=== PATIENT | female | born 1975 | race African-American/Black ===

== ENCOUNTER 2016-11-15 09:42 | Inpatient (IN) | payer MEDICARE, MEDICAID ==
[~2016-11-15] VITALS: Ht 175.3 cm; Wt 124.7 kg
[2016-11-15] MEDS ORDERED: AMOX TR-K CLV1 EAC2 ORAL (10:00)
[2016-11-15] MEDS ORDERED: TORADOL10 MG PO (10:00)
[2016-11-15] MEDS ORDERED: HYDROmorphone 1 MG, DiphenhydrAMINE 25 MG in NS 55 ML IV ONE (10:00)
[2016-11-15] MEDS ORDERED: OXYCODONE-ACET1 EAC3 ORAL (10:00)
[2016-11-15] MEDS ORDERED: HYDROmorphone 1mg/ml Carpuject ONE (10:18)
[2016-11-15] MEDS ORDERED: NS 55 ML IV ONE (10:19)
[2016-11-15] MEDS ORDERED: Tubing IV Secondary IV ONE (10:19)
[2016-11-15] MEDS ORDERED: DiphenhydrAMINE 50mg/ml Inj ONE (10:19)
[2016-11-15] MEDS ORDERED: Tubing IV Cassette IV ONE (10:19)
[2016-11-15 10:30] VITALS: BP 138/69
[2016-11-15 10:43] LABS: MEAN CORPUSCULAR HEMOGLOBIN 26.7 PG (27.0-31.0); MEAN CORPUSCULAR HGB CONC 31.5 G/DL (32.0-36.0); MEAN CORPUSCULAR VOLUME 85 FL (80-99); MEAN PLATELET VOLUME 6.5 FL (6.5-10.1); PLATELET COUNT 271 K/UL (150-450); RED BLOOD COUNT 4.08 M/UL (4.20-5.40); RED CELL DISTRIBUTION WIDTH 13.4 % (11.6-14.8); WHITE BLOOD COUNT 10.5 K/UL (4.8-10.8)
[2016-11-15 10:48] LABS: PROTHROMBIN TIME 10.1 SEC (9.30-11.50)
[2016-11-15 11:28] LABS: BAND NEUTROPHILS % (MANUAL) 0 % (0-8); BASOPHILS % (MANUAL) 0 % (0-2); EOSINOPHILS % (MANUAL) 1 % (0-3); HYPOCHROMASIA 1+; LYMPHOCYTES % (MANUAL) 9 % (20-45); NEUTROPHILS % (MANUAL) 87 % (45-75); PLATELET ESTIMATE ADEQUATE; PLATELET MORPHOLOGY NORMAL; TOTAL CELLS COUNTED 100
[2016-11-15 12:30] VITALS: BP 136/83
[2016-11-15 12:54] LABS: APPEARANCE,URINE CLEAR; KETONES,URINE 4+ (NEGATIVE); LEUKOCYTE ESTERASE ,URINE NEGATIVE (NEGATIVE); NITRITE,URINE NEGATIVE (NEGATIVE); PH,URINE 6.5 (4.5-8.0); PROTEIN,URINE 1+ (NEGATIVE); UROBILINOGEN,URINE NORMAL MG/DL (0.0-1.0)
[2016-11-15] MEDS ORDERED: HYDROmorphone 1mg/ml Carpuject IVP ONE (13:00)
[2016-11-15 13:06] LABS: ALANINE AMINOTRANSFERASE 9 U/L (3-33); ALBUMIN/GLOBULIN RATIO 1.1 (1.0-2.7); ANION GAP 18 (5-15); ASPARTATE AMINO TRANSFERASE 18 U/L (5-40); CARBON DIOXIDE 20 mEQ/L (20-30); CHLORIDE 102 mEQ/L (98-107); CREATININE 0.6 mg/dL (0.5-0.9); GLOMERULAR FILTRATION RATE > 60 mL/min (>60); HEMOLYSIS 1; LIPASE 10 U/L (< 60); POTASSIUM 4.3 mEQ/L (3.4-4.9); SODIUM 140 mEQ/L (135-145); TOTAL PROTEIN 7.2 g/dL (6.6-8.7)
[2016-11-15 13:15] LABS: BACTERIA,URINE OCCASIONAL /HPF; RBC,URINE 0-2 /HPF (0 - 2); SQUAMOUS EPITHELIAL CELL,UR OCCASIONAL /LPF (NONE/OCC); WBC,URINE 0-2 /HPF (0 - 2)
[2016-11-15 14:00] VITALS: BP 110/65
--- NOTE | 2016-11-15 14:00 | Emergency Room Report ---
History of Present Illness General Chief Complaint: Nausea Source: Patient Present Illness HPI Patient's presents emergency department today complaining of acute onset of nausea vomiting and abdominal discomfort. Patient had recent embolectomy of her uterine fibroids. It was performed by Dr. Kraft. Patient states that she has had abdominal pain becoming worse since last night. Denies any fever chest pain shortness of breath. Patient denies any dysuria urinary frequency. This has never happened before. Symptoms noted to be highly severe.No other modifying factors. No other associated signs and symptoms. No other complaints were noted. Allergies: Coded Allergies: TOPIRAMATE (Verified Allergy, Unknown, 11/15/16) Patient History Past Medical History: other - gastritis PSxH Narrative embolization of the uterus fibroids Pertinent Family History: none Social History: Denies: alcohol use, drug use, smoking Last Menstrual Period: 10/18/16 Reviewed Nursing Documentation: PMH: Agreed, PSxH: Agreed Nursing Documentation-PMH Past Medical History: No History, Except For Review of Systems All Other Systems: negative except mentioned in HPI Physical Exam Vital Signs Date Time Temp Pulse Resp B/P Pulse Ox O2 Delivery O2 Flow Rate FiO2 11/15/16 09:52 98.2 60 18 125/84 100 Room Air Sp02 EP Interpretation: reviewed, normal General Appearance: alert, moderate distress Head: atraumatic Eyes: bilateral eye normal inspection ENT: normal ENT inspection, hearing grossly normal, normal voice Neck: normal inspection, full range of motion, supple, no bony tend Respiratory: normal inspection, lungs clear, normal breath sounds, no respiratory distress, no retraction, no wheezing Cardiovascular #1: regular rate, rhythm, no edema Gastrointestinal: tenderness - epigastric and suprapubic Genitourinary: no CVA tenderness Musculoskeletal: normal inspection, back normal, normal range of motion Neurologic: normal inspection, alert, responsive, speech normal Psychiatric: judgement/insight normal, anxious Skin: normal inspection, normal color, no rash Medical Decision Making Diagnostic Impression: Primary Impression: Abdominal pain Qualified Codes: R10.13 - Epigastric pain Additional Impression: Intractable vomiting Qualified Codes: R11.2 - Nausea with vomiting, unspecified ER Course Patient presents to the emergency department today complaining of abdominal pain. Differential considerations include acute pancreatitis, cholecystitis, gastritis, hepatitis, appendicitis just to name a few. Patient's laboratory workup was unimpressive. CT did not show any evidence of bowel perforation. However given severe patient presentation and pain and intractable vomiting patient require admission. Case was discussed with patient's surgeon Dr. Kraft. Patient be admitted to [facility] further treatment Labs Test 11/15/16 10:00 11/15/16 12:00 11/15/16 12:35 White Blood Count 10.5 K/UL (4.8-10.8) Red Blood Count 4.08 M/UL (4.20-5.40) Hemoglobin 10.9 G/DL (12.0-16.0) Hematocrit 34.5 % (37.0-47.0) Mean Corpuscular Volume 85 FL (80-99) Mean Corpuscular Hemoglobin 26.7 PG (27.0-31.0) Mean Corpuscular Hemoglobin Concent 31.5 G/DL (32.0-36.0) Red Cell Distribution Width 13.4 % (11.6-14.8) Platelet Count 271 K/UL (150-450) Mean Platelet Volume 6.5 FL (6.5-10.1) Neutrophils (%) (Auto) % (45.0-75.0) Lymphocytes (%) (Auto) % (20.0-45.0) Monocytes (%) (Auto) % (1.0-10.0) Eosinophils (%) (Auto) % (0.0-3.0) Basophils (%) (Auto) % (0.0-2.0) Differential Total Cells Counted 100 Neutrophils % (Manual) 87 % (45-75) Lymphocytes % (Manual) 9 % (20-45) Monocytes % (Manual) 3 % (1-10) Eosinophils % (Manual) 1 % (0-3) Basophils % (Manual) 0 % (0-2) Band Neutrophils 0 % (0-8) Platelet Estimate Adequate Platelet Morphology Normal Hypochromasia 1+ Prothrombin Time 10.1 SEC (9.30-11.50) Prothromb Time International Ratio 1.0 (0.9-1.1) Activated Partial Thromboplast Time 24 SEC (23-33) Sodium Level 140 mEQ/L (135-145) Potassium Level 4.3 mEQ/L (3.4-4.9) Chloride Level 102 mEQ/L (98-107) Carbon Dioxide Level 20 mEQ/L (20-30) Anion Gap 18 (5-15) Blood Urea Nitrogen 7 mg/dL (7-23) Creatinine 0.6 mg/dL (0.5-0.9) Estimat Glomerular Filtration Rate > 60 mL/min (>60) Glucose Level 120 mg/dL (74-106) Calcium Level 9.0 mg/dL (8.6-10.2) Total Bilirubin 0.3 mg/dL (0.0-1.2) Aspartate Amino Transf (AST/SGOT) 18 U/L (5-40) Alanine Aminotransferase (ALT/SGPT) 9 U/L (3-33) Alkaline Phosphatase 38 U/L (35-104) Total Protein 7.2 g/dL (6.6-8.7) Albumin 3.8 g/dL (3.5-5.2) Globulin 3.4 g/dL Albumin/Globulin Ratio 1.1 (1.0-2.7) Lipase 10 U/L (< 60) Urine Color Pale yellow Urine Appearance Clear Urine pH 6.5 (4.5-8.0) Urine Specific [place] 1.010 (1.005-1.035) Urine Protein 1+ (NEGATIVE) Urine Glucose (UA) Negative (NEGATIVE) Urine Ketones 4+ (NEGATIVE) Urine Occult Blood Negative (NEGATIVE) Urine Nitrite Negative (NEGATIVE) Urine Bilirubin Negative (NEGATIVE) Urine Urobilinogen Normal MG/DL (0.0-1.0) Urine Leukocyte Esterase Negative (NEGATIVE) Urine RBC 0-2 /HPF (0 - 2) Urine WBC 0-2 /HPF (0 - 2) Urine Squamous Epithelial Cells Occasional /LPF Urine Bacteria Occasional /HPF (NONE) Urine HCG, Qualitative Negative Last Vital Signs Date Time Temp Pulse Resp B/P Pulse Ox O2 Delivery O2 Flow Rate FiO2 11/15/16 12:30 54 18 136/83 97 Room Air 11/15/16 10:55 98.3 Status: improved Disposition: ADMITTED INPATIENT Condition: Serious Referrals: Dylan Kraft MD (PCP) JEANNETTE SOLIZ M.D. Nov 15, 2016 14:00
[2016-11-15 16:00] VITALS: BP 106/72
[2016-11-15] MEDS ORDERED: PEPTO-BISMOL262 M1 PO (19:13)
[2016-11-15] MEDS ORDERED: PROMETHAZINE HC25 MG RC (19:48)
[2016-11-15] MEDS: Potassium Chloride 20 MEQ in Dextrose 5%/Lactated Ringer's 1,000 ML IV SCH (19:54)
[2016-11-15 20:00] VITALS: BP 94/62
[2016-11-15] MEDS ORDERED: DiphenhydrAMINE 50mg/ml Inj IVP PRN (23:15)
[2016-11-15] MEDS ORDERED: Zosyn 3.375gm inj ONE (23:47)
[2016-11-16] VITALS (7 sets, daily range): BP systolic 100–127; BP diastolic 59–72
[2016-11-16] MEDS: Piperacillin/Tazobactam 3.375 GM in D5W 110 ML IVPB SCH ×3 (00:26→16:17)
[2016-11-16] MEDS: Potassium Chloride 20 MEQ in Dextrose 5%/Lactated Ringer's 1,000 ML IV SCH ×3 (02:20→18:15)
--- NOTE | 2016-11-16 03:46 | Consultation ---
DATE OF CONSULTATION: 11/15/2016 CONSULTING PHYSICIAN: Isabelle Wolf M.D. CHIEF COMPLAINT: I was asked to see this patient by Dr. Dylan Kraft for evaluation of abdominal pain. HISTORY OF PRESENT ILLNESS: The patient is a 41-year-old woman with fibroid uterus and had uterine artery embolization yesterday. The patient now comes to the emergency room for abdominal pain. The patient states that her pain started last night and it is combined with nausea and vomiting and she was unable to hold any of her pain medications down pain worse. She also . She had a bowel movement later today and she . She had some nausea and vomiting since yesterday. PAST MEDICAL HISTORY: Otherwise negative except for uterine fibroids. MEDICATIONS AT HOME: None. ALLERGIES: Topamax. SOCIAL HISTORY: The patient has a partner. She does not smoke or drink or use any drugs. 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 FAMILY HISTORY: Noncontributory. REVIEW OF SYSTEMS: Otherwise negative. PHYSICAL EXAMINATION: GENERAL: A well-developed and well-nourished woman seen in the emergency room pain. HEENT: Normocephalic and atraumatic. Sclerae anicteric. Oropharynx is clear. NECK: Supple. CHEST: Clear to auscultation. CARDIOVASCULAR: Regular rhythm and rate. ABDOMEN: Soft, but tender to palpation, especially in the lower quadrants. EXTREMITIES: No edema. LABORATORY DATA: Laboratory data were noted. ASSESSMENT AND PLAN: This patient presents with abdominal pain and nausea and vomiting shortly after her uterine artery embolization. It will be reasonable to assume that embolization was somehow caused and subsequent vomiting and pain. The CT scan of the abdomen and pelvis, which was done today, has not had any results with the chart yet. I just asked the nurse to call Radiology to get me the results immediately. In the meantime, the patient should be kept NPO and prophylactic antibiotics can be given until results are available. The patient should be followed very closely by gynecologic surgeon. Recommendations per above discussion and per orders written in the chart. Thank you for asking me to participate in the care of this patient. Isabelle Wolf M.D. DR: Jamal JOB#: [id number] CC:
[2016-11-16 06:52] LABS: BASOPHILS % (AUTO) 0.3 % (0.0-2.0); EOSINOPHILS % (AUTO) 0.6 % (0.0-3.0); LYMPHOCYTES % (AUTO) 12.3 % (20.0-45.0); MEAN CORPUSCULAR HEMOGLOBIN 26.9 PG (27.0-31.0); MEAN CORPUSCULAR HGB CONC 31.9 G/DL (32.0-36.0); MEAN CORPUSCULAR VOLUME 84 FL (80-99); MEAN PLATELET VOLUME 6.9 FL (6.5-10.1); MONOCYTES % (AUTO) 8.3 % (1.0-10.0); NEUTROPHILS % (AUTO) 78.6 % (45.0-75.0); PLATELET COUNT 220 K/UL (150-450); RED BLOOD COUNT 3.61 M/UL (4.20-5.40); RED CELL DISTRIBUTION WIDTH 13.4 % (11.6-14.8)
[2016-11-16 07:08] LABS: ALANINE AMINOTRANSFERASE 9 U/L (3-33); ALBUMIN/GLOBULIN RATIO 1.1 (1.0-2.7); ANION GAP 14 (5-15); ASPARTATE AMINO TRANSFERASE 20 U/L (5-40); CALCIUM 8.7 mg/dL (8.6-10.2); CARBON DIOXIDE 24 mEQ/L (20-30); CHLORIDE 101 mEQ/L (98-107); CREATININE 0.6 mg/dL (0.5-0.9); GLOMERULAR FILTRATION RATE > 60 mL/min (>60); HEMOLYSIS 0; POTASSIUM 3.6 mEQ/L (3.4-4.9); SODIUM 139 mEQ/L (135-145); TOTAL PROTEIN 6.6 g/dL (6.6-8.7)
--- NOTE | 2016-11-16 08:24 | Diagnostic Imaging Report ---
Clinical Indication: Abdominal pain since fibroid embolization yesterday Technique: No oral contrast utilized, per emergency room physician request IV administration nonionic contrast. Venous phase spiral acquisition obtained through the abdomen and pelvis. Multiplanar reconstructions were generated. Total dose length product 1087 mGycm. CTDIvol(s) 19 mGy. Dose reduction achieved using automated exposure control Comparison: None Findings: The uterus is massively enlarged with multiple fibroids. The fibroids are for the most part somewhat dense, presumably reflecting retained contrast from the embolization procedure. Gas is seen within the fibroids, which is not an unexpected finding, presumably related to the necrosis. The myometrium is equivocally slightly low in attenuation. A small amount of free pelvic fluid is present. The distal transverse and descending colon are nondistended. Wall thickening not completely excludable but doubtful. The ascending and proximal transverse colon are normal in caliber with no evidence of wall thickening. The appendix is normal. There is colonic diverticulosis distally. No evidence of diverticulitis. No loculated intraperitoneal fluid collections. Distal esophagus is unremarkable unremarkable. The stomach demonstrates equivocal wall thickening of the gastric antrum, but is most likely artifact of under distention. No small bowel distention. No free intraperitoneal air. Unremarkable duodenum. The liver is unremarkable. The gallbladder is filled with dense material, presumably vicariously excreted contrast from the prior embolization procedure. No biliary ductal dilatation. The pancreas, spleen, adrenals, kidneys are unremarkable. No retroperitoneal or mesenteric mass or adenopathy. The bladder is unremarkable without evidence of wall thickening. There are trace bilateral pleural effusions. The lung bases are clear otherwise. The bones are unremarkable. Impression: Massively enlarged uterus. Dense material, presumably representing retained contrast from the embolization procedure, and gas within the fibroids are not unexpected findings. No definite bowel wall thickening or other findings to suggest nontarget embolization. However, due to lack of distention of the distal colon and lack of enteric contrast, bowel wall thickening cannot be completely ruled out but is doubted Nondistention of the distal stomach call thickening not excludable but doubtful No evidence of small bowel obstruction or other acute abnormality Small amount free pelvic fluid, probably physiologic Dense material within the gallbladder, presumably vicariously excreted contrast from prior embolization procedure The CT scanner at [facility] is accredited by the [employer] and the scans are performed using protocols designed to limit radiation exposure to as low as reasonably achievable to attain images of sufficient resolution adequate for diagnostic evaluation.
[2016-11-16] MEDS ORDERED: Ketorolac 30mg Inj IV ONE ×2 (08:45→14:45)
--- NOTE | 2016-11-16 11:13 | General Surgery Progress Note ---
General Surgery-Progress Note Subjective Day of Surgery: november 14 Reason for Consult uncontrolled nausea post op Procedure Performed uterine artery embolization Symptoms: improved, tolerating diet, passing flatus Objective Last 24 Hour Vital Signs Date Time Temp Pulse Resp B/P Pulse Ox O2 Delivery O2 Flow Rate FiO2 11/16/16 08:26 97.5 63 20 100/59 99 Room Air 11/16/16 04:00 97.9 61 18 101/71 99 Room Air 11/16/16 01:35 98.9 59 18 104/61 98 Room Air 11/16/16 00:00 98.1 61 18 105/69 98 Room Air 11/15/16 20:00 98.3 66 18 94/62 100 Room Air 11/15/16 20:00 98.3 66 18 94/62 100 Room Air 11/15/16 18:34 98.3 57 16 106/72 100 Room Air 11/15/16 16:00 57 16 106/72 100 Room Air 11/15/16 14:00 55 16 110/65 99 Room Air 11/15/16 13:30 98.3 11/15/16 12:30 54 18 136/83 97 Room Air I&O Intake and Output 11/15/16 11/16/16 19:00 07:00 Intake Total 1056.4 ml 1375 ml Balance 1056.4 ml 1375 ml Intake Oral 0 ml IV Total 1056.4 ml 1375 ml # Voids 1 Dressing: dry Wound: clean Drains: none Cardiovascular: RSR Respiratory: clear Abdomen: soft, flat, non-tender, present bowel sounds Extremities: no edema, no tenderness, no cyanosis, pulses Laboratory Tests Test 11/15/16 12:00 11/15/16 12:35 11/16/16 05:15 Sodium Level 140 mEQ/L (135-145) 139 mEQ/L (135-145) Potassium Level 4.3 mEQ/L (3.4-4.9) 3.6 mEQ/L (3.4-4.9) Chloride Level 102 mEQ/L (98-107) 101 mEQ/L (98-107) Carbon Dioxide Level 20 mEQ/L (20-30) 24 mEQ/L (20-30) Anion Gap 18 (5-15) H 14 (5-15) Blood Urea Nitrogen 7 mg/dL (7-23) 5 mg/dL (7-23) L Creatinine 0.6 mg/dL (0.5-0.9) 0.6 mg/dL (0.5-0.9) Estimat Glomerular Filtration Rate > 60 mL/min (>60) > 60 mL/min (>60) Glucose Level 120 mg/dL (74-106) H 101 mg/dL (74-106) Calcium Level 9.0 mg/dL (8.6-10.2) 8.7 mg/dL (8.6-10.2) Total Bilirubin 0.3 mg/dL (0.0-1.2) 0.4 mg/dL (0.0-1.2) Aspartate Amino Transf (AST/SGOT) 18 U/L (5-40) 20 U/L (5-40) Alanine Aminotransferase (ALT/SGPT) 9 U/L (3-33) 9 U/L (3-33) Alkaline Phosphatase 38 U/L (35-104) 49 U/L (35-104) Total Protein 7.2 g/dL (6.6-8.7) 6.6 g/dL (6.6-8.7) Albumin 3.8 g/dL (3.5-5.2) 3.5 g/dL (3.5-5.2) Globulin 3.4 g/dL 3.1 g/dL Albumin/Globulin Ratio 1.1 (1.0-2.7) 1.1 (1.0-2.7) Lipase 10 U/L (< 60) Urine Color Pale yellow Urine Appearance Clear Urine pH 6.5 (4.5-8.0) Urine Specific [place] 1.010 (1.005-1.035) Urine Protein 1+ (NEGATIVE) H Urine Glucose (UA) Negative (NEGATIVE) Urine Ketones 4+ (NEGATIVE) H Urine Occult Blood Negative (NEGATIVE) Urine Nitrite Negative (NEGATIVE) Urine Bilirubin Negative (NEGATIVE) Urine Urobilinogen Normal MG/DL (0.0-1.0) Urine Leukocyte Esterase Negative (NEGATIVE) Urine RBC 0-2 /HPF (0 - 2) Urine WBC 0-2 /HPF (0 - 2) Urine Squamous Epithelial Cells Occasional /LPF Urine Bacteria Occasional /HPF (NONE) Urine HCG, Qualitative Negative White Blood Count 11.0 K/UL (4.8-10.8) H Red Blood Count 3.61 M/UL (4.20-5.40) L Hemoglobin 9.7 G/DL (12.0-16.0) L Hematocrit 30.4 % (37.0-47.0) L Mean Corpuscular Volume 84 FL (80-99) Mean Corpuscular Hemoglobin 26.9 PG (27.0-31.0) L Mean Corpuscular Hemoglobin Concent 31.9 G/DL (32.0-36.0) L Red Cell Distribution Width 13.4 % (11.6-14.8) Platelet Count 220 K/UL (150-450) Mean Platelet Volume 6.9 FL (6.5-10.1) Neutrophils (%) (Auto) 78.6 % (45.0-75.0) H Lymphocytes (%) (Auto) 12.3 % (20.0-45.0) L Monocytes (%) (Auto) 8.3 % (1.0-10.0) Eosinophils (%) (Auto) 0.6 % (0.0-3.0) Basophils (%) (Auto) 0.3 % (0.0-2.0) Additional Comments am labs reviewed, normal, CT abdomen and pelvis performed yesterday, no acute findings Assessment Post-op Diagnosis nausea now controlled, Plan Additional Comments will attempt management with advancing diet, and iv, im toradol. appreciate GI consult. Dylan Kraft MD Nov 16, 2016 11:13
[2016-11-16] MEDS ORDERED: Ketorolac 30mg Inj IM ONE ×2 (11:15→11:45)
[2016-11-16] MEDS: HYDROmorphone 1mg/ml Carpuject IVP PRN (21:00)
--- NOTE | 2016-11-16 22:02 | General Progress Note ---
Assessment/Plan Assessment/Plan Assessment - s/p UAE - resolved abd pain - resolved N/V Recommendations - po as tolerated - OOB - pain control - d/c planning for am Subjective Allergies: Coded Allergies: TOPIRAMATE (Verified Allergy, Unknown, 11/15/16) Subjective Feels better much less pain no vomiting tolerating po Objective Last 24 Hour Vital Signs Date Time Temp Pulse Resp B/P Pulse Ox O2 Delivery O2 Flow Rate FiO2 11/16/16 20:26 97.7 68 19 119/72 100 Room Air 11/16/16 16:48 97.6 11/16/16 15:54 97.6 81 20 127/69 97 Room Air 11/16/16 12:57 97.9 69 20 107/63 97 Room Air 11/16/16 08:26 97.5 63 20 100/59 99 Room Air 11/16/16 04:00 97.9 61 18 101/71 99 Room Air 11/16/16 01:35 98.9 59 18 104/61 98 Room Air 11/16/16 00:00 98.1 61 18 105/69 98 Room Air Intake and Output 11/15/16 11/16/16 19:00 07:00 Intake Total 1056.4 ml 1375 ml Balance 1056.4 ml 1375 ml Intake Oral 0 ml IV Total 1056.4 ml 1375 ml # Voids 1 Laboratory Tests 11/16/16 05:15: White Blood Count 11.0H, Red Blood Count 3.61L, Hemoglobin 9.7L, Hematocrit 30.4L, Mean Corpuscular Volume 84, Mean Corpuscular Hemoglobin 26.9L, Mean Corpuscular Hemoglobin Concent 31.9L, Red Cell Distribution Width 13.4, Platelet Count 220, Mean Platelet Volume 6.9, Neutrophils (%) (Auto) 78.6H, Lymphocytes (%) (Auto) 12.3L, Monocytes (%) (Auto) 8.3, Eosinophils (%) (Auto) 0.6, Basophils (%) (Auto) 0.3, Sodium Level 139, Potassium Level 3.6, Chloride Level 101, Carbon Dioxide Level 24, Anion Gap 14, Blood Urea Nitrogen 5L, Creatinine 0.6, Estimat Glomerular Filtration Rate > 60, Glucose Level 101, Calcium Level 8.7, Total Bilirubin 0.4, Aspartate Amino Transf (AST/SGOT) 20, Alanine Aminotransferase (ALT/SGPT) 9, Alkaline Phosphatase 49, Total Protein 6.6, Albumin 3.5, Globulin 3.1, Albumin/Globulin Ratio 1.1 Height (Feet): 5 Height (Inches): 9.00 Weight (Pounds): 275 Objective WDWN NCAT supple CTA RRR Soft ND NT no edema non focal MARYJO RODRIGUEZ Nov 16, 2016 22:02
[2016-11-17] VITALS: BP 108/68
[2016-11-17] MEDS: Potassium Chloride 20 MEQ in Dextrose 5%/Lactated Ringer's 1,000 ML IV SCH ×2 (02:49→09:11)
[2016-11-17] MEDS: HYDROmorphone 1mg/ml Carpuject IVP PRN ×2 (02:57→09:07)
[2016-11-17 04:00] VITALS: BP 110/70
[2016-11-17] MEDS ORDERED: Ketorolac 60mg Inj IM ONE (06:00)
[2016-11-17] MEDS: Piperacillin/Tazobactam 3.375 GM in D5W 110 ML IVPB SCH ×3 (09:02)
[2016-11-17] MEDS ORDERED: Oxycodone/Acetaminophen 5-325 ORAL PRN (09:30)
[2016-11-17 09:35] VITALS: BP 112/66
[2016-11-17] MEDS ORDERED: Tubing IV Secondary IV ONE (11:39)
[2016-11-17] MEDS ORDERED: NS 550ML IV ONE (11:39)
--- NOTE | 2016-11-17 11:59 | General Surgery Progress Note ---
General Surgery-Progress Note Subjective Procedure Performed uterine artery embolization Symptoms: improved, tolerating diet, voiding well, passing flatus, BM Objective Last 24 Hour Vital Signs Date Time Temp Pulse Resp B/P Pulse Ox O2 Delivery O2 Flow Rate FiO2 11/17/16 09:35 97.5 56 20 112/66 100 Nasal Cannula 11/17/16 04:00 97.9 75 19 110/70 99 Room Air 11/17/16 00:00 98.1 77 18 108/68 100 Room Air 11/16/16 21:30 98.1 11/16/16 20:26 97.7 68 19 119/72 100 Room Air 11/16/16 16:48 97.6 11/16/16 15:54 97.6 81 20 127/69 97 Room Air 11/16/16 12:57 97.9 69 20 107/63 97 Room Air I&O Intake and Output 11/16/16 11/17/16 19:00 07:00 Intake Total 1440 ml 1365 ml Output Total 400 ml Balance 1040 ml 1365 ml Intake Oral 1440 ml 240 ml IV Total 1125 ml Output Urine Total 400 ml # Voids 3 1 Dressing: dry Wound: clean Drains: none Cardiovascular: RSR Respiratory: clear Abdomen: soft, flat, scaphoid, non-tender, present bowel sounds Extremities: no edema, no tenderness, no cyanosis, pulses Assessment Post-op Diagnosis nausea now controlled, Plan Additional Comments pain controlled with oral medication, + BM, ok to discharge. Dylan Kraft MD Nov 17, 2016 11:58
[2016-11-17] MEDS ORDERED: TORADOL60 MG/2 ML IM (12:10)
[2016-11-17] MEDS ORDERED: TORADOL60 MG/2 ML PO (12:13)
[2016-11-17] MEDS ORDERED: TRAMADOL HCL50 MG ORAL (12:14)
--- NOTE | 2016-11-17 20:41 | General Progress Note ---
Assessment/Plan Assessment/Plan Assessment - s/p UAE - resolved abd pain - resolved N/V Recommendations - po as tolerated - OOB - pain control - d/c planning Subjective Allergies: Coded Allergies: TOPIRAMATE (Verified Allergy, Unknown, 11/15/16) Subjective Feels better much less pain no vomiting tolerating po Objective Last 24 Hour Vital Signs Date Time Temp Pulse Resp B/P Pulse Ox O2 Delivery O2 Flow Rate FiO2 11/17/16 09:35 97.5 56 20 112/66 100 Nasal Cannula 11/17/16 04:00 97.9 75 19 110/70 99 Room Air 11/17/16 00:00 98.1 77 18 108/68 100 Room Air 11/16/16 21:30 98.1 Intake and Output 11/16/16 11/17/16 19:00 07:00 Intake Total 1440 ml 1365 ml Output Total 400 ml Balance 1040 ml 1365 ml Intake Oral 1440 ml 240 ml IV Total 1125 ml Output Urine Total 400 ml # Voids 3 1 Height (Feet): 5 Height (Inches): 9.00 Weight (Pounds): 275 Objective WDWN NCAT supple CTA RRR Soft mild TTP - improved no edema non focal MARYJO RODRIGUEZ Nov 17, 2016 20:41
--- NOTE | 2016-11-19 07:53 | Discharge Summary ---
Discharge Summary Hospital Course Date of Admission Nov 15, 2016 at 11:09 Date of Discharge Nov 17, 2016 at 12:37 Admitting Diagnosis ABDOMINAL PAIN Reason for Hospitalization: abdominalpain, intractable nausea and vomiting TERRA Chris is a 41 year old female who was admitted on Nov 15, 2016 at 11:09 for abdominal pain, intractable nausea and vomiting Patient had recent uterine artery embolization done 11/14 after procedure was tolerating diet, passing gas, present bowel sounds, pain controlled and was discharged at that time came to ER c/o abdominal pain, intractable nausea and vomiting admitted for evaluation Consultations dr Wolf - GI specialist Hospital Course s/p recent uterine artery embolization admitted for abdominal pain, intractable n/v GI consult seen and evaluated initially NPO IVF CT abdomen and pelvis done, no acute findings pain management a/emetic prn slowly started on po diet, monitored tolerance and advanced as tolerated pain controlled n/v/ resolved able to tolerate diet GI cleared for discharge FINAL DIAGNOSIS abdominal pain hx of recent uterine artery embolization 11/14 intractable nausea and vomiting Discharge Medications Continued Medications: Ketorolac Tromethamine (Toradol) 60 Mg/2 Ml Vial 10 MG PO TID, #15 VIAL Oxycodone Hcl/Acetaminophen 5-325* (Oxycodone-Acetaminophen 5-325*) 1 Each Tablet 1 TAB ORAL Q4H PRN for For Pain, TAB 0 Refills Promethazine Hcl (Promethazine Hcl) 25 Mg Supp.rect 25 MG RC, #6 Tramadol Hcl* (Ultram*) 50 Mg Tablet 50 MG ORAL EVERY 4 HOURS PRN for For Pain, #20 TAB 0 Refills Discharge Condition Upon Discharge: stable Discharge Disposition Patient was discharged to Home () Discharge Diagnoses: Discharge Instructions Discharge Instructions Special Instructions I have been assigned to complete a D/C Summary on this account. I was not involved in the patient management Monika Sheffield NP ([place]) Nov 19, 2016 07:53
== END 2016-11-17 12:37 | disposition home or self-care (01) | DRG 948 ==
LOC: EDBD 09:42 → EMR 10:08 → CANBEDREQ 10:54 → 3E 11:09 → EDBEDREQ 17:32
DX: G89.18 Other acute postprocedural pain (principal); R11.2 Nausea with vomiting, unspecified; R10.9 Unspecified abdominal pain; Z98.890 Other specified postprocedural states
CPT/HCPCS: 36415; 74177; 80053; 81003; 81025; 83690; 85007; 85025; 85610; 85730; J2405

== ENCOUNTER 2016-11-20 09:47 | Inpatient (IN) | payer MEDICARE, MEDICAID ==
[~2016-11-20] VITALS: Ht 175.3 cm; Wt 107.5 kg
[~2016-11-20 09:47] MED LIST: AMOX TR-K CLV1 EAC2 ORAL; OXYCODONE-ACET1 EAC3 ORAL; PEPTO-BISMOL262 M1 PO; PROMETHAZINE HC25 MG RC; TORADOL10 MG PO; TORADOL60 MG/2 ML IM; TORADOL60 MG/2 ML PO; TRAMADOL HCL50 MG ORAL
[2016-11-20] MEDS ORDERED: Morphine Sulfate 4mg/ml Inj IVP ONE (10:30)
[2016-11-20 10:44] VITALS: BP 118/61
[2016-11-20 10:48] LABS: BASOPHILS % (AUTO) 0.9 % (0.0-2.0); EOSINOPHILS % (AUTO) 2.5 % (0.0-3.0); LYMPHOCYTES % (AUTO) 12.6 % (20.0-45.0); MEAN CORPUSCULAR HEMOGLOBIN 26.7 PG (27.0-31.0); MEAN CORPUSCULAR HGB CONC 32.1 G/DL (32.0-36.0); MEAN CORPUSCULAR VOLUME 83 FL (80-99); MEAN PLATELET VOLUME 6.6 FL (6.5-10.1); MONOCYTES % (AUTO) 6.4 % (1.0-10.0); NEUTROPHILS % (AUTO) 77.7 % (45.0-75.0); PLATELET COUNT 355 K/UL (150-450); RED CELL DISTRIBUTION WIDTH 13.3 % (11.6-14.8); WHITE BLOOD COUNT 10.6 K/UL (4.8-10.8)
[2016-11-20 11:10] LABS: ALANINE AMINOTRANSFERASE 13 U/L (3-33); ALBUMIN/GLOBULIN RATIO 0.8 (1.0-2.7); ANION GAP 16 (5-15); ASPARTATE AMINO TRANSFERASE 16 U/L (5-40); CALCIUM 9.3 mg/dL (8.6-10.2); CARBON DIOXIDE 23 mEQ/L (20-30); CHLORIDE 100 mEQ/L (98-107); CREATININE 0.6 mg/dL (0.5-0.9); GLOMERULAR FILTRATION RATE > 60 mL/min (>60); HEMOLYSIS 5; LIPASE 23 U/L (< 60); POTASSIUM 3.9 mEQ/L (3.4-4.9); SODIUM 139 mEQ/L (135-145); TOTAL PROTEIN 7.7 g/dL (6.6-8.7)
[2016-11-20 11:32] LABS: KETONES,URINE NEGATIVE (NEGATIVE); LEUKOCYTE ESTERASE ,URINE 1+ (NEGATIVE); NITRITE,URINE NEGATIVE (NEGATIVE); PH,URINE 7 (4.5-8.0); PROTEIN,URINE 1+ (NEGATIVE); UROBILINOGEN,URINE NORMAL MG/DL (0.0-1.0)
[2016-11-20 11:45] LABS: APPEARANCE,URINE SLIGHTLY CLOUDY; BACTERIA,URINE FEW /HPF; RBC,URINE 40-60 /HPF (0 - 2); SQUAMOUS EPITHELIAL CELL,UR FEW /LPF (NONE/OCC)
[2016-11-20 11:55] LABS: TROPONIN I < 0.30 ng/mL (<=0.30)
--- NOTE | 2016-11-20 12:22 | Diagnostic Imaging Report ---
Indication: Abdominal distention, left lower quadrant pain Technique: CT the abdomen pelvis performed with intravenous contrast material only from the diaphragms through the symphysis pubis. Axial, coronal, and sagittal images were generated. Dose: Total Dose Length Product - DLP [address] Dose Index - CTDIvol(s) 19.51 mGy. Comparison: 11/15/16 Findings: The liver, gallbladder, spleen, pancreas, adrenal glands, and kidneys are unchanged from the previous exam. Again noted is a massively enlarged uterus with air and areas of retained contrast material consistent with recent uterine fibroid embolization. The contrast is less dense than on the previous exam. A small amount of fluid is again seen in the pelvis. There is also a small amount of fluid lateral to the rectum. This too was seen previously. There is some stranding in the omentum adjacent to the enlarged uterus in the right upper quadrant. In addition, some fluid is noted anterior to the uterus which was not present previously. The bowel is unchanged. The remainder the study is unchanged. Impression: Findings consistent with recent uterine fibroid embolization. The retained contrast within the uterus is less dense on previous study. There is slightly more fluid now present in the pelvis as well as new fluid adjacent to the uterus. In addition, there is stranding in omentum adjacent to the uterus. These likely represent reactive changes to the fibroid embolization. No evidence of free intraperitoneal air or significant bowel wall thickening. No other change. The CT scanner at [facility] is accredited by the [employer] and the scans are performed using protocols designed to limit radiation exposure to as low as reasonably achievable to attain images of sufficient resolution adequate for diagnostic evaluation.
[2016-11-20] MEDS ORDERED: HYDROmorphone 1mg/ml Carpuject IVP ONE (13:00)
[2016-11-20] MEDS ORDERED: HYDROmorphone 1mg/ml Carpuject SUBQ PRN (13:15)
[2016-11-20] MEDS ORDERED: Miralax 17gm pkt ORAL PRN (13:15)
[2016-11-20 13:21] VITALS: BP 12/84
--- NOTE | 2016-11-20 14:05 | Emergency Room Report ---
History of Present Illness General Chief Complaint: Abdominal Pain Source: Medical Record Present Illness HPI 41-year-old female presents ED complaining of abdominal pain. X1 day. Pain is sharp, left-sided, 10 out of 10, nonradiating. Denies nausea or vomiting. Denies chest pain or shortness of breath. Denies fevers or chills. Patient had artery embolization performed here last week. Pain started yesterday and she informed her surgeon Dr. Kraft. No other aggravating or relieving factors. Denies any other associated symptoms Allergies: Coded Allergies: TOPIRAMATE (Verified Allergy, Unknown, 11/15/16) Patient History Past Medical History: none Past Surgical History: other - Urine artery embolization Pertinent Family History: none Social History: Denies: alcohol use, drug use, smoking Last Menstrual Period: 11/19/16 Now: No Immunizations: UTD Reviewed Nursing Documentation: PMH: Agreed, PSxH: Agreed Nursing Documentation-PMH Past Medical History: No History, Except For Hx Cardiac Problems: No Hx Cancer: No Hx Neurological Problems: No Review of Systems All Other Systems: negative except mentioned in HPI Physical Exam Vital Signs Date Time Temp Pulse Resp B/P Pulse Ox O2 Delivery O2 Flow Rate FiO2 11/20/16 09:55 98.2 74 18 150/82 99 Room Air Sp02 EP Interpretation: reviewed, normal General Appearance: alert, GCS 15, non-toxic, mild distress, obese Head: normocephalic, atraumatic Eyes: bilateral eye PERRL, bilateral eye normal inspection ENT: hearing grossly normal, normal pharynx, no angioedema, normal voice Neck: full range of motion, supple/symm/no masses Respiratory: chest non-tender, lungs clear, normal breath sounds, speaking full sentences Cardiovascular #1: regular rate, rhythm, no edema Cardiovascular #2: 2+ carotid (R), 2+ carotid (L), 2+ radial (R), 2+ radial (L) , 2+ dorsalis pedis (R), 2+ dorsalis pedis (L) Gastrointestinal: normal bowel sounds, soft, non-distended, no guarding, no rebound, tenderness Rectal: deferred Genitourinary: normal inspection, no CVA tenderness Musculoskeletal: back normal, gait/station normal, normal range of motion, non- tender Neurologic: alert, oriented x3, responsive, motor strength/tone normal, sensory intact, speech normal Psychiatric: judgement/insight normal, memory normal, mood/affect normal, no suicidal/homicidal ideation Reflexes: 3+ bicep (R), 3+ bicep (L), 3+ tricep (R), 3+ tricep (L), 3+ knee (R) , 3+ knee (L) Skin: normal color, no rash, warm/dry, well hydrated Lymphatic: no adenopathy Medical Decision Making Diagnostic Impression: Primary Impression: Post-op pain Additional Impression: Status post embolization of uterine artery ER Course Hospital Course 41-year-old female presents to ED complaining of left lower abdominal pain. Status post uterine artery embolization. History of diverticulitis Differential diagnoses include: Small bowel obstruction, postoperative abscess, diverticulitis Clinical course Patient placed on stretcher. equipment monitor phototypesetting. After initial history and physical I ordered labs, IV fluids, UA, pain medication and CT scan Labs - no leukocytosis, Hb/Hct stable, electrolytes ok CT abdomen and pelvis - no evidence of diverticulitis. Postoperative changes associated with uterine artery embolization Case discussed with Dr. Kraft and he agreed to accept the patient to his service for further care and support I feel this is a highly complex case requiring extensive working including EKG/ Rhythm strip, Xray/CT/US, Blood/urine lab work, repeat exams while in ED, and administration of strong opiates/narcotics for pain control, admission to hospital or close patient follow up. Diagnosis - postoperative pain, status post uterine artery embolization Patient admitted to floor in serious condition Labs Test 11/20/16 10:13 11/20/16 11:08 White Blood Count 10.6 K/UL (4.8-10.8) Red Blood Count 4.10 M/UL (4.20-5.40) Hemoglobin 11.0 G/DL (12.0-16.0) Hematocrit 34.2 % (37.0-47.0) Mean Corpuscular Volume 83 FL (80-99) Mean Corpuscular Hemoglobin 26.7 PG (27.0-31.0) Mean Corpuscular Hemoglobin Concent 32.1 G/DL (32.0-36.0) Red Cell Distribution Width 13.3 % (11.6-14.8) Platelet Count 355 K/UL (150-450) Mean Platelet Volume 6.6 FL (6.5-10.1) Neutrophils (%) (Auto) 77.7 % (45.0-75.0) Lymphocytes (%) (Auto) 12.6 % (20.0-45.0) Monocytes (%) (Auto) 6.4 % (1.0-10.0) Eosinophils (%) (Auto) 2.5 % (0.0-3.0) Basophils (%) (Auto) 0.9 % (0.0-2.0) Sodium Level 139 mEQ/L (135-145) Potassium Level 3.9 mEQ/L (3.4-4.9) Chloride Level 100 mEQ/L (98-107) Carbon Dioxide Level 23 mEQ/L (20-30) Anion Gap 16 (5-15) Blood Urea Nitrogen 8 mg/dL (7-23) Creatinine 0.6 mg/dL (0.5-0.9) Estimat Glomerular Filtration Rate > 60 mL/min (>60) Glucose Level 95 mg/dL (74-106) Calcium Level 9.3 mg/dL (8.6-10.2) Total Bilirubin 0.2 mg/dL (0.0-1.2) Aspartate Amino Transf (AST/SGOT) 16 U/L (5-40) Alanine Aminotransferase (ALT/SGPT) 13 U/L (3-33) Alkaline Phosphatase 45 U/L (35-104) Troponin I < 0.30 ng/mL (<=0.30) Total Protein 7.7 g/dL (6.6-8.7) Albumin 3.6 g/dL (3.5-5.2) Globulin 4.1 g/dL Albumin/Globulin Ratio 0.8 (1.0-2.7) Lipase 23 U/L (< 60) Urine Color Pale yellow Urine Appearance Slightly cloudy Urine pH 7 (4.5-8.0) Urine Specific [place] 1.010 (1.005-1.035) Urine Protein 1+ (NEGATIVE) Urine Glucose (UA) Negative (NEGATIVE) Urine Ketones Negative (NEGATIVE) Urine Occult Blood 5+ (NEGATIVE) Urine Nitrite Negative (NEGATIVE) Urine Bilirubin Negative (NEGATIVE) Urine Urobilinogen Normal MG/DL (0.0-1.0) Urine Leukocyte Esterase 1+ (NEGATIVE) Urine RBC 40-60 /HPF (0 - 2) Urine WBC 2-4 /HPF (0 - 2) Urine Squamous Epithelial Cells Few /LPF (NONE/OCC) Urine Bacteria Few /HPF (NONE) CT/MRI/US Diagnostic Results CT/MRI/US Diagnostic Results : Imaging Test Ordered: CT abdomen/pelvis Impression Evidence of recent uterine artery embolization. No other acute process Last Vital Signs Date Time Temp Pulse Resp B/P Pulse Ox O2 Delivery O2 Flow Rate FiO2 11/20/16 13:23 98.2 65 14 12/84 100 Room Air Status: improved Disposition: ADMITTED INPATIENT Condition: Serious Referrals: Dylan Kraft MD (PCP) MAIKOL JIANG M.D. Nov 20, 2016 14:05
[2016-11-20 15:27] VITALS: BP 122/70
--- NOTE | 2016-11-20 18:15 | Consultation ---
DATE OF CONSULTATION: 11/20/2016 INTERNAL MEDICINE CONSULTATION REFERRING PHYSICIAN: Dylan Kraft M.D. CHIEF COMPLAINT: Abdominal pain. HISTORY OF PRESENT ILLNESS: The patient is a 41-year-old woman who had uterine artery embolization for large fibroids last week. She was hospitalized for pain, nausea, and vomiting. On 11/15/2016 at this institution, she stayed for about days and was improved, she went home, but the pain recurred and was quite severe, she called Dr. Kraft, who recommended that she be rehospitalized. She came into the emergency room today. Laboratory studies were unremarkable except for some microhematuria. A CT scan showed no significant findings other than the expected changes following the uterine artery procedure. PAST MEDICAL HISTORY: She had diverticulitis several years ago and has a hiatal hernia. She had aseptic meningitis in the past. ALLERGIES: Topamax. MEDICATIONS: She is taking Augmentin, Pepto-Bismol, Toradol, Percocet, tramadol, and promethazine at home. Fresh said about only taking pain medication. SOCIAL HISTORY: She does not drink. She uses medical marijuana. She does not smoke cigarettes or use drugs. REVIEW OF SYSTEMS: Otherwise unremarkable. PHYSICAL EXAMINATION: GENERAL: The patient is alert and responds appropriately. VITAL SIGNS: Vital signs are normal. There is no fever. SKIN: Warm and dry with tattoos noted. HEENT: Head is normocephalic. NECK: No jugular venous distention. No lymphadenopathy. CHEST: Clear. CARDIAC: Rhythm is regular. Abdomen is soft. Large uterine fibroid is palpable, which is quite tender. EXTREMITIES: Have no clubbing, cyanosis, or edema. LABORATORY STUDIES: Showed a white blood count is 10,600 and hemoglobin 11. Platelets are normal. Chemistry is normal. Urinalysis shows 40 to 60 red cells, but very few white cells. IMPRESSION: 1. Abdominal and pelvic pain following uterine artery embolization for fibroid uterus. 2. Microhematuria. PLAN: The patient will be treated with intravenous fluids and pain medication. Antibiotics are not indicated at this time. I will be happy to follow her with you in the hospital. Thank you for asking me to see her in consultation. Yoan Yip M.D. DR: KEIRY JOB#: [id number] CC:
[2016-11-20 20:00] VITALS: BP 114/77
[2016-11-20] MEDS ORDERED: Potassium Chloride 20 MEQ in Dextrose 5%/Lactated Ringer's 1,000 ML IV SCH (21:00)
[2016-11-21] VITALS: BP 132/81
[2016-11-21 04:00] VITALS: BP 126/70
[2016-11-21 07:36] LABS: BASOPHILS % (AUTO) 0.5 % (0.0-2.0); EOSINOPHILS % (AUTO) 2.2 % (0.0-3.0); LYMPHOCYTES % (AUTO) 13.5 % (20.0-45.0); MEAN CORPUSCULAR HEMOGLOBIN 27.4 PG (27.0-31.0); MEAN CORPUSCULAR HGB CONC 32.6 G/DL (32.0-36.0); MEAN CORPUSCULAR VOLUME 84 FL (80-99); MEAN PLATELET VOLUME 6.4 FL (6.5-10.1); NEUTROPHILS % (AUTO) 77.8 % (45.0-75.0); PLATELET COUNT 313 K/UL (150-450); RED BLOOD COUNT 3.58 M/UL (4.20-5.40); RED CELL DISTRIBUTION WIDTH 13.4 % (11.6-14.8); WHITE BLOOD COUNT 9.5 K/UL (4.8-10.8)
[2016-11-21 07:48] LABS: ALANINE AMINOTRANSFERASE 10 U/L (3-33); ALBUMIN/GLOBULIN RATIO 1.1 (1.0-2.7); AMYLASE 31 U/L (10-110); ANION GAP 12 (5-15); ASPARTATE AMINO TRANSFERASE 11 U/L (5-40); CALCIUM 8.7 mg/dL (8.6-10.2); CARBON DIOXIDE 24 mEQ/L (20-30); CHLORIDE 103 mEQ/L (98-107); CREATININE 0.5 mg/dL (0.5-0.9); GLOMERULAR FILTRATION RATE > 60 mL/min (>60); HEMOLYSIS 0; LIPASE 12 U/L (< 60); POTASSIUM 3.5 mEQ/L (3.4-4.9); SODIUM 139 mEQ/L (135-145); TOTAL PROTEIN 6.3 g/dL (6.6-8.7)
[2016-11-21 08:00] VITALS: BP 126/76
--- NOTE | 2016-11-21 08:51 | General Progress Note ---
Assessment/Plan Assessment/Plan 1. Abdominal and pelvic pain following uterine artery embolization for fibroid uterus. 2. Microhematuria. cont clears pain mgmt Subjective Constitutional: Reports: malaise, Denies: fever Gastrointestinal/Abdominal: Reports: abdominal pain Allergies: Coded Allergies: TOPIRAMATE (Verified Allergy, Unknown, 11/15/16) Objective Last 24 Hour Vital Signs Date Time Temp Pulse Resp B/P Pulse Ox O2 Delivery O2 Flow Rate FiO2 11/21/16 04:00 97.9 68 20 126/70 98 Room Air 11/21/16 00:00 97.7 66 18 132/81 99 Room Air 11/20/16 20:00 97.3 65 18 114/77 99 Room Air 11/20/16 15:27 97.7 68 20 122/70 99 Room Air 11/20/16 13:23 98.2 65 14 1284 100 Room Air 11/20/16 13:21 98.2 65 14 84 100 Room Air 11/20/16 13:04 98.2 11/20/16 13:04 98.2 11/20/16 10:44 98.2 69 11 118/61 99 Room Air 11/20/16 09:55 98.2 74 18 150/82 99 Room Air Intake and Output 11/20/16 11/21/16 19:00 07:00 Intake Total 920 ml 120 ml Balance 920 ml 120 ml Intake Oral 520 ml 120 ml IV Total 400 ml # Voids 2 2 Laboratory Tests 11/20/16 10:13: White Blood Count 10.6, Red Blood Count 4.10L, Hemoglobin 11.0L, Hematocrit 34.2L, Mean Corpuscular Volume 83, Mean Corpuscular Hemoglobin 26.7L, Mean Corpuscular Hemoglobin Concent 32.1, Red Cell Distribution Width 13.3, Platelet Count 355, Mean Platelet Volume 6.6, Neutrophils (%) (Auto) 77.7H, Lymphocytes ( %) (Auto) 12.6L, Monocytes (%) (Auto) 6.4, Eosinophils (%) (Auto) 2.5, Basophils (%) (Auto) 0.9, Sodium Level 139, Potassium Level 3.9, Chloride Level 100, Carbon Dioxide Level 23, Anion Gap 16H, Blood Urea Nitrogen 8, Creatinine 0.6, Estimat Glomerular Filtration Rate > 60, Glucose Level 95, Calcium Level 9.3, Total Bilirubin 0.2, Aspartate Amino Transf (AST/SGOT) 16, Alanine Aminotransferase (ALT/SGPT) 13, Alkaline Phosphatase 45, Troponin I < 0.30, Total Protein 7.7, Albumin 3.6, Globulin 4.1, Albumin/Globulin Ratio 0.8L, Lipase 23 11/20/16 11:08: Urine Color Pale yellow, Urine Appearance Slightly cloudy, Urine pH 7, Urine Specific [place] 1.010, Urine Protein 1+H, Urine Glucose (UA) Negative, Urine Ketones Negative, Urine Occult Blood 5+H, Urine Nitrite Negative, Urine Bilirubin Negative, Urine Urobilinogen Normal, Urine Leukocyte Esterase 1+H, Urine RBC 40-60H, Urine WBC 2-4, Urine Squamous Epithelial Cells Few, Urine Bacteria Few 11/21/16 05:15: White Blood Count 9.5, Red Blood Count 3.58L, Hemoglobin 9.8L, Hematocrit 30.2L , Mean Corpuscular Volume 84, Mean Corpuscular Hemoglobin 27.4, Mean Corpuscular Hemoglobin Concent 32.6, Red Cell Distribution Width 13.4, Platelet Count 313, Mean Platelet Volume 6.4L, Neutrophils (%) (Auto) 77.8H, Lymphocytes (%) (Auto) 13.5L, Monocytes (%) (Auto) 6.0, Eosinophils (%) (Auto) 2.2, Basophils (%) (Auto) 0.5, Sodium Level 139, Potassium Level 3.5, Chloride Level 103, Carbon Dioxide Level 24, Anion Gap 12, Blood Urea Nitrogen 4L, Creatinine 0.5, Estimat Glomerular Filtration Rate > 60, Glucose Level 109H, Calcium Level 8.7, Total Bilirubin 0.2, Aspartate Amino Transf (AST/SGOT) 11, Alanine Aminotransferase (ALT/SGPT) 10, Alkaline Phosphatase 56, Total Protein 6.3L, Albumin 3.4L, Globulin 2.9, Albumin/Globulin Ratio 1.1, Lipase 12, Amylase Level 31 Height (Feet): 5 Height (Inches): 9.00 Weight (Pounds): 237 General Appearance: no apparent distress Cardiovascular: normal rate Abdomen: soft, no organomegaly, no mass, tender - L mid abd Extremities: no calf tenderness Edema: no edema noted KARSTEN Gomez Nov 21, 2016 08:51
--- NOTE | 2016-11-21 11:19 | General Surgery Progress Note ---
General Surgery-Progress Note Subjective Day of Surgery: november 14 Reason for Consult recurrent post op pain Symptoms: pain same, tolerating diet, voiding well, passing flatus, BM Objective Last 24 Hour Vital Signs Date Time Temp Pulse Resp B/P Pulse Ox O2 Delivery O2 Flow Rate FiO2 11/21/16 08:00 97.9 68 18 126/76 98 Room Air 11/21/16 04:00 97.9 68 20 126/70 98 Room Air 11/21/16 00:00 97.7 66 18 132/81 99 Room Air 11/20/16 20:00 97.3 65 18 114/77 99 Room Air 11/20/16 15:27 97.7 68 20 122/70 99 Room Air 11/20/16 13:23 98.2 65 14 100 Room Air 11/20/16 13:21 98.2 65 14 100 Room Air 11/20/16 13:04 98.2 11/20/16 13:04 98.2 I&O Intake and Output 11/20/16 11/21/16 19:00 07:00 Intake Total 920 ml 120 ml Balance 920 ml 120 ml Intake Oral 520 ml 120 ml IV Total 400 ml # Voids 2 2 Dressing: dry Wound: clean Drains: none Cardiovascular: RSR Respiratory: clear Abdomen: soft, flat, tenderness, present bowel sounds Laboratory Tests Test 11/21/16 05:15 White Blood Count 9.5 K/UL (4.8-10.8) Red Blood Count 3.58 M/UL (4.20-5.40) L Hemoglobin 9.8 G/DL (12.0-16.0) L Hematocrit 30.2 % (37.0-47.0) L Mean Corpuscular Volume 84 FL (80-99) Mean Corpuscular Hemoglobin 27.4 PG (27.0-31.0) Mean Corpuscular Hemoglobin Concent 32.6 G/DL (32.0-36.0) Red Cell Distribution Width 13.4 % (11.6-14.8) Platelet Count 313 K/UL (150-450) Mean Platelet Volume 6.4 FL (6.5-10.1) L Neutrophils (%) (Auto) 77.8 % (45.0-75.0) H Lymphocytes (%) (Auto) 13.5 % (20.0-45.0) L Monocytes (%) (Auto) 6.0 % (1.0-10.0) Eosinophils (%) (Auto) 2.2 % (0.0-3.0) Basophils (%) (Auto) 0.5 % (0.0-2.0) Sodium Level 139 mEQ/L (135-145) Potassium Level 3.5 mEQ/L (3.4-4.9) Chloride Level 103 mEQ/L (98-107) Carbon Dioxide Level 24 mEQ/L (20-30) Anion Gap 12 (5-15) Blood Urea Nitrogen 4 mg/dL (7-23) L Creatinine 0.5 mg/dL (0.5-0.9) Estimat Glomerular Filtration Rate > 60 mL/min (>60) Glucose Level 109 mg/dL (74-106) H Calcium Level 8.7 mg/dL (8.6-10.2) Total Bilirubin 0.2 mg/dL (0.0-1.2) Aspartate Amino Transf (AST/SGOT) 11 U/L (5-40) Alanine Aminotransferase (ALT/SGPT) 10 U/L (3-33) Alkaline Phosphatase 56 U/L (35-104) Total Protein 6.3 g/dL (6.6-8.7) L Albumin 3.4 g/dL (3.5-5.2) L Globulin 2.9 g/dL Albumin/Globulin Ratio 1.1 (1.0-2.7) Amylase Level 31 U/L (10-110) Lipase 12 U/L (< 60) Imaging CT abdomen, pelvis reviewed w radiologist. no acute changes Additional Comments history of diverticulosis Assessment Post-op Diagnosis pelvic pain, continues, will discuss abdominal myomectomy if no resolution in 48 hours, re admission for this patient Plan Additional Comments GI consult obtained. Dylan Kraft MD Nov 21, 2016 11:19
[2016-11-21 12:00] VITALS: BP 123/80
[2016-11-21 16:00] VITALS: BP 125/85
--- NOTE | 2016-11-21 16:20 | GI Initial Consult Note ---
History of Present Illness General Date patient seen: Nov 21, 2016 Time patient seen: 11:00 Reason for Hospitalization: Abdominal Pain Referring physician: CAMILA LI Reason for Consultation: ABDOMINAL PAIN Present Illness HPI 41-year-old female presents ED complaining of abdominal pain. X1 day. Pain is sharp, left-sided, 10 out of 10, nonradiating. Denies nausea or vomiting. Denies chest pain or shortness of breath. Denies fevers or chills. Patient had artery embolization performed here last week. Pain started yesterday and she informed her surgeon Dr. Li. No other aggravating or relieving factors. Denies any other associated symptoms GI Consult. HPI as noted above. GI consulted for Abdominal pain. Pt seen on floor, awake A&Ox4 NAD c/o of abdominal pain generalized non tender to touch s/ p artery embolization x 1 week. APCT reviewed with unremarkable findings. She presents today with anemia and hypoalbuminemia. Lipase normal. The patient states she has a history of a hiatal hernia and has history of diverticulitis. She had an EGD/colonoscopy in July 2015 last year and cannot recall her findings. No N/V/D noted at this time. Denies any changes in weight. Home Meds Reported Medications Tramadol Hcl* (ULTRAM*) 50 Mg Tablet, 50 MG ORAL EVERY 4 HOURS Y for For Pain, # 20 TAB 0 Refills 11/17/16 Ketorolac Tromethamine (Toradol) 60 Mg/2 Ml Vial, 10 MG PO TID, #15 VIAL 11/17/16 Ketorolac Tromethamine (Toradol) 60 Mg/2 Ml Vial, 10 MG IM, #15 VIAL 11/17/16 Promethazine Hcl (PROMETHAZINE HCL) 25 Mg Supp.rect, 25 MG RC, #6 11/15/16 Bismuth Subsalicylate (PEPTO-BISMOL) 262 Mg Tablet, 262 MG PO, TAB 11/15/16 Oxycodone Hcl/Acetaminophen 5-325* (OXYCODONE-ACETAMINOPHEN 5-325*) 1 Each Tablet, 1 TAB ORAL Q4H Y for For Pain, TAB 0 Refills 11/15/16 Amoxicillin/Potassium Clav 875-125 Mg Tab* (AMOX TR-K CLV 875-125 MG TAB*) 1 Each Tablet, 1 TAB ORAL EVERY 12 HOURS, TAB 11/15/16 Ketorolac Tromethamine (Ketorolac Tromethamine) 10 Mg Tablet, 10 MG PO BID, TAB 11/15/16 Med list reviewed/reconciled: Yes Allergies: Coded Allergies: TOPIRAMATE (Verified Allergy, Unknown, 11/15/16) Patient History History Provided By: Patient, Medical Record PMH Narrative Past Medical History: none Past Surgical History: other - Urine artery embolization Pertinent Family History: none Social History: Denies: alcohol use, drug use, smoking Last Menstrual Period: 11/19/16 Now: No Immunizations: UTD Reviewed Nursing Documentation: PMH: Agreed, PSxH: Agreed Nursing Documentation-PMH Past Medical History: No History, Except For Hx Cardiac Problems: No Hx Cancer: No Hx Neurological Problems: No Review of Systems All Other Systems: negative except mentioned in HPI Physical Exam Vital Signs Date Time Temp Pulse Resp B/P Pulse Ox O2 Delivery O2 Flow Rate FiO2 11/20/16 09:55 98.2 74 18 150/82 99 Room Air Sp02 EP Interpretation: reviewed Labs Laboratory Tests Test 11/21/16 05:15 White Blood Count 9.5 K/UL (4.8-10.8) Red Blood Count 3.58 M/UL (4.20-5.40) L Hemoglobin 9.8 G/DL (12.0-16.0) L Hematocrit 30.2 % (37.0-47.0) L Mean Corpuscular Volume 84 FL (80-99) Mean Corpuscular Hemoglobin 27.4 PG (27.0-31.0) Mean Corpuscular Hemoglobin Concent 32.6 G/DL (32.0-36.0) Red Cell Distribution Width 13.4 % (11.6-14.8) Platelet Count 313 K/UL (150-450) Mean Platelet Volume 6.4 FL (6.5-10.1) L Neutrophils (%) (Auto) 77.8 % (45.0-75.0) H Lymphocytes (%) (Auto) 13.5 % (20.0-45.0) L Monocytes (%) (Auto) 6.0 % (1.0-10.0) Eosinophils (%) (Auto) 2.2 % (0.0-3.0) Basophils (%) (Auto) 0.5 % (0.0-2.0) Sodium Level 139 mEQ/L (135-145) Potassium Level 3.5 mEQ/L (3.4-4.9) Chloride Level 103 mEQ/L (98-107) Carbon Dioxide Level 24 mEQ/L (20-30) Anion Gap 12 (5-15) Blood Urea Nitrogen 4 mg/dL (7-23) L Creatinine 0.5 mg/dL (0.5-0.9) Estimat Glomerular Filtration Rate > 60 mL/min (>60) Glucose Level 109 mg/dL (74-106) H Calcium Level 8.7 mg/dL (8.6-10.2) Total Bilirubin 0.2 mg/dL (0.0-1.2) Aspartate Amino Transf (AST/SGOT) 11 U/L (5-40) Alanine Aminotransferase (ALT/SGPT) 10 U/L (3-33) Alkaline Phosphatase 56 U/L (35-104) Total Protein 6.3 g/dL (6.6-8.7) L Albumin 3.4 g/dL (3.5-5.2) L Globulin 2.9 g/dL Albumin/Globulin Ratio 1.1 (1.0-2.7) Amylase Level 31 U/L (10-110) Lipase 12 U/L (< 60) General Appearance: well appearing, no apparent distress, obese Head: normocephalic EENT: normal ENT inspection Neck: supple Respiratory: normal breath sounds, no respiratory distress Cardiovascular: normal peripheral pulses, normal rate Gastrointestinal: normal inspection, non tender, soft, normal bowel sounds Rectal: deferred Musculoskeletal: normal inspection, back normal, digits/nails normal Neurologic: normal inspection, alert, oriented x3, responsive Psychiatric: normal inspection, judgement/insight normal, memory normal Skin: normal inspection, normal color, no rash, warm/dry, palpation normal Lymphatic: normal inspection, no adenopathy Current Medications Current Medications Medications (Trade) Dose Ordered Sig/Penny Route PRN Reason Start Time Stop Time Status Last Admin Dose Admin Dextrose/ Electrolytes (D5NS W/KCl 20meq 1000ml) 1,000 ml @ 120 mls/hr Q8H20M IV 11/20/16 21:45 12/20/16 21:44 11/21/16 14:56 Diphenhydramine HCl (Benadryl) 50 mg Q3H PRN IVP Itching 11/21/16 06:45 12/21/16 06:44 Hydromorphone HCl (Dilaudid) 1 mg Q3HR PRN SUBQ Mild Pain (Pain Scale 1-3) 11/20/16 13:15 11/27/16 13:14 11/21/16 10:02 Hydromorphone HCl (Dilaudid) 2 mg Q2H PRN IVP Severe Pain (Pain Scale 7-10) 11/20/16 13:15 11/27/16 13:14 11/21/16 13:14 Hydromorphone HCl (Dilaudid) 2 mg Q3H PRN IVP Moderate Pain (Pain Scale 4-6) 11/20/16 13:15 11/27/16 13:14 Hydromorphone HCl 2 mg 2 mg Q3H PRN IM Breakthrough Pain 11/20/16 21:00 11/27/16 20:59 11/21/16 01:01 Ondansetron HCl (Zofran) 4 mg Q6H PRN IVP Nausea & Vomiting 11/20/16 13:15 12/20/16 13:14 Polyethylene Glycol (Miralax) 17 gm TWICE A DAY PRN ORAL Constipation 11/20/16 13:15 12/20/16 13:14 GI: Plan Problems: (1) Anemia (2) Diverticulitis (3) GERD (gastroesophageal reflux disease) (4) Hiatal hernia (5) Hypoalbuminemia (6) Abdominal pain (7) Status post embolization of uterine artery Plan APCT reviewed >> unremarkable anemia work OB stool r/o GI bleed monitor H&H, transfuse prn ppi given hiatal hernia adv to soft diet zofran prn pain mgmt obtain endoscopic records from PCP Discussed with Dr. Magdaleno. Thank you for referring this patient, we will follow. Margaret Iniguez N.P. Nov 21, 2016 16:20
[2016-11-21] MEDS: DiphenhydrAMINE 50mg/ml Inj IVP PRN (20:11)
[2016-11-21 20:39] VITALS: BP 140/75
[2016-11-22 00:28] VITALS: BP 123/79
[2016-11-22 04:31] VITALS: BP 125/80
[2016-11-22 06:56] LABS: BASOPHILS % (AUTO) 0.6 % (0.0-2.0); EOSINOPHILS % (AUTO) 2.8 % (0.0-3.0); LYMPHOCYTES % (AUTO) 16.1 % (20.0-45.0); MEAN CORPUSCULAR HEMOGLOBIN 26.8 PG (27.0-31.0); MEAN CORPUSCULAR VOLUME 84 FL (80-99); MEAN PLATELET VOLUME 6.4 FL (6.5-10.1); MONOCYTES % (AUTO) 8.1 % (1.0-10.0); NEUTROPHILS % (AUTO) 72.4 % (45.0-75.0); PLATELET COUNT 351 K/UL (150-450); RED BLOOD COUNT 3.86 M/UL (4.20-5.40); RED CELL DISTRIBUTION WIDTH 13.4 % (11.6-14.8)
[2016-11-22 07:30] LABS: INR 0.9 (0.9-1.1); PROTHROMBIN TIME 9.8 SEC (9.30-11.50)
[2016-11-22 07:33] LABS: ANION GAP 9 (5-15); CALCIUM 8.9 mg/dL (8.6-10.2); CARBON DIOXIDE 25 mEQ/L (20-30); CHLORIDE 105 mEQ/L (98-107); CREATININE 0.5 mg/dL (0.5-0.9); FERRITIN 38 ng/mL (13-150); GLOMERULAR FILTRATION RATE > 60 mL/min (>60); POTASSIUM 4.2 mEQ/L (3.4-4.9); SODIUM 139 mEQ/L (135-145)
--- NOTE | 2016-11-22 07:46 | General Surgery Progress Note ---
General Surgery-Progress Note Subjective Day of Surgery: november 14 Procedure Performed uterine artery embolization Symptoms: pain same, tolerating diet, voiding well, passing flatus, BM Objective Last 24 Hour Vital Signs Date Time Temp Pulse Resp B/P Pulse Ox O2 Delivery O2 Flow Rate FiO2 11/22/16 04:31 97.9 80 18 125/80 97 Room Air 11/22/16 00:28 97.5 79 19 123/79 98 Room Air 11/21/16 20:39 98.2 77 19 140/75 98 Room Air 11/21/16 16:00 97.7 75 18 125/85 98 Room Air 11/21/16 12:00 97.3 70 17 123/80 99 Room Air 11/21/16 08:00 97.9 68 18 126/76 98 Room Air I&O Intake and Output 11/21/16 11/22/16 19:00 07:00 Intake Total 2040 ml 1680 ml Balance 2040 ml 1680 ml Intake Oral 600 ml 240 ml IV Total 1440 ml 1440 ml # Voids 2 2 Dressing: dry Wound: clean Drains: none Cardiovascular: RSR Respiratory: clear Abdomen: soft, flat, scaphoid, tenderness, present bowel sounds Extremities: no edema, no tenderness, no cyanosis Laboratory Tests Test 11/22/16 05:10 White Blood Count 9.0 K/UL (4.8-10.8) Red Blood Count 3.86 M/UL (4.20-5.40) L Hemoglobin 10.3 G/DL (12.0-16.0) L Hematocrit 32.3 % (37.0-47.0) L Mean Corpuscular Volume 84 FL (80-99) Mean Corpuscular Hemoglobin 26.8 PG (27.0-31.0) L Mean Corpuscular Hemoglobin Concent 32.0 G/DL (32.0-36.0) Red Cell Distribution Width 13.4 % (11.6-14.8) Platelet Count 351 K/UL (150-450) Mean Platelet Volume 6.4 FL (6.5-10.1) L Neutrophils (%) (Auto) 72.4 % (45.0-75.0) Lymphocytes (%) (Auto) 16.1 % (20.0-45.0) L Monocytes (%) (Auto) 8.1 % (1.0-10.0) Eosinophils (%) (Auto) 2.8 % (0.0-3.0) Basophils (%) (Auto) 0.6 % (0.0-2.0) Reticulocyte Count Pending Prothrombin Time 9.8 SEC (9.30-11.50) Prothromb Time International Ratio 0.9 (0.9-1.1) Activated Partial Thromboplast Time 26 SEC (23-33) Sodium Level 139 mEQ/L (135-145) Potassium Level 4.2 mEQ/L (3.4-4.9) Chloride Level 105 mEQ/L (98-107) Carbon Dioxide Level 25 mEQ/L (20-30) Anion Gap 9 (5-15) Blood Urea Nitrogen 3 mg/dL (7-23) L Creatinine 0.5 mg/dL (0.5-0.9) Estimat Glomerular Filtration Rate > 60 mL/min (>60) Glucose Level 92 mg/dL (74-106) Calcium Level 8.9 mg/dL (8.6-10.2) Iron Level Pending Unsaturated Iron Binding Pending Ferritin 38 ng/mL (13-150) Carcinoembryonic Antigen Pending Vitamin B12 Level Pending Thyroid Stimulating Hormone (TSH) 1.500 uIU/mL (0.300-4.500) Free Thyroxine 1.55 ng/dL (0.86-1.85) Assessment Post-op Diagnosis pelvic pain, continues, will discuss abdominal myomectomy if no resolution in 48 hours, re admission for this patient Plan Additional Comments persistent pain, likely candidate for abdominal myomectomy, discussed with patient who concurs. Dylan Kraft MD Nov 22, 2016 07:46
[2016-11-22] MEDS: DiphenhydrAMINE 50mg/ml Inj IVP PRN ×3 (07:51→23:05)
[2016-11-22 07:55] LABS: HEMOLYSIS 6; IRON 17 ug/dL (37-145); TOTAL IRON BINDING CAPACITY 279 ug/dL (250-400)
[2016-11-22 08:13] VITALS: BP 137/87
[2016-11-22 10:23] LABS: RETICULOCYTE COUNT 0.9 % (0.0-2.0)
--- NOTE | 2016-11-22 11:57 | GI Progress Note ---
Assessment/Plan Problems: (1) Abdominal pain ICD Codes: R10.9 - Unspecified abdominal pain SNOMED: 68242076 (2) GERD (gastroesophageal reflux disease) ICD Codes: K21.9 - Gastro-esophageal reflux disease without esophagitis SNOMED: 715288977 (3) Hypoalbuminemia ICD Codes: E88.09 - Other disorders of plasma-protein metabolism, not elsewhere classified SNOMED: 690049148 (4) Diverticulitis ICD Codes: K57.92 - Diverticulitis of intestine, part unspecified, without perforation or abscess without bleeding SNOMED: 737248573 (5) Anemia ICD Codes: D64.9 - Anemia, unspecified SNOMED: 941218050 (6) Hiatal hernia ICD Codes: K44.9 - Diaphragmatic hernia without obstruction or gangrene SNOMED: 31740780 (7) Status post embolization of uterine artery ICD Codes: Z98.890 - Other specified postprocedural states SNOMED: 158882077 Status: unchanged Status Narrative Discussed with Dr. Magdaleno. Assessment/Plan APCT reviewed >> unremarkable iron deficient >> venofer OB stool r/o GI bleed monitor H&H, transfuse prn ppi soft diet, tolerating zofran prn pain mgmt obtain endoscopic records from PCP Subjective Gastrointestinal/Abdominal: Reports: abdominal pain Subjective denies N/V/D Objective Last 24 Hour Vital Signs Date Time Temp Pulse Resp B/P Pulse Ox O2 Delivery O2 Flow Rate FiO2 11/22/16 08:22 97.7 11/22/16 08:13 97.7 74 15 137/87 97 11/22/16 04:31 97.9 80 18 125/80 97 Room Air 11/22/16 00:28 97.5 79 19 123/79 98 Room Air 11/21/16 20:39 98.2 77 19 140/75 98 Room Air 11/21/16 16:00 97.7 75 18 125/85 98 Room Air 11/21/16 12:00 97.3 70 17 123/80 99 Room Air Intake and Output 11/21/16 11/22/16 19:00 07:00 Intake Total 2040 ml 1680 ml Balance 2040 ml 1680 ml Intake Oral 600 ml 240 ml IV Total 1440 ml 1440 ml # Voids 2 2 Laboratory Tests Test 11/22/16 05:10 White Blood Count 9.0 K/UL (4.8-10.8) Red Blood Count 3.86 M/UL (4.20-5.40) L Hemoglobin 10.3 G/DL (12.0-16.0) L Hematocrit 32.3 % (37.0-47.0) L Mean Corpuscular Volume 84 FL (80-99) Mean Corpuscular Hemoglobin 26.8 PG (27.0-31.0) L Mean Corpuscular Hemoglobin Concent 32.0 G/DL (32.0-36.0) Red Cell Distribution Width 13.4 % (11.6-14.8) Platelet Count 351 K/UL (150-450) Mean Platelet Volume 6.4 FL (6.5-10.1) L Neutrophils (%) (Auto) 72.4 % (45.0-75.0) Lymphocytes (%) (Auto) 16.1 % (20.0-45.0) L Monocytes (%) (Auto) 8.1 % (1.0-10.0) Eosinophils (%) (Auto) 2.8 % (0.0-3.0) Basophils (%) (Auto) 0.6 % (0.0-2.0) Reticulocyte Count 0.9 % (0.0-2.0) Prothrombin Time 9.8 SEC (9.30-11.50) Prothromb Time International Ratio 0.9 (0.9-1.1) Activated Partial Thromboplast Time 26 SEC (23-33) Sodium Level 139 mEQ/L (135-145) Potassium Level 4.2 mEQ/L (3.4-4.9) Chloride Level 105 mEQ/L (98-107) Carbon Dioxide Level 25 mEQ/L (20-30) Anion Gap 9 (5-15) Blood Urea Nitrogen 3 mg/dL (7-23) L Creatinine 0.5 mg/dL (0.5-0.9) Estimat Glomerular Filtration Rate > 60 mL/min (>60) Glucose Level 92 mg/dL (74-106) Calcium Level 8.9 mg/dL (8.6-10.2) Iron Level 17 ug/dL (37-145) L Total Iron Binding Capacity 279 ug/dL (250-400) Percent Iron Saturation 6 % (15-50) L Unsaturated Iron Binding 262 ug/dL (112-346) Ferritin 38 ng/mL (13-150) Carcinoembryonic Antigen 0.6 ng/mL Vitamin B12 Level 186 pg/mL (211-946) L Folate Pending Thyroid Stimulating Hormone (TSH) 1.500 uIU/mL (0.300-4.500) Free Thyroxine 1.55 ng/dL (0.86-1.85) Height (Feet): 5 Height (Inches): 9.00 Weight (Pounds): 237 General Appearance: no apparent distress, alert Cardiovascular: normal rate Respiratory/Chest: normal breath sounds, no respiratory distress Abdominal Exam: non tender, soft, no organomegaly Extremities: normal range of motion Margaret Iniguez N.P. Nov 22, 2016 11:57
[2016-11-22 12:00] VITALS: BP 122/84
[2016-11-22 16:13] VITALS: BP 141/84
--- NOTE | 2016-11-22 16:58 | General Progress Note ---
Assessment/Plan Assessment/Plan 1. Abdominal and pelvic pain following uterine artery embolization for fibroid uterus. 2. Microhematuria. NPO for myomectomy tomorrow pain mgmt GI following Subjective Constitutional: Reports: no symptoms Gastrointestinal/Abdominal: Reports: abdominal pain Genitourinary: Reports: pain Allergies: Coded Allergies: TOPIRAMATE (Verified Allergy, Unknown, 11/15/16) Objective Last 24 Hour Vital Signs Date Time Temp Pulse Resp B/P Pulse Ox O2 Delivery O2 Flow Rate FiO2 11/22/16 16:13 98.2 96 20 141/84 99 Room Air 11/22/16 13:55 97.7 11/22/16 12:00 97.0 63 20 122/84 99 Room Air 11/22/16 08:22 97.7 11/22/16 08:13 97.7 74 15 137/87 97 11/22/16 04:31 97.9 80 18 125/80 97 Room Air 11/22/16 00:28 97.5 79 19 123/79 98 Room Air 11/21/16 20:39 98.2 77 19 140/75 98 Room Air Intake and Output 11/21/16 11/22/16 19:00 07:00 Intake Total 2040 ml 1680 ml Balance 2040 ml 1680 ml Intake Oral 600 ml 240 ml IV Total 1440 ml 1440 ml # Voids 2 2 Laboratory Tests 11/22/16 05:10: White Blood Count 9.0, Red Blood Count 3.86L, Hemoglobin 10.3L, Hematocrit 32.3L , Mean Corpuscular Volume 84, Mean Corpuscular Hemoglobin 26.8L, Mean Corpuscular Hemoglobin Concent 32.0, Red Cell Distribution Width 13.4, Platelet Count 351, Mean Platelet Volume 6.4L, Neutrophils (%) (Auto) 72.4, Lymphocytes ( %) (Auto) 16.1L, Monocytes (%) (Auto) 8.1, Eosinophils (%) (Auto) 2.8, Basophils (%) (Auto) 0.6, Reticulocyte Count 0.9, Prothrombin Time 9.8, Prothromb Time International Ratio 0.9, Activated Partial Thromboplast Time 26, Sodium Level 139, Potassium Level 4.2, Chloride Level 105, Carbon Dioxide Level 25, Anion Gap 9, Blood Urea Nitrogen 3L, Creatinine 0.5, Estimat Glomerular Filtration Rate > 60, Glucose Level 92, Calcium Level 8.9, Iron Level 17L, Total Iron Binding Capacity 279, Percent Iron Saturation 6L, Unsaturated Iron Binding 262, Ferritin 38, Carcinoembryonic Antigen 0.6, Vitamin B12 Level 186L, Folate [Pending], Thyroid Stimulating Hormone (TSH) 1.500, Free Thyroxine 1.55 Height (Feet): 5 Height (Inches): 9.00 Weight (Pounds): 237 General Appearance: no apparent distress Neck: supple Cardiovascular: normal rate Respiratory/Chest: lungs clear Abdomen: non tender, soft KARSTEN CLEMENTS Nov 22, 2016 16:58
[2016-11-22 20:00] VITALS: BP 126/98
[2016-11-22] MEDS: Vitamin B-12 100mcg tab ORAL SCH (20:00)
[2016-11-22] MEDS: Iron Sucrose 100 MG in NS 55 ML IVPB SCH (22:59)
[2016-11-23] VITALS (14 sets, daily range): BP systolic 117–146; BP diastolic 71–89
[2016-11-23] MEDS: DiphenhydrAMINE 50mg/ml Inj IVP PRN ×3 (01:58→11:19)
[2016-11-23 06:30] LABS: BASOPHILS % (AUTO) 1.1 % (0.0-2.0); EOSINOPHILS % (AUTO) 2.3 % (0.0-3.0); LYMPHOCYTES % (AUTO) 11.3 % (20.0-45.0); MEAN CORPUSCULAR HEMOGLOBIN 26.9 PG (27.0-31.0); MEAN CORPUSCULAR HGB CONC 32.2 G/DL (32.0-36.0); MEAN CORPUSCULAR VOLUME 83 FL (80-99); MEAN PLATELET VOLUME 6.3 FL (6.5-10.1); MONOCYTES % (AUTO) 10.9 % (1.0-10.0); NEUTROPHILS % (AUTO) 74.5 % (45.0-75.0); PLATELET COUNT 397 K/UL (150-450); RED BLOOD COUNT 3.84 M/UL (4.20-5.40); RED CELL DISTRIBUTION WIDTH 13.2 % (11.6-14.8); WHITE BLOOD COUNT 9.8 K/UL (4.8-10.8)
[2016-11-23 06:58] LABS: ANION GAP 11 (5-15); CALCIUM 9.2 mg/dL (8.6-10.2); CARBON DIOXIDE 24 mEQ/L (20-30); CHLORIDE 101 mEQ/L (98-107); CREATININE 0.6 mg/dL (0.5-0.9); GLOMERULAR FILTRATION RATE > 60 mL/min (>60); HEMOLYSIS 0; SODIUM 136 mEQ/L (135-145)
[2016-11-23] MEDS ORDERED: Midazolam 2mg/2ml Inj ONE (08:00)
[2016-11-23] MEDS ORDERED: Propofol 10mg/ml 20ml IV ONE (08:00)
[2016-11-23] MEDS ORDERED: Dexamethasone 4mg/ml vial ONE (08:00)
[2016-11-23] MEDS ORDERED: Sterile Water Irrig 1000ml IRRIG ONE (08:00)
[2016-11-23] MEDS ORDERED: Metoprolol 5mg/5ml Inj ONE (08:00)
[2016-11-23] MEDS ORDERED: Neostigmine 1mg/ml 10ml Inj ONE (08:00)
[2016-11-23] MEDS ORDERED: LR 1000ml ONE (08:00)
[2016-11-23] MEDS ORDERED: Zemuron 50mg/5ml Inj IV ONE (08:00)
[2016-11-23] MEDS ORDERED: NS Irrig 1000ml ONE (08:00)
[2016-11-23] MEDS ORDERED: fentaNYL 100 mcg/2 mL IV ONE (08:00)
[2016-11-23] MEDS: Vitamin B-12 100mcg tab ORAL SCH (09:00)
--- NOTE | 2016-11-23 11:32 | GI Progress Note ---
Assessment/Plan Problems: (1) Abdominal pain ICD Codes: R10.9 - Unspecified abdominal pain SNOMED: 64498750 (2) GERD (gastroesophageal reflux disease) ICD Codes: K21.9 - Gastro-esophageal reflux disease without esophagitis SNOMED: 316708377 (3) Hypoalbuminemia ICD Codes: E88.09 - Other disorders of plasma-protein metabolism, not elsewhere classified SNOMED: 895811621 (4) Diverticulitis ICD Codes: K57.92 - Diverticulitis of intestine, part unspecified, without perforation or abscess without bleeding SNOMED: 709023373 (5) Anemia ICD Codes: D64.9 - Anemia, unspecified SNOMED: 768770190 (6) Hiatal hernia ICD Codes: K44.9 - Diaphragmatic hernia without obstruction or gangrene SNOMED: 23445226 (7) Status post embolization of uterine artery ICD Codes: Z98.890 - Other specified postprocedural states SNOMED: 819089312 Status: unchanged Status Narrative Discussed with Dr. Magdaleno. Assessment/Plan APCT reviewed >> unremarkable iron deficient >> venofer OB stool r/o GI bleed NPO for abdominal myomectomy today monitor H&H, transfuse prn ppi soft diet, tolerating zofran prn pain mgmt fu labs Subjective Subjective denies N/V/D Objective Last 24 Hour Vital Signs Date Time Temp Pulse Resp B/P Pulse Ox O2 Delivery O2 Flow Rate FiO2 11/23/16 08:00 97.8 75 18 134/79 96 Room Air 11/23/16 04:00 98.1 75 19 128/71 98 Room Air 11/23/16 00:00 98.6 75 20 126/85 95 Room Air 11/22/16 20:00 98.1 84 20 126/98 95 Room Air 11/22/16 16:13 98.2 96 20 141/84 99 Room Air 11/22/16 13:55 97.7 11/22/16 12:00 97.0 63 20 122/84 99 Room Air Intake and Output 11/22/16 11/23/16 19:00 07:00 Intake Total 240 ml 1380 ml Balance 240 ml 1380 ml IV Total 240 ml 1380 ml # Voids 1 2 Laboratory Tests Test 11/23/16 05:30 White Blood Count 9.8 K/UL (4.8-10.8) Red Blood Count 3.84 M/UL (4.20-5.40) L Hemoglobin 10.3 G/DL (12.0-16.0) L Hematocrit 32.0 % (37.0-47.0) L Mean Corpuscular Volume 83 FL (80-99) Mean Corpuscular Hemoglobin 26.9 PG (27.0-31.0) L Mean Corpuscular Hemoglobin Concent 32.2 G/DL (32.0-36.0) Red Cell Distribution Width 13.2 % (11.6-14.8) Platelet Count 397 K/UL (150-450) Mean Platelet Volume 6.3 FL (6.5-10.1) L Neutrophils (%) (Auto) 74.5 % (45.0-75.0) Lymphocytes (%) (Auto) 11.3 % (20.0-45.0) L Monocytes (%) (Auto) 10.9 % (1.0-10.0) H Eosinophils (%) (Auto) 2.3 % (0.0-3.0) Basophils (%) (Auto) 1.1 % (0.0-2.0) Sodium Level 136 mEQ/L (135-145) Potassium Level 4.0 mEQ/L (3.4-4.9) Chloride Level 101 mEQ/L (98-107) Carbon Dioxide Level 24 mEQ/L (20-30) Anion Gap 11 (5-15) Blood Urea Nitrogen 4 mg/dL (7-23) L Creatinine 0.6 mg/dL (0.5-0.9) Estimat Glomerular Filtration Rate > 60 mL/min (>60) Glucose Level 97 mg/dL (74-106) Calcium Level 9.2 mg/dL (8.6-10.2) Human Chorionic Gonadotropin, Qual Negative Height (Feet): 5 Height (Inches): 9.00 Weight (Pounds): 237 General Appearance: no apparent distress, alert Cardiovascular: normal rate Respiratory/Chest: normal breath sounds, no respiratory distress Abdominal Exam: normal bowel sounds, non tender, soft Extremities: normal range of motion Margaret Iniguez N.P. Nov 23, 2016 11:32
[2016-11-23] MEDS ORDERED: LR 1000ml 1,000 ML IVLG SCH (12:39)
--- NOTE | 2016-11-23 12:39 | Anethesia Preoperative Eval ---
Anesthesia Pre-op PMH/ROS General Date of Evaluation: Nov 23, 2016 Time of Evaluation: 13:09 Anesthesiologist: Latha ASA Score: ASA 3 Mallampati Score Class I : Soft palate, uvula, fauces, pillars visible Class II: Soft palate, uvula, fauces visible Class III: Soft palate, base of uvula visible Class IV: Only hard plate visible Mallampati Classification: Class II Surgeon: Swapnil Diagnosis: Abd Pain Surgical Procedure: Abdominal Myomectomy Anesthesia History: none Social History: current smoker Family History: no anesthesia problems Allergies: Coded Allergies: TOPIRAMATE (Verified Allergy, Unknown, 11/15/16) Medications: see eMAR Past Medical History Pulmonary: Reports: other - Smoker Gastrointestinal/Genitourinary: Reports: other - Diverticulitis, Hiatal Hernia Hematology/Immune: Reports: anemia Other: obesity - BMI 35 Anesthesia Pre-op Phys. Exam Physician Exam Last Vital Signs Date Time Temp Pulse Resp B/P Pulse Ox O2 Delivery O2 Flow Rate FiO2 11/23/16 11:49 97.8 11/23/16 08:00 75 18 134/79 96 Room Air Constitutional: NAD Neurologic: CN 2-12 intact Cardiovascular: RRR Respiratory: CTA Gastrointestinal: S/NT/ND Airway Exam Mallampati Score: Class II MO: full ROM: full Anesthesia Pre-op A/P Labs Hematology Test 11/23/16 05:30 White Blood Count 9.8 K/UL (4.8-10.8) Red Blood Count 3.84 M/UL (4.20-5.40) L Hemoglobin 10.3 G/DL (12.0-16.0) L Hematocrit 32.0 % (37.0-47.0) L Mean Corpuscular Volume 83 FL (80-99) Mean Corpuscular Hemoglobin 26.9 PG (27.0-31.0) L Mean Corpuscular Hemoglobin Concent 32.2 G/DL (32.0-36.0) Red Cell Distribution Width 13.2 % (11.6-14.8) Platelet Count 397 K/UL (150-450) Mean Platelet Volume 6.3 FL (6.5-10.1) L Neutrophils (%) (Auto) 74.5 % (45.0-75.0) Lymphocytes (%) (Auto) 11.3 % (20.0-45.0) L Monocytes (%) (Auto) 10.9 % (1.0-10.0) H Eosinophils (%) (Auto) 2.3 % (0.0-3.0) Basophils (%) (Auto) 1.1 % (0.0-2.0) Chemistry Test 11/23/16 05:30 Sodium Level 136 mEQ/L (135-145) Potassium Level 4.0 mEQ/L (3.4-4.9) Chloride Level 101 mEQ/L (98-107) Carbon Dioxide Level 24 mEQ/L (20-30) Anion Gap 11 (5-15) Blood Urea Nitrogen 4 mg/dL (7-23) L Creatinine 0.6 mg/dL (0.5-0.9) Estimat Glomerular Filtration Rate > 60 mL/min (>60) Glucose Level 97 mg/dL (74-106) Calcium Level 9.2 mg/dL (8.6-10.2) Human Chorionic Gonadotropin, Qual Negative Serum Test Test 11/23/16 05:30 Human Chorionic Gonadotropin, Qual Negative Risk Assessment & Plan Assessment: ASA 3 Plan: GA, BIS, Glidescope Status Change Before Surgery: No Pre-Antibiotics Dru Gram Ancef IV Given Within 1 Hr of Incision: Yes Time Given: 13:26 Clifford Azul MD Nov 23, 2016 12:39
[2016-11-23] MEDS ORDERED: Bupivacaine 0.5% Inj 30 ml vial INJ ONE (12:43)
[2016-11-23] MEDS ORDERED: Ropivacaine 5mg/ml Vial 20ml INJ ONE (12:43)
[2016-11-23] MEDS ORDERED: Ketorolac 30mg Inj IV PRN (12:45)
[2016-11-23] MEDS ORDERED: Midazolam 2mg/2ml Inj IVP PRN (12:45)
[2016-11-23] MEDS ORDERED: Norco 5mg/325mg tab ORAL PRN (12:45)
[2016-11-23] MEDS ORDERED: Ketorolac 60mg Inj IV PRN (12:45)
[2016-11-23] MEDS ORDERED: Oxycodone/Acetaminophen 5-325 ORAL PRN (12:45)
[2016-11-23] MEDS ORDERED: Norco 7.5mg/325mg tab ORAL PRN (12:45)
[2016-11-23] MEDS ORDERED: LORazepam Inj 2mg/ml 1ml IV PRN (12:45)
[2016-11-23] MEDS ORDERED: Atropine Inj 1mg/10ml Syr IV PRN (12:45)
[2016-11-23] MEDS ORDERED: fentaNYL 100 mcg/2 mL IV PRN (12:45)
[2016-11-23] MEDS ORDERED: Metoclopramide 10mg/2ml Inj IVP PRN (12:45)
[2016-11-23] MEDS ORDERED: DiphenhydrAMINE 50mg/ml Inj IVP PRN (12:45)
[2016-11-23] MEDS ORDERED: Meperidine 25mg/0.5ml Inj IV PRN (12:45)
[2016-11-23] MEDS ORDERED: Acetaminophen (Non formulary) 100 ML IV ONE (13:00)
--- NOTE | 2016-11-23 13:18 | Pre-Procedure Note/Attestation ---
Pre-Procedure Note/Attestation Complete Prior to Procedure Planned Procedure: not applicable Procedure Narrative: abdominal myomectomy, possible ovarian cystectomy Indications for Procedure Pre-Operative Diagnosis: symptomatic myomata Attestation I attest that I discussed the nature of the procedure; its benefits; risks and complications; and alternatives (and the risks and benefits of such alternatives ), prior to the procedure, with the patient (or the patient's legal entry level marketing representative). I attest that, if there was a reasonable possibility of needing a blood transfusion, the patient (or the patient's legal entry level marketing representative) was given the [facility] standardized written summary, pursuant to the Dinesh Volin Blood Safety Act ([place] Health and Safety Code # 1645, as amended). I attest that I re-evaluated the patient just prior to the surgery and that there has been no change in the patient's H&P, except as documented below:none Dylan Kraft MD Nov 23, 2016 13:18
--- NOTE | 2016-11-23 13:51 | 48 Hour Post Anesthesia Eval ---
Post Anesthesia Evaluation Procedure: Abdominal Myomectomy Date of Evaluation: Nov 23, 2016 Time of Evaluation: 17:31 Blood Pressure Systolic: 134 0: 81 Pulse Rate: 59 Respiratory Rate: 18 Temperature (Fahrenheit): 98.6 O2 Sat by Pulse Oximetry: 100 Airway: patent Nausea: No Vomiting: No Pain Intensity: 3 Hydration Status: adequate Cardiopulmonary Status: Stable Mental Status/LOC: patient returned to baseline Follow-up Care/Observations: 0 Post-Anesthesia Complications: 0 Follow-up care needed: N/A Clifford Azul MD Nov 23, 2016 13:51
--- NOTE | 2016-11-23 13:51 | Immediate Post-Op Evaluation ---
Immediate Post-Op Evalulation Immediate Post-Op Evalulation Procedure: Abdominal Myomectomy Date of Evaluation: Nov 23, 2016 Time of Evaluation: 15:17 IV Fluids: 1000 LR Blood Products: 0 Estimated Blood Loss: 200 Urinary Output: 100 Blood Pressure Systolic: 143 Blood Pressure Diastolic: 86 Pulse Rate: 59 Respiratory Rate: 16 O2 Sat by Pulse Oximetry: 100 Temperature (Fahrenheit): 98.6 Pain Score (1-10): 3 Nausea: No Vomiting: No Complications 0 Patient Status: awake, reacts, patent, extubated, none Hydration Status: adequate Dru Gram Ancef IV Given Within 1 Hr of Incision: Yes Time Given: 13:26 Clifford Azul MD Nov 23, 2016 13:51
[2016-11-23] MEDS ORDERED: NS Irrig 1000ml IRRIG ONE (13:55)
[2016-11-23] MEDS ORDERED: Surgicel 4in x 8in TOPIC ONE (14:05)
[2016-11-23] MEDS ORDERED: Interceed TOPIC ONE (14:32)
--- NOTE | 2016-11-23 15:11 | Brief Operative Note ---
Immediate Post Operative Note Operative Note Pre-op Diagnosis: symptomatic myomata Procedure: abdominal myomectomy Post-op Diagnosis: same, improved Post-op Diagnosis: same as pre-op Findings: consistent w/pre-op dx studies Surgeon: lo Trains Dispatcher Supervisor: matt Anesthesiologist: evon Anesthesia: general Specimen: yes Complications: none Condition: stable Estimated Blood Loss: volume - 200 cc Drains: none Implant(s) used?: No Dylan Kraft MD Nov 23, 2016 15:11
[2016-11-23] MEDS: Hydromorphone 0.5mg/0.5ml inj IVP PRN ×2 (15:19→15:37)
[2016-11-23] MEDS: D5 1/2NS w/KCl 20mEq 1,000 ML IV SCH (17:51)
[2016-11-23] MEDS ORDERED: HYDROmorphone 1mg/ml Carpuject IVP PRN (18:00)
[2016-11-23] MEDS ORDERED: Hydromorphone 0.5mg/0.5ml inj IVP PRN (18:00)
[2016-11-23] MEDS: ceFAZolin sod 2 GM in D5W 110 ML IV SCH (21:39)
[2016-11-23] MEDS: Iron Sucrose 100 MG in NS 55 ML IVPB SCH (22:39)
[2016-11-24] VITALS: BP 123/69
[2016-11-24 04:00] VITALS: BP 124/78
[2016-11-24] MEDS: D5 1/2NS w/KCl 20mEq 1,000 ML IV SCH ×3 (04:02→15:33)
[2016-11-24] MEDS: ceFAZolin sod 2 GM in D5W 110 ML IV SCH (04:40)
--- NOTE | 2016-11-24 06:15 | Operative Note - Dictated ---
SURGEON: Dylan Ross M.D. TERMINAL MAKE UP OPERATOR: Sam Singer M.D. ANESTHESIA: General endotracheal. ANESTHESIOLOGIST: Clifford Azul M.D. PREOPERATIVE DIAGNOSIS: Symptomatic leiomyomata. POSTOPERATIVE DIAGNOSIS: Symptomatic leiomyomata, improved PROCEDURE: Abdominal myomectomy (difficult). INDICATIONS AND FINDINGS: A 41-year-old female with symptomatic leiomyomatous uterus, had undergone an uneventful uterine artery embolization, but still complained of pain. Extensive preoperative counseling of the risks and benefits of myomectomy versus hysterectomy including blood loss were obtained with the patient, who has a strong desire to retain her uterus. At the time of the laparotomy, the patient's uterus extended well above the umbilicus. A pedunculated 10 to 12 cm subserous myoma was appreciated. Multiple myomata within the intramural area were also appreciated and excised. The patient complained of ovarian cysts. Cysts were found to be benign and ovary was not removed. DESCRIPTION OF PROCEDURE: Under general endotracheal anesthesia, the patient was prepped and draped and placed in the dorsal position. The abdomen was entered through a vertical incision. Clay catheter in situ. The patient's peritoneal fluid was cultured. The pedunculated myoma was delivered without difficulty. It was removed. The serosa of the uterus was then injected with dilute Pitressin 20 units and 50 mL of saline. The patient's serosa was excised and five large leiomyomata were removed over a period of 60 minutes. Bleeding points were fulgurated. The abdomen was then closed in four layers, the first being interrupted [id number] sutures of #0 chromic as well as the second. Third layer was a serosa closure with interrupted [id number] sutures incorporating the dense space. There was no bleeding at the end of the procedure. Interceed was placed over the serosal incision. The patient's incision was then closed. The fascial layers were closed with interrupted sutures of #0 Vicryl. Subcutaneous tissue closed with interrupted 3-0 plain. The skin was closed with skin clips. Urine was clear at the end of the case. The patient left the operating room in a stable condition. 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 Dylan Ross M.D. DR: KATHIE JOB#: [id number] CC: BETTY
[2016-11-24 07:46] LABS: BASOPHILS % (AUTO) 0.3 % (0.0-2.0); EOSINOPHILS % (AUTO) 0.1 % (0.0-3.0); LYMPHOCYTES % (AUTO) 8.6 % (20.0-45.0); MEAN CORPUSCULAR HEMOGLOBIN 26.7 PG (27.0-31.0); MEAN CORPUSCULAR VOLUME 84 FL (80-99); MONOCYTES % (AUTO) 7.9 % (1.0-10.0); NEUTROPHILS % (AUTO) 83.1 % (45.0-75.0); PLATELET COUNT 401 K/UL (150-450); RED BLOOD COUNT 3.59 M/UL (4.20-5.40); RED CELL DISTRIBUTION WIDTH 13.1 % (11.6-14.8); WHITE BLOOD COUNT 12.1 K/UL (4.8-10.8)
[2016-11-24 07:51] LABS: ALANINE AMINOTRANSFERASE 7 U/L (3-33); ANION GAP 13 (5-15); ASPARTATE AMINO TRANSFERASE 12 U/L (5-40); CARBON DIOXIDE 25 mEQ/L (20-30); CHLORIDE 101 mEQ/L (98-107); CREATININE 0.7 mg/dL (0.5-0.9); GLOMERULAR FILTRATION RATE > 60 mL/min (>60); HEMOLYSIS 0; POTASSIUM 3.9 mEQ/L (3.4-4.9); SODIUM 139 mEQ/L (135-145); TOTAL PROTEIN 6.6 g/dL (6.6-8.7)
[2016-11-24 08:00] VITALS: BP 115/73
[2016-11-24] MEDS: Vitamin B-12 100mcg tab ORAL SCH (08:17)
--- NOTE | 2016-11-24 11:56 | General Surgery Progress Note ---
General Surgery-Progress Note Subjective Day of Surgery: november 23 Procedure Performed abdominal myomectomy Chief Complaint: post op pain Symptoms: pain same, tolerating diet, passing flatus, BM Objective Last 24 Hour Vital Signs Date Time Temp Pulse Resp B/P Pulse Ox O2 Delivery O2 Flow Rate FiO2 11/24/16 08:00 98.1 90 20 115/73 100 Nasal Cannula 3.0 11/24/16 05:04 98.2 11/24/16 04:00 98.2 82 20 124/78 11/24/16 00:00 98.2 71 18 123/69 99 Nasal Cannula 3.0 11/23/16 20:00 97.9 78 20 117/77 99 Nasal Cannula 2.0 11/23/16 16:15 98.4 68 20 126/85 100 Nasal Cannula 3.0 11/23/16 16:10 98.2 11/23/16 16:09 98.2 11/23/16 16:07 65 20 127/74 100 Nasal Cannula 3.0 11/23/16 15:56 81 20 131/88 100 Nasal Cannula 3.0 11/23/16 15:46 71 20 135/85 100 Nasal Cannula 3.0 11/23/16 15:45 98.2 11/23/16 15:40 75 20 135/88 100 Nasal Cannula 3.0 11/23/16 15:37 82 20 135/89 100 Nasal Cannula 3.0 11/23/16 15:19 72 20 143/81 100 Nasal Cannula 3.0 11/23/16 15:11 70 20 146/79 100 Nasal Cannula 3.0 11/23/16 15:09 59 18 100 11/23/16 15:06 98.2 62 20 143/86 100 Simple Mask 8.0 11/23/16 13:00 98.2 11/23/16 12:00 98.2 74 20 120/85 98 Room Air I&O Intake and Output 11/23/16 11/24/16 19:00 07:00 Intake Total 1125 ml 1920 ml Output Total 400 ml 1800 ml Balance 725 ml 120 ml Intake Oral 390 ml IV Total 1125 ml 1530 ml Output Urine Total 200 ml 1800 ml Estimated Blood Loss 200 ml Dressing: dry Wound: clean Drains: none Cardiovascular: RSR Respiratory: clear Abdomen: soft, flat, tenderness, present bowel sounds Laboratory Tests Test 11/24/16 03:49 11/24/16 05:00 White Blood Count 12.1 K/UL (4.8-10.8) H Red Blood Count 3.59 M/UL (4.20-5.40) L Hemoglobin 9.6 G/DL (12.0-16.0) L Hematocrit 30.0 % (37.0-47.0) L Mean Corpuscular Volume 84 FL (80-99) Mean Corpuscular Hemoglobin 26.7 PG (27.0-31.0) L Mean Corpuscular Hemoglobin Concent 32.0 G/DL (32.0-36.0) Red Cell Distribution Width 13.1 % (11.6-14.8) Platelet Count 401 K/UL (150-450) Mean Platelet Volume 6.0 FL (6.5-10.1) L Neutrophils (%) (Auto) 83.1 % (45.0-75.0) H Lymphocytes (%) (Auto) 8.6 % (20.0-45.0) L Monocytes (%) (Auto) 7.9 % (1.0-10.0) Eosinophils (%) (Auto) 0.1 % (0.0-3.0) Basophils (%) (Auto) 0.3 % (0.0-2.0) Sodium Level 139 mEQ/L (135-145) Potassium Level 3.9 mEQ/L (3.4-4.9) Chloride Level 101 mEQ/L (98-107) Carbon Dioxide Level 25 mEQ/L (20-30) Anion Gap 13 (5-15) Blood Urea Nitrogen 4 mg/dL (7-23) L Creatinine 0.7 mg/dL (0.5-0.9) Estimat Glomerular Filtration Rate > 60 mL/min (>60) Glucose Level 100 mg/dL (74-106) Calcium Level 9.0 mg/dL (8.6-10.2) Total Bilirubin 0.2 mg/dL (0.0-1.2) Aspartate Amino Transf (AST/SGOT) 12 U/L (5-40) Alanine Aminotransferase (ALT/SGPT) 7 U/L (3-33) Alkaline Phosphatase 44 U/L (35-104) Total Protein 6.6 g/dL (6.6-8.7) Albumin 3.4 g/dL (3.5-5.2) L Globulin 3.2 g/dL Albumin/Globulin Ratio 1.0 (1.0-2.7) Additional Comments leukocytosis normal after embolization Assessment Post-op Diagnosis same, improved Plan Additional Comments ambulate, bladder scan if unable to void by 1400 today. Dylan Kraft MD Nov 24, 2016 11:56
--- NOTE | 2016-11-24 12:19 | General Progress Note ---
Assessment/Plan Problem List: (1) Post-op pain ICD Codes: G89.18 - Other acute postprocedural pain SNOMED: 028223547 (2) Hiatal hernia ICD Codes: K44.9 - Diaphragmatic hernia without obstruction or gangrene SNOMED: 80102395 (3) Anemia ICD Codes: D64.9 - Anemia, unspecified SNOMED: 352519701 (4) GERD (gastroesophageal reflux disease) ICD Codes: K21.9 - Gastro-esophageal reflux disease without esophagitis SNOMED: 317478699 (5) Uterine myoma ICD Codes: D25.9 - Leiomyoma of uterus, unspecified SNOMED: 14139248 (6) Status post embolization of uterine artery ICD Codes: Z98.890 - Other specified postprocedural states SNOMED: 259775793 Assessment/Plan post op care bowel regimen fu labs pain control Subjective ROS Limited/Unobtainable: Yes Allergies: Coded Allergies: TOPIRAMATE (Verified Allergy, Unknown, 11/15/16) Subjective had one BM c/o diffuse abd pain Objective Last 24 Hour Vital Signs Date Time Temp Pulse Resp B/P Pulse Ox O2 Delivery O2 Flow Rate FiO2 11/24/16 08:00 98.1 90 20 115/73 100 Nasal Cannula 3.0 11/24/16 05:04 98.2 11/24/16 04:00 98.2 82 20 124/78 11/24/16 00:00 98.2 71 18 123/69 99 Nasal Cannula 3.0 11/23/16 20:00 97.9 78 20 117/77 99 Nasal Cannula 2.0 11/23/16 16:15 98.4 68 20 126/85 100 Nasal Cannula 3.0 11/23/16 16:10 98.2 11/23/16 16:09 98.2 11/23/16 16:07 65 20 127/74 100 Nasal Cannula 3.0 11/23/16 15:56 81 20 131/88 100 Nasal Cannula 3.0 11/23/16 15:46 71 20 135/85 100 Nasal Cannula 3.0 11/23/16 15:45 98.2 11/23/16 15:40 75 20 135/88 100 Nasal Cannula 3.0 11/23/16 15:37 82 20 135/89 100 Nasal Cannula 3.0 11/23/16 15:19 72 20 143/81 100 Nasal Cannula 3.0 11/23/16 15:11 70 20 146/79 100 Nasal Cannula 3.0 11/23/16 15:09 59 18 100 11/23/16 15:06 98.2 62 20 143/86 100 Simple Mask 8.0 11/23/16 13:00 98.2 Intake and Output 11/23/16 11/24/16 19:00 07:00 Intake Total 1125 ml 1920 ml Output Total 400 ml 1800 ml Balance 725 ml 120 ml Intake Oral 390 ml IV Total 1125 ml 1530 ml Output Urine Total 200 ml 1800 ml Estimated Blood Loss 200 ml Laboratory Tests 11/24/16 03:49: White Blood Count 12.1H, Red Blood Count 3.59L, Hemoglobin 9.6L, Hematocrit 30.0L, Mean Corpuscular Volume 84, Mean Corpuscular Hemoglobin 26.7L, Mean Corpuscular Hemoglobin Concent 32.0, Red Cell Distribution Width 13.1, Platelet Count 401, Mean Platelet Volume 6.0L, Neutrophils (%) (Auto) 83.1H, Lymphocytes (%) (Auto) 8.6L, Monocytes (%) (Auto) 7.9, Eosinophils (%) (Auto) 0.1, Basophils (%) (Auto) 0.3 11/24/16 05:00: Sodium Level 139, Potassium Level 3.9, Chloride Level 101, Carbon Dioxide Level 25, Anion Gap 13, Blood Urea Nitrogen 4L, Creatinine 0.7, Estimat Glomerular Filtration Rate > 60, Glucose Level 100, Calcium Level 9.0, Total Bilirubin 0.2 , Aspartate Amino Transf (AST/SGOT) 12, Alanine Aminotransferase (ALT/SGPT) 7, Alkaline Phosphatase 44, Total Protein 6.6, Albumin 3.4L, Globulin 3.2, Albumin/ Globulin Ratio 1.0 Height (Feet): 5 Height (Inches): 9.00 Weight (Pounds): 237 General Appearance: alert EENT: normal ENT inspection Neck: supple Cardiovascular: normal rate Respiratory/Chest: decreased breath sounds Abdomen: soft, hypoactive bowel sounds, tender Extremities: non-tender YAO GENAO Nov 24, 2016 12:19
[2016-11-24 12:23] VITALS: BP 119/77
[2016-11-24] MEDS: ceFAZolin sod 2 GM in D5W 110 ML IVPB SCH ×2 (15:34→22:10)
[2016-11-24 16:00] VITALS: BP 118/73
[2016-11-24] MEDS: Ketorolac 30mg Inj IM PRN (17:15)
[2016-11-24 20:00] VITALS: BP 121/83
[2016-11-24] MEDS: Iron Sucrose 100 MG in NS 55 ML IVPB SCH (20:48)
--- NOTE | 2016-11-24 22:00 | Pulmonology Progress Note ---
Assessment/Plan Assessment/Plan 1. Abdominal and pelvic pain following uterine artery embolization for fibroid uterus. sp myomectomy 2. Microhematuria. 3. pain pain mgmt wound care FU labs IS DVT prophylxis oob GI following Subjective Constitutional: Reports: no symptoms HEENT: Repors: no symptoms Respiratory: Reports: no symptoms Cardiovascular: Reports: no symptoms Gastrointestinal/Abdominal: Reports: other - pain Genitourinary: Reports: no symptoms Allergies: Coded Allergies: TOPIRAMATE (Verified Allergy, Unknown, 11/15/16) Subjective doing well tolerating clears drainage fom incision on ra oob to comode no cp nv or fever Objective Last 24 Hour Vital Signs Date Time Temp Pulse Resp B/P Pulse Ox O2 Delivery O2 Flow Rate FiO2 11/24/16 20:00 98.2 82 20 121/83 100 Nasal Cannula 2.0 11/24/16 18:30 98.1 11/24/16 16:00 99.0 94 19 118/73 Nasal Cannula 11/24/16 12:23 97.9 86 18 119/77 100 Nasal Cannula 11/24/16 08:00 98.1 90 20 115/73 100 Nasal Cannula 3.0 11/24/16 05:04 98.2 11/24/16 04:00 98.2 82 20 124/78 11/24/16 00:00 98.2 71 18 123/69 99 Nasal Cannula 3.0 Intake and Output 11/23/16 11/24/16 19:00 07:00 Intake Total 1125 ml 1920 ml Output Total 400 ml 1800 ml Balance 725 ml 120 ml Intake Oral 390 ml IV Total 1125 ml 1530 ml Output Urine Total 200 ml 1800 ml Estimated Blood Loss 200 ml General Appearance: WD/WN Respiratory/Chest: lungs clear, normal breath sounds Cardiovascular: normal rate, regular rhythm Abdomen: normal bowel sounds, tender Skin: no lesions, other - wound .cdi now Neurologic/Psychiatric: no motor/sensory deficits, alert, oriented x 3 Lymphatic: no neck adenopathy Musculoskeletal: no effusion Microbiology Date/Time Source Procedure Growth Status 11/23/16 13:55 Peritoneal Fluid Gram Stain - Final Resulted 11/23/16 13:55 Peritoneal Fluid Aerobic Culture - Preliminary NO GROWTH Resulted Laboratory Tests 11/24/16 03:49: White Blood Count 12.1H, Red Blood Count 3.59L, Hemoglobin 9.6L, Hematocrit 30.0L, Mean Corpuscular Volume 84, Mean Corpuscular Hemoglobin 26.7L, Mean Corpuscular Hemoglobin Concent 32.0, Red Cell Distribution Width 13.1, Platelet Count 401, Mean Platelet Volume 6.0L, Neutrophils (%) (Auto) 83.1H, Lymphocytes (%) (Auto) 8.6L, Monocytes (%) (Auto) 7.9, Eosinophils (%) (Auto) 0.1, Basophils (%) (Auto) 0.3 11/24/16 05:00: Sodium Level 139, Potassium Level 3.9, Chloride Level 101, Carbon Dioxide Level 25, Anion Gap 13, Blood Urea Nitrogen 4L, Creatinine 0.7, Estimat Glomerular Filtration Rate > 60, Glucose Level 100, Calcium Level 9.0, Total Bilirubin 0.2 , Aspartate Amino Transf (AST/SGOT) 12, Alanine Aminotransferase (ALT/SGPT) 7, Alkaline Phosphatase 44, Total Protein 6.6, Albumin 3.4L, Globulin 3.2, Albumin/ Globulin Ratio 1.0 Current Medications Medications (Trade) Dose Ordered Sig/Penny Route PRN Reason Start Time Stop Time Status Last Admin Dose Admin Al Hydroxide/Mg Hydroxide (Mylanta) 15 ml Q6H PRN ORAL DYSPEPSIA 11/23/16 18:00 12/23/16 17:59 Cefazolin Sodium/ Dextrose (Ancef/D5W) 110 ml @ 220 mls/hr Q8HR IVPB 11/24/16 14:00 12/01/16 13:59 11/24/16 15:34 Cyanocobalamin 100 mcg 100 mcg DAILY ORAL 11/22/16 20:00 12/22/16 19:59 11/24/16 08:17 Dextrose/ Electrolytes (D5 0.45%NS W/ KCl 20mEq) 1,000 ml @ 125 mls/hr Q8H IV 11/23/16 18:30 12/23/16 18:29 11/24/16 15:33 Diphenhydramine HCl 25 mg 25 mg Q8H PRN ORAL Itching/Pruritis 11/23/16 18:00 12/23/16 17:59 11/24/16 05:22 Hydromorphone HCl (Dilaudid) 0.5 mg Q3H PRN IVP Mild Pain (Pain Scale 1-3) 11/23/16 18:00 11/30/16 17:59 Hydromorphone HCl (Dilaudid) 1 mg Q3H PRN IVP Moderate Pain (Pain Scale 4-6) 11/23/16 18:00 11/30/16 17:59 Hydromorphone HCl (Dilaudid) 2 mg Q3H PRN IVP Severe Pain (Pain Scale 7-10) 11/23/16 18:00 11/30/16 17:59 11/24/16 18:37 Ketorolac Tromethamine (Toradol 30mg) 30 mg Q6H PRN IM Breakthrough pain 11/23/16 15:15 11/28/16 15:14 11/24/16 17:15 Ondansetron HCl (Zofran) 4 mg Q6H PRN IVP Nausea & Vomiting 11/23/16 18:00 12/23/16 17:59 Pantoprazole (Protonix) 40 mg ACBREAKFAST ORAL 11/23/16 06:30 12/22/16 08:59 11/24/16 06:47 Polyethylene Glycol (Miralax) 17 gm TWICE A DAY PRN ORAL Constipation 11/20/16 13:15 12/20/16 13:14 Temazepam (Restoril) 7.5 mg HSPRN PRN ORAL Insomnia 11/23/16 21:00 11/30/16 20:59 LAURA HOLM DO Nov 24, 2016 22:00
[2016-11-25] VITALS: BP 120/73
[2016-11-25] MEDS: D5 1/2NS w/KCl 20mEq 1,000 ML IV SCH ×2 (01:54→10:30)
[2016-11-25 04:00] VITALS: BP 127/82
[2016-11-25] MEDS: ceFAZolin sod 2 GM in D5W 110 ML IVPB SCH ×3 (05:44→21:54)
[2016-11-25 07:22] LABS: BASOPHILS % (AUTO) 0.9 % (0.0-2.0); EOSINOPHILS % (AUTO) 0.8 % (0.0-3.0); LYMPHOCYTES % (AUTO) 9.5 % (20.0-45.0); MEAN CORPUSCULAR HEMOGLOBIN 26.4 PG (27.0-31.0); MEAN CORPUSCULAR HGB CONC 31.7 G/DL (32.0-36.0); MEAN CORPUSCULAR VOLUME 84 FL (80-99); MEAN PLATELET VOLUME 5.8 FL (6.5-10.1); NEUTROPHILS % (AUTO) 81.8 % (45.0-75.0); PLATELET COUNT 407 K/UL (150-450); RED CELL DISTRIBUTION WIDTH 13.5 % (11.6-14.8); WHITE BLOOD COUNT 13.5 K/UL (4.8-10.8)
[2016-11-25] MEDS: Vitamin B-12 100mcg tab ORAL SCH (07:34)
[2016-11-25 07:51] LABS: ALANINE AMINOTRANSFERASE 6 U/L (3-33); ANION GAP 11 (5-15); ASPARTATE AMINO TRANSFERASE 12 U/L (5-40); CALCIUM 8.9 mg/dL (8.6-10.2); CARBON DIOXIDE 26 mEQ/L (20-30); CHLORIDE 99 mEQ/L (98-107); CREATININE 0.7 mg/dL (0.5-0.9); GLOMERULAR FILTRATION RATE > 60 mL/min (>60); HEMOLYSIS 2; POTASSIUM 3.7 mEQ/L (3.4-4.9); SODIUM 136 mEQ/L (135-145); TOTAL PROTEIN 6.6 g/dL (6.6-8.7)
[2016-11-25 08:28] VITALS: BP 125/86
[2016-11-25] MEDS ORDERED: Norco 10mg/325mg tab ORAL PRN (08:30)
--- NOTE | 2016-11-25 08:46 | General Progress Note ---
Assessment/Plan Problem List: (1) Post-op pain ICD Codes: G89.18 - Other acute postprocedural pain SNOMED: 853394407 (2) Hiatal hernia ICD Codes: K44.9 - Diaphragmatic hernia without obstruction or gangrene SNOMED: 71115103 (3) Anemia ICD Codes: D64.9 - Anemia, unspecified SNOMED: 847975676 (4) GERD (gastroesophageal reflux disease) ICD Codes: K21.9 - Gastro-esophageal reflux disease without esophagitis SNOMED: 967924817 (5) Uterine myoma ICD Codes: D25.9 - Leiomyoma of uterus, unspecified SNOMED: 95076636 (6) Status post embolization of uterine artery ICD Codes: Z98.890 - Other specified postprocedural states SNOMED: 283902813 Assessment/Plan post op care bowel regimen, added colace and lactulose fu labs pain control Subjective ROS Limited/Unobtainable: Yes Allergies: Coded Allergies: TOPIRAMATE (Verified Allergy, Unknown, 11/15/16) Subjective no BM today c/o diffuse abd pain Objective Last 24 Hour Vital Signs Date Time Temp Pulse Resp B/P Pulse Ox O2 Delivery O2 Flow Rate FiO2 11/25/16 08:28 98.2 89 20 125/86 95 Room Air 11/25/16 08:06 98.2 11/25/16 04:00 98.2 91 20 127/82 99 Nasal Cannula 2.0 11/25/16 00:00 98.1 85 18 120/73 100 Nasal Cannula 2.0 11/24/16 20:00 98.2 82 20 121/83 100 Nasal Cannula 2.0 11/24/16 18:30 98.1 11/24/16 16:00 99.0 94 19 118/73 Nasal Cannula 11/24/16 12:23 97.9 86 18 119/77 100 Nasal Cannula Intake and Output 11/24/16 11/25/16 19:00 07:00 Intake Total 1545 ml 1030 ml Output Total 700 ml Balance 845 ml 1030 ml Intake Oral 360 ml IV Total 1185 ml 1030 ml Output Urine Total 700 ml # Voids 2 Laboratory Tests 11/25/16 05:50: White Blood Count 13.5H, Red Blood Count 3.40L, Hemoglobin 9.0L, Hematocrit 28.4L, Mean Corpuscular Volume 84, Mean Corpuscular Hemoglobin 26.4L, Mean Corpuscular Hemoglobin Concent 31.7L, Red Cell Distribution Width 13.5, Platelet Count 407, Mean Platelet Volume 5.8L, Neutrophils (%) (Auto) 81.8H, Lymphocytes (%) (Auto) 9.5L, Monocytes (%) (Auto) 7.0, Eosinophils (%) (Auto) 0.8, Basophils (%) (Auto) 0.9, Sodium Level 136, Potassium Level 3.7, Chloride Level 99, Carbon Dioxide Level 26, Anion Gap 11, Blood Urea Nitrogen 3L, Creatinine 0.7, Estimat Glomerular Filtration Rate > 60, Glucose Level 97, Calcium Level 8.9, Total Bilirubin < 0.2, Aspartate Amino Transf (AST/SGOT) 12, Alanine Aminotransferase (ALT/SGPT) 6, Alkaline Phosphatase 48, Total Protein 6.6, Albumin 3.3L, Globulin 3.3, Albumin/Globulin Ratio 1.0 Height (Feet): 5 Height (Inches): 9.00 Weight (Pounds): 237 General Appearance: alert EENT: normal ENT inspection Neck: supple Cardiovascular: normal rate Respiratory/Chest: lungs clear Abdomen: soft, hypoactive bowel sounds, tender Extremities: non-tender YAO GENAO Nov 25, 2016 08:46
[2016-11-25] MEDS: Docusate 100mg cap ORAL SCH ×2 (09:11→17:01)
[2016-11-25] MEDS ORDERED: Tubing IV Secondary IV ONE (10:03)
[2016-11-25 11:26] VITALS: BP 123/83
[2016-11-25] MEDS: Ketorolac 30mg Inj IM PRN (12:11)
--- NOTE | 2016-11-25 12:26 | Infectious Diseases Prog Note ---
Assessment/Plan Problems: (1) Colonization with VRE (vancomycin-resistant enterococcus) Assessment & Plan: will place patient on contact isolation for now (2) Leukocytosis Assessment & Plan: suspect surgical related, already on cefazoline, await culture results (3) Uterine myoma Assessment & Plan: S/P surgical resection, [employer]ERK is following Subjective Allergies: Coded Allergies: TOPIRAMATE (Verified Allergy, Unknown, 11/15/16) Objective Vital Signs Last 24 Hour Vital Signs Date Time Temp Pulse Resp B/P Pulse Ox O2 Delivery O2 Flow Rate FiO2 11/25/16 11:26 98.4 83 20 123/83 97 Room Air 11/25/16 08:28 98.2 89 20 125/86 95 Room Air 11/25/16 08:06 98.2 11/25/16 04:00 98.2 91 20 127/82 99 Nasal Cannula 2.0 11/25/16 00:00 98.1 85 18 120/73 100 Nasal Cannula 2.0 11/24/16 20:00 98.2 82 20 121/83 100 Nasal Cannula 2.0 11/24/16 18:30 98.1 11/24/16 16:00 99.0 94 19 118/73 Nasal Cannula Height (Feet): 5 Height (Inches): 9.00 Weight (Pounds): 237 Microbiology Date/Time Source Procedure Growth Status 11/23/16 13:55 Peritoneal Fluid Gram Stain - Final Resulted 11/23/16 13:55 Peritoneal Fluid Aerobic Culture - Preliminary NO GROWTH AFTER 48 HOURS Resulted 11/23/16 13:55 Sputum Expectorated Anaerobic Culture - Preliminary NO GROWTH Resulted Laboratory Tests Test 11/25/16 05:50 White Blood Count 13.5 K/UL (4.8-10.8) H Red Blood Count 3.40 M/UL (4.20-5.40) L Hemoglobin 9.0 G/DL (12.0-16.0) L Hematocrit 28.4 % (37.0-47.0) L Mean Corpuscular Volume 84 FL (80-99) Mean Corpuscular Hemoglobin 26.4 PG (27.0-31.0) L Mean Corpuscular Hemoglobin Concent 31.7 G/DL (32.0-36.0) L Red Cell Distribution Width 13.5 % (11.6-14.8) Platelet Count 407 K/UL (150-450) Mean Platelet Volume 5.8 FL (6.5-10.1) L Neutrophils (%) (Auto) 81.8 % (45.0-75.0) H Lymphocytes (%) (Auto) 9.5 % (20.0-45.0) L Monocytes (%) (Auto) 7.0 % (1.0-10.0) Eosinophils (%) (Auto) 0.8 % (0.0-3.0) Basophils (%) (Auto) 0.9 % (0.0-2.0) Sodium Level 136 mEQ/L (135-145) Potassium Level 3.7 mEQ/L (3.4-4.9) Chloride Level 99 mEQ/L (98-107) Carbon Dioxide Level 26 mEQ/L (20-30) Anion Gap 11 (5-15) Blood Urea Nitrogen 3 mg/dL (7-23) L Creatinine 0.7 mg/dL (0.5-0.9) Estimat Glomerular Filtration Rate > 60 mL/min (>60) Glucose Level 97 mg/dL (74-106) Calcium Level 8.9 mg/dL (8.6-10.2) Total Bilirubin < 0.2 mg/dL (0.0-1.2) Aspartate Amino Transf (AST/SGOT) 12 U/L (5-40) Alanine Aminotransferase (ALT/SGPT) 6 U/L (3-33) Alkaline Phosphatase 48 U/L (35-104) Total Protein 6.6 g/dL (6.6-8.7) Albumin 3.3 g/dL (3.5-5.2) L Globulin 3.3 g/dL Albumin/Globulin Ratio 1.0 (1.0-2.7) Current Medications Medications (Trade) Dose Ordered Sig/Penny Route PRN Reason Start Time Stop Time Status Last Admin Dose Admin Acetaminophen/ Hydrocodone Bitart ([place] 10/325) 1 ea Q4H PRN ORAL Pain 1 through 10 11/25/16 08:30 12/02/16 08:29 11/25/16 11:05 Al Hydroxide/Mg Hydroxide (Mylanta) 15 ml Q6H PRN ORAL DYSPEPSIA 11/23/16 18:00 12/23/16 17:59 Cefazolin Sodium/ Dextrose (Ancef/D5W) 110 ml @ 220 mls/hr Q8HR IVPB 11/24/16 14:00 12/01/16 13:59 11/25/16 05:44 Cyanocobalamin 100 mcg 100 mcg DAILY ORAL 11/22/16 20:00 12/22/16 19:59 11/25/16 07:34 Dextrose/ Electrolytes (D5 0.45%NS W/ KCl 20mEq) 1,000 ml @ 125 mls/hr Q8H IV 11/23/16 18:30 12/23/16 18:29 11/25/16 01:54 Diphenhydramine HCl 25 mg 25 mg Q8H PRN ORAL Itching/Pruritis 11/23/16 18:00 12/23/16 17:59 11/24/16 05:22 Docusate Sodium (Colace) 100 mg TWICE A DAY ORAL 11/25/16 09:00 12/25/16 08:59 11/25/16 09:11 Hydromorphone HCl (Dilaudid) 0.5 mg Q3H PRN IVP Mild Pain (Pain Scale 1-3) 11/23/16 18:00 11/30/16 17:59 Hydromorphone HCl (Dilaudid) 1 mg Q3H PRN IVP Moderate Pain (Pain Scale 4-6) 11/23/16 18:00 11/30/16 17:59 Hydromorphone HCl (Dilaudid) 2 mg Q3H PRN IVP Severe Pain (Pain Scale 7-10) 11/23/16 18:00 11/30/16 17:59 11/25/16 07:36 Ketorolac Tromethamine (Toradol 30mg) 30 mg Q6H PRN IM Breakthrough pain 11/23/16 15:15 11/28/16 15:14 11/25/16 12:11 Lactulose (Cephulac) 10 gm THREE TIMES A DAY ORAL 11/27/16 12:00 12/27/16 11:59 Ondansetron HCl (Zofran) 4 mg Q6H PRN IVP Nausea & Vomiting 11/23/16 18:00 12/23/16 17:59 Pantoprazole (Protonix) 40 mg ACBREAKFAST ORAL 11/23/16 06:30 12/22/16 08:59 11/25/16 05:43 Polyethylene Glycol (Miralax) 17 gm TWICE A DAY PRN ORAL Constipation 11/20/16 13:15 12/20/16 13:14 Temazepam (Restoril) 7.5 mg HSPRN PRN ORAL Insomnia 11/23/16 21:00 11/30/16 20:59 11/25/16 02:46 Melissa Holley M.D. Nov 25, 2016 12:26
--- NOTE | 2016-11-25 15:31 | General Surgery Progress Note ---
General Surgery-Progress Note Subjective Day of Surgery: november 23 Procedure Performed abdominal myomectomy Chief Complaint: symptomatic myomata Symptoms: improved, tolerating diet, voiding well, BM Objective Last 24 Hour Vital Signs Date Time Temp Pulse Resp B/P Pulse Ox O2 Delivery O2 Flow Rate FiO2 11/25/16 12:41 98.4 11/25/16 12:04 98.4 11/25/16 11:26 98.4 83 20 123/83 97 Room Air 11/25/16 08:28 98.2 89 20 125/86 95 Room Air 11/25/16 08:06 98.2 11/25/16 04:00 98.2 91 20 127/82 99 Nasal Cannula 2.0 11/25/16 00:00 98.1 85 18 120/73 100 Nasal Cannula 2.0 11/24/16 20:00 98.2 82 20 121/83 100 Nasal Cannula 2.0 11/24/16 18:30 98.1 11/24/16 16:00 99.0 94 19 118/73 Nasal Cannula I&O Intake and Output 11/24/16 11/25/16 19:00 07:00 Intake Total 1545 ml 1030 ml Output Total 700 ml Balance 845 ml 1030 ml Intake Oral 360 ml IV Total 1185 ml 1030 ml Output Urine Total 700 ml # Voids 2 Dressing: dry Wound: clean Drains: none Cardiovascular: RSR Respiratory: clear Abdomen: soft, flat, scaphoid, tenderness, present bowel sounds Laboratory Tests Test 11/25/16 05:50 White Blood Count 13.5 K/UL (4.8-10.8) H Red Blood Count 3.40 M/UL (4.20-5.40) L Hemoglobin 9.0 G/DL (12.0-16.0) L Hematocrit 28.4 % (37.0-47.0) L Mean Corpuscular Volume 84 FL (80-99) Mean Corpuscular Hemoglobin 26.4 PG (27.0-31.0) L Mean Corpuscular Hemoglobin Concent 31.7 G/DL (32.0-36.0) L Red Cell Distribution Width 13.5 % (11.6-14.8) Platelet Count 407 K/UL (150-450) Mean Platelet Volume 5.8 FL (6.5-10.1) L Neutrophils (%) (Auto) 81.8 % (45.0-75.0) H Lymphocytes (%) (Auto) 9.5 % (20.0-45.0) L Monocytes (%) (Auto) 7.0 % (1.0-10.0) Eosinophils (%) (Auto) 0.8 % (0.0-3.0) Basophils (%) (Auto) 0.9 % (0.0-2.0) Sodium Level 136 mEQ/L (135-145) Potassium Level 3.7 mEQ/L (3.4-4.9) Chloride Level 99 mEQ/L (98-107) Carbon Dioxide Level 26 mEQ/L (20-30) Anion Gap 11 (5-15) Blood Urea Nitrogen 3 mg/dL (7-23) L Creatinine 0.7 mg/dL (0.5-0.9) Estimat Glomerular Filtration Rate > 60 mL/min (>60) Glucose Level 97 mg/dL (74-106) Calcium Level 8.9 mg/dL (8.6-10.2) Total Bilirubin < 0.2 mg/dL (0.0-1.2) Aspartate Amino Transf (AST/SGOT) 12 U/L (5-40) Alanine Aminotransferase (ALT/SGPT) 6 U/L (3-33) Alkaline Phosphatase 48 U/L (35-104) Total Protein 6.6 g/dL (6.6-8.7) Albumin 3.3 g/dL (3.5-5.2) L Globulin 3.3 g/dL Albumin/Globulin Ratio 1.0 (1.0-2.7) Assessment Post-op Diagnosis same, improved Plan Additional Comments cleared by dr laureen LANGE for contact isolation, move to 3E Dylan Kraft MD Nov 25, 2016 15:31
[2016-11-25 16:20] VITALS: BP 134/88
[2016-11-25 20:00] VITALS: BP 130/82
[2016-11-25] MEDS: Iron Sucrose 100 MG in NS 55 ML IVPB SCH (20:30)
--- NOTE | 2016-11-25 22:00 | Pulmonology Progress Note ---
Assessment/Plan Assessment/Plan 1. Abdominal and pelvic pain following uterine artery embolization for fibroid uterus. sp myomectomy 2. Microhematuria. 3. pain 4. leukocytosis pain mgmt, transition to oral meds wound care FU labs check UA IS DVT prophylxis oob GI following Subjective Constitutional: Reports: no symptoms HEENT: Repors: no symptoms Respiratory: Reports: no symptoms Cardiovascular: Reports: no symptoms Gastrointestinal/Abdominal: Reports: no symptoms, other - p0ain Neurologic: Reports: no symptoms Psychiatric: Reports: no symptoms Allergies: Coded Allergies: TOPIRAMATE (Verified Allergy, Unknown, 11/15/16) Subjective doing well pain not well controlled tolerating clears drainage fom incision on ra oob to comode no cp nv or fever Objective Last 24 Hour Vital Signs Date Time Temp Pulse Resp B/P Pulse Ox O2 Delivery O2 Flow Rate FiO2 11/25/16 20:00 98.2 82 18 130/82 100 Room Air 11/25/16 18:53 98.0 11/25/16 16:20 98.0 91 20 134/88 97 Room Air 11/25/16 12:41 98.4 11/25/16 12:04 98.4 11/25/16 11:26 98.4 83 20 123/83 97 Room Air 11/25/16 08:28 98.2 89 20 125/86 95 Room Air 11/25/16 04:00 98.2 91 20 127/82 99 Nasal Cannula 2.0 11/25/16 00:00 98.1 85 18 120/73 100 Nasal Cannula 2.0 Intake and Output 11/24/16 11/25/16 19:00 07:00 Intake Total 1545 ml 1155 ml Output Total 700 ml Balance 845 ml 1155 ml Intake Oral 360 ml IV Total 1185 ml 1155 ml Output Urine Total 700 ml # Voids 2 General Appearance: WD/WN Respiratory/Chest: lungs clear, normal breath sounds Cardiovascular: normal rate, regular rhythm Abdomen: guarding, tender Skin: no rash Neurologic/Psychiatric: no motor/sensory deficits, alert Lymphatic: no neck adenopathy, no groin adenopathy Microbiology Date/Time Source Procedure Growth Status 11/23/16 13:55 Peritoneal Fluid Gram Stain - Final Resulted 11/23/16 13:55 Peritoneal Fluid Aerobic Culture - Preliminary NO GROWTH AFTER 48 HOURS Resulted 11/23/16 13:55 Sputum Expectorated Anaerobic Culture - Preliminary NO GROWTH Resulted Laboratory Tests 11/25/16 05:50: White Blood Count 13.5H, Red Blood Count 3.40L, Hemoglobin 9.0L, Hematocrit 28.4L, Mean Corpuscular Volume 84, Mean Corpuscular Hemoglobin 26.4L, Mean Corpuscular Hemoglobin Concent 31.7L, Red Cell Distribution Width 13.5, Platelet Count 407, Mean Platelet Volume 5.8L, Neutrophils (%) (Auto) 81.8H, Lymphocytes (%) (Auto) 9.5L, Monocytes (%) (Auto) 7.0, Eosinophils (%) (Auto) 0.8, Basophils (%) (Auto) 0.9, Sodium Level 136, Potassium Level 3.7, Chloride Level 99, Carbon Dioxide Level 26, Anion Gap 11, Blood Urea Nitrogen 3L, Creatinine 0.7, Estimat Glomerular Filtration Rate > 60, Glucose Level 97, Calcium Level 8.9, Total Bilirubin < 0.2, Aspartate Amino Transf (AST/SGOT) 12, Alanine Aminotransferase (ALT/SGPT) 6, Alkaline Phosphatase 48, Total Protein 6.6, Albumin 3.3L, Globulin 3.3, Albumin/Globulin Ratio 1.0 Current Medications Medications (Trade) Dose Ordered Sig/Penny Route PRN Reason Start Time Stop Time Status Last Admin Dose Admin Acetaminophen/ Hydrocodone Bitart ([place] 10/325) 1 ea Q4H PRN ORAL Pain 1 through 10 11/25/16 08:30 12/02/16 08:29 11/25/16 11:05 Al Hydroxide/Mg Hydroxide (Mylanta) 15 ml Q6H PRN ORAL DYSPEPSIA 11/23/16 18:00 12/23/16 17:59 Cefazolin Sodium/ Dextrose (Ancef/D5W) 110 ml @ 220 mls/hr Q8HR IVPB 11/24/16 14:00 12/01/16 13:59 11/25/16 21:54 Cyanocobalamin (Vitamin B-12 Tab) 100 mcg DAILY ORAL 11/22/16 20:00 12/22/16 19:59 11/25/16 07:34 Diphenhydramine HCl 25 mg 25 mg Q8H PRN ORAL Itching/Pruritis 11/23/16 18:00 12/23/16 17:59 11/24/16 05:22 Docusate Sodium (Colace) 100 mg TWICE A DAY ORAL 11/25/16 09:00 12/25/16 08:59 11/25/16 17:01 Hydromorphone HCl (Dilaudid) 0.5 mg Q3H PRN IVP Mild Pain (Pain Scale 1-3) 11/23/16 18:00 11/30/16 17:59 Hydromorphone HCl (Dilaudid) 1 mg Q3H PRN IVP Moderate Pain (Pain Scale 4-6) 11/23/16 18:00 11/30/16 17:59 Hydromorphone HCl (Dilaudid) 2 mg Q3H PRN IVP Severe Pain (Pain Scale 7-10) 11/23/16 18:00 11/30/16 17:59 11/25/16 18:23 Iron Sucrose/ Sodium Chloride (Venofer/Sodium Chloride) 60 ml @ 240 mls/hr BEDTIME IVPB 11/25/16 21:00 11/29/16 21:14 11/25/16 20:30 Ketorolac Tromethamine (Toradol 30mg) 30 mg Q6H PRN IM Breakthrough pain 11/23/16 15:15 11/28/16 15:14 11/25/16 12:11 Lactulose 10 gm 10 gm THREE TIMES A DAY ORAL 11/27/16 12:00 12/27/16 11:59 Ondansetron HCl (Zofran) 4 mg Q6H PRN IVP Nausea & Vomiting 11/23/16 18:00 12/23/16 17:59 Pantoprazole (Protonix) 40 mg ACBREAKFAST ORAL 11/23/16 06:30 12/22/16 08:59 11/25/16 05:43 Polyethylene Glycol (Miralax) 17 gm TWICE A DAY PRN ORAL Constipation 11/20/16 13:15 12/20/16 13:14 Temazepam (Restoril) 7.5 mg HSPRN PRN ORAL Insomnia 11/23/16 21:00 11/30/16 20:59 11/25/16 02:46 LAURA HOLM DO Nov 25, 2016 22:00
[2016-11-26] VITALS: BP 129/81
[2016-11-26 02:29] LABS: APPEARANCE,URINE CLOUDY; KETONES,URINE NEGATIVE (NEGATIVE); LEUKOCYTE ESTERASE ,URINE 2+ (NEGATIVE); NITRITE,URINE NEGATIVE (NEGATIVE); PH,URINE 8 (4.5-8.0); PROTEIN,URINE 2+ (NEGATIVE); UROBILINOGEN,URINE NORMAL MG/DL (0.0-1.0)
[2016-11-26 02:36] LABS: BACTERIA,URINE FEW /HPF; RBC,URINE TNTC /HPF (0 - 2); SQUAMOUS EPITHELIAL CELL,UR FEW /LPF (NONE/OCC)
[2016-11-26 04:00] VITALS: BP 121/79
[2016-11-26] MEDS: ceFAZolin sod 2 GM in D5W 110 ML IVPB SCH ×3 (05:40→20:57)
[2016-11-26 07:13] LABS: BASOPHILS % (AUTO) 0.8 % (0.0-2.0); LYMPHOCYTES % (AUTO) 12.4 % (20.0-45.0); MEAN CORPUSCULAR HEMOGLOBIN 26.9 PG (27.0-31.0); MEAN CORPUSCULAR HGB CONC 32.1 G/DL (32.0-36.0); MEAN CORPUSCULAR VOLUME 84 FL (80-99); NEUTROPHILS % (AUTO) 78.9 % (45.0-75.0); PLATELET COUNT 501 K/UL (150-450); RED BLOOD COUNT 3.65 M/UL (4.20-5.40); RED CELL DISTRIBUTION WIDTH 13.5 % (11.6-14.8); WHITE BLOOD COUNT 15.4 K/UL (4.8-10.8)
[2016-11-26 08:00] VITALS: BP 150/96
[2016-11-26] MEDS ORDERED: HYDROmorphone 4mg tab ORAL PRN (08:45)
[2016-11-26] MEDS ORDERED: Milk of Magnesia 30ml Ud ORAL PRN (08:45)
[2016-11-26] MEDS: Docusate 100mg cap ORAL SCH ×2 (09:28→17:09)
[2016-11-26] MEDS: Vitamin B-12 100mcg tab ORAL SCH (09:28)
[2016-11-26 12:00] VITALS: BP 113/80
[2016-11-26 12:21] LABS: ALANINE AMINOTRANSFERASE 7 U/L (3-33); ALBUMIN/GLOBULIN RATIO 0.9 (1.0-2.7); ANION GAP 12 (5-15); ASPARTATE AMINO TRANSFERASE 12 U/L (5-40); CALCIUM 9.3 mg/dL (8.6-10.2); CARBON DIOXIDE 25 mEQ/L (20-30); CHLORIDE 99 mEQ/L (98-107); CREATININE 0.5 mg/dL (0.5-0.9); GLOMERULAR FILTRATION RATE > 60 mL/min (>60); HEMOLYSIS 0; POTASSIUM 3.9 mEQ/L (3.4-4.9); SODIUM 136 mEQ/L (135-145); TOTAL PROTEIN 7.2 g/dL (6.6-8.7)
--- NOTE | 2016-11-26 13:47 | GI Progress Note ---
Assessment/Plan Problems: (1) Abdominal pain ICD Codes: R10.9 - Unspecified abdominal pain SNOMED: 55080398 (2) GERD (gastroesophageal reflux disease) ICD Codes: K21.9 - Gastro-esophageal reflux disease without esophagitis SNOMED: 409082403 (3) Hypoalbuminemia ICD Codes: E88.09 - Other disorders of plasma-protein metabolism, not elsewhere classified SNOMED: 103475606 (4) Diverticulitis ICD Codes: K57.92 - Diverticulitis of intestine, part unspecified, without perforation or abscess without bleeding SNOMED: 056073020 (5) Anemia ICD Codes: D64.9 - Anemia, unspecified SNOMED: 917012382 (6) Hiatal hernia ICD Codes: K44.9 - Diaphragmatic hernia without obstruction or gangrene SNOMED: 61723336 (7) Status post embolization of uterine artery ICD Codes: Z98.890 - Other specified postprocedural states SNOMED: 369011512 Status: progressing, unchanged Status Narrative Discussed with Dr. Magdaleno. Assessment/Plan APCT reviewed >> unremarkable iron deficient >> venofer OB stool r/o GI bleed s/p abdominal myomectomy post op care pain mgmt bowel regimen, added colace and lactulose monitor H&H, transfuse prn ppi fu labs Subjective Subjective surgical pain Objective Last 24 Hour Vital Signs Date Time Temp Pulse Resp B/P Pulse Ox O2 Delivery O2 Flow Rate FiO2 11/26/16 12:00 97.1 85 19 113/80 Room Air 11/26/16 10:55 97.3 11/26/16 08:00 97.3 95 18 150/96 99 Room Air 11/26/16 04:00 98.3 80 20 121/79 99 Room Air 11/26/16 00:00 98.1 88 18 129/81 99 Room Air 11/25/16 20:00 98.2 82 18 130/82 100 Room Air 11/25/16 18:53 98.0 11/25/16 16:20 98.0 91 20 134/88 97 Room Air Intake and Output 11/25/16 11/26/16 19:00 07:00 Intake Total 1440 ml 480 ml Balance 1440 ml 480 ml Intake Oral 720 ml 200 ml IV Total 720 ml 280 ml # Voids 5 4 Laboratory Tests Test 11/26/16 01:30 11/26/16 04:30 11/26/16 11:30 Urine Color Red Urine Appearance Cloudy Urine pH 8 (4.5-8.0) Urine Specific [place] 1.010 (1.005-1.035) Urine Protein 2+ (NEGATIVE) H Urine Glucose (UA) Negative (NEGATIVE) Urine Ketones Negative (NEGATIVE) Urine Occult Blood 5+ (NEGATIVE) H Urine Nitrite Negative (NEGATIVE) Urine Bilirubin Negative (NEGATIVE) Urine Urobilinogen Normal MG/DL (0.0-1.0) Urine Leukocyte Esterase 2+ (NEGATIVE) H Urine RBC Tntc /HPF (0 - 2) H Urine WBC 5-10 /HPF (0 - 2) H Urine Squamous Epithelial Cells Few /LPF (NONE/OCC) Urine Bacteria Few /HPF (NONE) White Blood Count 15.4 K/UL (4.8-10.8) H Red Blood Count 3.65 M/UL (4.20-5.40) L Hemoglobin 9.8 G/DL (12.0-16.0) L Hematocrit 30.6 % (37.0-47.0) L Mean Corpuscular Volume 84 FL (80-99) Mean Corpuscular Hemoglobin 26.9 PG (27.0-31.0) L Mean Corpuscular Hemoglobin Concent 32.1 G/DL (32.0-36.0) Red Cell Distribution Width 13.5 % (11.6-14.8) Platelet Count 501 K/UL (150-450) H Mean Platelet Volume 6.0 FL (6.5-10.1) L Neutrophils (%) (Auto) 78.9 % (45.0-75.0) H Lymphocytes (%) (Auto) 12.4 % (20.0-45.0) L Monocytes (%) (Auto) 6.0 % (1.0-10.0) Eosinophils (%) (Auto) 2.0 % (0.0-3.0) Basophils (%) (Auto) 0.8 % (0.0-2.0) Sodium Level 136 mEQ/L (135-145) Potassium Level 3.9 mEQ/L (3.4-4.9) Chloride Level 99 mEQ/L (98-107) Carbon Dioxide Level 25 mEQ/L (20-30) Anion Gap 12 (5-15) Blood Urea Nitrogen 4 mg/dL (7-23) L Creatinine 0.5 mg/dL (0.5-0.9) Estimat Glomerular Filtration Rate > 60 mL/min (>60) Glucose Level 95 mg/dL (74-106) Calcium Level 9.3 mg/dL (8.6-10.2) Total Bilirubin 0.3 mg/dL (0.0-1.2) Aspartate Amino Transf (AST/SGOT) 12 U/L (5-40) Alanine Aminotransferase (ALT/SGPT) 7 U/L (3-33) Alkaline Phosphatase 51 U/L (35-104) Total Protein 7.2 g/dL (6.6-8.7) Albumin 3.5 g/dL (3.5-5.2) Globulin 3.7 g/dL Albumin/Globulin Ratio 0.9 (1.0-2.7) L Height (Feet): 5 Height (Inches): 9.00 Weight (Pounds): 237 General Appearance: no apparent distress, alert Cardiovascular: normal rate Respiratory/Chest: normal breath sounds, no respiratory distress Abdominal Exam: incision site Margaret Iniguez N.P. Nov 26, 2016 13:47
--- NOTE | 2016-11-26 13:56 | General Progress Note ---
Assessment/Plan Assessment/Plan 1. Abdominal and pelvic pain following uterine artery embolization for fibroid uterus. 2. Microhematuria. 3. S/p myomectomy tolerated surgery well pain mgmt called GI following disc w Dr Kraft Subjective Constitutional: Denies: fever Genitourinary: Reports: discharge - bleeding, pain Allergies: Coded Allergies: TOPIRAMATE (Verified Allergy, Unknown, 11/15/16) Objective Last 24 Hour Vital Signs Date Time Temp Pulse Resp B/P Pulse Ox O2 Delivery O2 Flow Rate FiO2 11/26/16 12:00 97.1 85 19 113/80 Room Air 11/26/16 10:55 97.3 11/26/16 08:00 97.3 95 18 150/96 99 Room Air 11/26/16 04:00 98.3 80 20 121/79 99 Room Air 11/26/16 00:00 98.1 88 18 129/81 99 Room Air 11/25/16 20:00 98.2 82 18 130/82 100 Room Air 11/25/16 18:53 98.0 11/25/16 16:20 98.0 91 20 134/88 97 Room Air Intake and Output 11/25/16 11/26/16 19:00 07:00 Intake Total 1440 ml 480 ml Balance 1440 ml 480 ml Intake Oral 720 ml 200 ml IV Total 720 ml 280 ml # Voids 5 4 Laboratory Tests 11/26/16 01:30: Urine Color Red, Urine Appearance Cloudy, Urine pH 8, Urine Specific [place] 1.010, Urine Protein 2+H, Urine Glucose (UA) Negative, Urine Ketones Negative, Urine Occult Blood 5+H, Urine Nitrite Negative, Urine Bilirubin Negative, Urine Urobilinogen Normal, Urine Leukocyte Esterase 2+H, Urine RBC TntcH, Urine WBC 5- 10H, Urine Squamous Epithelial Cells Few, Urine Bacteria Few 11/26/16 04:30: White Blood Count 15.4H, Red Blood Count 3.65L, Hemoglobin 9.8L, Hematocrit 30.6L, Mean Corpuscular Volume 84, Mean Corpuscular Hemoglobin 26.9L, Mean Corpuscular Hemoglobin Concent 32.1, Red Cell Distribution Width 13.5, Platelet Count 501H, Mean Platelet Volume 6.0L, Neutrophils (%) (Auto) 78.9H, Lymphocytes (%) (Auto) 12.4L, Monocytes (%) (Auto) 6.0, Eosinophils (%) (Auto) 2.0, Basophils (%) (Auto) 0.8 11/26/16 11:30: Sodium Level 136, Potassium Level 3.9, Chloride Level 99, Carbon Dioxide Level 25, Anion Gap 12, Blood Urea Nitrogen 4L, Creatinine 0.5, Estimat Glomerular Filtration Rate > 60, Glucose Level 95, Calcium Level 9.3, Total Bilirubin 0.3, Aspartate Amino Transf (AST/SGOT) 12, Alanine Aminotransferase (ALT/SGPT) 7, Alkaline Phosphatase 51, Total Protein 7.2, Albumin 3.5, Globulin 3.7, Albumin/ Globulin Ratio 0.9L Height (Feet): 5 Height (Inches): 9.00 Weight (Pounds): 237 General Appearance: no apparent distress Neck: supple Cardiovascular: regular rhythm Respiratory/Chest: lungs clear Abdomen: tender KARSTEN CLEMENTS Nov 26, 2016 13:56
--- NOTE | 2016-11-26 14:26 | General Surgery Progress Note ---
General Surgery-Progress Note Subjective Day of Surgery: november 23 Procedure Performed abdominal myomectomy Symptoms: improved, tolerating diet, voiding well, passing flatus, BM Objective Last 24 Hour Vital Signs Date Time Temp Pulse Resp B/P Pulse Ox O2 Delivery O2 Flow Rate FiO2 11/26/16 12:00 97.1 85 19 113/80 Room Air 11/26/16 10:55 97.3 11/26/16 08:00 97.3 95 18 150/96 99 Room Air 11/26/16 04:00 98.3 80 20 121/79 99 Room Air 11/26/16 00:00 98.1 88 18 129/81 99 Room Air 11/25/16 20:00 98.2 82 18 130/82 100 Room Air 11/25/16 18:53 98.0 11/25/16 16:20 98.0 91 20 134/88 97 Room Air I&O Intake and Output 11/25/16 11/26/16 19:00 07:00 Intake Total 1440 ml 480 ml Balance 1440 ml 480 ml Intake Oral 720 ml 200 ml IV Total 720 ml 280 ml # Voids 5 4 Dressing: dry Wound: clean Drains: none Cardiovascular: RSR Respiratory: clear Abdomen: soft, flat, scaphoid, tenderness, present bowel sounds Laboratory Tests Test 11/26/16 01:30 11/26/16 04:30 11/26/16 11:30 Urine Color Red Urine Appearance Cloudy Urine pH 8 (4.5-8.0) Urine Specific [place] 1.010 (1.005-1.035) Urine Protein 2+ (NEGATIVE) H Urine Glucose (UA) Negative (NEGATIVE) Urine Ketones Negative (NEGATIVE) Urine Occult Blood 5+ (NEGATIVE) H Urine Nitrite Negative (NEGATIVE) Urine Bilirubin Negative (NEGATIVE) Urine Urobilinogen Normal MG/DL (0.0-1.0) Urine Leukocyte Esterase 2+ (NEGATIVE) H Urine RBC Tntc /HPF (0 - 2) H Urine WBC 5-10 /HPF (0 - 2) H Urine Squamous Epithelial Cells Few /LPF (NONE/OCC) Urine Bacteria Few /HPF (NONE) White Blood Count 15.4 K/UL (4.8-10.8) H Red Blood Count 3.65 M/UL (4.20-5.40) L Hemoglobin 9.8 G/DL (12.0-16.0) L Hematocrit 30.6 % (37.0-47.0) L Mean Corpuscular Volume 84 FL (80-99) Mean Corpuscular Hemoglobin 26.9 PG (27.0-31.0) L Mean Corpuscular Hemoglobin Concent 32.1 G/DL (32.0-36.0) Red Cell Distribution Width 13.5 % (11.6-14.8) Platelet Count 501 K/UL (150-450) H Mean Platelet Volume 6.0 FL (6.5-10.1) L Neutrophils (%) (Auto) 78.9 % (45.0-75.0) H Lymphocytes (%) (Auto) 12.4 % (20.0-45.0) L Monocytes (%) (Auto) 6.0 % (1.0-10.0) Eosinophils (%) (Auto) 2.0 % (0.0-3.0) Basophils (%) (Auto) 0.8 % (0.0-2.0) Sodium Level 136 mEQ/L (135-145) Potassium Level 3.9 mEQ/L (3.4-4.9) Chloride Level 99 mEQ/L (98-107) Carbon Dioxide Level 25 mEQ/L (20-30) Anion Gap 12 (5-15) Blood Urea Nitrogen 4 mg/dL (7-23) L Creatinine 0.5 mg/dL (0.5-0.9) Estimat Glomerular Filtration Rate > 60 mL/min (>60) Glucose Level 95 mg/dL (74-106) Calcium Level 9.3 mg/dL (8.6-10.2) Total Bilirubin 0.3 mg/dL (0.0-1.2) Aspartate Amino Transf (AST/SGOT) 12 U/L (5-40) Alanine Aminotransferase (ALT/SGPT) 7 U/L (3-33) Alkaline Phosphatase 51 U/L (35-104) Total Protein 7.2 g/dL (6.6-8.7) Albumin 3.5 g/dL (3.5-5.2) Globulin 3.7 g/dL Albumin/Globulin Ratio 0.9 (1.0-2.7) L Additional Comments cultures negative, no localizing symptoms Assessment Post-op Diagnosis same, improved Plan Additional Comments pain management consult with dr huerta, oral medication needed prior to discharge Dylan Kraft MD Nov 26, 2016 14:26
--- NOTE | 2016-11-26 14:41 | Infectious Diseases Prog Note ---
Assessment/Plan Problems: (1) Colonization with VRE (vancomycin-resistant enterococcus) Assessment & Plan: will place patient on contact isolation for now (2) Leukocytosis Assessment & Plan: with productive cough, will order CXR to rule out pneumonia , she is already on cefazoline, await surgical culture results (3) Uterine myoma Assessment & Plan: S/P surgical resection, KEY ACCOUNT REPRESENTATIVE is following Subjective Constitutional: Reports: no symptoms HEENT: Reports: no symptoms Respiratory: Reports: productive cough Breasts: Reports: no symptoms Cardiovascular: Reports: no symptoms Gastrointestinal/Abdominal: Reports: other - right flank pain Genitourinary: Reports: frequency, vaginal bleed/discharge Neurologic: Reports: no symptoms Psychiatric: Reports: no symptoms Skin: Reports: no symptoms, other - surgical wound with clips Endocrine: Reports: no symptoms Hematologic: Reports: no symptoms Musculoskeletal: Reports: no symptoms Allergies: Coded Allergies: TOPIRAMATE (Verified Allergy, Unknown, 11/15/16) Objective Vital Signs Last 24 Hour Vital Signs Date Time Temp Pulse Resp B/P Pulse Ox O2 Delivery O2 Flow Rate FiO2 11/26/16 12:00 97.1 85 19 113/80 Room Air 11/26/16 10:55 97.3 11/26/16 08:00 97.3 95 18 150/96 99 Room Air 11/26/16 04:00 98.3 80 20 121/79 99 Room Air 11/26/16 00:00 98.1 88 18 129/81 99 Room Air 11/25/16 20:00 98.2 82 18 130/82 100 Room Air 11/25/16 18:53 98.0 11/25/16 16:20 98.0 91 20 134/88 97 Room Air Height (Feet): 5 Height (Inches): 9.00 Weight (Pounds): 237 General Appearance: WD/WN, no acute distress HEENT: normocephalic, atraumatic, anicteric, mucous membranes moist Respiratory/Chest: chest wall non-tender, normal breath sounds, no respiratory distress, no accessory muscle use, decreased breath sounds, crackles/rales Cardiovascular: normal peripheral pulses, normal rate, regular rhythm, no gallop/murmur, no JVD Abdomen: normal bowel sounds, soft, non tender, no organomegaly, non distended , no mass Extremities: no cyanosis, no clubbing Skin: no rash, no lesions, no ulcers, other - suprapupic surgical wound with clips in place, with scant drainage Neurologic/Psychiatric: alert, oriented x 3 Lymphatic: no neck adenopathy, no groin adenopathy Laboratory Tests Test 11/26/16 01:30 11/26/16 04:30 11/26/16 11:30 Urine Color Red Urine Appearance Cloudy Urine pH 8 (4.5-8.0) Urine Specific [place] 1.010 (1.005-1.035) Urine Protein 2+ (NEGATIVE) H Urine Glucose (UA) Negative (NEGATIVE) Urine Ketones Negative (NEGATIVE) Urine Occult Blood 5+ (NEGATIVE) H Urine Nitrite Negative (NEGATIVE) Urine Bilirubin Negative (NEGATIVE) Urine Urobilinogen Normal MG/DL (0.0-1.0) Urine Leukocyte Esterase 2+ (NEGATIVE) H Urine RBC Tntc /HPF (0 - 2) H Urine WBC 5-10 /HPF (0 - 2) H Urine Squamous Epithelial Cells Few /LPF (NONE/OCC) Urine Bacteria Few /HPF (NONE) White Blood Count 15.4 K/UL (4.8-10.8) H Red Blood Count 3.65 M/UL (4.20-5.40) L Hemoglobin 9.8 G/DL (12.0-16.0) L Hematocrit 30.6 % (37.0-47.0) L Mean Corpuscular Volume 84 FL (80-99) Mean Corpuscular Hemoglobin 26.9 PG (27.0-31.0) L Mean Corpuscular Hemoglobin Concent 32.1 G/DL (32.0-36.0) Red Cell Distribution Width 13.5 % (11.6-14.8) Platelet Count 501 K/UL (150-450) H Mean Platelet Volume 6.0 FL (6.5-10.1) L Neutrophils (%) (Auto) 78.9 % (45.0-75.0) H Lymphocytes (%) (Auto) 12.4 % (20.0-45.0) L Monocytes (%) (Auto) 6.0 % (1.0-10.0) Eosinophils (%) (Auto) 2.0 % (0.0-3.0) Basophils (%) (Auto) 0.8 % (0.0-2.0) Sodium Level 136 mEQ/L (135-145) Potassium Level 3.9 mEQ/L (3.4-4.9) Chloride Level 99 mEQ/L (98-107) Carbon Dioxide Level 25 mEQ/L (20-30) Anion Gap 12 (5-15) Blood Urea Nitrogen 4 mg/dL (7-23) L Creatinine 0.5 mg/dL (0.5-0.9) Estimat Glomerular Filtration Rate > 60 mL/min (>60) Glucose Level 95 mg/dL (74-106) Calcium Level 9.3 mg/dL (8.6-10.2) Total Bilirubin 0.3 mg/dL (0.0-1.2) Aspartate Amino Transf (AST/SGOT) 12 U/L (5-40) Alanine Aminotransferase (ALT/SGPT) 7 U/L (3-33) Alkaline Phosphatase 51 U/L (35-104) Total Protein 7.2 g/dL (6.6-8.7) Albumin 3.5 g/dL (3.5-5.2) Globulin 3.7 g/dL Albumin/Globulin Ratio 0.9 (1.0-2.7) L Current Medications Medications (Trade) Dose Ordered Sig/Penny Route PRN Reason Start Time Stop Time Status Last Admin Dose Admin Al Hydroxide/Mg Hydroxide (Mylanta) 15 ml Q6H PRN ORAL DYSPEPSIA 11/23/16 18:00 12/23/16 17:59 Cefazolin Sodium/ Dextrose (Ancef/D5W) 110 ml @ 220 mls/hr Q8HR IVPB 11/24/16 14:00 12/01/16 13:59 11/26/16 14:24 Cyanocobalamin (Vitamin B-12 Tab) 100 mcg DAILY ORAL 11/22/16 20:00 12/22/16 19:59 11/26/16 09:28 Diphenhydramine HCl 25 mg 25 mg Q8H PRN ORAL Itching/Pruritis 11/23/16 18:00 12/23/16 17:59 11/26/16 09:57 Docusate Sodium (Colace) 100 mg TWICE A DAY ORAL 11/25/16 09:00 12/25/16 08:59 11/26/16 09:28 Gabapentin (Neurontin) 300 mg THREE TIMES A DAY ORAL 11/26/16 13:15 12/26/16 13:14 11/26/16 13:15 Hydromorphone HCl (Dilaudid) 4 mg Q4H PRN ORAL Severe Pain (Pain Scale 7-10) 11/26/16 12:45 12/03/16 12:44 Iron Sucrose/ Sodium Chloride (Venofer/Sodium Chloride) 60 ml @ 240 mls/hr BEDTIME IVPB 11/25/16 21:00 11/29/16 21:14 11/25/16 20:30 Ketorolac Tromethamine (Toradol 30mg) 30 mg Q6H PRN IM Breakthrough pain 11/23/16 15:15 11/28/16 15:14 11/25/16 12:11 Lactulose 10 gm 10 gm THREE TIMES A DAY ORAL 11/27/16 12:00 12/27/16 11:59 Magnesium Hydroxide (Mom) 30 ml BIDPRN PRN ORAL Constipation 11/26/16 08:45 12/26/16 08:44 Ondansetron HCl (Zofran) 4 mg Q6H PRN IVP Nausea & Vomiting 11/23/16 18:00 12/23/16 17:59 Oxycodone/ Acetaminophen (Percocet 10/325) 1 tab Q6H PRN ORAL Moderate Pain (Pain Scale 4-6) 11/26/16 12:15 12/03/16 12:14 Pantoprazole (Protonix) 40 mg ACBREAKFAST ORAL 11/23/16 06:30 12/22/16 08:59 11/26/16 05:40 Polyethylene Glycol (Miralax) 17 gm TWICE A DAY PRN ORAL Constipation 11/20/16 13:15 12/20/16 13:14 Temazepam (Restoril) 7.5 mg HSPRN PRN ORAL Insomnia 11/23/16 21:00 11/30/16 20:59 11/25/16 02:46 Melissa Holley M.D. Nov 26, 2016 14:41
[2016-11-26] MEDS: HYDROmorphone 4mg tab ORAL PRN ×2 (15:38→22:15)
[2016-11-26 16:00] VITALS: BP 118/79
[2016-11-26] MEDS: Ketorolac 30mg Inj IM PRN (17:31)
[2016-11-26 19:59] VITALS: BP 115/90
[2016-11-26] MEDS: Iron Sucrose 100 MG in NS 55 ML IVPB SCH (20:19)
--- NOTE | 2016-11-26 22:01 | Consultation ---
DATE OF CONSULTATION: INFECTIOUS DISEASE CONSULTATION REQUESTING PHYSICIAN: Dylan Kraft M.D. REASON FOR CONSULTATION: Leukocytosis with vancomycin resistant enterococcus colonization. Recommendation for antibiotics treatment. HISTORY OF PRESENT ILLNESS: The patient is a 41-year-old, female with history of fibroids who had uterus arterial embolization in 11/15/2016, was admitted to the hospital for nausea, vomiting and worsening abdominal pain. The patient had a CT scan, which showed changes related to uterine artery embolization with no new findings. The patient underwent myomectomy by Dr. Kraft on 11/23/2016. She tolerated the procedure well. Right after her surgery, her white count starts throwing up today up to 15,000. She had rectal swab which came positive for VRE so I was consulted by her surgeon for antibiotics treatment and further management. The patient was doing well today. She denied any fever or chills but she has been coughing yellowish phlegm since her surgery. No nausea or vomiting. No bowel movement yet and she had a clean surgical wound with scant drainage and no bleeding, no redness or erythema around the surgical wound. Denied any urinary symptoms. REVIEW OF SYSTEMS: A 14-point systems reviewed were all negative apart from the one I mentioned above in my History and Physical. PAST MEDICAL HISTORY: Significant for uterine fibroids, diverticulitis, hiatal hernia, and aseptic meningitis. PAST SURGICAL HISTORY: Negative. ALLERGIES: She is allergic to Topamax unclear what kind of allergy. SOCIAL HISTORY: The patient lives at home with her mother. 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 Denied using any tobacco or drugs, but she smoked marijuana sometimes. Denied any alcohol. FAMILY HISTORY: Negative for recurrent infection or immunocompromised condition. MEDICATIONS: She has been on cefazolin 2 g IV every 8 hours since her surgical procedure on 11/23/2016. LABORATORY DATA: Today showed white count of 15.4, hemoglobin of 9.8, and platelet count of 501,000. BUN of 4, creatinine of 0.5. Urinalysis today showed +2 leukocyte esterase, too numerous to count red blood cells, and 5 to 10 WBC and few bacteria. MICROBIOLOGY: MRSA nare cultures negative. VRE culture positive in the rectum. Uterus fluid culture showed no growth after 72 hours. Aerobic and anaerobic culture medium. IMAGING: CT scan abdomen and pelvis on 11/20/2016 showed findings consistent with recent uterine fibroid embolization with stranding in the omentum adjacent to the uterus. These likely represent reactive changes to the fibroid embolization. PHYSICAL EXAMINATION: VITAL SIGNS: Temperature 97.1, pulse 85, respirations 19, blood pressure 115/80, and saturation 99% on room air. GENERAL: A middle-aged female, up in bed, awake, alert, and oriented x3, not in distress. HEENT: Normocephalic and atraumatic. Pupils reactive to lights and moist oral mucosa. No exudate. NECK: Supple. No lymphadenopathy. CARDIOVASCULAR: Regular rate and rhythm. No murmur or gallop. LUNGS: She had diminished breathing sound on the right side with crackles at the bases. No wheezing or rhonchi. ABDOMEN: Soft, obese, tender around the umbilical area. Surgical wound in the suprapubic area looks clean with surgical clips in place. No significant drainage or bleeding. No skin redness or erythema. No fluctuation around the surgical wound. EXTREMITIES: No edema or cyanosis. No clubbing. SKIN: No rash or hives. ASSESSMENT AND PLAN: 1. Leukocytosis with productive cough. We will order chest x-ray to rule out pneumonia. The patient already on cefazolin. We will await surgical culture result and start antibiotics if x-ray showed evidence of new infiltration. Continue to monitor WBC. Surgical wound looks clean at this point with no significant drainage. 2. Colonization with vancomycin resistant enterococcus, recommend contact isolation during the hospitalization. 3. Uterine myoma complicated with bleeding and pain status post surgical resection. This surgical team is following. Further management as per the recommendation. Thank you for letting us to participate in the care of this patient. Please feel free to call with any question. ID will continue to follow. Melissa Holley M.D. DR: BILL JOB#: [id number] CC:
[2016-11-27] VITALS: BP 139/98
[2016-11-27] MEDS: Ketorolac 30mg Inj IM PRN (02:50)
[2016-11-27 04:00] VITALS: BP 126/80
[2016-11-27] MEDS: ceFAZolin sod 2 GM in D5W 110 ML IVPB SCH ×2 (06:39→14:38)
[2016-11-27 06:43] LABS: BASOPHILS % (AUTO) 0.5 % (0.0-2.0); LYMPHOCYTES % (AUTO) 12.9 % (20.0-45.0); MEAN CORPUSCULAR HEMOGLOBIN 26.9 PG (27.0-31.0); MEAN CORPUSCULAR VOLUME 84 FL (80-99); MEAN PLATELET VOLUME 5.9 FL (6.5-10.1); MONOCYTES % (AUTO) 5.7 % (1.0-10.0); NEUTROPHILS % (AUTO) 77.9 % (45.0-75.0); PLATELET COUNT 513 K/UL (150-450); RED BLOOD COUNT 3.66 M/UL (4.20-5.40); RED CELL DISTRIBUTION WIDTH 13.3 % (11.6-14.8); WHITE BLOOD COUNT 11.9 K/UL (4.8-10.8)
[2016-11-27 07:24] LABS: ANION GAP 14 (5-15); CALCIUM 9.6 mg/dL (8.6-10.2); CARBON DIOXIDE 27 mEQ/L (20-30); CHLORIDE 99 mEQ/L (98-107); CREATININE 0.5 mg/dL (0.5-0.9); GLOMERULAR FILTRATION RATE > 60 mL/min (>60); HEMOLYSIS 0; POTASSIUM 3.8 mEQ/L (3.4-4.9); SODIUM 140 mEQ/L (135-145)
[2016-11-27 07:50] VITALS: BP 120/87
[2016-11-27] MEDS: Vitamin B-12 100mcg tab ORAL SCH (08:35)
[2016-11-27] MEDS: Docusate 100mg cap ORAL SCH (08:35)
--- NOTE | 2016-11-27 08:47 | Consultation ---
History of Present Illness General Date patient seen: Nov 27, 2016 Present Illness Allergies: Coded Allergies: TOPIRAMATE (Verified Allergy, Unknown, 11/15/16) Medication History Scheduled Amoxicillin/Potassium Clav 875-125 Mg Tab* (Amox Tr-K Clv 875-125 Mg Tab*), 1 TAB ORAL EVERY 12 HOURS, (Reported) Ketorolac Tromethamine (Ketorolac Tromethamine), 10 MG PO BID, (Reported) Ketorolac Tromethamine (Toradol), 10 MG PO TID, (Reported) Scheduled PRN Hydromorphone HCl (Dilaudid), 4 MG ORAL Q4H PRN for Pain Scale (6-10), (Reported ) Oxycodone Hcl/Acetaminophen 5-325* (Oxycodone-Acetaminophen 5-325*), 1 TAB ORAL Q4H PRN for For Pain, (Reported) Tramadol Hcl* (Ultram*), 50 MG ORAL EVERY 4 HOURS PRN for For Pain, (Reported) Miscellaneous Medications Bismuth Subsalicylate (Pepto-Bismol), 262 MG PO, (Reported) Ketorolac Tromethamine (Toradol), 10 MG IM, (Reported) Promethazine Hcl (Promethazine Hcl), 25 MG RC, (Reported) Patient History Healthcare decision maker Resuscitation status Full Code Advanced Directive on File Physical Exam Last 24 Hour Vital Signs Date Time Temp Pulse Resp B/P Pulse Ox O2 Delivery O2 Flow Rate FiO2 11/27/16 07:50 98.1 84 18 120/87 99 Room Air 11/27/16 04:00 97.7 81 18 126/80 100 Room Air 11/27/16 03:26 97.7 11/27/16 00:00 97.7 82 18 139/98 100 Room Air 11/26/16 23:19 97.7 11/26/16 19:59 97.7 63 18 115/90 100 Room Air 11/26/16 16:00 97.0 92 19 118/79 99 Room Air 11/26/16 12:00 97.1 85 19 113/80 Room Air 11/26/16 10:55 97.3 Intake and Output 11/26/16 11/27/16 19:00 07:00 Intake Total 240 ml 920 ml Balance 240 ml 920 ml Intake Oral 240 ml 460 ml IV Total 460 ml Laboratory Tests Test 11/26/16 11:30 11/27/16 05:40 Sodium Level 136 mEQ/L (135-145) 140 mEQ/L (135-145) Potassium Level 3.9 mEQ/L (3.4-4.9) 3.8 mEQ/L (3.4-4.9) Chloride Level 99 mEQ/L (98-107) 99 mEQ/L (98-107) Carbon Dioxide Level 25 mEQ/L (20-30) 27 mEQ/L (20-30) Anion Gap 12 (5-15) 14 (5-15) Blood Urea Nitrogen 4 mg/dL (7-23) L 5 mg/dL (7-23) L Creatinine 0.5 mg/dL (0.5-0.9) 0.5 mg/dL (0.5-0.9) Estimat Glomerular Filtration Rate > 60 mL/min (>60) > 60 mL/min (>60) Glucose Level 95 mg/dL (74-106) 91 mg/dL (74-106) Calcium Level 9.3 mg/dL (8.6-10.2) 9.6 mg/dL (8.6-10.2) Total Bilirubin 0.3 mg/dL (0.0-1.2) Aspartate Amino Transf (AST/SGOT) 12 U/L (5-40) Alanine Aminotransferase (ALT/SGPT) 7 U/L (3-33) Alkaline Phosphatase 51 U/L (35-104) Total Protein 7.2 g/dL (6.6-8.7) Albumin 3.5 g/dL (3.5-5.2) Globulin 3.7 g/dL Albumin/Globulin Ratio 0.9 (1.0-2.7) L White Blood Count 11.9 K/UL (4.8-10.8) H Red Blood Count 3.66 M/UL (4.20-5.40) L Hemoglobin 9.8 G/DL (12.0-16.0) L Hematocrit 30.8 % (37.0-47.0) L Mean Corpuscular Volume 84 FL (80-99) Mean Corpuscular Hemoglobin 26.9 PG (27.0-31.0) L Mean Corpuscular Hemoglobin Concent 32.0 G/DL (32.0-36.0) Red Cell Distribution Width 13.3 % (11.6-14.8) Platelet Count 513 K/UL (150-450) H Mean Platelet Volume 5.9 FL (6.5-10.1) L Neutrophils (%) (Auto) 77.9 % (45.0-75.0) H Lymphocytes (%) (Auto) 12.9 % (20.0-45.0) L Monocytes (%) (Auto) 5.7 % (1.0-10.0) Eosinophils (%) (Auto) 3.0 % (0.0-3.0) Basophils (%) (Auto) 0.5 % (0.0-2.0) Height (Feet): 5 Height (Inches): 9.00 Weight (Pounds): 237 Medications Current Medications Medications (Trade) Dose Ordered Sig/Penny Route PRN Reason Start Time Stop Time Status Last Admin Dose Admin Al Hydroxide/Mg Hydroxide (Mylanta) 15 ml Q6H PRN ORAL DYSPEPSIA 11/23/16 18:00 12/23/16 17:59 Cefazolin Sodium/ Dextrose (Ancef/D5W) 110 ml @ 220 mls/hr Q8HR IVPB 11/24/16 14:00 12/01/16 13:59 11/27/16 06:39 Cyanocobalamin (Vitamin B-12 Tab) 100 mcg DAILY ORAL 11/22/16 20:00 12/22/16 19:59 11/27/16 08:35 Diphenhydramine HCl 25 mg 25 mg Q8H PRN ORAL Itching/Pruritis 11/23/16 18:00 12/23/16 17:59 11/26/16 09:57 Docusate Sodium (Colace) 100 mg TWICE A DAY ORAL 11/25/16 09:00 12/25/16 08:59 11/27/16 08:35 Gabapentin (Neurontin) 300 mg THREE TIMES A DAY ORAL 11/26/16 13:15 12/26/16 13:14 11/27/16 08:36 Hydromorphone HCl (Dilaudid) 4 mg Q4H PRN ORAL Severe Pain (Pain Scale 7-10) 11/26/16 12:45 12/03/16 12:44 11/26/16 22:15 Iron Sucrose/ Sodium Chloride (Venofer/Sodium Chloride) 60 ml @ 240 mls/hr BEDTIME IVPB 11/25/16 21:00 11/29/16 21:14 11/26/16 20:19 Ketorolac Tromethamine (Toradol 30mg) 30 mg Q6H PRN IM Breakthrough pain 11/23/16 15:15 11/28/16 15:14 11/27/16 02:50 Lactulose 10 gm 10 gm THREE TIMES A DAY ORAL 11/27/16 12:00 12/27/16 11:59 Magnesium Hydroxide (Mom) 30 ml BIDPRN PRN ORAL Constipation 11/26/16 08:45 12/26/16 08:44 11/26/16 17:18 Ondansetron HCl (Zofran) 4 mg Q6H PRN IVP Nausea & Vomiting 11/23/16 18:00 12/23/16 17:59 Oxycodone/ Acetaminophen (Percocet 10/325) 1 tab Q6H PRN ORAL Moderate Pain (Pain Scale 4-6) 11/26/16 12:15 12/03/16 12:14 Pantoprazole (Protonix) 40 mg ACBREAKFAST ORAL 11/23/16 06:30 12/22/16 08:59 11/27/16 06:39 Polyethylene Glycol (Miralax) 17 gm TWICE A DAY PRN ORAL Constipation 11/20/16 13:15 12/20/16 13:14 Temazepam (Restoril) 7.5 mg HSPRN PRN ORAL Insomnia 11/23/16 21:00 11/30/16 20:59 11/25/16 02:46 Assessment/Plan Assessment/Plan (1) Pelvic pain (2) Fibroid Uterus (3) S/p Uterine artery embolization (4) Abdominal pain (5) Symptomatic leiomymata (6) S/p Abdominal Myomectomy seen dictated JOSÉ LANGSTON Nov 27, 2016 08:47
--- NOTE | 2016-11-27 09:33 | Diagnostic Imaging Report ---
Indication: Dyspnea Comparison: None A single view chest radiograph was obtained. Findings: Cardiomediastinal appearance is within normal limits for age. Pulmonary vascularity is appropriate. The diaphragmatic contour is smooth and costophrenic angles are sharp. No pleural effusions are identified. The bones are unremarkable. Impression: No acute findings
[2016-11-27] MEDS ORDERED: NS 275ml ONE (09:35)
[2016-11-27] MEDS ORDERED: Tubing IV Secondary IV ONE (09:35)
--- NOTE | 2016-11-27 09:52 | GI Progress Note ---
Assessment/Plan Problems: (1) Abdominal pain ICD Codes: R10.9 - Unspecified abdominal pain SNOMED: 02284662 (2) GERD (gastroesophageal reflux disease) ICD Codes: K21.9 - Gastro-esophageal reflux disease without esophagitis SNOMED: 358733137 (3) Hypoalbuminemia ICD Codes: E88.09 - Other disorders of plasma-protein metabolism, not elsewhere classified SNOMED: 585215341 (4) Diverticulitis ICD Codes: K57.92 - Diverticulitis of intestine, part unspecified, without perforation or abscess without bleeding SNOMED: 658631800 (5) Anemia ICD Codes: D64.9 - Anemia, unspecified SNOMED: 891627850 (6) Hiatal hernia ICD Codes: K44.9 - Diaphragmatic hernia without obstruction or gangrene SNOMED: 48663218 (7) Status post embolization of uterine artery ICD Codes: Z98.890 - Other specified postprocedural states SNOMED: 918161855 Status: progressing Status Narrative Discussed with Dr. Magdaleno. Assessment/Plan APCT reviewed >> unremarkable iron deficient >> venofer OB stool r/o GI bleed s/p abdominal myomectomy post op care soft diet, tolerating pain mgmt bowel regimen, colace and lactulose monitor H&H, transfuse prn ppi fu labs Subjective Subjective surgical pain improving Objective Last 24 Hour Vital Signs Date Time Temp Pulse Resp B/P Pulse Ox O2 Delivery O2 Flow Rate FiO2 11/27/16 07:50 98.1 84 18 120/87 99 Room Air 11/27/16 04:00 97.7 81 18 126/80 100 Room Air 11/27/16 03:26 97.7 11/27/16 00:00 97.7 82 18 139/98 100 Room Air 11/26/16 23:19 97.7 11/26/16 19:59 97.7 63 18 115/90 100 Room Air 11/26/16 16:00 97.0 92 19 118/79 99 Room Air 11/26/16 12:00 97.1 85 19 113/80 Room Air 11/26/16 10:55 97.3 Intake and Output 11/26/16 11/27/16 19:00 07:00 Intake Total 240 ml 920 ml Balance 240 ml 920 ml Intake Oral 240 ml 460 ml IV Total 460 ml Laboratory Tests Test 11/26/16 11:30 11/27/16 05:40 Sodium Level 136 mEQ/L (135-145) 140 mEQ/L (135-145) Potassium Level 3.9 mEQ/L (3.4-4.9) 3.8 mEQ/L (3.4-4.9) Chloride Level 99 mEQ/L (98-107) 99 mEQ/L (98-107) Carbon Dioxide Level 25 mEQ/L (20-30) 27 mEQ/L (20-30) Anion Gap 12 (5-15) 14 (5-15) Blood Urea Nitrogen 4 mg/dL (7-23) L 5 mg/dL (7-23) L Creatinine 0.5 mg/dL (0.5-0.9) 0.5 mg/dL (0.5-0.9) Estimat Glomerular Filtration Rate > 60 mL/min (>60) > 60 mL/min (>60) Glucose Level 95 mg/dL (74-106) 91 mg/dL (74-106) Calcium Level 9.3 mg/dL (8.6-10.2) 9.6 mg/dL (8.6-10.2) Total Bilirubin 0.3 mg/dL (0.0-1.2) Aspartate Amino Transf (AST/SGOT) 12 U/L (5-40) Alanine Aminotransferase (ALT/SGPT) 7 U/L (3-33) Alkaline Phosphatase 51 U/L (35-104) Total Protein 7.2 g/dL (6.6-8.7) Albumin 3.5 g/dL (3.5-5.2) Globulin 3.7 g/dL Albumin/Globulin Ratio 0.9 (1.0-2.7) L White Blood Count 11.9 K/UL (4.8-10.8) H Red Blood Count 3.66 M/UL (4.20-5.40) L Hemoglobin 9.8 G/DL (12.0-16.0) L Hematocrit 30.8 % (37.0-47.0) L Mean Corpuscular Volume 84 FL (80-99) Mean Corpuscular Hemoglobin 26.9 PG (27.0-31.0) L Mean Corpuscular Hemoglobin Concent 32.0 G/DL (32.0-36.0) Red Cell Distribution Width 13.3 % (11.6-14.8) Platelet Count 513 K/UL (150-450) H Mean Platelet Volume 5.9 FL (6.5-10.1) L Neutrophils (%) (Auto) 77.9 % (45.0-75.0) H Lymphocytes (%) (Auto) 12.9 % (20.0-45.0) L Monocytes (%) (Auto) 5.7 % (1.0-10.0) Eosinophils (%) (Auto) 3.0 % (0.0-3.0) Basophils (%) (Auto) 0.5 % (0.0-2.0) Height (Feet): 5 Height (Inches): 9.00 Weight (Pounds): 237 General Appearance: no apparent distress, alert, obese Cardiovascular: normal rate Respiratory/Chest: normal breath sounds, no respiratory distress Abdominal Exam: normal bowel sounds, non tender, soft, incision site Margaret Iniguez N.P. Nov 27, 2016 09:52
--- NOTE | 2016-11-27 11:37 | General Progress Note ---
Assessment/Plan Assessment/Plan 1. Abdominal and pelvic pain following uterine artery embolization for fibroid uterus. 2. Microhematuria. 3. S/p myomectomy CXR neg wants to go home pain controlled GI will order laxative disc w Dr Kraft home soon Subjective Gastrointestinal/Abdominal: Reports: constipated Genitourinary: Reports: pain - much better Allergies: Coded Allergies: TOPIRAMATE (Verified Allergy, Unknown, 11/15/16) Objective Last 24 Hour Vital Signs Date Time Temp Pulse Resp B/P Pulse Ox O2 Delivery O2 Flow Rate FiO2 11/27/16 07:50 98.1 84 18 120/87 99 Room Air 11/27/16 04:00 97.7 81 18 126/80 100 Room Air 11/27/16 03:26 97.7 11/27/16 00:00 97.7 82 18 139/98 100 Room Air 11/26/16 23:19 97.7 11/26/16 19:59 97.7 63 18 115/90 100 Room Air 11/26/16 16:00 97.0 92 19 118/79 99 Room Air 11/26/16 12:00 97.1 85 19 113/80 Room Air Intake and Output 11/26/16 11/27/16 19:00 07:00 Intake Total 240 ml 920 ml Balance 240 ml 920 ml Intake Oral 240 ml 460 ml IV Total 460 ml Laboratory Tests 11/27/16 05:40: White Blood Count 11.9H, Red Blood Count 3.66L, Hemoglobin 9.8L, Hematocrit 30.8L, Mean Corpuscular Volume 84, Mean Corpuscular Hemoglobin 26.9L, Mean Corpuscular Hemoglobin Concent 32.0, Red Cell Distribution Width 13.3, Platelet Count 513H, Mean Platelet Volume 5.9L, Neutrophils (%) (Auto) 77.9H, Lymphocytes (%) (Auto) 12.9L, Monocytes (%) (Auto) 5.7, Eosinophils (%) (Auto) 3.0, Basophils (%) (Auto) 0.5, Sodium Level 140, Potassium Level 3.8, Chloride Level 99, Carbon Dioxide Level 27, Anion Gap 14, Blood Urea Nitrogen 5L, Creatinine 0.5, Estimat Glomerular Filtration Rate > 60, Glucose Level 91, Calcium Level 9.6 Height (Feet): 5 Height (Inches): 9.00 Weight (Pounds): 237 General Appearance: alert Neck: supple Cardiovascular: normal rate Respiratory/Chest: lungs clear Abdomen: non tender, soft KARSTEN CLEMENTS Nov 27, 2016 11:37
[2016-11-27 12:00] VITALS: BP 124/85
[2016-11-27] MEDS ORDERED: Lactulose 10gm/15ml UDC ORAL SCH ×2 (12:00→13:00)
--- NOTE | 2016-11-27 12:18 | General Surgery Progress Note ---
General Surgery-Progress Note Subjective Day of Surgery: november 23 Procedure Performed abdominal myomectomy Symptoms: improved, pain absent, tolerating diet, voiding well, passing flatus Objective Last 24 Hour Vital Signs Date Time Temp Pulse Resp B/P Pulse Ox O2 Delivery O2 Flow Rate FiO2 11/27/16 07:50 98.1 84 18 120/87 99 Room Air 11/27/16 04:00 97.7 81 18 126/80 100 Room Air 11/27/16 03:26 97.7 11/27/16 00:00 97.7 82 18 139/98 100 Room Air 11/26/16 23:19 97.7 11/26/16 19:59 97.7 63 18 115/90 100 Room Air 11/26/16 16:00 97.0 92 19 118/79 99 Room Air I&O Intake and Output 11/26/16 11/27/16 19:00 07:00 Intake Total 240 ml 920 ml Balance 240 ml 920 ml Intake Oral 240 ml 460 ml IV Total 460 ml Dressing: dry Wound: clean Drains: none Cardiovascular: RSR Respiratory: clear Abdomen: soft, flat, scaphoid, non-tender, present bowel sounds Extremities: no edema, no tenderness, no cyanosis Laboratory Tests Test 11/27/16 05:40 White Blood Count 11.9 K/UL (4.8-10.8) H Red Blood Count 3.66 M/UL (4.20-5.40) L Hemoglobin 9.8 G/DL (12.0-16.0) L Hematocrit 30.8 % (37.0-47.0) L Mean Corpuscular Volume 84 FL (80-99) Mean Corpuscular Hemoglobin 26.9 PG (27.0-31.0) L Mean Corpuscular Hemoglobin Concent 32.0 G/DL (32.0-36.0) Red Cell Distribution Width 13.3 % (11.6-14.8) Platelet Count 513 K/UL (150-450) H Mean Platelet Volume 5.9 FL (6.5-10.1) L Neutrophils (%) (Auto) 77.9 % (45.0-75.0) H Lymphocytes (%) (Auto) 12.9 % (20.0-45.0) L Monocytes (%) (Auto) 5.7 % (1.0-10.0) Eosinophils (%) (Auto) 3.0 % (0.0-3.0) Basophils (%) (Auto) 0.5 % (0.0-2.0) Sodium Level 140 mEQ/L (135-145) Potassium Level 3.8 mEQ/L (3.4-4.9) Chloride Level 99 mEQ/L (98-107) Carbon Dioxide Level 27 mEQ/L (20-30) Anion Gap 14 (5-15) Blood Urea Nitrogen 5 mg/dL (7-23) L Creatinine 0.5 mg/dL (0.5-0.9) Estimat Glomerular Filtration Rate > 60 mL/min (>60) Glucose Level 91 mg/dL (74-106) Calcium Level 9.6 mg/dL (8.6-10.2) Additional Comments wbc dropping as expected. pathology pending Assessment Post-op Diagnosis same, improved Plan Additional Comments likely discharge today, GI to aid patient to have BM prior. office visit, with clip removal saturday. meds, dilaudid 4mg, tramadol 50mg Dylan Kraft MD Nov 27, 2016 12:17
[2016-11-27] MEDS ORDERED: Fleet's Mineral Oil Enema RECTAL ONE (12:30)
[2016-11-27] MEDS ORDERED: DILAUDID4 MG ORAL (14:02)
--- NOTE | 2016-11-27 14:52 | Infectious Diseases Prog Note ---
Assessment/Plan Problems: (1) Colonization with VRE (vancomycin-resistant enterococcus) Assessment & Plan: keep patient on contact isolation while in hospital (2) Leukocytosis Assessment & Plan: suspect due to surgical procedure , improved, with no evidence of pneumonia , with negative surgical culture results (3) Uterine myoma Assessment & Plan: S/P surgical resection, [employer] is following Subjective Constitutional: Reports: no symptoms HEENT: Reports: no symptoms Respiratory: Reports: no symptoms Breasts: Reports: no symptoms Cardiovascular: Reports: no symptoms Gastrointestinal/Abdominal: Reports: no symptoms Genitourinary: Reports: no symptoms Neurologic: Reports: no symptoms Psychiatric: Reports: no symptoms Skin: Reports: no symptoms Endocrine: Reports: no symptoms Hematologic: Reports: no symptoms Musculoskeletal: Reports: no symptoms Allergies: Coded Allergies: TOPIRAMATE (Verified Allergy, Unknown, 11/15/16) Objective Vital Signs Last 24 Hour Vital Signs Date Time Temp Pulse Resp B/P Pulse Ox O2 Delivery O2 Flow Rate FiO2 11/27/16 12:00 98.1 63 18 124/85 99 Room Air 11/27/16 07:50 98.1 84 18 120/87 99 Room Air 11/27/16 04:00 97.7 81 18 126/80 100 Room Air 11/27/16 03:26 97.7 11/27/16 00:00 97.7 82 18 139/98 100 Room Air 11/26/16 23:19 97.7 11/26/16 19:59 97.7 63 18 115/90 100 Room Air 11/26/16 16:00 97.0 92 19 118/79 99 Room Air Height (Feet): 5 Height (Inches): 9.00 Weight (Pounds): 237 General Appearance: WD/WN, no acute distress HEENT: normocephalic, atraumatic, anicteric, mucous membranes moist, supple, no JVD Respiratory/Chest: chest wall non-tender, lungs clear, normal breath sounds, no respiratory distress, no accessory muscle use Cardiovascular: normal peripheral pulses, normal rate, regular rhythm, no gallop/murmur, no JVD Abdomen: normal bowel sounds, soft, non tender, no organomegaly, non distended , no mass, no scars Extremities: no cyanosis, no clubbing Skin: no rash, no lesions, no ulcers Neurologic/Psychiatric: alert, oriented x 3, responsive Musculoskeletal: normal muscle bulk, no effusion Laboratory Tests Test 11/27/16 05:40 White Blood Count 11.9 K/UL (4.8-10.8) H Red Blood Count 3.66 M/UL (4.20-5.40) L Hemoglobin 9.8 G/DL (12.0-16.0) L Hematocrit 30.8 % (37.0-47.0) L Mean Corpuscular Volume 84 FL (80-99) Mean Corpuscular Hemoglobin 26.9 PG (27.0-31.0) L Mean Corpuscular Hemoglobin Concent 32.0 G/DL (32.0-36.0) Red Cell Distribution Width 13.3 % (11.6-14.8) Platelet Count 513 K/UL (150-450) H Mean Platelet Volume 5.9 FL (6.5-10.1) L Neutrophils (%) (Auto) 77.9 % (45.0-75.0) H Lymphocytes (%) (Auto) 12.9 % (20.0-45.0) L Monocytes (%) (Auto) 5.7 % (1.0-10.0) Eosinophils (%) (Auto) 3.0 % (0.0-3.0) Basophils (%) (Auto) 0.5 % (0.0-2.0) Sodium Level 140 mEQ/L (135-145) Potassium Level 3.8 mEQ/L (3.4-4.9) Chloride Level 99 mEQ/L (98-107) Carbon Dioxide Level 27 mEQ/L (20-30) Anion Gap 14 (5-15) Blood Urea Nitrogen 5 mg/dL (7-23) L Creatinine 0.5 mg/dL (0.5-0.9) Estimat Glomerular Filtration Rate > 60 mL/min (>60) Glucose Level 91 mg/dL (74-106) Calcium Level 9.6 mg/dL (8.6-10.2) Current Medications Medications (Trade) Dose Ordered Sig/Penny Route PRN Reason Start Time Stop Time Status Last Admin Dose Admin Al Hydroxide/Mg Hydroxide (Mylanta) 15 ml Q6H PRN ORAL DYSPEPSIA 11/23/16 18:00 12/23/16 17:59 Cefazolin Sodium/ Dextrose (Ancef/D5W) 110 ml @ 220 mls/hr Q8HR IVPB 11/24/16 14:00 12/01/16 13:59 11/27/16 14:38 Cyanocobalamin (Vitamin B-12 Tab) 100 mcg DAILY ORAL 11/22/16 20:00 12/22/16 19:59 11/27/16 08:35 Diphenhydramine HCl 25 mg 25 mg Q8H PRN ORAL Itching/Pruritis 11/23/16 18:00 12/23/16 17:59 11/26/16 09:57 Docusate Sodium 100 mg 100 mg TWICE A DAY ORAL 11/25/16 09:00 12/25/16 08:59 11/27/16 08:35 Gabapentin (Neurontin) 300 mg THREE TIMES A DAY ORAL 11/26/16 13:15 12/26/16 13:14 11/27/16 12:17 Hydromorphone HCl (Dilaudid) 4 mg Q4H PRN ORAL Severe Pain (Pain Scale 7-10) 11/26/16 12:45 12/03/16 12:44 11/26/16 22:15 Iron Sucrose/ Sodium Chloride (Venofer/Sodium Chloride) 60 ml @ 240 mls/hr BEDTIME IVPB 11/25/16 21:00 11/29/16 21:14 11/26/16 20:19 Ketorolac Tromethamine (Toradol 30mg) 30 mg Q6H PRN IM Breakthrough pain 11/23/16 15:15 11/28/16 15:14 11/27/16 02:50 Lactulose (Cephulac) 30 gm THREE TIMES A DAY ORAL 11/27/16 13:00 12/27/16 12:59 11/27/16 12:17 Magnesium Hydroxide (Mom) 30 ml BIDPRN PRN ORAL Constipation 11/26/16 08:45 12/26/16 08:44 11/26/16 17:18 Ondansetron HCl (Zofran) 4 mg Q6H PRN IVP Nausea & Vomiting 11/23/16 18:00 12/23/16 17:59 Oxycodone/ Acetaminophen (Percocet 10/325) 1 tab Q6H PRN ORAL Moderate Pain (Pain Scale 4-6) 11/26/16 12:15 12/03/16 12:14 Pantoprazole (Protonix) 40 mg ACBREAKFAST ORAL 11/23/16 06:30 12/22/16 08:59 11/27/16 06:39 Polyethylene Glycol (Miralax) 17 gm TWICE A DAY PRN ORAL Constipation 11/20/16 13:15 12/20/16 13:14 Temazepam (Restoril) 7.5 mg HSPRN PRN ORAL Insomnia 11/23/16 21:00 11/30/16 20:59 11/25/16 02:46 Melissa Holley M.D. Nov 27, 2016 14:52
--- NOTE | 2016-11-27 14:55 | GI Progress Note ---
Assessment/Plan Problems: (1) Abdominal pain ICD Codes: R10.9 - Unspecified abdominal pain SNOMED: 44737464 (2) GERD (gastroesophageal reflux disease) ICD Codes: K21.9 - Gastro-esophageal reflux disease without esophagitis SNOMED: 141157057 (3) Hypoalbuminemia ICD Codes: E88.09 - Other disorders of plasma-protein metabolism, not elsewhere classified SNOMED: 497206142 (4) Diverticulitis ICD Codes: K57.92 - Diverticulitis of intestine, part unspecified, without perforation or abscess without bleeding SNOMED: 936468898 (5) Anemia ICD Codes: D64.9 - Anemia, unspecified SNOMED: 671174119 (6) Hiatal hernia ICD Codes: K44.9 - Diaphragmatic hernia without obstruction or gangrene SNOMED: 86738509 (7) Status post embolization of uterine artery ICD Codes: Z98.890 - Other specified postprocedural states SNOMED: 402181189 Status: stable Status Narrative Discussed with Dr. Magdaleno. Assessment/Plan APCT reviewed >> unremarkable iron deficient >> venofer OB stool r/o GI bleed s/p abdominal myomectomy post op care soft diet, tolerating pain mgmt bowel regimen, colace and lactulose >> fleets x 1, pt had BM x 3. monitor H&H, transfuse prn ppi fu labs Subjective Subjective surgical pain improving constipated Objective Last 24 Hour Vital Signs Date Time Temp Pulse Resp B/P Pulse Ox O2 Delivery O2 Flow Rate FiO2 11/27/16 12:00 98.1 63 18 124/85 99 Room Air 11/27/16 07:50 98.1 84 18 120/87 99 Room Air 11/27/16 04:00 97.7 81 18 126/80 100 Room Air 11/27/16 03:26 97.7 11/27/16 00:00 97.7 82 18 139/98 100 Room Air 11/26/16 23:19 97.7 11/26/16 19:59 97.7 63 18 115/90 100 Room Air 11/26/16 16:00 97.0 92 19 118/79 99 Room Air Intake and Output 11/26/16 11/27/16 19:00 07:00 Intake Total 240 ml 920 ml Balance 240 ml 920 ml Intake Oral 240 ml 460 ml IV Total 460 ml Laboratory Tests Test 11/27/16 05:40 White Blood Count 11.9 K/UL (4.8-10.8) H Red Blood Count 3.66 M/UL (4.20-5.40) L Hemoglobin 9.8 G/DL (12.0-16.0) L Hematocrit 30.8 % (37.0-47.0) L Mean Corpuscular Volume 84 FL (80-99) Mean Corpuscular Hemoglobin 26.9 PG (27.0-31.0) L Mean Corpuscular Hemoglobin Concent 32.0 G/DL (32.0-36.0) Red Cell Distribution Width 13.3 % (11.6-14.8) Platelet Count 513 K/UL (150-450) H Mean Platelet Volume 5.9 FL (6.5-10.1) L Neutrophils (%) (Auto) 77.9 % (45.0-75.0) H Lymphocytes (%) (Auto) 12.9 % (20.0-45.0) L Monocytes (%) (Auto) 5.7 % (1.0-10.0) Eosinophils (%) (Auto) 3.0 % (0.0-3.0) Basophils (%) (Auto) 0.5 % (0.0-2.0) Sodium Level 140 mEQ/L (135-145) Potassium Level 3.8 mEQ/L (3.4-4.9) Chloride Level 99 mEQ/L (98-107) Carbon Dioxide Level 27 mEQ/L (20-30) Anion Gap 14 (5-15) Blood Urea Nitrogen 5 mg/dL (7-23) L Creatinine 0.5 mg/dL (0.5-0.9) Estimat Glomerular Filtration Rate > 60 mL/min (>60) Glucose Level 91 mg/dL (74-106) Calcium Level 9.6 mg/dL (8.6-10.2) Height (Feet): 5 Height (Inches): 9.00 Weight (Pounds): 237 General Appearance: no apparent distress, alert, obese Cardiovascular: normal rate Respiratory/Chest: normal breath sounds, no respiratory distress Abdominal Exam: normal bowel sounds, non tender, soft Extremities: normal range of motion Margaret Iniguez N.POrlando Nov 27, 2016 14:55
--- NOTE | 2016-11-27 18:31 | Consultation ---
DATE OF CONSULTATION: 11/27/2016 CONSULTING PHYSICIAN: Shayan Hoover M.D. REFERRING PHYSICIAN: 1. Dylan Kraft M.D. 2. Yoan Yip M.D. PHYSICIAN PIN DRAFTER: Jeanine Montenegro CHIEF COMPLAINT: Pelvic pain and abdominal pain HISTORY OF PRESENT ILLNESS: This is a 41-year-old female, who is being seen on the Med/Surg floor of [facility] for initial comprehensive pain management consultation. The patient reports that she has been having pelvic and abdominal pain, status post abdominal myomectomy and uterine artery embolization, was on high doses of Dilaudid IV and then was switched to Dilaudid by mouth 4 mg every 4 hours with minimal pain relief. Due to this, we were consulted, so that the patient would have adequate pain control while here in the hospital. We started the patient on Neurontin 100 mg tablet 3 times a day, Percocet 10 mg tablets every six hours as needed for moderate. The patient's pain is 6/10 at this time. Prior to the change, the patient reported that she has sharp, stabbing pain, increases with touch and urination and now is reporting that pain has been tolerable with medication regimen and is mild to moderate pain at this time. PAST MEDICAL HISTORY: Diverticulitis, aseptic meningitis, and hiatal hernia. PAST SURGICAL HISTORY: Right knee arthroscopy. SOCIAL HISTORY: Denies smoking, tobacco, drinking alcohol, or drug abuse. ALLERGIES: Topamax. MEDICATIONS: Amoxicillin, ketorolac, Dilaudid, oxycodone, and tramadol. REVIEW OF SYSTEMS: Denies rash, fever, chills, sweating, dizziness, drowsiness, blurred vision, sore throat, change in weight. No shortness of breath or chest pain. No nausea, vomiting, diarrhea, or blood in the stool or urine. No bowel or bladder incontinence. No dysuria. She is complaining of abdominal and pelvic pain. PHYSICAL EXAMINATION: GENERAL: Alert, awake, and oriented x3. VITAL SIGNS: Blood pressure 120/87, heart rate is 84, oxygen saturation is 99%, respiratory rate is 18, and temperature is 98.1 degrees Fahrenheit. Height is 5 feet 9 inches. Weight is 237 pounds. HEENT: PERRLA. NECK: Range of motion is full in all directions. No tenderness to paracervical muscles. No adenopathy. LUNGS: Lungs are clear. HEART: Regular. ABDOMEN: Tenderness to palpation with bandages noted. BACK: Range of motion is decreased in flexion and extension. No tenderness to trapezius or rhomboid muscles. EXTREMITIES: Upper extremity motion is full all directions motor is intact. No cyanosis. No clubbing. No edema. Sensory is intact. Reflexes are not obtainable. No adenopathy. Lower extremity motion is full in all directions. Motor is intact. No cyanosis. No clubbing. No edema. Sensory is intact. Reflexes are unobtainable. No adenopathy. ASSESSMENT AND PLAN: This is a 41-year-old female with 1. Pelvic pain. 2. Fibroid uterus, status post uterine artery embolization. 3. Abdominal pain, symptomatic leiomyomata, status post abdominal myomectomy. PLAN: The patient will be continued on Dilaudid, Percocet, and Neurontin. The patient was discussed with Dr. Hoover and Dr. Hoover concurred. We will follow up with the patient. Thank you very much for the courtesy of this consultation. Shayan Hoover M.D. [facility] [place] DR: DEANA JOB#: [id number] CC:
--- NOTE | 2016-11-29 11:12 | Discharge Summary ---
Discharge Summary Hospital Course Date of Admission Nov 20, 2016 at 10:15 Date of Discharge Nov 27, 2016 at 16:00 Admitting Diagnosis postop pain HPI Etienne Chris is a 41 year old female who was admitted on Nov 20, 2016 at 10:15 for Postop Pain Hospital Course [id number] Discharge Discharge Disposition Patient was discharged to Home (01) Discharge Diagnoses: Pinky Montejo NP Nov 29, 2016 11:12
--- NOTE | 2016-11-29 16:46 | Discharge Summary 2 SIG ---
DATE OF ADMISSION: 11/20/2016 DATE OF DISCHARGE: 11/27/2016 CONSULTANTS: 1. Alvarado Magdaleno M.D. 2. Shayan Hoover M.D. 3. Melissa Holley M.D. 4. Yoan Yip M.D. BRIEF HOSPITAL COURSE: The patient is a 41-year-old female, who is status post artery embolization on 11/14/2016 presented to ED complaining of abdominal pain. The pain was described to be sharp, left-sided, 10/10 and nonradiating. On evaluation at ED, laboratories showed leukocytosis. CT of the abdomen and pelvis showed no evidence of diverticulitis with postoperative changes associated with uterine artery embolization. Due to persistence of pain, the patient was admitted to the medical floor and was started on IV hydration and pain medications. She was seen by GI. Lipase was normal. Abdominal and pelvic CT was unremarkable. Diet was advanced as tolerated. She was given proton pump inhibitors and was given IV Venofer, as the laboratories showed iron deficiency anemia. She continued to have pain and on 11/23/2016 underwent abdominal myomectomy. At the time of the laparotomy, the patient's uterus extended well above the umbilicus, a pedunculated 10 x 12 centimeter subserosal myoma was seen and there was multiple myomata within the intramural area, which were excised. She had ovarian cysts, which were found to be benign. Ovary was not removed. Postoperatively, there was episode of leukocytosis and VRE culture was positive. Dr. Holley was consulted. Ancef was continued. She complained of cough. Chest x-ray showed no acute findings and surgical cultures did not isolate any growth. She was continued on pain management and was given bowel regimen consisting of Colace, lactulose and Fleet's enema. The patient had a successful bowel movements and was eventually discharged home with pain medications. The patient to follow up with Gynecology as outpatient. FINAL DIAGNOSES: 1. Postoperative abdominal pain status post recent uterine artery embolization. 2. Status post abdominal myomectomy. 3. Vancomycin-resistant enterococci colonization. 4. Hiatal hernia. 5. Hypoalbuminemia. 6. Iron deficiency anemia. 7. Gastroesophageal reflux disease. 8. Micro hematuria. Dylan Ross M.D. I have been assigned to dictate discharge summary on this account and I was not involved in the patient's management. Pinky Montejo N.P. DR: CARLOS A JOB#: [id number] CC:
== END 2016-11-27 16:00 | disposition home or self-care (01) | DRG 743 ==
LOC: EMR 10:10 → 3E 10:15 → EDBEDREQ 12:31 → 3E 13:24 → 4W 11-22 11:30
PROC: 0UB90ZZ Excision of Uterus, Open Approach (ICD-10-PCS; principal; 2016-11-22)
DX: D25.1 Intramural leiomyoma of uterus (principal); E88.09 Other disorders of plasma-protein metabolism, not elsewhere classified; N83.209 Unspecified ovarian cyst, unspecified side; D50.9 Iron deficiency anemia, unspecified; R31.29 Other microscopic hematuria; K21.9 Gastro-esophageal reflux disease without esophagitis; K44.9 Diaphragmatic hernia without obstruction or gangrene; E66.9 Obesity, unspecified; Z68.35 Body mass index [BMI] 35.0-35.9, adult; Z16.21 Resistance to vancomycin
CPT/HCPCS: 36415; 71010; 74177; 80048; 80053; 81003; 82150; 82378; 82607; 82728; 82746; 83540; 83550; 83690; 84439; 84443; 84484; 84703; 85025; 85044; 85610; 85730; 87070; 87075; 87081; 87205; 94003; 94150; J2180; J2250; J2405; J2710

== ENCOUNTER 2016-12-04 11:27 | Inpatient (IN) | payer MEDICARE, MEDICAID ==
[~2016-12-04] VITALS: Ht 165.1 cm; Wt 108.0 kg
[~2016-12-04 11:27] MED LIST changes: +DILAUDID4 MG ORAL
[2016-12-04] MEDS ORDERED: HYDROmorphone 1mg/ml Carpuject IVP PRN (16:00)
--- NOTE | 2016-12-04 17:00 | Infectious Diseases Prog Note ---
Assessment/Plan Problems: (1) Leukocytosis Assessment & Plan: rule out sepsis , will order blood culture x2, and start vancomycin with zosyn empirically pending MRI of the abdomen and pelvis to rule out endometritis or abscess (2) Nausea & vomiting Assessment & Plan: continue supportive care , management as per primary (3) Colonization with VRE (vancomycin-resistant enterococcus) Assessment & Plan: will keep in contact isolation for now pending her rectal swab culture (4) Uterine myoma Assessment & Plan: S/P surgical resection, Dr Chan is following . Subjective Allergies: Coded Allergies: TOPIRAMATE (Verified Allergy, Unknown, 11/15/16) Objective Current Medications Medications (Trade) Dose Ordered Sig/Penny Route PRN Reason Start Time Stop Time Status Last Admin Dose Admin Dextrose STAT PRN IV Hypoglycemia 12/04/16 16:00 01/03/17 15:59 Hydromorphone HCl (Dilaudid) 1 mg Q3HR PRN IVP Mild Pain (Pain Scale 1-3) 12/04/16 16:00 12/11/16 15:59 Hydromorphone HCl (Dilaudid) 2 mg Q3H PRN IVP Moderate Pain (Pain Scale 4-6) 12/04/16 16:00 12/11/16 15:59 Hydromorphone HCl (Dilaudid) 3 mg Q2HR PRN IVP Severe Pain (Pain Scale 7-10) 12/04/16 16:00 12/11/16 15:59 Ondansetron HCl (Zofran) 4 mg Q6H PRN IVP Nausea & Vomiting 12/04/16 16:00 01/03/17 15:59 Potassium Chloride/Dextrose/ Lactated Ringer's (KCl/D5lr) 1,010 ml @ 125 mls/hr Q8H5M IV 12/04/16 18:00 01/03/17 17:59 Melissa Holley M.D. Dec 04, 2016 17:00
[2016-12-04 17:28] VITALS: BP 129/75
--- NOTE | 2016-12-04 18:17 | General Surgery Progress Note ---
General Surgery-Progress Note Subjective Day of Surgery: november 23 Procedure Performed myomectomy Chief Complaint: nausea, vomiting Symptoms: improved, voiding well, passing flatus, BM Objective Last 24 Hour Vital Signs Date Time Temp Pulse Resp B/P Pulse Ox O2 Delivery O2 Flow Rate FiO2 12/04/16 17:28 97.3 79 20 129/75 100 Room Air Dressing: dry Wound: clean Drains: none Cardiovascular: RSR Respiratory: clear Abdomen: soft, flat, tenderness, present bowel sounds Extremities: no edema, no tenderness, no cyanosis cbc, cmp pending Imaging mri pelvis and abdomen scheduled for am Plan Additional Comments ID consult appreciated, doubt infection, IM, GI and pain control consults pending. Dylan Kraft MD Dec 04, 2016 18:17
--- NOTE | 2016-12-04 19:23 | General Progress Note ---
Assessment/Plan Assessment/Plan (1) Pelvic pain (2) Fibroid Uterus (3) S/p Uterine artery embolization (4) Abdominal pain (5) Symptomatic leiomymata (6) S/p Abdominal Myomectomy Pt will be continued on Dilaudid 1-2mg IV Q3H PRN mild to moderate pain and Discontinue Dilaudid 3mg IV Q2H PRN and start Neurontin 300mg TID. Pt was d/w Dr. Hoover and he concurred. Thank you for the courtesy of this consultation. Subjective Date patient seen: Dec 04, 2016 Time patient seen: 06:15 - pm Allergies: Coded Allergies: TOPIRAMATE (Verified Allergy, Unknown, 11/15/16) Subjective REVIEW OF SYSTEMS: Denies rash, fever, chills, sweating, dizziness, drowsiness, blurred vision, sore throat, change in weight. No shortness of breath or chest pain. No nausea, vomiting, diarrhea, or blood in the stool or urine. No bowel or bladder incontinence. No dysuria. She is complaining of abdominal and pelvic pain. SUBJECTIVE: Patient is a known patient from prior admission returned due to increased severe pain and was started on Dilaudid 1-2mg IV Q4H PRN Mild to Moderate pain and Dilaudid 3mg IV Q2H PRN severe pain. She has been c/o n/v and will be sent for MRI of Abdomen and pelvis. Objective Last 24 Hour Vital Signs Date Time Temp Pulse Resp B/P Pulse Ox O2 Delivery O2 Flow Rate FiO2 12/04/16 17:28 97.3 79 20 129/75 100 Room Air Height (Feet): 5 Height (Inches): 7.00 Weight (Pounds): 238 Objective GENERAL: Alert, awake, and oriented x3. HEENT: PERRLA. NECK: Range of motion is full in all directions. No tenderness to paracervical muscles. No adenopathy. LUNGS: Lungs are clear. HEART: Regular. ABDOMEN: Tenderness to palpation with bandages noted. BACK: Range of motion is decreased in flexion and extension. No tenderness to trapezius or rhomboid muscles. EXTREMITIES: No cyanosis. No clubbing. No edema. NEURO: No Focal deficit JOSÉ LANGSTON Dec 04, 2016 19:23
[2016-12-04 20:00] VITALS: BP 110/75
[2016-12-04] MEDS ORDERED: Vancomycin 1750mg/D5W 300ml IVPB ONE ×2 (20:00)
[2016-12-04] MEDS: Potassium Chloride 20 MEQ in Dextrose 5%/Lactated Ringer's 1,000 ML IV SCH (21:08)
[2016-12-04] MEDS: Piperacillin/Tazobactam 3.375 GM in D5W 110 ML IVPB SCH (23:10)
[2016-12-04 23:40] VITALS: BP 117/77
--- NOTE | 2016-12-05 | Consultation ---
DATE OF CONSULTATION: INFECTIOUS DISEASE CONSULTATION CONSULTING PHYSICIAN: Melissa Holley M.D. REQUESTING PHYSICIAN: Dylan Kraft M.D. REASON FOR CONSULTATION: Leukocytosis, possible sepsis, possible uterine infection, post surgical resection of fibroids, recommendation for antibiotics therapy. HISTORY OF PRESENT ILLNESS: The patient is a 41-year-old female with history of fibroid who had uterus arterial embolization on 11/15/2016 and later was followed by myomectomy on 11/23/[address] Kraft due to persistent pain and bleeding from her fibroids. The patient was found to have mild leukocytosis after his surgical procedure, which was due to her surgery and she had no evidence of infection after her surgical procedure. 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 The patient was discharged home in stable condition after her white count came down almost to normal. Yesterday, she developed sudden onset of nausea and vomiting, which was not well controlled with rectal suppository, so she was taken to [facility] for evaluation. She was found to have mild leukocytosis. She had a CT scan of the abdomen and pelvis with contrast showed air bubble and fluid around the uterus suspicious for infection, so she was started on vancomycin and Zosyn and was transferred to [facility] to be evaluated by her OB surgeon, Dr. Kraft and I was consulted by him for antibiotics treatment and further management especially regarding her vancomycin-resistant Enterococcus colonization. The patient denied any fever or chills. Denied any cough or phlegm. Denied any vaginal discharge or bleeding at this point. No nausea or vomiting today, was able to tolerate her food well. REVIEW OF SYSTEMS: A 14-point of system reviewed were all negative apart from the one I mentioned above in my History and Physical. PAST MEDICAL HISTORY: Significant for uterine fibroids, diverticulitis, hiatal hernia, and aseptic meningitis. PAST SURGICAL HISTORY: Significant for myomectomy on 11/23/2016 and uterus arterial embolization. ALLERGIES: She is allergic to Topamax. MEDICATIONS: The patient was on vancomycin and Zosyn at [facility]. 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 Denied using any drugs, tobacco, or alcohol. FAMILY HISTORY: Negative for recurrent infection or immunocompromised condition. PHYSICAL EXAMINATION: VITAL SIGNS: Not documented yet. GENERAL: A middle-aged female, obese, up in bed, awake, alert, and oriented x3, not in distress. HEENT: Normocephalic and atraumatic. Pupils reactive to light. Moist oral mucosa. No exudate. NECK: Supple. No lymphadenopathy. CARDIOVASCULAR: Regular rate and rhythm. No murmur. LUNGS: Clear bilaterally. No wheezing or rhonchi. ABDOMEN: Soft and obese. Tender around the surgical site with clean surgical wound, has clips. No redness or erythema. No dehiscence in the surgical wound. No drainage or bleeding. EXTREMITIES: No edema or cyanosis. LABORATORY AND DIAGNOSTIC DATA: Labs not available currently. The patient is direct admit. Imaging: Reviewing CT scan, abdomen and pelvis with contrast from [facility] showed air bubble with fluid in the pelvic area suspicious for infection. ASSESSMENT AND RECOMMENDATION: 1. Leukocytosis, rule out sepsis versus endometritis or pelvic infection, status post recent myomectomy. We will send blood culture. We will start the patient on vancomycin and Zosyn. Empiric treatment for now. We will follow up with her culture from [facility]. The patient will have an MRI of the abdomen to rule out any intra-abdominal pathology. We will monitor her laboratory. 2. Uterine fibroids, status post arterial embolization and surgical resection. The patient is followed by Dr. Kraft. He will be following the patient here in the hospital. Further management as per him. 3. Nausea and vomiting, unclear etiology. Continue supportive care with nausea medicine. Further management as per the primary care team. Thank you for letting us to participate in the care of this patient. Please feel free to call us with any question. Melissa Holley M.D. DR: JAG JOB#: [id number] CC:
[2016-12-05 00:14] LABS: BASOPHILS % (AUTO) 0.6 % (0.0-2.0); EOSINOPHILS % (AUTO) 0.9 % (0.0-3.0); LYMPHOCYTES % (AUTO) 16.9 % (20.0-45.0); MEAN CORPUSCULAR HEMOGLOBIN 27.8 PG (27.0-31.0); MEAN CORPUSCULAR HGB CONC 33.7 G/DL (32.0-36.0); MEAN CORPUSCULAR VOLUME 82 FL (80-99); MEAN PLATELET VOLUME 5.9 FL (6.5-10.1); MONOCYTES % (AUTO) 7.4 % (1.0-10.0); NEUTROPHILS % (AUTO) 74.2 % (45.0-75.0); PLATELET COUNT 506 K/UL (150-450); RED BLOOD COUNT 3.47 M/UL (4.20-5.40); RED CELL DISTRIBUTION WIDTH 13.7 % (11.6-14.8); WHITE BLOOD COUNT 12.1 K/UL (4.8-10.8)
[2016-12-05 00:31] LABS: ANION GAP 17 (5-15); CALCIUM 9.3 mg/dL (8.6-10.2); CARBON DIOXIDE 23 mEQ/L (20-30); CHLORIDE 97 mEQ/L (98-107); CREATININE 0.5 mg/dL (0.5-0.9); GLOMERULAR FILTRATION RATE > 60 mL/min (>60); HEMOLYSIS 0; SODIUM 137 mEQ/L (135-145)
[2016-12-05] MEDS: Potassium Chloride 20 MEQ in Dextrose 5%/Lactated Ringer's 1,000 ML IV SCH ×3 (02:05→17:20)
[2016-12-05 03:53] VITALS: BP 114/73
[2016-12-05] MEDS: Piperacillin/Tazobactam 3.375 GM in D5W 110 ML IVPB SCH (05:51)
[2016-12-05] MEDS ORDERED: HYDROmorphone 4mg tab ORAL PRN ×4 (08:00→08:53)
[2016-12-05] MEDS ORDERED: Vancomycin 1.5 GM/D5W 250ML IVPB SCH (08:00)
[2016-12-05 08:03] VITALS: BP 132/88
--- NOTE | 2016-12-05 08:34 | General Progress Note ---
Assessment/Plan Assessment/Plan (1) Pelvic pain (2) Fibroid Uterus (3) S/p Uterine artery embolization (4) Abdominal pain (5) Symptomatic leiomymata (6) S/p Abdominal Myomectomy Pt will be continued on Dilaudid 4mg tabs PO Q6H PRN and will be restated on Dilaudid 1mg IV Q4H PRN and continue Neurontin. Pt was d/w Dr. Hoover and he concurred. Subjective Date patient seen: Dec 05, 2016 Time patient seen: 06:30 - am Allergies: Coded Allergies: TOPIRAMATE (Verified Allergy, Unknown, 11/15/16) Subjective REVIEW OF SYSTEMS: Denies rash, fever, chills, sweating, dizziness, drowsiness, blurred vision, sore throat, change in weight. No shortness of breath or chest pain. C/O nausea, vomiting, No diarrhea, or blood in the stool or urine. No bowel or bladder incontinence. No dysuria. She is complaining of abdominal and pelvic pain. SUBJECTIVE: She is c/o N/v and was changed from IV to tabs by surgeon, but is not tolerated due to vomiting. She is in severe pain. Objective Last 24 Hour Vital Signs Date Time Temp Pulse Resp B/P Pulse Ox O2 Delivery O2 Flow Rate FiO2 12/05/16 08:03 98.0 84 20 132/88 100 Room Air 12/05/16 03:53 97.8 74 18 114/73 99 Room Air 12/04/16 23:40 97.9 78 18 117/77 98 Room Air 12/04/16 21:41 97.3 12/04/16 20:00 97.3 73 18 110/75 99 Room Air 12/04/16 17:28 97.3 79 20 129/75 100 Room Air Intake and Output 12/04/16 12/05/16 19:00 07:00 Intake Total 1037.5 ml Balance 1037.5 ml Intake Oral 400 ml IV Total 637.5 ml # Voids 2 Laboratory Tests 12/04/16 23:10: White Blood Count 12.1H, Red Blood Count 3.47L, Hemoglobin 9.6L, Hematocrit 28.6L, Mean Corpuscular Volume 82, Mean Corpuscular Hemoglobin 27.8, Mean Corpuscular Hemoglobin Concent 33.7, Red Cell Distribution Width 13.7, Platelet Count 506H, Mean Platelet Volume 5.9L, Neutrophils (%) (Auto) 74.2, Lymphocytes (%) (Auto) 16.9L, Monocytes (%) (Auto) 7.4, Eosinophils (%) (Auto) 0.9, Basophils (%) (Auto) 0.6, Sodium Level 137, Potassium Level 3.0L, Chloride Level 97L, Carbon Dioxide Level 23, Anion Gap 17H, Blood Urea Nitrogen 5L, Creatinine 0.5, Estimat Glomerular Filtration Rate > 60, Glucose Level 111H, Calcium Level 9.3 Height (Feet): 5 Height (Inches): 7.00 Weight (Pounds): 238 Objective GENERAL: Alert, awake, and oriented x3. HEENT: PERRLA. NECK: Range of motion is full in all directions. No tenderness to paracervical muscles. No adenopathy. LUNGS: Lungs are clear. HEART: Regular. ABDOMEN: Tenderness to palpation with bandages noted. BACK: Range of motion is decreased in flexion and extension. No tenderness to trapezius or rhomboid muscles. EXTREMITIES: No cyanosis. No clubbing. No edema. NEURO: No Focal deficit JOSÉ LANGSTON Dec 05, 2016 08:34
[2016-12-05] MEDS: HYDROmorphone 1mg/ml Carpuject IVP PRN ×4 (09:30→23:08)
[2016-12-05 11:57] VITALS: BP 114/73
--- NOTE | 2016-12-05 11:58 | Diagnostic Imaging Report ---
Indication: 41-year-old female inpatient with abdominal pain, status post uterine fibroid embolization and myomectomy Technique: Axial single shot fast spin echo breath hold, coronal single shot fast spin-echo breath hold, axial T2 FRFSE fat-saturated, axial 2-D FIESTA fat-saturated, axial 3-D dual echo breath-hold, precontrast axial and postcontrast axial and coronal water weighted axial LAVA FLEX images of the abdomen Comparison: CT abdomen pelvis 11/20/2016 Findings: Liver, gallbladder, bile ducts, pancreas, spleen, adrenals, kidneys are all unremarkable. Heterogeneous uterus, status post recent procedures seen on the coronal images-see separate pelvic MRI report. Pleural fluid described on prior CT is no longer evident. No unusual contrast enhancement Impression: Essentially unremarkable exam Abnormal uterus, status post multiple recent procedures-see separate pelvic MRI report
--- NOTE | 2016-12-05 12:12 | Diagnostic Imaging Report ---
Indication: Abdominal and pelvic pain, status post uterine fibroid embolization and tumor removal Technique: Sagittal and axial T2 FRFSE, with and without fat saturation pre-and postcontrast axial T1 fat-saturated images, oblique axial T2-weighted images axial T1 FSE, Comparison: 11/20/2016 CT scan Findings: There is an irregular area of signal abnormality within the uterus,, which demonstrates next mostly high T2 signal, makes somewhat high T1 signal, and absence of contrast enhancement. This measures approximately 2.6 cm transverse by 3.2 cm AP by 8.4 cm craniocaudad. This is consistent with the residual cavity status post myomectomy, and is much smaller than the original fibroid or fibroids that were removed. Multiple foci low signal on all sequences probably represents some residual air from the surgical exposure. Previously demonstrated large exophytic fundal fibroid is no longer evident. Multiple small areas of low signal on the postcontrast images are consistent with previously embolized fibroids. Other than normal myometrial low-grade contrast enhancement, no significant contrast enhancing lesion is seen within the uterus. The endometrium appears unremarkable. There is a fluid collection in the anterior abdominal wall subcutaneous fat, which is incompletely included on the available axial images, measures approximately 3 cm AP by 2.2 cm transverse. No definite adnexal mass. Trace fluid is seen within the pelvis. On the coronal images, this demonstrates layering of material consistent with likely layering of residual debris or blood products. Impression: Changes of the uterus, as described. These most likely represent expected changes status post myomectomy. Midline subcutaneous fat fluid collection, as described. Probably a small incisional seroma. No specific findings to suggest infection, although not completely excludable. Correlation with clinical findings is recommended. Small amount of pelvic fluid. This may be residual postsurgical fluid. Layering of low signal material may suggest debris or residual blood products Images previously reviewed in person with Dr. Kraft Multiple nonenhancing small uterine myometrial masses, consistent with previously embolized small fibroids. No evidence of infarcted fibroid demonstrated.
--- NOTE | 2016-12-05 12:48 | History & Physical ---
History and Physical History & Physicial Patient: CARMEN GRIMM Date of Admission: 12/04/16 DATE OF CONSULTATION: 12/05/2016 INTERNAL MEDICINE CONSULTATION REFERRING PHYSICIAN: Dylan Kraft M.D. CHIEF COMPLAINT: Abdominal pain, emesis HISTORY OF PRESENT ILLNESS: The patient is a 41-year-old woman who had uterine artery embolization for large fibroids several weeks aog. She was hospitalized for pain, nausea, and vomiting on 2 occasions. Most recently she had myomectomy by Dr Kraft. She went home in good condition. A few days ago she began to vomit with severe pain with the emesis episodes. She went to an outside ER and was transferred here. CT and MRI scans showed no significant findings other than the expected changes following the procedures. PAST MEDICAL HISTORY: She had diverticulitis several years ago and has a hiatal hernia. She had aseptic meningitis in the past. ALLERGIES: Topamax. MEDICATIONS: Reviewed. SOCIAL HISTORY: She does not drink. She uses medical marijuana. She does not smoke cigarettes or use drugs. REVIEW OF SYSTEMS: Otherwise unremarkable. PHYSICAL EXAMINATION: GENERAL: The patient is alert and in distress after emesis. VITAL SIGNS: Vital signs are normal. There is no fever. SKIN: Warm and dry with tattoos noted. HEENT: Head is normocephalic. NECK: No jugular venous distention. No lymphadenopathy. CHEST: Clear. CARDIAC: Rhythm is regular. Abdomen is soft. diffuse tenderness is noted. EXTREMITIES: Have no clubbing, cyanosis, or edema. LABORATORY STUDIES: reviewed IMPRESSION: 1. Abdominal pain and emesis following myomectomy. PLAN: The patient will be treated with intravenous fluids, antiemetics and pain medication. Antibiotics are not indicated at this time. I will be happy to follow her with you in the hospital. Thank you for asking me to see her in consultation. Karsten Clements M.D. KARSTEN CLEMENTS Dec 05, 2016 12:48
--- NOTE | 2016-12-05 13:07 | General Surgery Progress Note ---
General Surgery-Progress Note Subjective Procedure Performed myomectomy Symptoms: improved, not tolerating diet, voiding well, passing flatus, BM Objective Last 24 Hour Vital Signs Date Time Temp Pulse Resp B/P Pulse Ox O2 Delivery O2 Flow Rate FiO2 12/05/16 11:57 97.9 66 20 114/73 98 Room Air 12/05/16 08:03 98.0 84 20 132/88 100 Room Air 12/05/16 03:53 97.8 74 18 114/73 99 Room Air 12/04/16 23:40 97.9 78 18 117/77 98 Room Air 12/04/16 21:41 97.3 12/04/16 20:00 97.3 73 18 110/75 99 Room Air 12/04/16 17:28 97.3 79 20 129/75 100 Room Air I&O Intake and Output 12/04/16 12/05/16 19:00 07:00 Intake Total 1037.5 ml Balance 1037.5 ml Intake Oral 400 ml IV Total 637.5 ml # Voids 2 Dressing: dry Wound: clean Drains: none Cardiovascular: RSR Respiratory: clear Abdomen: soft, flat, tenderness, present bowel sounds Extremities: no edema, no tenderness, no cyanosis Laboratory Tests Test 12/04/16 23:10 White Blood Count 12.1 K/UL (4.8-10.8) H Red Blood Count 3.47 M/UL (4.20-5.40) L Hemoglobin 9.6 G/DL (12.0-16.0) L Hematocrit 28.6 % (37.0-47.0) L Mean Corpuscular Volume 82 FL (80-99) Mean Corpuscular Hemoglobin 27.8 PG (27.0-31.0) Mean Corpuscular Hemoglobin Concent 33.7 G/DL (32.0-36.0) Red Cell Distribution Width 13.7 % (11.6-14.8) Platelet Count 506 K/UL (150-450) H Mean Platelet Volume 5.9 FL (6.5-10.1) L Neutrophils (%) (Auto) 74.2 % (45.0-75.0) Lymphocytes (%) (Auto) 16.9 % (20.0-45.0) L Monocytes (%) (Auto) 7.4 % (1.0-10.0) Eosinophils (%) (Auto) 0.9 % (0.0-3.0) Basophils (%) (Auto) 0.6 % (0.0-2.0) Sodium Level 137 mEQ/L (135-145) Potassium Level 3.0 mEQ/L (3.4-4.9) L Chloride Level 97 mEQ/L (98-107) L Carbon Dioxide Level 23 mEQ/L (20-30) Anion Gap 17 (5-15) H Blood Urea Nitrogen 5 mg/dL (7-23) L Creatinine 0.5 mg/dL (0.5-0.9) Estimat Glomerular Filtration Rate > 60 mL/min (>60) Glucose Level 111 mg/dL (74-106) H Calcium Level 9.3 mg/dL (8.6-10.2) Imaging mri reviewed with radiologist, normal post myomectomy findings Additional Comments todays cbc, chem panel pending Assessment Additional Comments no evidence of infection Plan Additional Comments discontinue antibiotics, GI consult for nausea. advance to oral pain relief as tolerated. Dylan Kraft MD Dec 05, 2016 13:07
[2016-12-05 13:54] LABS: BASOPHILS % (AUTO) 0.5 % (0.0-2.0); EOSINOPHILS % (AUTO) 1.4 % (0.0-3.0); LYMPHOCYTES % (AUTO) 16.5 % (20.0-45.0); MEAN CORPUSCULAR HGB CONC 31.4 G/DL (32.0-36.0); MEAN CORPUSCULAR VOLUME 83 FL (80-99); MEAN PLATELET VOLUME 5.6 FL (6.5-10.1); MONOCYTES % (AUTO) 4.1 % (1.0-10.0); NEUTROPHILS % (AUTO) 77.5 % (45.0-75.0); PLATELET COUNT 568 K/UL (150-450); RED BLOOD COUNT 4.23 M/UL (4.20-5.40); RED CELL DISTRIBUTION WIDTH 13.8 % (11.6-14.8); WHITE BLOOD COUNT 11.6 K/UL (4.8-10.8)
--- NOTE | 2016-12-05 13:58 | GI Initial Consult Note ---
GeethaMargaret Carcamo N.P. 12/05/16 1358: History of Present Illness General Date patient seen: Dec 05, 2016 Time patient seen: 11:00 Referring physician: CAMILA LI Reason for Consultation: VOMITING Present Illness HPI The patient is a 41-year-old woman who had uterine artery embolization for large fibroids several weeks ago. She was hospitalized for pain, nausea, and vomiting on 2 occasions. Most recently she had myomectomy by Dr Li. She went home in good condition. A few days ago she began to vomit with severe pain with the emesis episodes. She went to an outside ER and was transferred here. CT and MRI scans showed no significant findings other than the expected changes following the procedures. GI Consult. HPI noted above. GI consulted for emesis. Pt seen on floor, awake A&Ox with noted emesis in basin at bedside, no blood or coffee grounds noted. During the last emesis, the patient had a unremarkable GI work up. She presents today with known anemia and leukocytosis. Lipase normal. The patient states she has a history of a hiatal hernia and has history of diverticulitis. She had an EGD/colonoscopy in July 2015 last year and cannot recall her findings. No N/V/D noted at this time. Denies any changes in weight. Home Meds Reported Medications Hydromorphone HCl (Dilaudid) 4 Mg Tablet, 4 MG ORAL Q4H Y for Pain Scale (6-10) , #20 TAB 0 Refills 11/27/16 Tramadol Hcl* (ULTRAM*) 50 Mg Tablet, 50 MG ORAL EVERY 4 HOURS Y for For Pain, # 20 TAB 0 Refills 11/17/16 Ketorolac Tromethamine (Toradol) 60 Mg/2 Ml Vial, 10 MG PO TID, #15 VIAL 11/17/16 Ketorolac Tromethamine (Toradol) 60 Mg/2 Ml Vial, 10 MG IM, #15 VIAL 11/17/16 Promethazine Hcl (PROMETHAZINE HCL) 25 Mg Supp.rect, 25 MG RC, #6 11/15/16 Bismuth Subsalicylate (PEPTO-BISMOL) 262 Mg Tablet, 262 MG PO, TAB 11/15/16 Oxycodone Hcl/Acetaminophen 5-325* (OXYCODONE-ACETAMINOPHEN 5-325*) 1 Each Tablet, 1 TAB ORAL Q4H Y for For Pain, TAB 0 Refills 11/15/16 Amoxicillin/Potassium Clav 875-125 Mg Tab* (AMOX TR-K CLV 875-125 MG TAB*) 1 Each Tablet, 1 TAB ORAL EVERY 12 HOURS, TAB 11/15/16 Ketorolac Tromethamine (Ketorolac Tromethamine) 10 Mg Tablet, 10 MG PO BID, TAB 11/15/16 Med list reviewed/reconciled: Yes Allergies: Coded Allergies: TOPIRAMATE (Verified Allergy, Unknown, 11/15/16) Patient History History Provided By: Patient, Medical Record [facility] Narrative PAST MEDICAL HISTORY: She had diverticulitis several years ago and has a hiatal hernia. She had aseptic meningitis in the past. Social History: Denies: alcohol use, drug use, other, smoking Review of Systems All Other Systems: negative except mentioned in HPI Physical Exam Vital Signs Date Time Temp Pulse Resp B/P Pulse Ox O2 Delivery O2 Flow Rate FiO2 12/04/16 17:28 97.3 79 20 129/75 100 Room Air Sp02 EP Interpretation: reviewed Labs Laboratory Tests Test 12/04/16 23:10 White Blood Count 12.1 K/UL (4.8-10.8) H Red Blood Count 3.47 M/UL (4.20-5.40) L Hemoglobin 9.6 G/DL (12.0-16.0) L Hematocrit 28.6 % (37.0-47.0) L Mean Corpuscular Volume 82 FL (80-99) Mean Corpuscular Hemoglobin 27.8 PG (27.0-31.0) Mean Corpuscular Hemoglobin Concent 33.7 G/DL (32.0-36.0) Red Cell Distribution Width 13.7 % (11.6-14.8) Platelet Count 506 K/UL (150-450) H Mean Platelet Volume 5.9 FL (6.5-10.1) L Neutrophils (%) (Auto) 74.2 % (45.0-75.0) Lymphocytes (%) (Auto) 16.9 % (20.0-45.0) L Monocytes (%) (Auto) 7.4 % (1.0-10.0) Eosinophils (%) (Auto) 0.9 % (0.0-3.0) Basophils (%) (Auto) 0.6 % (0.0-2.0) Sodium Level 137 mEQ/L (135-145) Potassium Level 3.0 mEQ/L (3.4-4.9) L Chloride Level 97 mEQ/L (98-107) L Carbon Dioxide Level 23 mEQ/L (20-30) Anion Gap 17 (5-15) H Blood Urea Nitrogen 5 mg/dL (7-23) L Creatinine 0.5 mg/dL (0.5-0.9) Estimat Glomerular Filtration Rate > 60 mL/min (>60) Glucose Level 111 mg/dL (74-106) H Calcium Level 9.3 mg/dL (8.6-10.2) General Appearance: well appearing, no apparent distress, alert Head: normocephalic EENT: PERRL/EOMI, normal ENT inspection Neck: full range of motion, supple Respiratory: lungs clear, normal breath sounds Cardiovascular: normal peripheral pulses, normal rate, regular rhythm Gastrointestinal: normal inspection, soft, tenderness Rectal: deferred Genitourinary: normal inspection Musculoskeletal: back normal Neurologic: normal inspection, alert, oriented x3, responsive Psychiatric: normal inspection, judgement/insight normal, memory normal Skin: normal color, no rash Lymphatic: normal inspection, no adenopathy Current Medications Current Medications Medications (Trade) Dose Ordered Sig/Penny Route PRN Reason Start Time Stop Time Status Last Admin Dose Admin Dextrose STAT PRN IV Hypoglycemia 12/04/16 16:00 01/03/17 15:59 Gabapentin (Neurontin) 300 mg THREE TIMES A DAY ORAL 12/04/16 19:00 01/03/17 18:59 12/05/16 13:40 Hydromorphone HCl (Dilaudid) 1 mg Q3H PRN IVP Severe Pain (Pain Scale 7-10) 12/05/16 09:00 12/12/16 08:59 12/05/16 13:40 Hydromorphone HCl 4 mg 4 mg Q6H PRN ORAL Moderate Pain (Pain Scale 4-6) 12/05/16 08:53 12/12/16 07:59 Iron Sucrose/ Sodium Chloride (Venofer/Sodium Chloride) 60 ml @ 240 mls/hr BEDTIME IVPB 12/05/16 21:00 12/09/16 21:14 UNV Ondansetron HCl (Zofran) 4 mg Q6H PRN IVP Nausea & Vomiting 12/04/16 16:00 01/03/17 15:59 12/05/16 08:27 Potassium Chloride/Dextrose/ Lactated Ringer's (KCl/D5lr) 1,010 ml @ 125 mls/hr Q8H5M IV 12/04/16 18:00 01/03/17 17:59 12/05/16 11:23 GI: Plan Problems: (1) Nausea & vomiting (2) Abdominal pain (3) GERD (gastroesophageal reflux disease) (4) Hypoalbuminemia (5) Diverticulitis (6) Anemia (7) Hiatal hernia (8) Leukocytosis Plan Abdominal MRI reviewed >> Essentially unremarkable exam. Abnormal uterus, status post multiple recent procedures-see separate pelvic MRI report. iron deficient s/p abdominal myomectomy supportive and symptomatic treatment CLD, adv as tolerated IV hydration + electrolyte replacement scopolamine patch zofran ATC, switch prn when controlled add low dose reglan 5mg repeat iron panel OB stool r/o GI bleed pain mgmt bowel regimen >> colace + miralax monitor H&H, transfuse prn ppi fu labs Discussed with Dr. Genao. Thank you for referring this patient, we will follow. YAO GENAO 12/06/16 9207: History of Present Illness Present Illness Home Meds Reported Medications Hydromorphone HCl (Dilaudid) 4 Mg Tablet, 4 MG ORAL Q4H Y for Pain Scale (6-10) , #20 TAB 0 Refills 11/27/16 Tramadol Hcl* (ULTRAM*) 50 Mg Tablet, 50 MG ORAL EVERY 4 HOURS Y for For Pain, # 20 TAB 0 Refills 11/17/16 Ketorolac Tromethamine (Toradol) 60 Mg/2 Ml Vial, 10 MG PO TID, #15 VIAL 11/17/16 Ketorolac Tromethamine (Toradol) 60 Mg/2 Ml Vial, 10 MG IM, #15 VIAL 11/17/16 Promethazine Hcl (PROMETHAZINE HCL) 25 Mg Supp.rect, 25 MG RC, #6 11/15/16 Bismuth Subsalicylate (PEPTO-BISMOL) 262 Mg Tablet, 262 MG PO, TAB 6/29/17 Oxycodone Hcl/Acetaminophen 5-325* (OXYCODONE-ACETAMINOPHEN 5-325*) 1 Each Tablet, 1 TAB ORAL Q4H Y for For Pain, TAB 0 Refills 11/15/16 Amoxicillin/Potassium Clav 875-125 Mg Tab* (AMOX TR-K CLV 875-125 MG TAB*) 1 Each Tablet, 1 TAB ORAL EVERY 12 HOURS, TAB 11/15/16 Ketorolac Tromethamine (Ketorolac Tromethamine) 10 Mg Tablet, 10 MG PO BID, TAB 11/15/16 Allergies: Coded Allergies: TOPIRAMATE (Verified Allergy, Unknown, 11/15/16) GI: Plan Plan The patient was seen and examined at bedside and all new and available data was reviewed in the patients chart. I agree with the above findings, impression and plan. (Patient seen earlier today. Signature stamp does not reflect patient encounter time.). -Bhavya Clayton MDh Carlos Alberto N.POrlando Dec 05, 2016 13:58 YAO GENAO Dec 06, 2016 16:53
[2016-12-05] MEDS ORDERED: Metoclopramide 10mg/2ml Inj IVP PRN (14:00)
[2016-12-05 14:19] LABS: ALANINE AMINOTRANSFERASE 8 U/L (3-33); ALBUMIN/GLOBULIN RATIO 1.1 (1.0-2.7); ANION GAP 12 (5-15); ASPARTATE AMINO TRANSFERASE 14 U/L (5-40); CALCIUM 9.4 mg/dL (8.6-10.2); CARBON DIOXIDE 26 mEQ/L (20-30); CHLORIDE 98 mEQ/L (98-107); CREATININE 0.8 mg/dL (0.5-0.9); GLOMERULAR FILTRATION RATE > 60 mL/min (>60); HEMOLYSIS 4; POTASSIUM 3.1 mEQ/L (3.4-4.9); SODIUM 136 mEQ/L (135-145); TOTAL PROTEIN 7.4 g/dL (6.6-8.7)
[2016-12-05 14:33] LABS: HEMOLYSIS 69; IRON 42 ug/dL (37-145); TOTAL IRON BINDING CAPACITY 291 ug/dL (250-400)
[2016-12-05 14:56] LABS: FERRITIN 166 ng/mL (13-150)
--- NOTE | 2016-12-05 15:35 | Infectious Diseases Prog Note ---
Assessment/Plan Problems: (1) Leukocytosis Assessment & Plan: doubt sepsis , blood culture x2 is pending , MRI of abdomen and pelvis is negative for any infection, will stop vancomycin and zosyn empirically, since MRI of the abdomen and pelvis ruled out endometritis and abscess. D/W Dr LI. 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 Subjective Constitutional: Reports: no symptoms HEENT: Reports: no symptoms Respiratory: Reports: no symptoms Breasts: Reports: no symptoms Cardiovascular: Reports: no symptoms Gastrointestinal/Abdominal: Reports: nausea, vomiting Genitourinary: Reports: no symptoms Neurologic: Reports: no symptoms Psychiatric: Reports: no symptoms Skin: Reports: no symptoms Endocrine: Reports: no symptoms Hematologic: Reports: no symptoms Allergies: Coded Allergies: TOPIRAMATE (Verified Allergy, Unknown, 11/15/16) Objective Vital Signs Last 24 Hour Vital Signs Date Time Temp Pulse Resp B/P Pulse Ox O2 Delivery O2 Flow Rate FiO2 12/05/16 11:57 97.9 66 20 114/73 98 Room Air 12/05/16 08:03 98.0 84 20 132/88 100 Room Air 12/05/16 03:53 97.8 74 18 114/73 99 Room Air 12/04/16 23:40 97.9 78 18 117/77 98 Room Air 12/04/16 21:41 97.3 12/04/16 20:00 97.3 73 18 110/75 99 Room Air 12/04/16 17:28 97.3 79 20 129/75 100 Room Air Height (Feet): 5 Height (Inches): 7.00 Weight (Pounds): 238 General Appearance: WD/WN, no acute distress HEENT: normocephalic, atraumatic, anicteric, mucous membranes moist Respiratory/Chest: chest wall non-tender, lungs clear, normal breath sounds, no respiratory distress, no accessory muscle use, decreased breath sounds Cardiovascular: normal peripheral pulses, normal rate, regular rhythm, no gallop/murmur, no JVD Abdomen: normal bowel sounds, soft, non tender, no organomegaly, non distended , no mass Extremities: no cyanosis, no clubbing Skin: no rash, no ulcers Laboratory Tests Test 12/04/16 23:10 12/05/16 13:30 White Blood Count 12.1 K/UL (4.8-10.8) H 11.6 K/UL (4.8-10.8) H Red Blood Count 3.47 M/UL (4.20-5.40) L 4.23 M/UL (4.20-5.40) Hemoglobin 9.6 G/DL (12.0-16.0) L 11.0 G/DL (12.0-16.0) L Hematocrit 28.6 % (37.0-47.0) L 35.1 % (37.0-47.0) L Mean Corpuscular Volume 82 FL (80-99) 83 FL (80-99) Mean Corpuscular Hemoglobin 27.8 PG (27.0-31.0) 26.0 PG (27.0-31.0) L Mean Corpuscular Hemoglobin Concent 33.7 G/DL (32.0-36.0) 31.4 G/DL (32.0-36.0) L Red Cell Distribution Width 13.7 % (11.6-14.8) 13.8 % (11.6-14.8) Platelet Count 506 K/UL (150-450) H 568 K/UL (150-450) H Mean Platelet Volume 5.9 FL (6.5-10.1) L 5.6 FL (6.5-10.1) L Neutrophils (%) (Auto) 74.2 % (45.0-75.0) 77.5 % (45.0-75.0) H Lymphocytes (%) (Auto) 16.9 % (20.0-45.0) L 16.5 % (20.0-45.0) L Monocytes (%) (Auto) 7.4 % (1.0-10.0) 4.1 % (1.0-10.0) Eosinophils (%) (Auto) 0.9 % (0.0-3.0) 1.4 % (0.0-3.0) Basophils (%) (Auto) 0.6 % (0.0-2.0) 0.5 % (0.0-2.0) Sodium Level 137 mEQ/L (135-145) 136 mEQ/L (135-145) Potassium Level 3.0 mEQ/L (3.4-4.9) L 3.1 mEQ/L (3.4-4.9) L Chloride Level 97 mEQ/L (98-107) L 98 mEQ/L (98-107) Carbon Dioxide Level 23 mEQ/L (20-30) 26 mEQ/L (20-30) Anion Gap 17 (5-15) H 12 (5-15) Blood Urea Nitrogen 5 mg/dL (7-23) L 4 mg/dL (7-23) L Creatinine 0.5 mg/dL (0.5-0.9) 0.8 mg/dL (0.5-0.9) # Estimat Glomerular Filtration Rate > 60 mL/min (>60) > 60 mL/min (>60) Glucose Level 111 mg/dL (74-106) H 98 mg/dL (74-106) Calcium Level 9.3 mg/dL (8.6-10.2) 9.4 mg/dL (8.6-10.2) Iron Level 42 ug/dL (37-145) Total Iron Binding Capacity 291 ug/dL (250-400) Percent Iron Saturation 14 % (15-50) L Unsaturated Iron Binding 249 ug/dL (112-346) Ferritin 166 ng/mL (13-150) H Total Bilirubin 0.3 mg/dL (0.0-1.2) Aspartate Amino Transf (AST/SGOT) 14 U/L (5-40) Alanine Aminotransferase (ALT/SGPT) 8 U/L (3-33) Alkaline Phosphatase 52 U/L (35-104) Total Protein 7.4 g/dL (6.6-8.7) Albumin 3.9 g/dL (3.5-5.2) Globulin 3.5 g/dL Albumin/Globulin Ratio 1.1 (1.0-2.7) Current Medications Medications (Trade) Dose Ordered Sig/Penny Route PRN Reason Start Time Stop Time Status Last Admin Dose Admin Dextrose STAT PRN IV Hypoglycemia 12/04/16 16:00 01/03/17 15:59 Gabapentin (Neurontin) 300 mg THREE TIMES A DAY ORAL 12/04/16 19:00 01/03/17 18:59 12/05/16 13:40 Hydromorphone HCl (Dilaudid) 1 mg Q3H PRN IVP Severe Pain (Pain Scale 7-10) 12/05/16 09:00 12/12/16 08:59 12/05/16 13:40 Hydromorphone HCl 4 mg 4 mg Q6H PRN ORAL Moderate Pain (Pain Scale 4-6) 12/05/16 08:53 12/12/16 07:59 Iron Sucrose/ Sodium Chloride (Venofer/Sodium Chloride) 60 ml @ 240 mls/hr BEDTIME IVPB 12/05/16 21:00 12/09/16 21:14 Metoclopramide HCl (Reglan) 5 mg Q6H PRN IVP Breakthru Nausea & Vomiting 12/05/16 14:00 01/04/17 13:59 Ondansetron HCl (Zofran) 4 mg Q6H IVP 12/05/16 14:00 01/04/17 13:59 12/05/16 14:10 Potassium Chloride/Dextrose/ Lactated Ringer's (KCl/D5lr) 1,010 ml @ 125 mls/hr Q8H5M IV 12/04/16 18:00 01/03/17 17:59 12/05/16 11:23 Scopolamine (Transderm Scop) 1.5 mg ONCE ONCE TDERMAL 12/05/16 15:15 12/05/16 15:16 Melissa Wright M.D. Dec 05, 2016 15:35
[2016-12-05 15:48] VITALS: BP 116/66
[2016-12-05] MEDS ORDERED: Transderm Scop 1.5mg TDERMAL ONE (17:00)
[2016-12-05] MEDS ORDERED: Tubing IV Secondary IV ONE (17:06)
[2016-12-05] MEDS: Iron Sucrose 100 MG in NS 55 ML IVPB SCH (20:13)
[2016-12-05 21:47] VITALS: BP 138/88
[2016-12-06] MEDS: Potassium Chloride 20 MEQ in Dextrose 5%/Lactated Ringer's 1,000 ML IV SCH (01:48)
[2016-12-06] MEDS: HYDROmorphone 1mg/ml Carpuject IVP PRN ×5 (03:01→22:21)
[2016-12-06 04:42] VITALS: BP 111/73
[2016-12-06 07:27] LABS: BASOPHILS % (AUTO) 0.8 % (0.0-2.0); EOSINOPHILS % (AUTO) 1.1 % (0.0-3.0); LYMPHOCYTES % (AUTO) 11.8 % (20.0-45.0); MEAN CORPUSCULAR HEMOGLOBIN 26.7 PG (27.0-31.0); MEAN CORPUSCULAR HGB CONC 32.1 G/DL (32.0-36.0); MEAN CORPUSCULAR VOLUME 83 FL (80-99); MEAN PLATELET VOLUME 5.7 FL (6.5-10.1); MONOCYTES % (AUTO) 7.2 % (1.0-10.0); NEUTROPHILS % (AUTO) 79.2 % (45.0-75.0); PLATELET COUNT 421 K/UL (150-450); RED BLOOD COUNT 3.56 M/UL (4.20-5.40); RED CELL DISTRIBUTION WIDTH 13.7 % (11.6-14.8)
[2016-12-06 07:39] LABS: CREATININE 1.3 mg/dL (0.5-0.9); GLOMERULAR FILTRATION RATE 54.2 mL/min (>60); POTASSIUM 3.2 mEQ/L (3.4-4.9)
[2016-12-06 08:00] VITALS: BP 134/85
--- NOTE | 2016-12-06 08:30 | General Surgery Progress Note ---
General Surgery-Progress Note Subjective Procedure Performed myomectomy Symptoms: pain same, tolerating diet, voiding well, passing flatus, BM Objective Last 24 Hour Vital Signs Date Time Temp Pulse Resp B/P Pulse Ox O2 Delivery O2 Flow Rate FiO2 12/06/16 04:42 97.7 72 18 111/73 100 12/05/16 21:47 98.2 83 20 138/88 97 Room Air 12/05/16 15:48 97.2 70 20 116/66 99 Room Air 12/05/16 11:57 97.9 66 20 114/73 98 Room Air I&O Intake and Output 12/05/16 12/06/16 19:00 07:00 Intake Total 1725 ml 1435 ml Balance 1725 ml 1435 ml Intake Oral 600 ml 300 ml IV Total 1125 ml 1135 ml # Voids 2 3 Dressing: dry Wound: clean Drains: none Cardiovascular: RSR Respiratory: clear Abdomen: soft, flat, tenderness, present bowel sounds Laboratory Tests Test 12/05/16 13:30 12/06/16 05:50 White Blood Count 11.6 K/UL (4.8-10.8) H 11.0 K/UL (4.8-10.8) H Red Blood Count 4.23 M/UL (4.20-5.40) 3.56 M/UL (4.20-5.40) L Hemoglobin 11.0 G/DL (12.0-16.0) L 9.5 G/DL (12.0-16.0) L Hematocrit 35.1 % (37.0-47.0) L 29.7 % (37.0-47.0) L Mean Corpuscular Volume 83 FL (80-99) 83 FL (80-99) Mean Corpuscular Hemoglobin 26.0 PG (27.0-31.0) L 26.7 PG (27.0-31.0) L Mean Corpuscular Hemoglobin Concent 31.4 G/DL (32.0-36.0) L 32.1 G/DL (32.0-36.0) Red Cell Distribution Width 13.8 % (11.6-14.8) 13.7 % (11.6-14.8) Platelet Count 568 K/UL (150-450) H 421 K/UL (150-450) Mean Platelet Volume 5.6 FL (6.5-10.1) L 5.7 FL (6.5-10.1) L Neutrophils (%) (Auto) 77.5 % (45.0-75.0) H 79.2 % (45.0-75.0) H Lymphocytes (%) (Auto) 16.5 % (20.0-45.0) L 11.8 % (20.0-45.0) L Monocytes (%) (Auto) 4.1 % (1.0-10.0) 7.2 % (1.0-10.0) Eosinophils (%) (Auto) 1.4 % (0.0-3.0) 1.1 % (0.0-3.0) Basophils (%) (Auto) 0.5 % (0.0-2.0) 0.8 % (0.0-2.0) Sodium Level 136 mEQ/L (135-145) 140 mEQ/L (135-145) Potassium Level 3.1 mEQ/L (3.4-4.9) L 3.2 mEQ/L (3.4-4.9) L Chloride Level 98 mEQ/L (98-107) 102 mEQ/L (98-107) Carbon Dioxide Level 26 mEQ/L (20-30) 24 mEQ/L (20-30) Anion Gap 12 (5-15) 14 (5-15) Blood Urea Nitrogen 4 mg/dL (7-23) L 4 mg/dL (7-23) L Creatinine 0.8 mg/dL (0.5-0.9) # 1.3 mg/dL (0.5-0.9) #H Estimat Glomerular Filtration Rate > 60 mL/min (>60) 54.2 mL/min (>60) Glucose Level 98 mg/dL (74-106) 116 mg/dL (74-106) H Calcium Level 9.4 mg/dL (8.6-10.2) 9.0 mg/dL (8.6-10.2) Iron Level 42 ug/dL (37-145) Total Iron Binding Capacity 291 ug/dL (250-400) Percent Iron Saturation 14 % (15-50) L Unsaturated Iron Binding 249 ug/dL (112-346) Ferritin 166 ng/mL (13-150) H Total Bilirubin 0.3 mg/dL (0.0-1.2) Aspartate Amino Transf (AST/SGOT) 14 U/L (5-40) Alanine Aminotransferase (ALT/SGPT) 8 U/L (3-33) Alkaline Phosphatase 52 U/L (35-104) Total Protein 7.4 g/dL (6.6-8.7) Albumin 3.9 g/dL (3.5-5.2) Globulin 3.5 g/dL Albumin/Globulin Ratio 1.1 (1.0-2.7) Additional Comments slight elevation in creatinine, discussed with dr solo. wbc trending down. Assessment Additional Comments nausea is persistent issue, pain seems secondary to effect of same on incision. cultures NG to date. Plan Additional Comments awaiting GI re consult today. tolerating clear liquids. Dylan Kraft MD Dec 06, 2016 08:30
--- NOTE | 2016-12-06 08:48 | General Progress Note ---
Assessment/Plan Assessment/Plan (1) Pelvic pain (2) Fibroid Uterus (3) S/p Uterine artery embolization (4) Abdominal pain (5) Symptomatic leiomymata (6) S/p Abdominal Myomectomy Pt will be continued on Dilaudid 4mg tabs and Dilaudid 1mg IV and continue Neurontin. Pt was d/w Dr. Hoover and he concurred. Subjective Date patient seen: Dec 06, 2016 Time patient seen: 07:15 - am Allergies: Coded Allergies: TOPIRAMATE (Verified Allergy, Unknown, 11/15/16) Subjective REVIEW OF SYSTEMS: Denies rash, fever, chills, sweating, dizziness, drowsiness, blurred vision, sore throat, change in weight. No shortness of breath or chest pain. C/O nausea, vomiting, No diarrhea, or blood in the stool or urine. No bowel or bladder incontinence. No dysuria. She is complaining of abdominal and pelvic pain. SUBJECTIVE: She continues to c/o N/v overnight however reports that she is feeling better. The pain has been severe however has been reduced on the Dilaudid IV. I advised her to use the tabs if she is able to tolerate pills. Objective Last 24 Hour Vital Signs Date Time Temp Pulse Resp B/P Pulse Ox O2 Delivery O2 Flow Rate FiO2 12/06/16 04:42 97.7 72 18 111/73 100 12/05/16 21:47 98.2 83 20 138/88 97 Room Air 12/05/16 15:48 97.2 70 20 116/66 99 Room Air 12/05/16 11:57 97.9 66 20 114/73 98 Room Air Intake and Output 12/05/16 12/06/16 19:00 07:00 Intake Total 1725 ml 1435 ml Balance 1725 ml 1435 ml Intake Oral 600 ml 300 ml IV Total 1125 ml 1135 ml # Voids 2 3 Laboratory Tests 12/05/16 13:30: White Blood Count 11.6H, Red Blood Count 4.23, Hemoglobin 11.0L, Hematocrit 35.1L, Mean Corpuscular Volume 83, Mean Corpuscular Hemoglobin 26.0L, Mean Corpuscular Hemoglobin Concent 31.4L, Red Cell Distribution Width 13.8, Platelet Count 568H, Mean Platelet Volume 5.6L, Neutrophils (%) (Auto) 77.5H, Lymphocytes (%) (Auto) 16.5L, Monocytes (%) (Auto) 4.1, Eosinophils (%) (Auto) 1.4, Basophils (%) (Auto) 0.5, Sodium Level 136, Potassium Level 3.1L, Chloride Level 98, Carbon Dioxide Level 26, Anion Gap 12, Blood Urea Nitrogen 4L, Creatinine 0.8#, Estimat Glomerular Filtration Rate > 60, Glucose Level 98, Calcium Level 9.4, Iron Level 42, Total Iron Binding Capacity 291, Percent Iron Saturation 14L, Unsaturated Iron Binding 249, Ferritin 166H, Total Bilirubin 0.3 , Aspartate Amino Transf (AST/SGOT) 14, Alanine Aminotransferase (ALT/SGPT) 8, Alkaline Phosphatase 52, Total Protein 7.4, Albumin 3.9, Globulin 3.5, Albumin/ Globulin Ratio 1.1 12/06/16 05:50: White Blood Count 11.0H, Red Blood Count 3.56L, Hemoglobin 9.5L, Hematocrit 29.7L, Mean Corpuscular Volume 83, Mean Corpuscular Hemoglobin 26.7L, Mean Corpuscular Hemoglobin Concent 32.1, Red Cell Distribution Width 13.7, Platelet Count 421, Mean Platelet Volume 5.7L, Neutrophils (%) (Auto) 79.2H, Lymphocytes (%) (Auto) 11.8L, Monocytes (%) (Auto) 7.2, Eosinophils (%) (Auto) 1.1, Basophils (%) (Auto) 0.8, Sodium Level 140, Potassium Level 3.2L, Chloride Level 102, Carbon Dioxide Level 24, Anion Gap 14, Blood Urea Nitrogen 4L, Creatinine 1.3#H, Estimat Glomerular Filtration Rate 54.2, Glucose Level 116H, Calcium Level 9.0 Height (Feet): 5 Height (Inches): 7.00 Weight (Pounds): 238 Objective GENERAL: Alert, awake, and oriented x3. HEENT: PERRLA. NECK: Range of motion is full in all directions. No tenderness to paracervical muscles. No adenopathy. LUNGS: Lungs are clear. HEART: Regular. ABDOMEN: Tenderness to palpation with bandages noted. BACK: Range of motion is decreased in flexion and extension. No tenderness to trapezius or rhomboid muscles. EXTREMITIES: No cyanosis. No clubbing. No edema. NEURO: No Focal deficit JOSÉ LANGSTON Dec 06, 2016 08:48
[2016-12-06] MEDS ORDERED: Potassium Chloride 40 MEQ in Dextrose 5%/Lactated Ringer's 1,000 ML IV SCH (11:30)
[2016-12-06 11:56] VITALS: BP 123/75
--- NOTE | 2016-12-06 14:55 | GI Progress Note ---
Assessment/Plan Problems: (1) Post-op pain ICD Codes: G89.18 - Other acute postprocedural pain SNOMED: 770866835 (2) Nausea & vomiting ICD Codes: R11.2 - Nausea with vomiting, unspecified SNOMED: 47437072 (3) Hiatal hernia ICD Codes: K44.9 - Diaphragmatic hernia without obstruction or gangrene SNOMED: 17936566 (4) Anemia ICD Codes: D64.9 - Anemia, unspecified SNOMED: 570712921 (5) Diverticulitis ICD Codes: K57.92 - Diverticulitis of intestine, part unspecified, without perforation or abscess without bleeding SNOMED: 726466239 (6) Hypoalbuminemia ICD Codes: E88.09 - Other disorders of plasma-protein metabolism, not elsewhere classified SNOMED: 316829838 (7) GERD (gastroesophageal reflux disease) ICD Codes: K21.9 - Gastro-esophageal reflux disease without esophagitis SNOMED: 358496022 (8) Abdominal pain ICD Codes: R10.9 - Unspecified abdominal pain SNOMED: 88943971 Status: unchanged Status Narrative Discussed with Dr. Magdaleno. Assessment/Plan Abdominal MRI reviewed >> Essentially unremarkable exam. Abnormal uterus, status post multiple recent procedures-see separate pelvic MRI report. iron deficient s/p abdominal myomectomy iron deficient >> venofer supportive and symptomatic treatment CLD, adv as tolerated IV hydration + electrolyte replacement scopolamine patch zofran ATC, switch prn when controlled reglan 10 prn for breakthrough N/V OB stool r/o GI bleed pain mgmt bowel regimen >> colace + miralax monitor H&H, transfuse prn ppi fu labs Subjective Subjective nausea improved emesis x 4 prior using scopolamine patch abdominal pain Objective Last 24 Hour Vital Signs Date Time Temp Pulse Resp B/P Pulse Ox O2 Delivery O2 Flow Rate FiO2 12/06/16 11:56 97.3 63 19 123/75 Room Air 12/06/16 09:27 97.7 12/06/16 08:00 97.9 63 19 134/85 100 Room Air 12/06/16 04:42 97.7 72 18 111/73 100 12/05/16 21:47 98.2 83 20 138/88 97 Room Air 12/05/16 15:48 97.2 70 20 116/66 99 Room Air Intake and Output 12/05/16 12/06/16 19:00 07:00 Intake Total 1725 ml 1435 ml Balance 1725 ml 1435 ml Intake Oral 600 ml 300 ml IV Total 1125 ml 1135 ml # Voids 2 3 Laboratory Tests Test 12/06/16 05:50 White Blood Count 11.0 K/UL (4.8-10.8) H Red Blood Count 3.56 M/UL (4.20-5.40) L Hemoglobin 9.5 G/DL (12.0-16.0) L Hematocrit 29.7 % (37.0-47.0) L Mean Corpuscular Volume 83 FL (80-99) Mean Corpuscular Hemoglobin 26.7 PG (27.0-31.0) L Mean Corpuscular Hemoglobin Concent 32.1 G/DL (32.0-36.0) Red Cell Distribution Width 13.7 % (11.6-14.8) Platelet Count 421 K/UL (150-450) Mean Platelet Volume 5.7 FL (6.5-10.1) L Neutrophils (%) (Auto) 79.2 % (45.0-75.0) H Lymphocytes (%) (Auto) 11.8 % (20.0-45.0) L Monocytes (%) (Auto) 7.2 % (1.0-10.0) Eosinophils (%) (Auto) 1.1 % (0.0-3.0) Basophils (%) (Auto) 0.8 % (0.0-2.0) Sodium Level 140 mEQ/L (135-145) Potassium Level 3.2 mEQ/L (3.4-4.9) L Chloride Level 102 mEQ/L (98-107) Carbon Dioxide Level 24 mEQ/L (20-30) Anion Gap 14 (5-15) Blood Urea Nitrogen 4 mg/dL (7-23) L Creatinine 1.3 mg/dL (0.5-0.9) #H Estimat Glomerular Filtration Rate 54.2 mL/min (>60) Glucose Level 116 mg/dL (74-106) H Calcium Level 9.0 mg/dL (8.6-10.2) Height (Feet): 5 Height (Inches): 7.00 Weight (Pounds): 238 General Appearance: no apparent distress, alert, overweight Cardiovascular: normal rate Respiratory/Chest: normal breath sounds, no respiratory distress Abdominal Exam: normal bowel sounds, non tender, soft Margaret Iniguez N.P. Dec 06, 2016 14:55
[2016-12-06 16:00] VITALS: BP 131/90
--- NOTE | 2016-12-06 17:14 | Infectious Diseases Prog Note ---
Assessment/Plan Problems: (1) Leukocytosis Assessment & Plan: no evidence of sepsis , with negative blood culture x2 , MRI of abdomen and pelvis is negative for any infection, monitor off antibiotics . 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 Subjective Constitutional: Reports: anorexia, fatigue HEENT: Reports: no symptoms Respiratory: Reports: no symptoms Breasts: Reports: no symptoms Cardiovascular: Reports: no symptoms Gastrointestinal/Abdominal: Reports: nausea, other - pain, vomiting Genitourinary: Reports: no symptoms Neurologic: Reports: no symptoms Psychiatric: Reports: no symptoms Skin: Reports: no symptoms Endocrine: Reports: no symptoms Hematologic: Reports: no symptoms Allergies: Coded Allergies: TOPIRAMATE (Verified Allergy, Unknown, 11/15/16) Objective Vital Signs Last 24 Hour Vital Signs Date Time Temp Pulse Resp B/P Pulse Ox O2 Delivery O2 Flow Rate FiO2 12/06/16 16:00 97.3 72 19 131/90 100 Room Air 12/06/16 11:56 97.3 63 19 123/75 Room Air 12/06/16 09:27 97.7 12/06/16 08:00 97.9 63 19 134/85 100 Room Air 12/06/16 04:42 97.7 72 18 111/73 100 12/05/16 21:47 98.2 83 20 138/88 97 Room Air Height (Feet): 5 Height (Inches): 7.00 Weight (Pounds): 238 General Appearance: WD/WN, no acute distress HEENT: normocephalic, atraumatic, anicteric, mucous membranes moist, PERRL Respiratory/Chest: chest wall non-tender, lungs clear, normal breath sounds, no respiratory distress, no accessory muscle use Cardiovascular: normal peripheral pulses, normal rate, regular rhythm, no gallop/murmur, no JVD Abdomen: no organomegaly, non distended, no mass, hypoactive bowel sounds, tender Extremities: no cyanosis, no clubbing Skin: no rash, no lesions Neurologic/Psychiatric: alert Lymphatic: no neck adenopathy Microbiology Date/Time Source Procedure Growth Status 7/18/17 23:15 Blood Blood Culture - Preliminary NO GROWTH AFTER 24 HOURS Resulted 12/04/16 23:10 Blood Blood Culture - Preliminary NO GROWTH AFTER 24 HOURS Resulted 12/04/16 19:45 Rectal Mucosa VRE Culture - Final NO VANCOMYCIN RESISTANT ENTEROCOCCUS ... Complete Laboratory Tests Test 12/06/16 05:50 White Blood Count 11.0 K/UL (4.8-10.8) H Red Blood Count 3.56 M/UL (4.20-5.40) L Hemoglobin 9.5 G/DL (12.0-16.0) L Hematocrit 29.7 % (37.0-47.0) L Mean Corpuscular Volume 83 FL (80-99) Mean Corpuscular Hemoglobin 26.7 PG (27.0-31.0) L Mean Corpuscular Hemoglobin Concent 32.1 G/DL (32.0-36.0) Red Cell Distribution Width 13.7 % (11.6-14.8) Platelet Count 421 K/UL (150-450) Mean Platelet Volume 5.7 FL (6.5-10.1) L Neutrophils (%) (Auto) 79.2 % (45.0-75.0) H Lymphocytes (%) (Auto) 11.8 % (20.0-45.0) L Monocytes (%) (Auto) 7.2 % (1.0-10.0) Eosinophils (%) (Auto) 1.1 % (0.0-3.0) Basophils (%) (Auto) 0.8 % (0.0-2.0) Sodium Level 140 mEQ/L (135-145) Potassium Level 3.2 mEQ/L (3.4-4.9) L Chloride Level 102 mEQ/L (98-107) Carbon Dioxide Level 24 mEQ/L (20-30) Anion Gap 14 (5-15) Blood Urea Nitrogen 4 mg/dL (7-23) L Creatinine 1.3 mg/dL (0.5-0.9) #H Estimat Glomerular Filtration Rate 54.2 mL/min (>60) Glucose Level 116 mg/dL (74-106) H Calcium Level 9.0 mg/dL (8.6-10.2) Current Medications Medications (Trade) Dose Ordered Sig/Penny Route PRN Reason Start Time Stop Time Status Last Admin Dose Admin Dextrose (Dextrose 50%) STAT PRN IV Hypoglycemia 12/04/16 16:00 01/03/17 15:59 Gabapentin (Neurontin) 300 mg THREE TIMES A DAY ORAL 12/04/16 19:00 01/03/17 18:59 12/06/16 09:58 Hydromorphone HCl (Dilaudid) 1 mg Q3H PRN IVP Severe Pain (Pain Scale 7-10) 12/05/16 09:00 12/12/16 08:59 12/06/16 14:30 Hydromorphone HCl 4 mg 4 mg Q6H PRN ORAL Moderate Pain (Pain Scale 4-6) 12/05/16 08:53 12/12/16 07:59 Iron Sucrose/ Sodium Chloride (Venofer/Sodium Chloride) 60 ml @ 240 mls/hr BEDTIME IVPB 12/05/16 21:00 12/09/16 21:14 12/05/16 20:13 Metoclopramide HCl (Reglan) 10 mg Q6H PRN IVP Breakthru Nausea & Vomiting 12/06/16 15:00 01/05/17 14:59 Ondansetron HCl 4 mg 4 mg Q6H IVP 12/05/16 14:00 01/04/17 13:59 12/06/16 09:51 Potassium Chloride/Dextrose/ Lactated Ringer's (KCl/D5lr) 1,020 ml @ 125 mls/hr Q8H10M IV 12/06/16 11:30 01/05/17 11:29 12/06/16 12:59 Melissa Holley M.D. Dec 06, 2016 17:14
[2016-12-06] MEDS: Potassium Chloride 40 MEQ in Dextrose 5%/Lactated Ringer's 1,000 ML IV SCH (17:30)
[2016-12-06 19:57] VITALS: BP 129/86
[2016-12-06] MEDS: Iron Sucrose 100 MG in NS 55 ML IVPB SCH (21:00)
[2016-12-06 21:30] LABS: CREATININE, RANDOM URINE 24.3 mg/dL
--- NOTE | 2016-12-06 23:45 | Consultation ---
DATE OF CONSULTATION: 12/06/2016 NEPHROLOGY CONSULTATION CONSULTING PHYSICIAN: Laureano Calderón M.D. REFERRING PHYSICIANS: 1. Dylan Kraft M.D. 2. Yaon Yip M.D. REASON FOR CONSULTATION: Acute kidney injury. HISTORY OF PRESENT ILLNESS: The patient is a 41-year-old lady, who has had large uterine fibroids and underwent uterine artery embolization few weeks ago in the end of October. She was hospitalized several times including a hospitalization with laboratory work on 11/15/2016 showed a serum creatinine of 0.6, and she was hospitalized for abdominal pain, nausea, vomiting, and then discharged and then hospitalized again on 11/27/2016 for abdominal pain and the creatinine was 0.5 at that time. On this admission, she has been complaining of abdominal pain, nausea, and vomiting and has had a creatinine on 12/04/2016 of 0.5, 12/05/2016 of 0.8, and 12/06/2016 of 1.3. She has been eating poorly and drinking poorly, likely associated with her nausea, vomiting, and abdominal pain. She has been on opiates. She also was taking Toradol after her uterine artery embolization. She had a CT scan with contrast on 11/20/2016, which showed normal kidneys and an MRI scan about 12/04/2016, again the kidneys were normal in size. There is no prior history of kidney disease, kidney stones, recurrent UTIs, or hematuria. ALLERGIES: Topamax, which she took post an episode of aseptic meningitis in the past. HABITS: She is a nonsmoker. She does use marijuana. No alcohol or other drugs. MEDICATIONS: At home include Prilosec, iron, and p.r.n. dose of Toradol and tramadol. She was on oxycodone, but she did not tolerate this well. PRIOR SURGERIES: In addition to the above, she has had a knee arthroscopic surgery in the past. She did have the uterine artery embolization and subsequently approximately on 11/25/2016 had a myomectomy at [facility]. SYSTEM REVIEW: HEAD, EYES, EARS, NOSE, AND THROAT: Vision and hearing is good. ENDOCRINE: No known diabetes or thyroid disease. PULMONARY: No asthma, TB, or chronic cough. CARDIAC: No angina, mild palpitations. GASTROINTESTINAL: No GI bleeding or ulcers. She had nausea and vomiting. She has been on PPIs in the past. GENITOURINARY: She has had lower abdominal pain. No dysuria or gross hematuria. There is microscopic hematuria. NEUROLOGIC: No CVA, syncope, or seizures. She did have meningitis, aseptic, years ago. PHYSICAL EXAMINATION: GENERAL: The patient is alert, well-developed lady, lying in bed, in no acute distress. VITAL SIGNS: Temperature 97.3, pulse 72, respirations 19, and blood pressure 131/90. HEAD, EYES, EARS, NOSE, AND THROAT: Sclerae are nonicteric. Ocular motions intact in all directions. Oral mucosa is slightly dry. NECK: No adenopathy or thyroid enlargement. LUNGS: Clear. HEART: Regular rhythm. No murmur. ABDOMEN: Soft. There is a recent midline incision. There is mild low abdominal pain and tenderness, but no rebound or guarding. EXTREMITIES: No edema, cyanosis, or clubbing. NEUROLOGIC: She is alert and oriented. Cranial nerves are intact. PERTINENT LABORATORIES: Today, sodium 140, potassium 3.2, chloride 102, CO2 of 24, BUN 4, and creatinine 1.3. There is no urinalysis on this admission, but she did have dipstick positive proteinuria and microhematuria on a prior laboratory. She has normal liver enzymes. IMPRESSION: The patient has acute kidney injury, very likely due to dehydration from her nausea and vomiting associated with her recent procedure. She states that she did have a vancomycin-resistant enterococcus urinary tract infection in the past, but I doubt that this is related to her current acute kidney injury. PLAN: At this time, I will hydrate her vigorously and we will watch her function lytes and repeat laboratories tomorrow. We will try to avoid any unnecessary medications, any nonsteroidals, any antiinflammatory agents, and hopefully her acute kidney injury will resolve spontaneously. Thank you so much for allowing me to participate in the care of this patient. Laureano Caledrón M.D. DR: RANDALL JOB#: [id number] CC:
[2016-12-07 00:12] VITALS: BP 129/85
[2016-12-07] MEDS: Potassium Chloride 40 MEQ in Dextrose 5%/Lactated Ringer's 1,000 ML IV SCH ×4 (01:00→20:42)
[2016-12-07 04:20] VITALS: BP 137/87
[2016-12-07] MEDS: HYDROmorphone 1mg/ml Carpuject IVP PRN ×3 (05:23→22:32)
[2016-12-07 07:21] LABS: CALCIUM 8.8 mg/dL (8.6-10.2); CREATININE 1.5 mg/dL (0.5-0.9); GLOMERULAR FILTRATION RATE 45.9 mL/min (>60)
[2016-12-07 07:23] LABS: BASOPHILS % (AUTO) 0.4 % (0.0-2.0); EOSINOPHILS % (AUTO) 1.6 % (0.0-3.0); LYMPHOCYTES % (AUTO) 10.8 % (20.0-45.0); MEAN CORPUSCULAR HEMOGLOBIN 27.5 PG (27.0-31.0); MEAN CORPUSCULAR HGB CONC 33.1 G/DL (32.0-36.0); MEAN CORPUSCULAR VOLUME 83 FL (80-99); MEAN PLATELET VOLUME 5.4 FL (6.5-10.1); MONOCYTES % (AUTO) 5.9 % (1.0-10.0); NEUTROPHILS % (AUTO) 81.3 % (45.0-75.0); PLATELET COUNT 393 K/UL (150-450); RED BLOOD COUNT 3.61 M/UL (4.20-5.40); RED CELL DISTRIBUTION WIDTH 13.7 % (11.6-14.8); WHITE BLOOD COUNT 11.5 K/UL (4.8-10.8)
[2016-12-07 08:23] VITALS: BP 140/81
--- NOTE | 2016-12-07 08:56 | Pulmonology Progress Note ---
Assessment/Plan Assessment/Plan IMPRESSION: 1. Abdominal pain and emesis following myomectomy. PLAN: The patient will be treated with intravenous fluids, antiemetics and pain medication. Antibiotics are not indicated at this time. Being seen by pain management and ID Covering for Dr Yip Subjective Interval Events: Continues to have abd pain (11/26) Constitutional: Reports: no symptoms HEENT: Repors: no symptoms Respiratory: Reports: no symptoms Cardiovascular: Reports: no symptoms Gastrointestinal/Abdominal: Reports: other - pain Genitourinary: Reports: no symptoms Allergies: Coded Allergies: TOPIRAMATE (Verified Allergy, Unknown, 11/15/16) Objective Last 24 Hour Vital Signs Date Time Temp Pulse Resp B/P Pulse Ox O2 Delivery O2 Flow Rate FiO2 12/07/16 08:23 97.7 66 20 140/81 100 Room Air 12/07/16 05:53 97.5 12/07/16 04:20 97.5 80 20 137/87 99 Room Air 12/07/16 00:12 97.9 75 18 129/85 98 Room Air 12/06/16 19:57 97.7 73 20 129/86 100 Room Air 12/06/16 16:00 97.3 72 19 131/90 100 Room Air 12/06/16 11:56 97.3 63 19 123/75 Room Air Intake and Output 12/06/16 12/07/16 19:00 07:00 Intake Total 635 ml 1917 ml Balance 635 ml 1917 ml Intake Oral 360 ml 240 ml IV Total 275 ml 1677 ml # Voids 2 General Appearance: WD/WN HEENT: normocephalic Respiratory/Chest: chest wall non-tender, lungs clear Cardiovascular: normal peripheral pulses, normal rate Abdomen: soft, non tender Microbiology Date/Time Source Procedure Growth Status 12/04/16 23:15 Blood Blood Culture - Preliminary NO GROWTH AFTER 48 HOURS Resulted 12/04/16 23:10 Blood Blood Culture - Preliminary NO GROWTH AFTER 48 HOURS Resulted 12/04/16 19:45 Rectal Mucosa VRE Culture - Final NO VANCOMYCIN RESISTANT ENTEROCOCCUS ... Complete Laboratory Tests 12/06/16 19:00: Urine Random Sodium 25, Urine Creatinine 24.3 12/07/16 05:10: White Blood Count 11.5H, Red Blood Count 3.61L, Hemoglobin 9.9L, Hematocrit 30.1L, Mean Corpuscular Volume 83, Mean Corpuscular Hemoglobin 27.5, Mean Corpuscular Hemoglobin Concent 33.1, Red Cell Distribution Width 13.7, Platelet Count 393, Mean Platelet Volume 5.4L, Neutrophils (%) (Auto) 81.3H, Lymphocytes (%) (Auto) 10.8L, Monocytes (%) (Auto) 5.9, Eosinophils (%) (Auto) 1.6, Basophils (%) (Auto) 0.4, Sodium Level 139, Potassium Level 4.0, Chloride Level 103, Carbon Dioxide Level 26, Anion Gap 10, Blood Urea Nitrogen 3L, Creatinine 1.5H, Estimat Glomerular Filtration Rate 45.9, Glucose Level 105, Calcium Level 8.8, Total Creatine Kinase 22L Current Medications Medications (Trade) Dose Ordered Sig/Penny Route PRN Reason Start Time Stop Time Status Last Admin Dose Admin Dextrose (Dextrose 50%) STAT PRN IV Hypoglycemia 12/04/16 16:00 01/03/17 15:59 Gabapentin (Neurontin) 300 mg THREE TIMES A DAY ORAL 12/04/16 19:00 01/03/17 18:59 12/06/16 09:58 Hydromorphone HCl (Dilaudid) 1 mg Q3H PRN IVP Severe Pain (Pain Scale 7-10) 12/05/16 09:00 12/12/16 08:59 12/07/16 05:23 Hydromorphone HCl 4 mg 4 mg Q6H PRN ORAL Moderate Pain (Pain Scale 4-6) 12/05/16 08:53 12/12/16 07:59 Iron Sucrose/ Sodium Chloride (Venofer/Sodium Chloride) 60 ml @ 240 mls/hr BEDTIME IVPB 12/05/16 21:00 12/09/16 21:14 12/06/16 21:00 Metoclopramide HCl 10 mg 10 mg Q6H PRN IVP Breakthru Nausea & Vomiting 12/06/16 15:00 01/05/17 14:59 Ondansetron HCl (Zofran) 4 mg Q6H IVP 12/05/16 14:00 01/04/17 13:59 12/07/16 02:00 Pantoprazole (Protonix) 40 mg DAILY ORAL 12/06/16 17:30 01/05/17 17:29 Potassium Chloride/Dextrose/ Lactated Ringer's (KCl/D5lr) 1,020 ml @ 150 mls/hr Q6H48M IV 12/06/16 17:30 01/05/17 17:29 12/07/16 01:00 Tulio Estrella MD Dec 07, 2016 08:56
[2016-12-07] MEDS ORDERED: Relistor 12mg/0.6ml Vial SUBQ SCH (09:00)
[2016-12-07] MEDS: Metoclopramide 10mg/2ml Inj IVP PRN ×2 (09:42→22:31)
[2016-12-07 11:59] VITALS: BP 122/75
--- NOTE | 2016-12-07 12:37 | GI Progress Note ---
Assessment/Plan Problems: (1) Post-op pain ICD Codes: G89.18 - Other acute postprocedural pain SNOMED: 678131709 (2) Nausea & vomiting ICD Codes: R11.2 - Nausea with vomiting, unspecified SNOMED: 35960980 (3) Hiatal hernia ICD Codes: K44.9 - Diaphragmatic hernia without obstruction or gangrene SNOMED: 50148148 (4) Anemia ICD Codes: D64.9 - Anemia, unspecified SNOMED: 420779022 (5) Diverticulitis ICD Codes: K57.92 - Diverticulitis of intestine, part unspecified, without perforation or abscess without bleeding SNOMED: 156690238 (6) Hypoalbuminemia ICD Codes: E88.09 - Other disorders of plasma-protein metabolism, not elsewhere classified SNOMED: 889100101 (7) GERD (gastroesophageal reflux disease) ICD Codes: K21.9 - Gastro-esophageal reflux disease without esophagitis SNOMED: 865615808 (8) Abdominal pain ICD Codes: R10.9 - Unspecified abdominal pain SNOMED: 00005851 (9) Therapeutic opioid-induced constipation (OIC) ICD Codes: K59.03 - Drug induced constipation; T40.2X5A - Adverse effect of other opioids, initial encounter SNOMED: 668753215549970 Status: stable, progressing, unchanged Status Narrative Discussed with Dr. Magdaleno. Assessment/Plan Abdominal MRI reviewed >> Essentially unremarkable exam. Abnormal uterus, status post multiple recent procedures-see separate pelvic MRI report. iron deficient s/p abdominal myomectomy iron deficient >> venofer opioid induced nausea and vomiting okay for DC per GI standpoint rx written for reglan, zofran, and movantik (OIC), given to nurse supportive and symptomatic treatment CLD, adv as tolerated IV hydration + electrolyte replacement scopolamine patch zofran ATC, switch prn when controlled reglan 10 prn for breakthrough N/V OB stool r/o GI bleed pain mgmt bowel regimen >> colace + miralax monitor H&H, transfuse prn ppi fu labs Subjective Subjective nausea improved emesis x 1 today abdominal pain Objective Last 24 Hour Vital Signs Date Time Temp Pulse Resp B/P Pulse Ox O2 Delivery O2 Flow Rate FiO2 12/07/16 11:59 98.2 67 20 122/75 98 Room Air 12/07/16 08:23 97.7 66 20 140/81 100 Room Air 12/07/16 05:53 97.5 12/07/16 04:20 97.5 80 20 137/87 99 Room Air 12/07/16 00:12 97.9 75 18 129/85 98 Room Air 12/06/16 19:57 97.7 73 20 129/86 100 Room Air 12/06/16 16:00 97.3 72 19 131/90 100 Room Air Intake and Output 12/06/16 12/07/16 19:00 07:00 Intake Total 635 ml 1917 ml Balance 635 ml 1917 ml Intake Oral 360 ml 240 ml IV Total 275 ml 1677 ml # Voids 2 Laboratory Tests Test 12/06/16 19:00 12/07/16 05:10 Urine Random Sodium 25 mmol/L Urine Creatinine 24.3 mg/dL White Blood Count 11.5 K/UL (4.8-10.8) H Red Blood Count 3.61 M/UL (4.20-5.40) L Hemoglobin 9.9 G/DL (12.0-16.0) L Hematocrit 30.1 % (37.0-47.0) L Mean Corpuscular Volume 83 FL (80-99) Mean Corpuscular Hemoglobin 27.5 PG (27.0-31.0) Mean Corpuscular Hemoglobin Concent 33.1 G/DL (32.0-36.0) Red Cell Distribution Width 13.7 % (11.6-14.8) Platelet Count 393 K/UL (150-450) Mean Platelet Volume 5.4 FL (6.5-10.1) L Neutrophils (%) (Auto) 81.3 % (45.0-75.0) H Lymphocytes (%) (Auto) 10.8 % (20.0-45.0) L Monocytes (%) (Auto) 5.9 % (1.0-10.0) Eosinophils (%) (Auto) 1.6 % (0.0-3.0) Basophils (%) (Auto) 0.4 % (0.0-2.0) Sodium Level 139 mEQ/L (135-145) Potassium Level 4.0 mEQ/L (3.4-4.9) Chloride Level 103 mEQ/L (98-107) Carbon Dioxide Level 26 mEQ/L (20-30) Anion Gap 10 (5-15) Blood Urea Nitrogen 3 mg/dL (7-23) L Creatinine 1.5 mg/dL (0.5-0.9) H Estimat Glomerular Filtration Rate 45.9 mL/min (>60) Glucose Level 105 mg/dL (74-106) Calcium Level 8.8 mg/dL (8.6-10.2) Total Creatine Kinase 22 U/L (26-140) L Height (Feet): 5 Height (Inches): 7.00 Weight (Pounds): 238 General Appearance: no apparent distress, alert Cardiovascular: normal rate Respiratory/Chest: normal breath sounds, no respiratory distress Abdominal Exam: normal bowel sounds, soft, tender Margaret Iniguez N.P. Dec 07, 2016 12:37
[2016-12-07] MEDS ORDERED: Mylanta II UD 30ml ORAL PRN (14:45)
[2016-12-07] MEDS ORDERED: Mylanta II UD 30ml ORAL ONE (15:00)
--- NOTE | 2016-12-07 15:15 | General Progress Note ---
Assessment/Plan Assessment/Plan (1) Pelvic pain (2) Fibroid Uterus (3) S/p Uterine artery embolization (4) Abdominal pain (5) Symptomatic leiomymata (6) S/p Abdominal Myomectomy Pt will be continued on Dilaudid and Neurontin. Pt will be started on Relistor 12mg sub QOD and Mylanta II PO 30mg Q6H PRN dyspepsia. We have written in anticipation for discharge Percocet 5/325mg PO 1 tab Q4-6H PRN pain 20 tabs and Neurontin 300mg PO 1 cap Q8H 45 tabs. She was advised to f/u with surgeon, PMD and GI specialist as an Out pt. Pt was d/w Dr. Hoover and he concurred. Subjective Date patient seen: Dec 07, 2016 Time patient seen: 02:00 - pm Allergies: Coded Allergies: TOPIRAMATE (Verified Allergy, Unknown, 11/15/16) Subjective REVIEW OF SYSTEMS: Denies rash, fever, chills, sweating, dizziness, drowsiness, blurred vision, sore throat, change in weight. No shortness of breath or chest pain. C/O nausea, vomiting, No diarrhea, or blood in the stool or urine. No bowel or bladder incontinence. No dysuria. She is complaining of abdominal and pelvic pain. SUBJECTIVE: Patient has continued abdominal pain with N/V. She was seen by GI who would like to have patient undergo a endoscopy and has cleared patient for discharge The pain is severe she has used 5 doses of Dilaudid in the last 24hrs. D/w Dr. Chan who would like to discharge the patient requesting a Rx for pain medication to be written for the patient, he would like a Rx for fentanyl patch to be written for discharge. I d/ w Dr. Hoover who explains that the patient is not indicated to be on fentanyl patch since she has not been on chronic Narcotic medication. Since pt will be discharged as per Dr. Chan and asked to write a Rx for discharge, we will write for Percocet 5/325mg PO 1 tab Q4-6H PRN pain 20 tabs and Neurontin 300mg PO [address] Hoover also explained this to Dr. Chan. Objective Last 24 Hour Vital Signs Date Time Temp Pulse Resp B/P Pulse Ox O2 Delivery O2 Flow Rate FiO2 12/07/16 11:59 98.2 67 20 122/75 98 Room Air 12/07/16 08:23 97.7 66 20 140/81 100 Room Air 12/07/16 05:53 97.5 12/07/16 04:20 97.5 80 20 137/87 99 Room Air 12/07/16 00:12 97.9 75 18 129/85 98 Room Air 12/06/16 19:57 97.7 73 20 129/86 100 Room Air 12/06/16 16:00 97.3 72 19 131/90 100 Room Air Intake and Output 12/06/16 12/07/16 19:00 07:00 Intake Total 635 ml 1917 ml Balance 635 ml 1917 ml Intake Oral 360 ml 240 ml IV Total 275 ml 1677 ml # Voids 2 Laboratory Tests 12/06/16 19:00: Urine Random Sodium 25, Urine Creatinine 24.3 12/07/16 05:10: White Blood Count 11.5H, Red Blood Count 3.61L, Hemoglobin 9.9L, Hematocrit 30.1L, Mean Corpuscular Volume 83, Mean Corpuscular Hemoglobin 27.5, Mean Corpuscular Hemoglobin Concent 33.1, Red Cell Distribution Width 13.7, Platelet Count 393, Mean Platelet Volume 5.4L, Neutrophils (%) (Auto) 81.3H, Lymphocytes (%) (Auto) 10.8L, Monocytes (%) (Auto) 5.9, Eosinophils (%) (Auto) 1.6, Basophils (%) (Auto) 0.4, Sodium Level 139, Potassium Level 4.0, Chloride Level 103, Carbon Dioxide Level 26, Anion Gap 10, Blood Urea Nitrogen 3L, Creatinine 1.5H, Estimat Glomerular Filtration Rate 45.9, Glucose Level 105, Calcium Level 8.8, Total Creatine Kinase 22L Height (Feet): 5 Height (Inches): 7.00 Weight (Pounds): 238 Objective GENERAL: Alert, awake, and oriented x3. HEENT: PERRLA. NECK: Range of motion is full in all directions. No tenderness to paracervical muscles. No adenopathy. LUNGS: Lungs are clear. HEART: Regular. ABDOMEN: Tenderness to palpation with bandages noted. BACK: Range of motion is decreased in flexion and extension. No tenderness to trapezius or rhomboid muscles. EXTREMITIES: No cyanosis. No clubbing. No edema. NEURO: No Focal deficit JOSÉ LANGSTON Dec 07, 2016 15:15
--- NOTE | 2016-12-07 15:26 | Infectious Diseases Prog Note ---
Assessment/Plan Problems: (1) Leukocytosis Assessment & Plan: improved, suspect dehydration related, with no evidence of sepsis , and negative blood culture x2 , MRI of abdomen and pelvis is negative for any infection, continue to monitor off antibiotics . (2) Nausea & vomiting Assessment & Plan: unclear etiology, continue supportive care and hydration , management as per surgical team (3) Colonization with VRE (vancomycin-resistant enterococcus) Assessment & Plan: resolved with negative swab this time, may remove from contact isolation (4) Uterine myoma Assessment & Plan: S/P surgical resection, Dr Chan is following . (5) JONA (acute kidney injury) Assessment & Plan: suspect dehydration related, continue IVF, renal is following Subjective Constitutional: Reports: anorexia HEENT: Reports: no symptoms Respiratory: Reports: no symptoms Breasts: Reports: no symptoms Cardiovascular: Reports: no symptoms Gastrointestinal/Abdominal: Reports: nausea, vomiting Genitourinary: Reports: no symptoms Neurologic: Reports: no symptoms Psychiatric: Reports: no symptoms Skin: Reports: no symptoms Endocrine: Reports: no symptoms Hematologic: Reports: no symptoms Musculoskeletal: Reports: no symptoms Allergies: Coded Allergies: TOPIRAMATE (Verified Allergy, Unknown, 11/15/16) Objective Vital Signs Last 24 Hour Vital Signs Date Time Temp Pulse Resp B/P Pulse Ox O2 Delivery O2 Flow Rate FiO2 12/07/16 11:59 98.2 67 20 122/75 98 Room Air 12/07/16 08:23 97.7 66 20 140/81 100 Room Air 12/07/16 05:53 97.5 12/07/16 04:20 97.5 80 20 137/87 99 Room Air 12/07/16 00:12 97.9 75 18 129/85 98 Room Air 12/06/16 19:57 97.7 73 20 129/86 100 Room Air 12/06/16 16:00 97.3 72 19 131/90 100 Room Air Height (Feet): 5 Height (Inches): 7.00 Weight (Pounds): 238 General Appearance: WD/WN, no acute distress HEENT: normocephalic, atraumatic, anicteric, mucous membranes moist, PERRL Respiratory/Chest: chest wall non-tender, lungs clear, normal breath sounds, no respiratory distress, no accessory muscle use Cardiovascular: normal peripheral pulses, normal rate, regular rhythm, no gallop/murmur, no JVD Abdomen: normal bowel sounds, soft, non tender, no organomegaly, non distended , no mass, no scars Extremities: no cyanosis, no clubbing Skin: no rash, no lesions Microbiology Date/Time Source Procedure Growth Status 12/04/16 23:15 Blood Blood Culture - Preliminary NO GROWTH AFTER 48 HOURS Resulted 12/04/16 23:10 Blood Blood Culture - Preliminary NO GROWTH AFTER 48 HOURS Resulted 12/04/16 19:45 Rectal Mucosa VRE Culture - Final NO VANCOMYCIN RESISTANT ENTEROCOCCUS ... Complete Laboratory Tests Test 12/06/16 19:00 12/07/16 05:10 Urine Random Sodium 25 mmol/L Urine Creatinine 24.3 mg/dL White Blood Count 11.5 K/UL (4.8-10.8) H Red Blood Count 3.61 M/UL (4.20-5.40) L Hemoglobin 9.9 G/DL (12.0-16.0) L Hematocrit 30.1 % (37.0-47.0) L Mean Corpuscular Volume 83 FL (80-99) Mean Corpuscular Hemoglobin 27.5 PG (27.0-31.0) Mean Corpuscular Hemoglobin Concent 33.1 G/DL (32.0-36.0) Red Cell Distribution Width 13.7 % (11.6-14.8) Platelet Count 393 K/UL (150-450) Mean Platelet Volume 5.4 FL (6.5-10.1) L Neutrophils (%) (Auto) 81.3 % (45.0-75.0) H Lymphocytes (%) (Auto) 10.8 % (20.0-45.0) L Monocytes (%) (Auto) 5.9 % (1.0-10.0) Eosinophils (%) (Auto) 1.6 % (0.0-3.0) Basophils (%) (Auto) 0.4 % (0.0-2.0) Sodium Level 139 mEQ/L (135-145) Potassium Level 4.0 mEQ/L (3.4-4.9) Chloride Level 103 mEQ/L (98-107) Carbon Dioxide Level 26 mEQ/L (20-30) Anion Gap 10 (5-15) Blood Urea Nitrogen 3 mg/dL (7-23) L Creatinine 1.5 mg/dL (0.5-0.9) H Estimat Glomerular Filtration Rate 45.9 mL/min (>60) Glucose Level 105 mg/dL (74-106) Calcium Level 8.8 mg/dL (8.6-10.2) Total Creatine Kinase 22 U/L (26-140) L Current Medications Medications (Trade) Dose Ordered Sig/Penny Route PRN Reason Start Time Stop Time Status Last Admin Dose Admin Al Hydroxide/Mg Hydroxide (Mylanta II) 30 ml Q6H PRN ORAL dyspepsia 12/07/16 14:45 01/06/17 14:44 Dextrose (Dextrose 50%) STAT PRN IV Hypoglycemia 12/04/16 16:00 01/03/17 15:59 Gabapentin (Neurontin) 300 mg THREE TIMES A DAY ORAL 12/04/16 19:00 01/03/17 18:59 12/06/16 09:58 Hydromorphone HCl (Dilaudid) 1 mg Q3H PRN IVP Severe Pain (Pain Scale 7-10) 12/05/16 09:00 12/12/16 08:59 12/07/16 10:14 Hydromorphone HCl 4 mg 4 mg Q6H PRN ORAL Moderate Pain (Pain Scale 4-6) 12/05/16 08:53 12/12/16 07:59 Iron Sucrose/ Sodium Chloride (Venofer/Sodium Chloride) 60 ml @ 240 mls/hr BEDTIME IVPB 12/05/16 21:00 12/09/16 21:14 12/06/16 21:00 Methylnaltrexone [place] (Relistor) 12 mg QOD SUBQ 12/07/16 09:00 01/06/17 08:59 UNV Metoclopramide HCl 10 mg 10 mg Q6H PRN IVP Breakthru Nausea & Vomiting 12/06/16 15:00 01/05/17 14:59 12/07/16 09:42 Ondansetron HCl (Zofran) 4 mg Q6H IVP 12/05/16 14:00 01/04/17 13:59 12/07/16 02:00 Pantoprazole (Protonix) 40 mg DAILY ORAL 12/06/16 17:30 01/05/17 17:29 12/07/16 09:43 Potassium Chloride/Dextrose/ Lactated Ringer's (KCl/D5lr) 1,020 ml @ 150 mls/hr Q6H48M IV 12/06/16 17:30 01/05/17 17:29 12/07/16 09:44 Melissa Holley M.D. Dec 07, 2016 15:26
--- NOTE | 2016-12-07 15:42 | General Surgery Progress Note ---
General Surgery-Progress Note Subjective Procedure Performed myomectomy Symptoms: pain same, not tolerating diet, voiding well, passing flatus Objective Last 24 Hour Vital Signs Date Time Temp Pulse Resp B/P Pulse Ox O2 Delivery O2 Flow Rate FiO2 12/07/16 11:59 98.2 67 20 122/75 98 Room Air 12/07/16 08:23 97.7 66 20 140/81 100 Room Air 12/07/16 05:53 97.5 12/07/16 04:20 97.5 80 20 137/87 99 Room Air 12/07/16 00:12 97.9 75 18 129/85 98 Room Air 12/06/16 19:57 97.7 73 20 129/86 100 Room Air 12/06/16 16:00 97.3 72 19 131/90 100 Room Air I&O Intake and Output 12/06/16 12/07/16 19:00 07:00 Intake Total 635 ml 1917 ml Balance 635 ml 1917 ml Intake Oral 360 ml 240 ml IV Total 275 ml 1677 ml # Voids 2 Dressing: dry Wound: clean Drains: none Cardiovascular: RSR Respiratory: clear Abdomen: soft, flat, tenderness, present bowel sounds Extremities: no edema, no tenderness, no cyanosis Laboratory Tests Test 12/06/16 19:00 12/07/16 05:10 Urine Random Sodium 25 mmol/L Urine Creatinine 24.3 mg/dL White Blood Count 11.5 K/UL (4.8-10.8) H Red Blood Count 3.61 M/UL (4.20-5.40) L Hemoglobin 9.9 G/DL (12.0-16.0) L Hematocrit 30.1 % (37.0-47.0) L Mean Corpuscular Volume 83 FL (80-99) Mean Corpuscular Hemoglobin 27.5 PG (27.0-31.0) Mean Corpuscular Hemoglobin Concent 33.1 G/DL (32.0-36.0) Red Cell Distribution Width 13.7 % (11.6-14.8) Platelet Count 393 K/UL (150-450) Mean Platelet Volume 5.4 FL (6.5-10.1) L Neutrophils (%) (Auto) 81.3 % (45.0-75.0) H Lymphocytes (%) (Auto) 10.8 % (20.0-45.0) L Monocytes (%) (Auto) 5.9 % (1.0-10.0) Eosinophils (%) (Auto) 1.6 % (0.0-3.0) Basophils (%) (Auto) 0.4 % (0.0-2.0) Sodium Level 139 mEQ/L (135-145) Potassium Level 4.0 mEQ/L (3.4-4.9) Chloride Level 103 mEQ/L (98-107) Carbon Dioxide Level 26 mEQ/L (20-30) Anion Gap 10 (5-15) Blood Urea Nitrogen 3 mg/dL (7-23) L Creatinine 1.5 mg/dL (0.5-0.9) H Estimat Glomerular Filtration Rate 45.9 mL/min (>60) Glucose Level 105 mg/dL (74-106) Calcium Level 8.8 mg/dL (8.6-10.2) Total Creatine Kinase 22 U/L (26-140) L Additional Comments slight elevation in creatinine, followed by nephrology Plan Additional Comments per GI no pathology, causing pain, likely nausea from high dose narcotics. 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 Dylan Kraft MD Dec 07, 2016 15:42
--- NOTE | 2016-12-07 15:47 | Nephrology Progress Note ---
Assessment/Plan Problem List: (1) JONA (acute kidney injury) (2) Uterine myoma (3) Abdominal pain (4) Post-op pain Plan creatinine 1.5 mild rise, observe with hydration Subjective Constitutional: Reports: weakness HEENT: Reports: no symptoms Genitourinary: Reports: no symptoms Neurologic/Psychiatric: Reports: no symptoms Subjective still nausea and abdom pain Objective Objective Last 24 Hour Vital Signs Date Time Temp Pulse Resp B/P Pulse Ox O2 Delivery O2 Flow Rate FiO2 12/07/16 11:59 98.2 67 20 122/75 98 Room Air 12/07/16 08:23 97.7 66 20 140/81 100 Room Air 12/07/16 05:53 97.5 12/07/16 04:20 97.5 80 20 137/87 99 Room Air 12/07/16 00:12 97.9 75 18 129/85 98 Room Air 12/06/16 19:57 97.7 73 20 129/86 100 Room Air 12/06/16 16:00 97.3 72 19 131/90 100 Room Air Intake and Output 12/06/16 12/07/16 19:00 07:00 Intake Total 635 ml 1917 ml Balance 635 ml 1917 ml Intake Oral 360 ml 240 ml IV Total 275 ml 1677 ml # Voids 2 Laboratory Tests 12/06/16 19:00: Urine Random Sodium 25, Urine Creatinine 24.3 12/07/16 05:10: White Blood Count 11.5H, Red Blood Count 3.61L, Hemoglobin 9.9L, Hematocrit 30.1L, Mean Corpuscular Volume 83, Mean Corpuscular Hemoglobin 27.5, Mean Corpuscular Hemoglobin Concent 33.1, Red Cell Distribution Width 13.7, Platelet Count 393, Mean Platelet Volume 5.4L, Neutrophils (%) (Auto) 81.3H, Lymphocytes (%) (Auto) 10.8L, Monocytes (%) (Auto) 5.9, Eosinophils (%) (Auto) 1.6, Basophils (%) (Auto) 0.4, Sodium Level 139, Potassium Level 4.0, Chloride Level 103, Carbon Dioxide Level 26, Anion Gap 10, Blood Urea Nitrogen 3L, Creatinine 1.5H, Estimat Glomerular Filtration Rate 45.9, Glucose Level 105, Calcium Level 8.8, Total Creatine Kinase 22L Height (Feet): 5 Height (Inches): 7.00 Weight (Pounds): 238 General Appearance: WD/WN, no apparent distress EENT: PERRL/EOMI, normal ENT inspection Neck: normal alignment Cardiovascular: normal rate Respiratory/Chest: lungs clear Abdomen: non tender, soft Extremities: other - no edema REN JACKSON Dec 07, 2016 15:47
[2016-12-07 16:14] VITALS: BP 122/75
[2016-12-07] MEDS ORDERED: Morphine Sulfate 4mg/ml Inj SUBQ PRN (20:00)
[2016-12-07] MEDS: Relistor 12mg/0.6ml Vial SUBQ SCH (20:42)
[2016-12-07] MEDS: Iron Sucrose 100 MG in NS 55 ML IVPB SCH ×2 (21:00→22:55)
[2016-12-08] VITALS: BP 126/71
[2016-12-08] MEDS: Potassium Chloride 40 MEQ in Dextrose 5%/Lactated Ringer's 1,000 ML IV SCH ×3 (01:38→17:12)
[2016-12-08] MEDS: HYDROmorphone 1mg/ml Carpuject IVP PRN ×5 (01:38→19:26)
[2016-12-08] MEDS ORDERED: Morphine Sulfate 4mg/ml Inj SUBQ PRN (03:00)
[2016-12-08 04:00] VITALS: BP 129/75
--- NOTE | 2016-12-08 06:51 | Pulmonology Progress Note ---
Assessment/Plan Assessment/Plan Assessment/Plan IMPRESSION: 1. Abdominal pain and emesis following myomectomy. PLAN: IFF antiemetics pain medication. A no abx wound care FU imaging GI eval pending Subjective Constitutional: Reports: no symptoms HEENT: Repors: no symptoms Respiratory: Reports: no symptoms Cardiovascular: Reports: no symptoms Gastrointestinal/Abdominal: Reports: nausea, other - pain, vomiting Neurologic: Reports: no symptoms Psychiatric: Reports: no symptoms Skin: Reports: no symptoms Endocrine: Reports: no symptoms Allergies: Coded Allergies: TOPIRAMATE (Verified Allergy, Unknown, 11/15/16) Subjective seen and examined still with nausea no cp or fever oob positive uop no bm Objective Last 24 Hour Vital Signs Date Time Temp Pulse Resp B/P Pulse Ox O2 Delivery O2 Flow Rate FiO2 12/08/16 05:57 97.7 12/08/16 04:00 97.7 75 20 129/75 100 Room Air 12/08/16 00:00 97.7 71 20 126/71 100 Room Air 12/07/16 16:14 97.7 71 20 122/75 98 Room Air 12/07/16 11:59 98.2 67 20 122/75 98 Room Air 12/07/16 08:23 97.7 66 20 140/81 100 Room Air Intake and Output 12/07/16 12/08/16 19:00 07:00 Intake Total 1590 ml 1170 ml Output Total 200 ml Balance 1390 ml 1170 ml Intake Oral 240 ml 360 ml IV Total 1350 ml 810 ml Output Urine Total 200 ml # Voids 2 5 General Appearance: WD/WN Respiratory/Chest: lungs clear Cardiovascular: normal peripheral pulses Abdomen: normal bowel sounds, tender Skin: no rash Neurologic/Psychiatric: no motor/sensory deficits, abnormal gait, oriented x 3 , responsive Laboratory Tests 12/07/16 16:30: Stool Occult Blood [Pending] Current Medications Medications (Trade) Dose Ordered Sig/Penny Route PRN Reason Start Time Stop Time Status Last Admin Dose Admin Al Hydroxide/Mg Hydroxide (Mylanta II) 30 ml Q6H PRN ORAL dyspepsia 12/07/16 14:45 01/06/17 14:44 Dextrose (Dextrose 50%) STAT PRN IV Hypoglycemia 12/04/16 16:00 01/03/17 15:59 Gabapentin (Neurontin) 300 mg THREE TIMES A DAY ORAL 12/04/16 19:00 01/03/17 18:59 12/06/16 09:58 Hydromorphone HCl (Dilaudid) 1 mg Q3H PRN IVP Severe Pain (Pain Scale 7-10) 12/05/16 09:00 12/12/16 08:59 12/08/16 05:27 Hydromorphone HCl 4 mg 4 mg Q6H PRN ORAL Moderate Pain (Pain Scale 4-6) 12/05/16 08:53 12/12/16 07:59 Iron Sucrose/ Sodium Chloride (Venofer/Sodium Chloride) 60 ml @ 240 mls/hr BEDTIME IVPB 12/05/16 21:00 12/09/16 21:14 12/07/16 22:55 Methylnaltrexone [place] (Relistor) 12 mg QOD@1800 SUBQ 12/07/16 18:00 01/06/17 17:59 12/07/16 20:42 Metoclopramide HCl 10 mg 10 mg Q6H PRN IVP Breakthru Nausea & Vomiting 12/06/16 15:00 01/05/17 14:59 12/07/16 22:31 Morphine Sulfate (Morphine Sulfate) 4 mg Q2HR PRN SUBQ For Pain 12/08/16 03:00 12/15/16 02:59 UNV Ondansetron HCl (Zofran) 4 mg Q6H IVP 12/05/16 14:00 01/04/17 13:59 12/08/16 01:45 Pantoprazole (Protonix) 40 mg DAILY ORAL 12/06/16 17:30 01/05/17 17:29 12/07/16 09:43 Potassium Chloride/Dextrose/ Lactated Ringer's (KCl/D5lr) 1,020 ml @ 150 mls/hr Q6H48M IV 12/06/16 17:30 01/05/17 17:29 12/08/16 01:38 LAURA HOLM DO Dec 08, 2016 06:51
--- NOTE | 2016-12-08 07:47 | General Progress Note ---
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 Subjective ROS Limited/Unobtainable: Yes Allergies: Coded Allergies: TOPIRAMATE (Verified Allergy, Unknown, 11/15/16) Subjective c/o nausea Objective Last 24 Hour Vital Signs Date Time Temp Pulse Resp B/P Pulse Ox O2 Delivery O2 Flow Rate FiO2 12/08/16 05:57 97.7 12/08/16 04:00 97.7 75 20 129/75 100 Room Air 12/08/16 00:00 97.7 71 20 126/71 100 Room Air 12/07/16 16:14 97.7 71 20 122/75 98 Room Air 12/07/16 11:59 98.2 67 20 122/75 98 Room Air 12/07/16 08:23 97.7 66 20 140/81 100 Room Air Intake and Output 12/07/16 12/08/16 19:00 07:00 Intake Total 1590 ml 1170 ml Output Total 200 ml Balance 1390 ml 1170 ml Intake Oral 240 ml 360 ml IV Total 1350 ml 810 ml Output Urine Total 200 ml # Voids 2 5 Laboratory Tests 12/07/16 16:30: Stool Occult Blood [Pending] Height (Feet): 5 Height (Inches): 7.00 Weight (Pounds): 238 General Appearance: alert EENT: normal ENT inspection Neck: supple Cardiovascular: normal rate Respiratory/Chest: lungs clear Abdomen: normal bowel sounds, non tender, soft Extremities: non-tender YAO GENAO Dec 08, 2016 07:47
[2016-12-08 08:17] VITALS: BP 116/70
[2016-12-08 11:39] VITALS: BP 112/73
[2016-12-08] MEDS ORDERED: Fleet's Enema 133ml RECTAL ONE (12:00)
[2016-12-08 12:44] LABS: BASOPHILS % (AUTO) 1.1 % (0.0-2.0); EOSINOPHILS % (AUTO) 1.5 % (0.0-3.0); LYMPHOCYTES % (AUTO) 11.7 % (20.0-45.0); MEAN CORPUSCULAR HGB CONC 31.4 G/DL (32.0-36.0); MEAN CORPUSCULAR VOLUME 83 FL (80-99); MEAN PLATELET VOLUME 5.8 FL (6.5-10.1); MONOCYTES % (AUTO) 6.1 % (1.0-10.0); NEUTROPHILS % (AUTO) 79.6 % (45.0-75.0); PLATELET COUNT 396 K/UL (150-450); RED BLOOD COUNT 3.85 M/UL (4.20-5.40); RED CELL DISTRIBUTION WIDTH 14.2 % (11.6-14.8); WHITE BLOOD COUNT 10.2 K/UL (4.8-10.8)
[2016-12-08 13:12] LABS: CALCIUM 9.4 mg/dL (8.6-10.2); CREATININE 1.4 mg/dL (0.5-0.9); GLOMERULAR FILTRATION RATE 49.7 mL/min (>60); POTASSIUM 4.4 mEQ/L (3.4-4.9)
--- NOTE | 2016-12-08 14:42 | General Surgery Progress Note ---
General Surgery-Progress Note Subjective Procedure Performed myomectomy Symptoms: pain same Objective Last 24 Hour Vital Signs Date Time Temp Pulse Resp B/P Pulse Ox O2 Delivery O2 Flow Rate FiO2 12/08/16 11:49 97.6 12/08/16 11:39 97.6 73 20 112/73 97 Room Air 12/08/16 08:17 97.9 69 20 116/70 97 Room Air 12/08/16 04:00 97.7 75 20 129/75 100 Room Air 12/08/16 00:00 97.7 71 20 126/71 100 Room Air 12/07/16 16:14 97.7 71 20 122/75 98 Room Air I&O Intake and Output 12/07/16 12/08/16 19:00 07:00 Intake Total 1590 ml 1170 ml Output Total 200 ml Balance 1390 ml 1170 ml Intake Oral 240 ml 360 ml IV Total 1350 ml 810 ml Output Urine Total 200 ml # Voids 2 5 Dressing: dry Wound: clean Drains: none Cardiovascular: RSR Respiratory: clear Abdomen: soft, tenderness, present bowel sounds Extremities: no edema, no tenderness, no cyanosis Laboratory Tests Test 12/07/16 16:30 12/08/16 12:20 Stool Occult Blood Pending White Blood Count 10.2 K/UL (4.8-10.8) Red Blood Count 3.85 M/UL (4.20-5.40) L Hemoglobin 10.0 G/DL (12.0-16.0) L Hematocrit 31.8 % (37.0-47.0) L Mean Corpuscular Volume 83 FL (80-99) Mean Corpuscular Hemoglobin 26.0 PG (27.0-31.0) L Mean Corpuscular Hemoglobin Concent 31.4 G/DL (32.0-36.0) L Red Cell Distribution Width 14.2 % (11.6-14.8) Platelet Count 396 K/UL (150-450) Mean Platelet Volume 5.8 FL (6.5-10.1) L Neutrophils (%) (Auto) 79.6 % (45.0-75.0) H Lymphocytes (%) (Auto) 11.7 % (20.0-45.0) L Monocytes (%) (Auto) 6.1 % (1.0-10.0) Eosinophils (%) (Auto) 1.5 % (0.0-3.0) Basophils (%) (Auto) 1.1 % (0.0-2.0) Sodium Level 139 mEQ/L (135-145) Potassium Level 4.4 mEQ/L (3.4-4.9) Chloride Level 102 mEQ/L (98-107) Carbon Dioxide Level 26 mEQ/L (20-30) Anion Gap 11 (5-15) Blood Urea Nitrogen 3 mg/dL (7-23) L Creatinine 1.4 mg/dL (0.5-0.9) H Estimat Glomerular Filtration Rate 49.7 mL/min (>60) Glucose Level 107 mg/dL (74-106) H Calcium Level 9.4 mg/dL (8.6-10.2) Imaging CT abdomen and pelvis, no new findings Plan Additional Comments may need central line prior to surgery. IR to aspirate wound fluid saturday, GI endoscopy saturday. possible surgery saturday. Dylan Kraft MD Dec 08, 2016 14:42
--- NOTE | 2016-12-08 14:49 | Nephrology Progress Note ---
Assessment/Plan Problem List: (1) JONA (acute kidney injury) (2) Uterine myoma (3) Abdominal pain (4) Post-op pain Plan creatinine 1.5 mild rise, repeat 1.4 observe with hydration Subjective Constitutional: Reports: weakness HEENT: Reports: no symptoms Genitourinary: Reports: no symptoms, other Subjective still nausea and abdom pain Objective Objective Last 24 Hour Vital Signs Date Time Temp Pulse Resp B/P Pulse Ox O2 Delivery O2 Flow Rate FiO2 12/08/16 11:49 97.6 12/08/16 11:39 97.6 73 20 112/73 97 Room Air 12/08/16 08:17 97.9 69 20 116/70 97 Room Air 12/08/16 04:00 97.7 75 20 129/75 100 Room Air 12/08/16 00:00 97.7 71 20 126/71 100 Room Air 12/07/16 16:14 97.7 71 20 122/75 98 Room Air Intake and Output 12/07/16 12/08/16 19:00 07:00 Intake Total 1590 ml 1170 ml Output Total 200 ml Balance 1390 ml 1170 ml Intake Oral 240 ml 360 ml IV Total 1350 ml 810 ml Output Urine Total 200 ml # Voids 2 5 Laboratory Tests 12/07/16 16:30: Stool Occult Blood [Pending] 12/08/16 12:20: White Blood Count 10.2, Red Blood Count 3.85L, Hemoglobin 10.0L, Hematocrit 31.8L, Mean Corpuscular Volume 83, Mean Corpuscular Hemoglobin 26.0L, Mean Corpuscular Hemoglobin Concent 31.4L, Red Cell Distribution Width 14.2, Platelet Count 396, Mean Platelet Volume 5.8L, Neutrophils (%) (Auto) 79.6H, Lymphocytes (%) (Auto) 11.7L, Monocytes (%) (Auto) 6.1, Eosinophils (%) (Auto) 1.5, Basophils (%) (Auto) 1.1, Sodium Level 139, Potassium Level 4.4, Chloride Level 102, Carbon Dioxide Level 26, Anion Gap 11, Blood Urea Nitrogen 3L, Creatinine 1.4H, Estimat Glomerular Filtration Rate 49.7, Glucose Level 107H, Calcium Level 9.4 Height (Feet): 5 Height (Inches): 7.00 Weight (Pounds): 238 General Appearance: no apparent distress, alert EENT: normal ENT inspection Neck: non-tender, normal alignment Cardiovascular: normal rate, regular rhythm Respiratory/Chest: lungs clear Abdomen: non tender, soft 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
--- NOTE | 2016-12-08 15:19 | Infectious Diseases Prog Note ---
Assessment/Plan Problems: (1) Leukocytosis Assessment & Plan: improved, suspect dehydration related, with no evidence of sepsis , and negative blood culture x2 , MRI of abdomen and pelvis is negative for any infection, continue to monitor off antibiotics . (2) Nausea & vomiting Assessment & Plan: unclear etiology, continue supportive care and hydration , management as per surgical team (3) Colonization with VRE (vancomycin-resistant enterococcus) Assessment & Plan: resolved with negative swab this time, may remove from contact isolation (4) Uterine myoma Assessment & Plan: S/P surgical resection, Dr Chan is following . (5) JONA (acute kidney injury) Assessment & Plan: suspect dehydration related, continue IVF, renal is following Subjective Constitutional: Reports: anorexia HEENT: Reports: no symptoms Respiratory: Reports: no symptoms Breasts: Reports: no symptoms Cardiovascular: Reports: no symptoms Gastrointestinal/Abdominal: Reports: bloating, nausea, vomiting Genitourinary: Reports: no symptoms Neurologic: Reports: no symptoms Psychiatric: Reports: no symptoms Skin: Reports: no symptoms Endocrine: Reports: no symptoms Hematologic: Reports: no symptoms Allergies: Coded Allergies: TOPIRAMATE (Verified Allergy, Unknown, 11/15/16) Objective Vital Signs Last 24 Hour Vital Signs Date Time Temp Pulse Resp B/P Pulse Ox O2 Delivery O2 Flow Rate FiO2 12/08/16 11:49 97.6 12/08/16 11:39 97.6 73 20 112/73 97 Room Air 12/08/16 08:17 97.9 69 20 116/70 97 Room Air 12/08/16 04:00 97.7 75 20 129/75 100 Room Air 12/08/16 00:00 97.7 71 20 126/71 100 Room Air 12/07/16 16:14 97.7 71 20 122/75 98 Room Air Height (Feet): 5 Height (Inches): 7.00 Weight (Pounds): 238 General Appearance: WD/WN, no acute distress HEENT: normocephalic, atraumatic, anicteric, mucous membranes moist Respiratory/Chest: chest wall non-tender, lungs clear, normal breath sounds, no respiratory distress, no accessory muscle use Cardiovascular: normal peripheral pulses, normal rate, regular rhythm, no gallop/murmur, no JVD Abdomen: normal bowel sounds, soft, non tender, no organomegaly, non distended , no mass, no scars Extremities: no cyanosis, no clubbing Skin: no rash, no lesions Neurologic/Psychiatric: alert Laboratory Tests Test 12/07/16 16:30 12/08/16 12:20 Stool Occult Blood Pending White Blood Count 10.2 K/UL (4.8-10.8) Red Blood Count 3.85 M/UL (4.20-5.40) L Hemoglobin 10.0 G/DL (12.0-16.0) L Hematocrit 31.8 % (37.0-47.0) L Mean Corpuscular Volume 83 FL (80-99) Mean Corpuscular Hemoglobin 26.0 PG (27.0-31.0) L Mean Corpuscular Hemoglobin Concent 31.4 G/DL (32.0-36.0) L Red Cell Distribution Width 14.2 % (11.6-14.8) Platelet Count 396 K/UL (150-450) Mean Platelet Volume 5.8 FL (6.5-10.1) L Neutrophils (%) (Auto) 79.6 % (45.0-75.0) H Lymphocytes (%) (Auto) 11.7 % (20.0-45.0) L Monocytes (%) (Auto) 6.1 % (1.0-10.0) Eosinophils (%) (Auto) 1.5 % (0.0-3.0) Basophils (%) (Auto) 1.1 % (0.0-2.0) Sodium Level 139 mEQ/L (135-145) Potassium Level 4.4 mEQ/L (3.4-4.9) Chloride Level 102 mEQ/L (98-107) Carbon Dioxide Level 26 mEQ/L (20-30) Anion Gap 11 (5-15) Blood Urea Nitrogen 3 mg/dL (7-23) L Creatinine 1.4 mg/dL (0.5-0.9) H Estimat Glomerular Filtration Rate 49.7 mL/min (>60) Glucose Level 107 mg/dL (74-106) H Calcium Level 9.4 mg/dL (8.6-10.2) Current Medications Medications (Trade) Dose Ordered Sig/Penny Route PRN Reason Start Time Stop Time Status Last Admin Dose Admin Al Hydroxide/Mg Hydroxide (Mylanta II) 30 ml Q6H PRN ORAL dyspepsia 12/07/16 14:45 01/06/17 14:44 Dextrose (Dextrose 50%) STAT PRN IV Hypoglycemia 12/04/16 16:00 01/03/17 15:59 Gabapentin (Neurontin) 300 mg THREE TIMES A DAY ORAL 12/04/16 19:00 01/03/17 18:59 12/08/16 13:48 Hydromorphone HCl (Dilaudid) 1 mg Q3H PRN IVP Severe Pain (Pain Scale 7-10) 12/05/16 09:00 12/12/16 08:59 12/08/16 14:42 Hydromorphone HCl 4 mg 4 mg Q6H PRN ORAL Moderate Pain (Pain Scale 4-6) 12/05/16 08:53 12/12/16 07:59 Iron Sucrose/ Sodium Chloride (Venofer/Sodium Chloride) 60 ml @ 240 mls/hr BEDTIME IVPB 12/05/16 21:00 12/09/16 21:14 12/07/16 22:55 Methylnaltrexone [place] (Relistor) 12 mg QOD@1800 SUBQ 12/07/16 18:00 01/06/17 17:59 12/07/16 20:42 Metoclopramide HCl 10 mg 10 mg Q6H PRN IVP Breakthru Nausea & Vomiting 12/06/16 15:00 01/05/17 14:59 12/07/16 22:31 Morphine Sulfate (Morphine Sulfate) 4 mg Q2HR PRN SUBQ Severe Pain (Pain Scale 7-10) 12/08/16 03:00 12/15/16 02:59 Ondansetron HCl (Zofran) 4 mg Q6H IVP 12/05/16 14:00 01/04/17 13:59 12/08/16 13:48 Pantoprazole (Protonix) 40 mg DAILY ORAL 12/06/16 17:30 01/05/17 17:29 12/07/16 09:43 Potassium Chloride/Dextrose/ Lactated Ringer's (KCl/D5lr) 1,020 ml @ 150 mls/hr Q6H48M IV 12/06/16 17:30 01/05/17 17:29 12/08/16 01:38 Melissa Holley M.D. Dec 08, 2016 15:19
[2016-12-08 16:17] VITALS: BP 115/84
[2016-12-08] MEDS: Metoclopramide 10mg/2ml Inj IVP PRN (19:25)
[2016-12-08 20:00] VITALS: BP 135/86
[2016-12-08] MEDS: Iron Sucrose 100 MG in NS 55 ML IVPB SCH (21:36)
[2016-12-09] VITALS: BP 125/74
[2016-12-09] MEDS: HYDROmorphone 1mg/ml Carpuject IVP PRN ×3 (00:52→08:29)
[2016-12-09] MEDS: Potassium Chloride 40 MEQ in Dextrose 5%/Lactated Ringer's 1,000 ML IV SCH ×4 (01:05→11:56)
[2016-12-09 04:00] VITALS: BP 129/74
[2016-12-09 05:29] LABS: ALBUMIN/GLOBULIN RATIO 0.7 (1.0-2.7); CALCIUM 9.2 mg/dL (8.6-10.2); CREATININE 1.5 mg/dL (0.5-0.9); GLOMERULAR FILTRATION RATE 45.9 mL/min (>60); POTASSIUM 4.6 mEQ/L (3.4-4.9); TOTAL PROTEIN 6.2 g/dL (6.6-8.7)
[2016-12-09 05:52] LABS: BASOPHILS % (AUTO) 1.3 % (0.0-2.0); EOSINOPHILS % (AUTO) 2.5 % (0.0-3.0); LYMPHOCYTES % (AUTO) 12.1 % (20.0-45.0); MEAN CORPUSCULAR HEMOGLOBIN 26.8 PG (27.0-31.0); MEAN CORPUSCULAR HGB CONC 32.1 G/DL (32.0-36.0); MEAN CORPUSCULAR VOLUME 83 FL (80-99); MEAN PLATELET VOLUME 5.7 FL (6.5-10.1); NEUTROPHILS % (AUTO) 77.1 % (45.0-75.0); PLATELET COUNT 361 K/UL (150-450); RED BLOOD COUNT 3.69 M/UL (4.20-5.40); RED CELL DISTRIBUTION WIDTH 14.6 % (11.6-14.8); WHITE BLOOD COUNT 9.9 K/UL (4.8-10.8)
[2016-12-09 08:11] VITALS: BP 120/71
--- NOTE | 2016-12-09 09:52 | General Progress Note ---
Assessment/Plan Assessment/Plan (1) Pelvic pain (2) Fibroid Uterus (3) S/p Uterine artery embolization (4) Abdominal pain (5) Symptomatic leiomymata (6) S/p Abdominal Myomectomy Pt will be changed to Dilaudid 1mg IVPB Q4H PRN severe pain. We will discontinue Dilaudid tabs and start Percocet 10/325mg PO 1 tab Q4H PRN Moderate pain We will continue Neurontin. Pt was d/w Dr. Hoover and he concurred. Subjective Date patient seen: Dec 09, 2016 Time patient seen: 08:00 - am Allergies: Coded Allergies: TOPIRAMATE (Verified Allergy, Unknown, 11/15/16) Subjective REVIEW OF SYSTEMS: Denies rash, fever, chills, sweating, dizziness, drowsiness, blurred vision, sore throat, change in weight. No shortness of breath or chest pain. C/O nausea, vomiting, No diarrhea, or blood in the stool or urine. No bowel or bladder incontinence. No dysuria. She is complaining of abdominal and pelvic pain. SUBJECTIVE: Pt is in bed and says that she continues to have some Nausea. She reports that the pain is a 7/10 and has requested 6 doses of Dilaudid in the last 24hrs. Patient is willing to use less of the medication and only requested it when her pain is severe. We will change the Dilaudid tabs to Percocet and we will change the Dilaudid IV into IVPB. Objective Last 24 Hour Vital Signs Date Time Temp Pulse Resp B/P Pulse Ox O2 Delivery O2 Flow Rate FiO2 12/09/16 08:11 97.7 80 18 120/71 96 Room Air 12/09/16 05:16 97.9 12/09/16 04:00 97.0 70 18 129/74 97 Room Air 12/09/16 00:00 97.3 68 18 125/74 98 Room Air 12/08/16 20:00 97.9 70 18 135/86 98 Room Air 12/08/16 16:17 97.7 61 20 115/84 97 Room Air 12/08/16 11:39 97.6 73 20 112/73 97 Room Air Intake and Output 12/08/16 12/09/16 19:00 07:00 Intake Total 1020 ml 1380 ml Output Total 1400 ml Balance -380 ml 1380 ml Intake Oral 720 ml 120 ml IV Total 300 ml 1260 ml Output Urine Total 1400 ml # Voids 1 Laboratory Tests 12/08/16 12:20: White Blood Count 10.2, Red Blood Count 3.85L, Hemoglobin 10.0L, Hematocrit 31.8L, Mean Corpuscular Volume 83, Mean Corpuscular Hemoglobin 26.0L, Mean Corpuscular Hemoglobin Concent 31.4L, Red Cell Distribution Width 14.2, Platelet Count 396, Mean Platelet Volume 5.8L, Neutrophils (%) (Auto) 79.6H, Lymphocytes (%) (Auto) 11.7L, Monocytes (%) (Auto) 6.1, Eosinophils (%) (Auto) 1.5, Basophils (%) (Auto) 1.1, Sodium Level 139, Potassium Level 4.4, Chloride Level 102, Carbon Dioxide Level 26, Anion Gap 11, Blood Urea Nitrogen 3L, Creatinine 1.4H, Estimat Glomerular Filtration Rate 49.7, Glucose Level 107H, Calcium Level 9.4 12/09/16 04:00: Sodium Level 136, Potassium Level 4.6, Chloride Level 103, Carbon Dioxide Level 24, Anion Gap 9, Blood Urea Nitrogen 4L, Creatinine 1.5H, Estimat Glomerular Filtration Rate 45.9, Glucose Level 100, Calcium Level 9.2, Total Bilirubin 0.2 , Aspartate Amino Transf (AST/SGOT) 11, Alanine Aminotransferase (ALT/SGPT) 5, Alkaline Phosphatase 50, Total Protein 6.2L, Albumin 2.6L, Globulin 3.6, Albumin /Globulin Ratio 0.7L 12/09/16 05:15: White Blood Count 9.9, Red Blood Count 3.69L, Hemoglobin 9.9L, Hematocrit 30.7L , Mean Corpuscular Volume 83, Mean Corpuscular Hemoglobin 26.8L, Mean Corpuscular Hemoglobin Concent 32.1, Red Cell Distribution Width 14.6, Platelet Count 361, Mean Platelet Volume 5.7L, Neutrophils (%) (Auto) 77.1H, Lymphocytes (%) (Auto) 12.1L, Monocytes (%) (Auto) 7.0, Eosinophils (%) (Auto) 2.5, Basophils (%) (Auto) 1.3 Height (Feet): 5 Height (Inches): 7.00 Weight (Pounds): 238 Objective GENERAL: Alert, awake, and oriented x3. HEENT: PERRLA. NECK: Range of motion is full in all directions. No tenderness to paracervical muscles. No adenopathy. LUNGS: Lungs are clear. HEART: Regular. ABDOMEN: Tenderness to palpation with bandages noted. BACK: Range of motion is decreased in flexion and extension. No tenderness to trapezius or rhomboid muscles. EXTREMITIES: No cyanosis. No clubbing. No edema. NEURO: No Focal deficit JOSÉ LANGSTON Dec 09, 2016 09:52
--- NOTE | 2016-12-09 09:57 | General Progress Note ---
Assessment/Plan Problem List: (1) Uterine myoma ICD Codes: D25.9 - Leiomyoma of uterus, unspecified SNOMED: 02850863 (2) Nausea & vomiting ICD Codes: R11.2 - Nausea with vomiting, unspecified SNOMED: 56663270 (3) Anemia ICD Codes: D64.9 - Anemia, unspecified SNOMED: 338773567 (4) GERD (gastroesophageal reflux disease) ICD Codes: K21.9 - Gastro-esophageal reflux disease without esophagitis SNOMED: 330723705 (5) Abdominal pain ICD Codes: R10.9 - Unspecified abdominal pain SNOMED: 86529735 Assessment/Plan on nausea possibly due to narcotics plan EGD on Saturday Subjective ROS Limited/Unobtainable: Yes Allergies: Coded Allergies: TOPIRAMATE (Verified Allergy, Unknown, 11/15/16) Subjective c/o nausea but better today Objective Last 24 Hour Vital Signs Date Time Temp Pulse Resp B/P Pulse Ox O2 Delivery O2 Flow Rate FiO2 12/09/16 08:11 97.7 80 18 120/71 96 Room Air 12/09/16 05:16 97.9 12/09/16 04:00 97.0 70 18 129/74 97 Room Air 12/09/16 00:00 97.3 68 18 125/74 98 Room Air 12/08/16 20:00 97.9 70 18 135/86 98 Room Air 12/08/16 16:17 97.7 61 20 115/84 97 Room Air 12/08/16 11:39 97.6 73 20 112/73 97 Room Air Intake and Output 12/08/16 12/09/16 19:00 07:00 Intake Total 1020 ml 1530 ml Output Total 1400 ml Balance -380 ml 1530 ml Intake Oral 720 ml 120 ml IV Total 300 ml 1410 ml Output Urine Total 1400 ml # Voids 1 Laboratory Tests 12/08/16 12:20: White Blood Count 10.2, Red Blood Count 3.85L, Hemoglobin 10.0L, Hematocrit 31.8L, Mean Corpuscular Volume 83, Mean Corpuscular Hemoglobin 26.0L, Mean Corpuscular Hemoglobin Concent 31.4L, Red Cell Distribution Width 14.2, Platelet Count 396, Mean Platelet Volume 5.8L, Neutrophils (%) (Auto) 79.6H, Lymphocytes (%) (Auto) 11.7L, Monocytes (%) (Auto) 6.1, Eosinophils (%) (Auto) 1.5, Basophils (%) (Auto) 1.1, Sodium Level 139, Potassium Level 4.4, Chloride Level 102, Carbon Dioxide Level 26, Anion Gap 11, Blood Urea Nitrogen 3L, Creatinine 1.4H, Estimat Glomerular Filtration Rate 49.7, Glucose Level 107H, Calcium Level 9.4 12/09/16 04:00: Sodium Level 136, Potassium Level 4.6, Chloride Level 103, Carbon Dioxide Level 24, Anion Gap 9, Blood Urea Nitrogen 4L, Creatinine 1.5H, Estimat Glomerular Filtration Rate 45.9, Glucose Level 100, Calcium Level 9.2, Total Bilirubin 0.2 , Aspartate Amino Transf (AST/SGOT) 11, Alanine Aminotransferase (ALT/SGPT) 5, Alkaline Phosphatase 50, Total Protein 6.2L, Albumin 2.6L, Globulin 3.6, Albumin /Globulin Ratio 0.7L 12/09/16 05:15: White Blood Count 9.9, Red Blood Count 3.69L, Hemoglobin 9.9L, Hematocrit 30.7L , Mean Corpuscular Volume 83, Mean Corpuscular Hemoglobin 26.8L, Mean Corpuscular Hemoglobin Concent 32.1, Red Cell Distribution Width 14.6, Platelet Count 361, Mean Platelet Volume 5.7L, Neutrophils (%) (Auto) 77.1H, Lymphocytes (%) (Auto) 12.1L, Monocytes (%) (Auto) 7.0, Eosinophils (%) (Auto) 2.5, Basophils (%) (Auto) 1.3 Height (Feet): 5 Height (Inches): 7.00 Weight (Pounds): 238 General Appearance: alert EENT: normal ENT inspection Neck: supple Cardiovascular: normal rate Respiratory/Chest: lungs clear Abdomen: normal bowel sounds, soft, tender Extremities: non-tender AYO GENAO Dec 09, 2016 09:57
--- NOTE | 2016-12-09 10:49 | General Surgery Progress Note ---
General Surgery-Progress Note Subjective Day of Surgery: november 23 Procedure Performed myomectomy Symptoms: improved, tolerating diet, voiding well, passing flatus, BM Objective Last 24 Hour Vital Signs Date Time Temp Pulse Resp B/P Pulse Ox O2 Delivery O2 Flow Rate FiO2 12/09/16 08:11 97.7 80 18 120/71 96 Room Air 12/09/16 05:16 97.9 12/09/16 04:00 97.0 70 18 129/74 97 Room Air 12/09/16 00:00 97.3 68 18 125/74 98 Room Air 12/08/16 20:00 97.9 70 18 135/86 98 Room Air 12/08/16 16:17 97.7 61 20 115/84 97 Room Air 12/08/16 11:39 97.6 73 20 112/73 97 Room Air I&O Intake and Output 12/08/16 12/09/16 19:00 07:00 Intake Total 1020 ml 1530 ml Output Total 1400 ml Balance -380 ml 1530 ml Intake Oral 720 ml 120 ml IV Total 300 ml 1410 ml Output Urine Total 1400 ml # Voids 1 Dressing: dry Wound: clean Drains: none Cardiovascular: RSR Respiratory: clear Abdomen: soft, flat, tenderness, present bowel sounds Extremities: no edema, no tenderness, no cyanosis Laboratory Tests Test 12/08/16 12:20 12/09/16 04:00 12/09/16 05:15 White Blood Count 10.2 K/UL (4.8-10.8) 9.9 K/UL (4.8-10.8) Red Blood Count 3.85 M/UL (4.20-5.40) L 3.69 M/UL (4.20-5.40) L Hemoglobin 10.0 G/DL (12.0-16.0) L 9.9 G/DL (12.0-16.0) L Hematocrit 31.8 % (37.0-47.0) L 30.7 % (37.0-47.0) L Mean Corpuscular Volume 83 FL (80-99) 83 FL (80-99) Mean Corpuscular Hemoglobin 26.0 PG (27.0-31.0) L 26.8 PG (27.0-31.0) L Mean Corpuscular Hemoglobin Concent 31.4 G/DL (32.0-36.0) L 32.1 G/DL (32.0-36.0) Red Cell Distribution Width 14.2 % (11.6-14.8) 14.6 % (11.6-14.8) Platelet Count 396 K/UL (150-450) 361 K/UL (150-450) Mean Platelet Volume 5.8 FL (6.5-10.1) L 5.7 FL (6.5-10.1) L Neutrophils (%) (Auto) 79.6 % (45.0-75.0) H 77.1 % (45.0-75.0) H Lymphocytes (%) (Auto) 11.7 % (20.0-45.0) L 12.1 % (20.0-45.0) L Monocytes (%) (Auto) 6.1 % (1.0-10.0) 7.0 % (1.0-10.0) Eosinophils (%) (Auto) 1.5 % (0.0-3.0) 2.5 % (0.0-3.0) Basophils (%) (Auto) 1.1 % (0.0-2.0) 1.3 % (0.0-2.0) Sodium Level 139 mEQ/L (135-145) 136 mEQ/L (135-145) Potassium Level 4.4 mEQ/L (3.4-4.9) 4.6 mEQ/L (3.4-4.9) Chloride Level 102 mEQ/L (98-107) 103 mEQ/L (98-107) Carbon Dioxide Level 26 mEQ/L (20-30) 24 mEQ/L (20-30) Anion Gap 11 (5-15) 9 (5-15) Blood Urea Nitrogen 3 mg/dL (7-23) L 4 mg/dL (7-23) L Creatinine 1.4 mg/dL (0.5-0.9) H 1.5 mg/dL (0.5-0.9) H Estimat Glomerular Filtration Rate 49.7 mL/min (>60) 45.9 mL/min (>60) Glucose Level 107 mg/dL (74-106) H 100 mg/dL (74-106) Calcium Level 9.4 mg/dL (8.6-10.2) 9.2 mg/dL (8.6-10.2) Total Bilirubin 0.2 mg/dL (0.0-1.2) Aspartate Amino Transf (AST/SGOT) 11 U/L (5-40) Alanine Aminotransferase (ALT/SGPT) 5 U/L (3-33) Alkaline Phosphatase 50 U/L (35-104) Total Protein 6.2 g/dL (6.6-8.7) L Albumin 2.6 g/dL (3.5-5.2) L Globulin 3.6 g/dL Albumin/Globulin Ratio 0.7 (1.0-2.7) L Additional Comments creatinine steady at 1.5, Plan Additional Comments attempt oral pain medicine today. GI endoscopy tomorrow, also, aspirate fluid in wound. Dylan Kraft MD Dec 09, 2016 10:49
[2016-12-09] MEDS: Metoclopramide 10mg/2ml Inj IVP PRN ×2 (11:15→17:10)
--- NOTE | 2016-12-09 11:28 | Nephrology Progress Note ---
Assessment/Plan Problem List: (1) JONA (acute kidney injury) (2) Uterine myoma (3) Abdominal pain (4) Post-op pain Plan creatinine 1.5 mild rise, repeat 1.5 observe with hydration, can reduce iv rate Subjective Constitutional: Reports: weakness HEENT: Reports: no symptoms Genitourinary: Reports: no symptoms Neurologic/Psychiatric: Reports: no symptoms Subjective still nausea and abdom pain Objective Objective Last 24 Hour Vital Signs Date Time Temp Pulse Resp B/P Pulse Ox O2 Delivery O2 Flow Rate FiO2 12/09/16 08:11 97.7 80 18 120/71 96 Room Air 12/09/16 05:16 97.9 12/09/16 04:00 97.0 70 18 129/74 97 Room Air 12/09/16 00:00 97.3 68 18 125/74 98 Room Air 12/08/16 20:00 97.9 70 18 135/86 98 Room Air 12/08/16 16:17 97.7 61 20 115/84 97 Room Air 12/08/16 11:39 97.6 73 20 112/73 97 Room Air Intake and Output 12/08/16 12/09/16 19:00 07:00 Intake Total 1020 ml 1530 ml Output Total 1400 ml Balance -380 ml 1530 ml Intake Oral 720 ml 120 ml IV Total 300 ml 1410 ml Output Urine Total 1400 ml # Voids 1 Laboratory Tests 12/08/16 12:20: White Blood Count 10.2, Red Blood Count 3.85L, Hemoglobin 10.0L, Hematocrit 31.8L, Mean Corpuscular Volume 83, Mean Corpuscular Hemoglobin 26.0L, Mean Corpuscular Hemoglobin Concent 31.4L, Red Cell Distribution Width 14.2, Platelet Count 396, Mean Platelet Volume 5.8L, Neutrophils (%) (Auto) 79.6H, Lymphocytes (%) (Auto) 11.7L, Monocytes (%) (Auto) 6.1, Eosinophils (%) (Auto) 1.5, Basophils (%) (Auto) 1.1, Sodium Level 139, Potassium Level 4.4, Chloride Level 102, Carbon Dioxide Level 26, Anion Gap 11, Blood Urea Nitrogen 3L, Creatinine 1.4H, Estimat Glomerular Filtration Rate 49.7, Glucose Level 107H, Calcium Level 9.4 12/09/16 04:00: Sodium Level 136, Potassium Level 4.6, Chloride Level 103, Carbon Dioxide Level 24, Anion Gap 9, Blood Urea Nitrogen 4L, Creatinine 1.5H, Estimat Glomerular Filtration Rate 45.9, Glucose Level 100, Calcium Level 9.2, Total Bilirubin 0.2 , Aspartate Amino Transf (AST/SGOT) 11, Alanine Aminotransferase (ALT/SGPT) 5, Alkaline Phosphatase 50, Total Protein 6.2L, Albumin 2.6L, Globulin 3.6, Albumin /Globulin Ratio 0.7L 12/09/16 05:15: White Blood Count 9.9, Red Blood Count 3.69L, Hemoglobin 9.9L, Hematocrit 30.7L , Mean Corpuscular Volume 83, Mean Corpuscular Hemoglobin 26.8L, Mean Corpuscular Hemoglobin Concent 32.1, Red Cell Distribution Width 14.6, Platelet Count 361, Mean Platelet Volume 5.7L, Neutrophils (%) (Auto) 77.1H, Lymphocytes (%) (Auto) 12.1L, Monocytes (%) (Auto) 7.0, Eosinophils (%) (Auto) 2.5, Basophils (%) (Auto) 1.3 Height (Feet): 5 Height (Inches): 7.00 Weight (Pounds): 238 General Appearance: no apparent distress, alert EENT: normal ENT inspection Neck: non-tender Cardiovascular: normal rate, regular rhythm Respiratory/Chest: lungs clear Abdomen: soft, no organomegaly Extremities: other - no edema REN JACKSON Dec 09, 2016 11:28
[2016-12-09] MEDS: HYDROmorphone 1mg/NS 50ml IVPB 50 ML IVPB PRN ×3 (11:46→22:36)
[2016-12-09 12:19] VITALS: BP 116/73
--- NOTE | 2016-12-09 12:47 | Pulmonology Progress Note ---
Assessment/Plan Assessment/Plan Assessment/Plan IMPRESSION: 1. Abdominal pain and emesis following myomectomy. PLAN: CT guided drain in am EGD in am IVF antiemetics pain medication. no abx wound care Subjective Constitutional: Reports: no symptoms HEENT: Repors: no symptoms Respiratory: Reports: no symptoms Cardiovascular: Reports: no symptoms Gastrointestinal/Abdominal: Reports: diarrhea, vomiting Skin: Reports: no symptoms Allergies: Coded Allergies: TOPIRAMATE (Verified Allergy, Unknown, 11/15/16) Subjective seen and examined still with nausea but not vomiting and able to toelrate some po fluid collection seen on ct for ct guided drainage in am also for EGD in am due ot pain with po intake no cp or fever oob positive uop no bm Objective Last 24 Hour Vital Signs Date Time Temp Pulse Resp B/P Pulse Ox O2 Delivery O2 Flow Rate FiO2 12/09/16 12:19 97.9 70 18 116/73 97 Room Air 12/09/16 08:11 97.7 80 18 120/71 96 Room Air 12/09/16 05:16 97.9 12/09/16 04:00 97.0 70 18 129/74 97 Room Air 12/09/16 00:00 97.3 68 18 125/74 98 Room Air 12/08/16 20:00 97.9 70 18 135/86 98 Room Air 12/08/16 16:17 97.7 61 20 115/84 97 Room Air Intake and Output 12/08/16 12/09/16 19:00 07:00 Intake Total 1020 ml 1530 ml Output Total 1400 ml Balance -380 ml 1530 ml Intake Oral 720 ml 120 ml IV Total 300 ml 1410 ml Output Urine Total 1400 ml # Voids 1 General Appearance: WD/WN Respiratory/Chest: lungs clear, no respiratory distress Cardiovascular: regular rhythm, no gallop/murmur Abdomen: normal bowel sounds, tender Extremities: no cyanosis Skin: no rash 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, alert, oriented x 3 Laboratory Tests 12/09/16 04:00: Sodium Level 136, Potassium Level 4.6, Chloride Level 103, Carbon Dioxide Level 24, Anion Gap 9, Blood Urea Nitrogen 4L, Creatinine 1.5H, Estimat Glomerular Filtration Rate 45.9, Glucose Level 100, Calcium Level 9.2, Total Bilirubin 0.2 , Aspartate Amino Transf (AST/SGOT) 11, Alanine Aminotransferase (ALT/SGPT) 5, Alkaline Phosphatase 50, Total Protein 6.2L, Albumin 2.6L, Globulin 3.6, Albumin /Globulin Ratio 0.7L 12/09/16 05:15: White Blood Count 9.9, Red Blood Count 3.69L, Hemoglobin 9.9L, Hematocrit 30.7L , Mean Corpuscular Volume 83, Mean Corpuscular Hemoglobin 26.8L, Mean Corpuscular Hemoglobin Concent 32.1, Red Cell Distribution Width 14.6, Platelet Count 361, Mean Platelet Volume 5.7L, Neutrophils (%) (Auto) 77.1H, Lymphocytes (%) (Auto) 12.1L, Monocytes (%) (Auto) 7.0, Eosinophils (%) (Auto) 2.5, Basophils (%) (Auto) 1.3 Current Medications Medications (Trade) Dose Ordered Sig/Penny Route PRN Reason Start Time Stop Time Status Last Admin Dose Admin Al Hydroxide/Mg Hydroxide (Mylanta II) 30 ml Q6H PRN ORAL dyspepsia 12/07/16 14:45 01/06/17 14:44 Dextrose (Dextrose 50%) STAT PRN IV Hypoglycemia 12/04/16 16:00 01/03/17 15:59 Gabapentin 300 mg 300 mg THREE TIMES A DAY ORAL 12/04/16 19:00 01/03/17 18:59 12/09/16 08:29 Hydromorphone HCl 50 ml @ 200 mls/hr Q4H PRN IVPB Severe Pain (Pain Scale 7-10) 12/09/16 10:00 01/08/17 09:59 12/09/16 11:46 Iron Sucrose/ Sodium Chloride (Venofer/Sodium Chloride) 60 ml @ 240 mls/hr BEDTIME IVPB 12/05/16 21:00 12/09/16 21:14 12/08/16 21:36 Methylnaltrexone [place] (Relistor) 12 mg QOD@1800 SUBQ 12/07/16 18:00 01/06/17 17:59 12/07/16 20:42 Metoclopramide HCl (Reglan) 10 mg Q6H PRN IVP Breakthru Nausea & Vomiting 12/06/16 15:00 01/05/17 14:59 12/09/16 11:15 Ondansetron HCl (Zofran) 4 mg Q6H IVP 12/05/16 14:00 01/04/17 13:59 12/09/16 08:29 Oxycodone/ Acetaminophen 1 tab 1 tab Q4H PRN ORAL Moderate Pain (Pain Scale 4-6) 12/09/16 09:45 12/16/16 09:44 Pantoprazole (Protonix) 40 mg DAILY ORAL 12/06/16 17:30 01/05/17 17:29 12/09/16 08:29 Potassium Chloride/Dextrose/ Lactated Ringer's (KCl/D5lr) 1,020 ml @ 75 mls/hr [id number] IV 12/09/16 11:30 01/08/17 11:29 12/09/16 11:56 LAURA HOLM DO Dec 09, 2016 12:47
[2016-12-09] MEDS ORDERED: HYDROmorphone 1mg/ml Carpuject IVPB PRN (13:00)
[2016-12-09 15:56] VITALS: BP 145/77
[2016-12-09] MEDS: Relistor 12mg/0.6ml Vial SUBQ SCH (17:11)
[2016-12-09 20:00] VITALS: BP 138/76
--- NOTE | 2016-12-09 20:38 | Infectious Diseases Prog Note ---
Assessment/Plan Problems: (1) Abdominal pain Assessment & Plan: unclear etiology, [employer] and surgery with GI are following , continue pain management as per primary team (2) Leukocytosis Assessment & Plan: improved, suspect dehydration related, with no evidence of sepsis , and negative blood culture x2 , MRI of abdomen and pelvis is negative for any infection, continue to monitor off antibiotics . (3) Nausea & vomiting Assessment & Plan: unclear etiology, continue supportive care and hydration , management as per surgical team (4) Colonization with VRE (vancomycin-resistant enterococcus) Assessment & Plan: resolved with negative swab this time, may remove from contact isolation (5) Uterine myoma Assessment & Plan: S/P surgical resection, Dr Chan is following . (6) JONA (acute kidney injury) Assessment & Plan: suspect dehydration related, continue IVF, renal is following Subjective Constitutional: Reports: no symptoms HEENT: Reports: no symptoms Respiratory: Reports: no symptoms Cardiovascular: Reports: no symptoms Gastrointestinal/Abdominal: Reports: other - abdominal pain Genitourinary: Reports: no symptoms Neurologic: Reports: no symptoms Psychiatric: Reports: no symptoms Skin: Reports: no symptoms Allergies: Coded Allergies: TOPIRAMATE (Verified Allergy, Unknown, 11/15/16) Objective Vital Signs Last 24 Hour Vital Signs Date Time Temp Pulse Resp B/P Pulse Ox O2 Delivery O2 Flow Rate FiO2 12/09/16 17:41 98.5 12/09/16 15:56 98.5 80 18 145/77 100 Room Air 12/09/16 12:19 97.9 70 18 116/73 97 Room Air 12/09/16 08:11 97.7 80 18 120/71 96 Room Air 12/09/16 05:16 97.9 12/09/16 04:00 97.0 70 18 129/74 97 Room Air 12/09/16 00:00 97.3 68 18 125/74 98 Room Air Height (Feet): 5 Height (Inches): 7.00 Weight (Pounds): 238 General Appearance: WD/WN, no acute distress HEENT: normocephalic, atraumatic, anicteric, mucous membranes moist, PERRL Respiratory/Chest: chest wall non-tender, lungs clear, normal breath sounds, no respiratory distress, no accessory muscle use Cardiovascular: normal peripheral pulses, normal rate, regular rhythm, no gallop/murmur, no JVD Abdomen: no organomegaly, non distended, no mass, hypoactive bowel sounds, tender, other - surgical wound is clean and intact , no redness or erythema Extremities: no cyanosis, no clubbing Skin: no rash, no lesions Laboratory Tests Test 12/09/16 04:00 12/09/16 05:15 Sodium Level 136 mEQ/L (135-145) Potassium Level 4.6 mEQ/L (3.4-4.9) Chloride Level 103 mEQ/L (98-107) Carbon Dioxide Level 24 mEQ/L (20-30) Anion Gap 9 (5-15) Blood Urea Nitrogen 4 mg/dL (7-23) L Creatinine 1.5 mg/dL (0.5-0.9) H Estimat Glomerular Filtration Rate 45.9 mL/min (>60) Glucose Level 100 mg/dL (74-106) Calcium Level 9.2 mg/dL (8.6-10.2) Total Bilirubin 0.2 mg/dL (0.0-1.2) Aspartate Amino Transf (AST/SGOT) 11 U/L (5-40) Alanine Aminotransferase (ALT/SGPT) 5 U/L (3-33) Alkaline Phosphatase 50 U/L (35-104) Total Protein 6.2 g/dL (6.6-8.7) L Albumin 2.6 g/dL (3.5-5.2) L Globulin 3.6 g/dL Albumin/Globulin Ratio 0.7 (1.0-2.7) L White Blood Count 9.9 K/UL (4.8-10.8) Red Blood Count 3.69 M/UL (4.20-5.40) L Hemoglobin 9.9 G/DL (12.0-16.0) L Hematocrit 30.7 % (37.0-47.0) L Mean Corpuscular Volume 83 FL (80-99) Mean Corpuscular Hemoglobin 26.8 PG (27.0-31.0) L Mean Corpuscular Hemoglobin Concent 32.1 G/DL (32.0-36.0) Red Cell Distribution Width 14.6 % (11.6-14.8) Platelet Count 361 K/UL (150-450) Mean Platelet Volume 5.7 FL (6.5-10.1) L Neutrophils (%) (Auto) 77.1 % (45.0-75.0) H Lymphocytes (%) (Auto) 12.1 % (20.0-45.0) L Monocytes (%) (Auto) 7.0 % (1.0-10.0) Eosinophils (%) (Auto) 2.5 % (0.0-3.0) Basophils (%) (Auto) 1.3 % (0.0-2.0) Current Medications Medications (Trade) Dose Ordered Sig/Penny Route PRN Reason Start Time Stop Time Status Last Admin Dose Admin Al Hydroxide/Mg Hydroxide (Mylanta II) 30 ml Q6H PRN ORAL dyspepsia 12/07/16 14:45 01/06/17 14:44 Dextrose (Dextrose 50%) STAT PRN IV Hypoglycemia 12/04/16 16:00 01/03/17 15:59 Gabapentin 300 mg 300 mg THREE TIMES A DAY ORAL 12/04/16 19:00 01/03/17 18:59 12/09/16 17:10 Hydromorphone HCl 50 ml @ 200 mls/hr Q4H PRN IVPB Severe Pain (Pain Scale 7-10) 12/09/16 10:00 01/08/17 09:59 12/09/16 17:11 Iron Sucrose/ Sodium Chloride (Venofer/Sodium Chloride) 60 ml @ 240 mls/hr BEDTIME IVPB 12/05/16 21:00 12/09/16 21:14 12/08/16 21:36 Methylnaltrexone [place] (Relistor) 12 mg QOD@1800 SUBQ 12/07/16 18:00 01/06/17 17:59 12/09/16 17:11 Metoclopramide HCl (Reglan) 10 mg Q6H PRN IVP Breakthru Nausea & Vomiting 12/06/16 15:00 01/05/17 14:59 12/09/16 17:10 Ondansetron HCl (Zofran) 4 mg Q6H IVP 12/05/16 14:00 01/04/17 13:59 12/09/16 19:49 Oxycodone/ Acetaminophen 1 tab 1 tab Q4H PRN ORAL Moderate Pain (Pain Scale 4-6) 12/09/16 09:45 12/16/16 09:44 Pantoprazole (Protonix) 40 mg DAILY ORAL 12/06/16 17:30 01/05/17 17:29 12/09/16 08:29 Potassium Chloride/Dextrose/ Lactated Ringer's (KCl/D5lr) 1,020 ml @ 75 mls/hr [id number] IV 12/09/16 11:30 01/08/17 11:29 12/09/16 11:56 Melissa Holley M.D. Dec 09, 2016 20:38
[2016-12-09] MEDS: Iron Sucrose 100 MG in NS 55 ML IVPB SCH (20:44)
[2016-12-10] VITALS (10 sets, daily range): BP systolic 123–139; BP diastolic 73–98
[2016-12-10] MEDS: Potassium Chloride 40 MEQ in Dextrose 5%/Lactated Ringer's 1,000 ML IV SCH ×2 (01:39→16:31)
[2016-12-10] MEDS: HYDROmorphone 1mg/NS 50ml IVPB 50 ML IVPB PRN (04:41)
[2016-12-10 05:21] LABS: BASOPHILS % (AUTO) 1.4 % (0.0-2.0); EOSINOPHILS % (AUTO) 3.5 % (0.0-3.0); LYMPHOCYTES % (AUTO) 13.6 % (20.0-45.0); MEAN CORPUSCULAR HEMOGLOBIN 27.6 PG (27.0-31.0); MEAN CORPUSCULAR HGB CONC 33.3 G/DL (32.0-36.0); MEAN CORPUSCULAR VOLUME 83 FL (80-99); MEAN PLATELET VOLUME 5.6 FL (6.5-10.1); MONOCYTES % (AUTO) 7.7 % (1.0-10.0); NEUTROPHILS % (AUTO) 73.7 % (45.0-75.0); PLATELET COUNT 339 K/UL (150-450); RED BLOOD COUNT 3.68 M/UL (4.20-5.40); RED CELL DISTRIBUTION WIDTH 14.3 % (11.6-14.8); WHITE BLOOD COUNT 9.9 K/UL (4.8-10.8)
[2016-12-10 05:53] LABS: ALBUMIN/GLOBULIN RATIO 0.8 (1.0-2.7); CALCIUM 9.2 mg/dL (8.6-10.2); CREATININE 1.4 mg/dL (0.5-0.9); GLOMERULAR FILTRATION RATE 49.7 mL/min (>60); POTASSIUM 4.5 mEQ/L (3.4-4.9); TOTAL PROTEIN 6.5 g/dL (6.6-8.7)
--- NOTE | 2016-12-10 07:21 | Pre-Procedure Note/Attestation ---
Pre-Procedure Note/Attestation Complete Prior to Procedure Planned Procedure: not applicable Procedure Narrative: egd Indications for Procedure Pre-Operative Diagnosis: n/v Attestation I attest that I discussed the nature of the procedure; its benefits; risks and complications; and alternatives (and the risks and benefits of such alternatives ), prior to the procedure, with the patient (or the patient's legal veterans employment representative). I attest that, if there was a reasonable possibility of needing a blood transfusion, the patient (or the patient's legal veterans employment representative) was given the [facility] standardized written summary, pursuant to the Dinesh Win Blood Safety Act ([place] Health and Safety Code # 1645, as amended). I attest that I re-evaluated the patient just prior to the surgery and that there has been no change in the patient's H&P, except as documented below: YAO GENAO Dec 10, 2016 07:21
[2016-12-10] MEDS ORDERED: Lidocaine 1% MPF 10mg/ml 5ml ONE (07:30)
[2016-12-10] MEDS ORDERED: Propofol 10mg/ml 20ml IV ONE (07:30)
[2016-12-10] MEDS ORDERED: LR 1000ml ONE (07:30)
[2016-12-10] MEDS ORDERED: NS 550ML IV ONE (07:32)
--- NOTE | 2016-12-10 07:47 | Endoscopy Procedure Note ---
Endoscopy Procedure Note Indication for Procedure: gerd Procedures Performed: EGD Operative Findings/Diagnosis: gastritis Specimen: yes Pt Tolerated Procedure Well: Yes Estimated Blood Loss: none Anesthesiologist: tung Anesthesia: MAC Implant(s) used?: No 50 yrs or older w/o bx or poly: Not Applicable 10yrs. F/U not recommended: Not Applicable YAO GENAO Dec 10, 2016 07:47
--- NOTE | 2016-12-10 07:55 | Immediate Post-Op Evaluation ---
Immediate Post-Op Evalulation Immediate Post-Op Evalulation Procedure: egd Date of Evaluation: Dec 10, 2016 Time of Evaluation: 07:54 IV Fluids: 300 Blood Pressure Systolic: 124 Blood Pressure Diastolic: 60 Pulse Rate: 67 Respiratory Rate: 14 O2 Sat by Pulse Oximetry: 100 Temperature (Fahrenheit): 97.7 Nausea: No Vomiting: No Complications none Patient Status: awake, reacts, patent Hydration Status: adequate Drug: none ALINA MORRISON CRNA Dec 10, 2016 07:55
--- NOTE | 2016-12-10 07:57 | Anethesia Preoperative Eval ---
Anesthesia Pre-op PMH/ROS General Date of Evaluation: Dec 10, 2016 Time of Evaluation: 07:56 Anesthesiologist: marcia ASA Score: ASA 3 Mallampati Score Class I : Soft palate, uvula, fauces, pillars visible Class II: Soft palate, uvula, fauces visible Class III: Soft palate, base of uvula visible Class IV: Only hard plate visible Mallampati Classification: Class III Surgeon: jovi Diagnosis: abdominal pain Surgical Procedure: EGD Anesthesia History: none Family History: no anesthesia problems Allergies: Coded Allergies: TOPIRAMATE (Verified Allergy, Unknown, 11/15/16) Medications: see eMAR Past Medical History Cardiovascular: Denies: CAD, HTN, PR, arrhythmia, other, valve dz Pulmonary: Denies: COPD, MEGAN, asthma, other Gastrointestinal/Genitourinary: Reports: GERD, other - hiatal hernia Endocrine: Denies: DM, hypothyroidism, other, steroids Hematology/Immune: Reports: anemia Other: obesity PSxH Narrative: myomectomy Anesthesia Pre-op Phys. Exam Physician Exam Last Vital Signs Date Time Temp Pulse Resp B/P Pulse Ox O2 Delivery O2 Flow Rate FiO2 12/10/16 05:11 98.1 12/10/16 04:30 97 Room Air 12/10/16 04:00 62 18 125/73 Constitutional: NAD Neurologic: CN 2-12 intact Cardiovascular: RRR Respiratory: CTA Gastrointestinal: S/NT/ND Airway Exam Mallampati Classification 3 Mallampati Score: Class III MO: full ROM: full Teeth: missing Anesthesia Pre-op A/P Labs Hematology Test 12/10/16 04:45 White Blood Count 9.9 K/UL (4.8-10.8) Red Blood Count 3.68 M/UL (4.20-5.40) L Hemoglobin 10.1 G/DL (12.0-16.0) L Hematocrit 30.4 % (37.0-47.0) L Mean Corpuscular Volume 83 FL (80-99) Mean Corpuscular Hemoglobin 27.6 PG (27.0-31.0) Mean Corpuscular Hemoglobin Concent 33.3 G/DL (32.0-36.0) Red Cell Distribution Width 14.3 % (11.6-14.8) Platelet Count 339 K/UL (150-450) Mean Platelet Volume 5.6 FL (6.5-10.1) L Neutrophils (%) (Auto) 73.7 % (45.0-75.0) Lymphocytes (%) (Auto) 13.6 % (20.0-45.0) L Monocytes (%) (Auto) 7.7 % (1.0-10.0) Eosinophils (%) (Auto) 3.5 % (0.0-3.0) H Basophils (%) (Auto) 1.4 % (0.0-2.0) Chemistry Test 12/10/16 04:45 Sodium Level 138 mEQ/L (135-145) Potassium Level 4.5 mEQ/L (3.4-4.9) Chloride Level 100 mEQ/L (98-107) Carbon Dioxide Level 26 mEQ/L (20-30) Anion Gap 12 (5-15) Blood Urea Nitrogen 6 mg/dL (7-23) L Creatinine 1.4 mg/dL (0.5-0.9) H Estimat Glomerular Filtration Rate 49.7 mL/min (>60) Glucose Level 101 mg/dL (74-106) Calcium Level 9.2 mg/dL (8.6-10.2) Total Bilirubin 0.3 mg/dL (0.0-1.2) Aspartate Amino Transf (AST/SGOT) 11 U/L (5-40) Alanine Aminotransferase (ALT/SGPT) 5 U/L (3-33) Alkaline Phosphatase 51 U/L (35-104) Total Protein 6.5 g/dL (6.6-8.7) L Albumin 3.0 g/dL (3.5-5.2) L Globulin 3.5 g/dL Albumin/Globulin Ratio 0.8 (1.0-2.7) L Studies Pre-op Studies: EKG - sr Risk Assessment & Plan Plan: mac Status Change Before Surgery: No Pre-Antibiotics Drug: none ALINA MORRISON CRNA Dec 10, 2016 07:57
--- NOTE | 2016-12-10 08:32 | 48 Hour Post Anesthesia Eval ---
Post Anesthesia Evaluation Procedure: egd Date of Evaluation: Dec 10, 2016 Time of Evaluation: 08:32 Blood Pressure Systolic: 123 0: 78 Pulse Rate: 70 Respiratory Rate: 14 O2 Sat by Pulse Oximetry: 99 Airway: patent Nausea: No Vomiting: No Hydration Status: adequate Cardiopulmonary Status: stable Mental Status/LOC: patient returned to baseline Post-Anesthesia Complications: none Follow-up care needed: N/A ALINA MORRISON CRNA Dec 10, 2016 08:32
--- NOTE | 2016-12-10 08:34 | General Progress Note ---
Assessment/Plan Assessment/Plan (1) Pelvic pain (2) Fibroid Uterus (3) S/p Uterine artery embolization (4) Abdominal pain (5) Symptomatic leiomymata (6) S/p Abdominal Myomectomy We will continue Neurontin, Dilaudid and Percocet Pt was d/w Dr. Hoover and he concurred Subjective Date patient seen: Dec 10, 2016 Time patient seen: 07:30 - am Allergies: Coded Allergies: TOPIRAMATE (Verified Allergy, Unknown, 11/15/16) Subjective REVIEW OF SYSTEMS: Denies rash, fever, chills, sweating, dizziness, drowsiness, blurred vision, sore throat, change in weight. No shortness of breath or chest pain. C/O nausea, vomiting, No diarrhea, or blood in the stool or urine. No bowel or bladder incontinence. No dysuria. She is complaining of abdominal and pelvic pain. SUBJECTIVE: Pt reports that she is feeling better has used the Dilaudid 3 doses in the last 24hrs and would like to try and not use it today and to use the Percocet. She is looking forward to being discharged home. Objective Last 24 Hour Vital Signs Date Time Temp Pulse Resp B/P Pulse Ox O2 Delivery O2 Flow Rate FiO2 12/10/16 08:32 70 14 99 12/10/16 08:15 97.9 72 16 123/88 100 Nasal Cannula 3.0 12/10/16 08:00 63 17 139/91 100 Nasal Cannula 3.0 12/10/16 07:55 61 19 127/98 100 Nasal Cannula 3.0 12/10/16 07:55 67 14 100 12/10/16 07:50 97.7 66 22 136/88 100 Nasal Cannula 3.0 12/10/16 05:11 98.1 12/10/16 04:30 97 Room Air 12/10/16 04:00 98.1 62 18 125/73 Room Air 12/10/16 00:30 97 Room Air 12/10/16 00:00 98.1 80 20 128/80 Room Air 12/09/16 20:00 98.6 73 20 138/76 98 Room Air 12/09/16 15:56 98.5 80 18 145/77 100 Room Air 12/09/16 12:19 97.9 70 18 116/73 97 Room Air Intake and Output 12/09/16 12/10/16 19:00 07:00 Intake Total 1385 ml 610 ml Balance 1385 ml 610 ml Intake Oral 360 ml IV Total 1025 ml 610 ml # Voids 2 2 Laboratory Tests 12/10/16 04:45: White Blood Count 9.9, Red Blood Count 3.68L, Hemoglobin 10.1L, Hematocrit 30.4L , Mean Corpuscular Volume 83, Mean Corpuscular Hemoglobin 27.6, Mean Corpuscular Hemoglobin Concent 33.3, Red Cell Distribution Width 14.3, Platelet Count 339, Mean Platelet Volume 5.6L, Neutrophils (%) (Auto) 73.7, Lymphocytes ( %) (Auto) 13.6L, Monocytes (%) (Auto) 7.7, Eosinophils (%) (Auto) 3.5H, Basophils (%) (Auto) 1.4, Sodium Level 138, Potassium Level 4.5, Chloride Level 100, Carbon Dioxide Level 26, Anion Gap 12, Blood Urea Nitrogen 6L, Creatinine 1.4H, Estimat Glomerular Filtration Rate 49.7, Glucose Level 101, Calcium Level 9.2, Total Bilirubin 0.3, Aspartate Amino Transf (AST/SGOT) 11, Alanine Aminotransferase (ALT/SGPT) 5, Alkaline Phosphatase 51, Total Protein 6.5L, Albumin 3.0L, Globulin 3.5, Albumin/Globulin Ratio 0.8L Height (Feet): 5 Height (Inches): 5.00 Weight (Pounds): 238 Objective GENERAL: Alert, awake, and oriented x3. HEENT: PERRLA. NECK: Range of motion is full in all directions. No tenderness to paracervical muscles. No adenopathy. LUNGS: Lungs are clear. HEART: Regular. ABDOMEN: Tenderness to palpation with bandages noted. BACK: Range of motion is decreased in flexion and extension. No tenderness to trapezius or rhomboid muscles. EXTREMITIES: No cyanosis. No clubbing. No edema. NEURO: No Focal deficit JOSÉ LANGSTON Dec 10, 2016 08:34
--- NOTE | 2016-12-10 09:14 | Diagnostic Imaging Report ---
Indication: Abdominal pain Technique: Continuous helical scanning was performed without any contrast material from the diaphragms through the pelvis per specific request of the ordering physician. Axial, sagittal, and coronal images were generated. Dose: Total Dose Length Product - DLP [address] Dose Index - CTDIvol(s) 19.07 mGy. Comparison: MRI of the pelvis 12/04/16 Findings: Lack of any contrast material considerably limits evaluation. The liver, spleen, pancreas, adrenal glands, kidneys, aorta, and inferior vena cava are unremarkable. There is no retroperitoneal adenopathy. There is some slight stranding in the right retroperitoneum. The appendix is normal. A fluid collection is noted beneath the anterior abdominal wall incision in the subcutaneous tissues measuring 4.2 x 3.3 x 7.9 cm in size. The uterus is enlarged and has a configuration similar to the MRI performed 12/04/16. Small amount of high density in the anterior portion of the uterus in the area of fibroids noted on MR. The bladder is collapsed. There is a small amount of fluid in the cul-de-sac, essentially unchanged from the MRI. Density structure is seen posterior to the uterus on the right measuring 3.3 cm. This appears larger than on the MRI. A small amount of fluid is also noted posterior to the rectum. This too was present on the previous study and unchanged. Impression: No significant change from the findings on MRI given the difference in modalities. Again there is enlargement of the uterus though the definition of the uterus anteriorly is not as well seen. There does appear to be a small amount of hemorrhage within anterior uterus. Fluid in the cul-de-sac and posterior to the rectum, unchanged. Anterior abdominal wall fluid collection beneath the incision, most likely seroma. Abscess is not excluded. Clinical correlation suggested. Stranding in the retroperitoneum, likely secondary to recent surgery. The CT scanner at [facility] is accredited by the [employer] and the scans are performed using protocols designed to limit radiation exposure to as low as reasonably achievable to attain images of sufficient resolution adequate for diagnostic evaluation.
[2016-12-10] MEDS ORDERED: Lidocaine 1% Plain 30 ml INJ ONE (10:30)
--- NOTE | 2016-12-10 10:48 | General Surgery Progress Note ---
General Surgery-Progress Note Subjective Procedure Performed myomectomy Symptoms: improved Objective Last 24 Hour Vital Signs Date Time Temp Pulse Resp B/P Pulse Ox O2 Delivery O2 Flow Rate FiO2 12/10/16 08:32 70 14 99 12/10/16 08:15 97.9 72 16 123/88 100 Nasal Cannula 3.0 12/10/16 08:00 63 17 139/91 100 Nasal Cannula 3.0 12/10/16 07:55 61 19 127/98 100 Nasal Cannula 3.0 12/10/16 07:55 67 14 100 12/10/16 07:50 97.7 66 22 136/88 100 Nasal Cannula 3.0 12/10/16 05:11 98.1 12/10/16 04:30 97 Room Air 12/10/16 04:00 98.1 62 18 125/73 Room Air 12/10/16 00:30 97 Room Air 12/10/16 00:00 98.1 80 20 128/80 Room Air 12/09/16 20:00 98.6 73 20 138/76 98 Room Air 12/09/16 15:56 98.5 80 18 145/77 100 Room Air 12/09/16 12:19 97.9 70 18 116/73 97 Room Air I&O Intake and Output 12/09/16 12/10/16 19:00 07:00 Intake Total 1385 ml 610 ml Balance 1385 ml 610 ml Intake Oral 360 ml IV Total 1025 ml 610 ml # Voids 2 2 Dressing: dry Drains: none Cardiovascular: RSR Respiratory: clear Abdomen: soft, flat, scaphoid, non-tender, present bowel sounds Extremities: no edema, no tenderness, no cyanosis Laboratory Tests Test 12/10/16 04:45 White Blood Count 9.9 K/UL (4.8-10.8) Red Blood Count 3.68 M/UL (4.20-5.40) L Hemoglobin 10.1 G/DL (12.0-16.0) L Hematocrit 30.4 % (37.0-47.0) L Mean Corpuscular Volume 83 FL (80-99) Mean Corpuscular Hemoglobin 27.6 PG (27.0-31.0) Mean Corpuscular Hemoglobin Concent 33.3 G/DL (32.0-36.0) Red Cell Distribution Width 14.3 % (11.6-14.8) Platelet Count 339 K/UL (150-450) Mean Platelet Volume 5.6 FL (6.5-10.1) L Neutrophils (%) (Auto) 73.7 % (45.0-75.0) Lymphocytes (%) (Auto) 13.6 % (20.0-45.0) L Monocytes (%) (Auto) 7.7 % (1.0-10.0) Eosinophils (%) (Auto) 3.5 % (0.0-3.0) H Basophils (%) (Auto) 1.4 % (0.0-2.0) Sodium Level 138 mEQ/L (135-145) Potassium Level 4.5 mEQ/L (3.4-4.9) Chloride Level 100 mEQ/L (98-107) Carbon Dioxide Level 26 mEQ/L (20-30) Anion Gap 12 (5-15) Blood Urea Nitrogen 6 mg/dL (7-23) L Creatinine 1.4 mg/dL (0.5-0.9) H Estimat Glomerular Filtration Rate 49.7 mL/min (>60) Glucose Level 101 mg/dL (74-106) Calcium Level 9.2 mg/dL (8.6-10.2) Total Bilirubin 0.3 mg/dL (0.0-1.2) Aspartate Amino Transf (AST/SGOT) 11 U/L (5-40) Alanine Aminotransferase (ALT/SGPT) 5 U/L (3-33) Alkaline Phosphatase 51 U/L (35-104) Total Protein 6.5 g/dL (6.6-8.7) L Albumin 3.0 g/dL (3.5-5.2) L Globulin 3.5 g/dL Albumin/Globulin Ratio 0.8 (1.0-2.7) L Additional Comments drainage of seroma performed, negative upper GI endoscopy Plan Additional Comments hysterectomy cancelled, likely discharge in am. Dylna Kraft MD Dec 10, 2016 10:47
--- NOTE | 2016-12-10 11:11 | Pre-Procedure Note/Attestation ---
Pre-Procedure Note/Attestation Complete Prior to Procedure Planned Procedure: not applicable Procedure Narrative: CT guided aspiration abd wall fluid Indications for Procedure Pre-Operative Diagnosis: abd wall fluid collection Attestation I attest that I discussed the nature of the procedure; its benefits; risks and complications; and alternatives (and the risks and benefits of such alternatives ), prior to the procedure, with the patient (or the patient's legal product sales representative). I attest that, if there was a reasonable possibility of needing a blood transfusion, the patient (or the patient's legal product sales representative) was given the [facility] standardized written summary, pursuant to the Dinesh Win Blood Safety Act ([place] Health and Safety Code # 1645, as amended). I attest that I re-evaluated the patient just prior to the surgery and that there has been no change in the patient's H&P, except as documented below: INES JARVIS M.D. Dec 10, 2016 11:11
--- NOTE | 2016-12-10 11:46 | Procedure Note ---
DATE OF PROCEDURE: 12/10/2016 SURGEON: Alvarado Magdaleno M.D. PROCEDURE: Upper endoscopy with biopsy . ANESTHESIA: Per Dr. Coby Lau. INSTRUMENT: Olympus adult flexible upper endoscope and colonoscope. INDICATION: Persistent nausea and vomiting. REASON FOR PROCEDURE: The procedure, risks, benefits, and possible consequences, including hemorrhage, aspiration, perforation and infection, and alternative treatments, were explained to the patient/legal guardian by Dr. Alvarado Magdaleno and the patient/legal guardian understood and accepted these risks. DESCRIPTION OF PROCEDURE: After informed consent was obtained and the patient was adequately sedated, Olympus upper endoscope was advanced from the mouth into the second portion of duodenum and retroflexion was performed in the stomach. The patient had diffuse gastritis. Random biopsy from antrum was obtained to rule out H. pylori infection. Otherwise, the rest of the upper endoscopic examination was grossly within normal limit. The patient tolerated the procedure without any complication. SUMMARY OF FINDINGS: 1. Diffuse gastritis, status post biopsy. 2. Otherwise, normal upper endoscopic examination. RECOMMENDATIONS: Follow up biopsy results and we will treat accordingly. I want to thank, Dr. Kraft, for this kind referral. Alvarado Magdaleno M.D. DR: CARLOS JOB#: [id number] CC: Dylan Kraft M.D.; Fax#: [phone]
[2016-12-10] MEDS: Metoclopramide 10mg/2ml Inj IVP PRN (11:57)
--- NOTE | 2016-12-10 12:16 | Diagnostic Imaging Report ---
Indication: Abdominal pain Technique: Prior imaging studies reviewed. Informed consent obtained prior to commencement of the procedure. CT used to localize optimal puncture site. Procedure timeout performed. Sterile prepping and draping. Local anesthesia with 1% lidocaine. Under CT guidance, a Yueh needle was directed into the target subincisional collection. CT imaging confirm satisfactory needle tip position. Total of 30 mL of serosanguineous fluid aspirated. Specimen was sent to the lab for microbial analysis. Followup CT imaging performed, demonstrating complete resolution of the fluid. Comparison: Reference made to CT scan of 12/08/2016 Findings: Interstitial images document needle tip placement within the target fluid collection. Post procedure images document complete evacuation. Impression: Successful CT-guided aspiration of incisional fluid collection. Aspiration of 30 mL serosanguineous fluid confirms suspected diagnosis of postoperative seroma Specimen was sent to the lab for microbial analysis Procedure and findings previously discussed by phone with Dr. Kraft
[2016-12-10 13:37] LABS: PROTHROMBIN TIME 10.5 SEC (9.30-11.50)
--- NOTE | 2016-12-10 14:51 | Infectious Diseases Prog Note ---
Assessment/Plan Problems: (1) Abdominal pain Assessment & Plan: improved, unclear etiology, [employer] and surgery with GI are following , continue pain management as per primary team (2) Leukocytosis Assessment & Plan: improved, suspect dehydration related, with no evidence of infection with negative blood culture x2 , MRI of abdomen and pelvis is negative for any infection, continue to monitor off antibiotics . (3) Nausea & vomiting Assessment & Plan: resolved, tolerated diet well today , continue supportive care and hydration , management as per surgical team (4) Colonization with VRE (vancomycin-resistant enterococcus) Assessment & Plan: resolved with negative swab this time, may remove from contact isolation (5) Uterine myoma Assessment & Plan: S/P surgical resection, Dr Chan is following . (6) JONA (acute kidney injury) Assessment & Plan: improving, suspect dehydration related, continue IVF, renal is following Subjective Constitutional: Reports: no symptoms HEENT: Reports: no symptoms Respiratory: Reports: no symptoms Breasts: Reports: no symptoms Cardiovascular: Reports: no symptoms Gastrointestinal/Abdominal: Reports: no symptoms Genitourinary: Reports: no symptoms Neurologic: Reports: no symptoms Psychiatric: Reports: no symptoms Skin: Reports: no symptoms Endocrine: Reports: no symptoms Hematologic: Reports: no symptoms Allergies: Coded Allergies: TOPIRAMATE (Verified Allergy, Unknown, 11/15/16) Objective Vital Signs Last 24 Hour Vital Signs Date Time Temp Pulse Resp B/P Pulse Ox O2 Delivery O2 Flow Rate FiO2 12/10/16 12:00 97.9 67 20 126/83 99 Room Air 12/10/16 08:32 70 14 99 12/10/16 08:15 97.9 72 16 123/88 100 Nasal Cannula 3.0 12/10/16 08:00 63 17 139/91 100 Nasal Cannula 3.0 12/10/16 07:55 61 19 127/98 100 Nasal Cannula 3.0 12/10/16 07:55 67 14 100 12/10/16 07:50 97.7 66 22 136/88 100 Nasal Cannula 3.0 12/10/16 05:11 98.1 12/10/16 04:30 97 Room Air 12/10/16 04:00 98.1 62 18 125/73 Room Air 12/10/16 00:30 97 Room Air 12/10/16 00:00 98.1 80 20 128/80 Room Air 12/09/16 20:00 98.6 73 20 138/76 98 Room Air 12/09/16 15:56 98.5 80 18 145/77 100 Room Air Height (Feet): 5 Height (Inches): 5.00 Weight (Pounds): 238 General Appearance: WD/WN, no acute distress HEENT: normocephalic, atraumatic, anicteric, mucous membranes moist Respiratory/Chest: chest wall non-tender, lungs clear, normal breath sounds, no respiratory distress, no accessory muscle use Cardiovascular: normal peripheral pulses, normal rate, regular rhythm, no gallop/murmur, no JVD Abdomen: normal bowel sounds, soft, non tender, no organomegaly, non distended , no mass, no scars Extremities: no cyanosis, no clubbing Skin: no rash, no lesions, no ulcers Neurologic/Psychiatric: alert Laboratory Tests Test 12/10/16 04:45 12/10/16 12:50 White Blood Count 9.9 K/UL (4.8-10.8) Red Blood Count 3.68 M/UL (4.20-5.40) L Hemoglobin 10.1 G/DL (12.0-16.0) L Hematocrit 30.4 % (37.0-47.0) L Mean Corpuscular Volume 83 FL (80-99) Mean Corpuscular Hemoglobin 27.6 PG (27.0-31.0) Mean Corpuscular Hemoglobin Concent 33.3 G/DL (32.0-36.0) Red Cell Distribution Width 14.3 % (11.6-14.8) Platelet Count 339 K/UL (150-450) Mean Platelet Volume 5.6 FL (6.5-10.1) L Neutrophils (%) (Auto) 73.7 % (45.0-75.0) Lymphocytes (%) (Auto) 13.6 % (20.0-45.0) L Monocytes (%) (Auto) 7.7 % (1.0-10.0) Eosinophils (%) (Auto) 3.5 % (0.0-3.0) H Basophils (%) (Auto) 1.4 % (0.0-2.0) Sodium Level 138 mEQ/L (135-145) Potassium Level 4.5 mEQ/L (3.4-4.9) Chloride Level 100 mEQ/L (98-107) Carbon Dioxide Level 26 mEQ/L (20-30) Anion Gap 12 (5-15) Blood Urea Nitrogen 6 mg/dL (7-23) L Creatinine 1.4 mg/dL (0.5-0.9) H Estimat Glomerular Filtration Rate 49.7 mL/min (>60) Glucose Level 101 mg/dL (74-106) Calcium Level 9.2 mg/dL (8.6-10.2) Total Bilirubin 0.3 mg/dL (0.0-1.2) Aspartate Amino Transf (AST/SGOT) 11 U/L (5-40) Alanine Aminotransferase (ALT/SGPT) 5 U/L (3-33) Alkaline Phosphatase 51 U/L (35-104) Total Protein 6.5 g/dL (6.6-8.7) L Albumin 3.0 g/dL (3.5-5.2) L Globulin 3.5 g/dL Albumin/Globulin Ratio 0.8 (1.0-2.7) L Prothrombin Time 10.5 SEC (9.30-11.50) Prothromb Time International Ratio 1.0 (0.9-1.1) Activated Partial Thromboplast Time 29 SEC (23-33) Current Medications Medications (Trade) Dose Ordered Sig/Penny Route PRN Reason Start Time Stop Time Status Last Admin Dose Admin Al Hydroxide/Mg Hydroxide (Mylanta II) 30 ml Q6H PRN ORAL dyspepsia 12/07/16 14:45 01/06/17 14:44 Dextrose (Dextrose 50%) STAT PRN IV Hypoglycemia 12/04/16 16:00 01/03/17 15:59 Gabapentin (Neurontin) 300 mg THREE TIMES A DAY ORAL 12/04/16 19:00 01/03/17 18:59 12/10/16 09:37 Methylnaltrexone [place] (Relistor) 12 mg QOD@1800 SUBQ 12/07/16 18:00 01/06/17 17:59 12/09/16 17:11 Metoclopramide HCl (Reglan) 10 mg Q6H PRN IVP Breakthru Nausea & Vomiting 12/06/16 15:00 01/05/17 14:59 12/10/16 11:57 Ondansetron HCl (Zofran) 4 mg Q6H IVP 12/05/16 14:00 01/04/17 13:59 12/10/16 09:38 Oxycodone/ Acetaminophen 1 tab 1 tab Q4H PRN ORAL Moderate Pain (Pain Scale 4-6) 12/09/16 09:45 12/16/16 09:44 Pantoprazole (Protonix) 40 mg DAILY ORAL 12/06/16 17:30 01/05/17 17:29 12/10/16 09:38 Potassium Chloride/Dextrose/ Lactated Ringer's (KCl/D5lr) 1,020 ml @ 75 mls/hr [id number] IV 12/09/16 11:30 01/08/17 11:29 12/10/16 01:39 Melissa Holley M.D. Dec 10, 2016 14:51
--- NOTE | 2016-12-10 16:38 | Nephrology Progress Note ---
Assessment/Plan Problem List: (1) JONA (acute kidney injury) (2) Uterine myoma (3) Abdominal pain (4) Post-op pain Plan creatinine 1.5 mild rise, repeat 1.4 observe with hydration, can reduce iv rate Subjective Constitutional: Reports: weakness HEENT: Reports: no symptoms Genitourinary: Reports: no symptoms Neurologic/Psychiatric: Reports: no symptoms Subjective less nausea and abdom pain Objective Objective Last 24 Hour Vital Signs Date Time Temp Pulse Resp B/P Pulse Ox O2 Delivery O2 Flow Rate FiO2 12/10/16 16:00 97.7 73 20 135/82 97 Room Air 12/10/16 12:00 97.9 67 20 126/83 99 Room Air 12/10/16 08:32 70 14 99 12/10/16 08:15 97.9 72 16 123/88 100 Nasal Cannula 3.0 12/10/16 08:00 63 17 139/91 100 Nasal Cannula 3.0 12/10/16 07:55 61 19 127/98 100 Nasal Cannula 3.0 12/10/16 07:55 67 14 100 12/10/16 07:50 97.7 66 22 136/88 100 Nasal Cannula 3.0 12/10/16 05:11 98.1 12/10/16 04:30 97 Room Air 12/10/16 04:00 98.1 62 18 125/73 Room Air 12/10/16 00:30 97 Room Air 12/10/16 00:00 98.1 80 20 128/80 Room Air 12/09/16 20:00 98.6 73 20 138/76 98 Room Air Intake and Output 12/09/16 12/10/16 19:00 07:00 Intake Total 1385 ml 610 ml Balance 1385 ml 610 ml Intake Oral 360 ml IV Total 1025 ml 610 ml # Voids 2 2 Laboratory Tests 12/10/16 04:45: White Blood Count 9.9, Red Blood Count 3.68L, Hemoglobin 10.1L, Hematocrit 30.4L , Mean Corpuscular Volume 83, Mean Corpuscular Hemoglobin 27.6, Mean Corpuscular Hemoglobin Concent 33.3, Red Cell Distribution Width 14.3, Platelet Count 339, Mean Platelet Volume 5.6L, Neutrophils (%) (Auto) 73.7, Lymphocytes ( %) (Auto) 13.6L, Monocytes (%) (Auto) 7.7, Eosinophils (%) (Auto) 3.5H, Basophils (%) (Auto) 1.4, Sodium Level 138, Potassium Level 4.5, Chloride Level 100, Carbon Dioxide Level 26, Anion Gap 12, Blood Urea Nitrogen 6L, Creatinine 1.4H, Estimat Glomerular Filtration Rate 49.7, Glucose Level 101, Calcium Level 9.2, Total Bilirubin 0.3, Aspartate Amino Transf (AST/SGOT) 11, Alanine Aminotransferase (ALT/SGPT) 5, Alkaline Phosphatase 51, Total Protein 6.5L, Albumin 3.0L, Globulin 3.5, Albumin/Globulin Ratio 0.8L 12/10/16 12:50: Prothrombin Time 10.5, Prothromb Time International Ratio 1.0, Activated Partial Thromboplast Time 29 Height (Feet): 5 Height (Inches): 5.00 Weight (Pounds): 238 General Appearance: no apparent distress, alert EENT: PERRL/EOMI Neck: normal alignment Cardiovascular: normal rate, regular rhythm Respiratory/Chest: lungs clear Abdomen: non tender Neurologic: glove operator II-XII grossly normal REN JACKSON Dec 10, 2016 16:38
[2016-12-10] MEDS ORDERED: Potassium Chloride 40 MEQ in Dextrose 5%/Lactated Ringer's 1,000 ML IV SCH (17:00)
--- NOTE | 2016-12-10 17:11 | General Progress Note ---
Assessment/Plan Assessment/Plan Abdominal pain and emesis following myomectomy. Acute kidney injury tolerating diet less pain having seroma drained Cr stable around 1.5 dc iv narcotics dc plan Subjective Constitutional: Denies: fever Gastrointestinal/Abdominal: Reports: abdominal pain, Denies: vomiting Allergies: Coded Allergies: TOPIRAMATE (Verified Allergy, Unknown, 11/15/16) Objective Last 24 Hour Vital Signs Date Time Temp Pulse Resp B/P Pulse Ox O2 Delivery O2 Flow Rate FiO2 12/10/16 16:00 97.7 73 20 135/82 97 Room Air 12/10/16 12:00 97.9 67 20 126/83 99 Room Air 12/10/16 08:32 70 14 99 12/10/16 08:15 97.9 72 16 123/88 100 Nasal Cannula 3.0 12/10/16 08:00 63 17 139/91 100 Nasal Cannula 3.0 12/10/16 07:55 61 19 127/98 100 Nasal Cannula 3.0 12/10/16 07:55 67 14 100 12/10/16 07:50 97.7 66 22 136/88 100 Nasal Cannula 3.0 12/10/16 05:11 98.1 12/10/16 04:30 97 Room Air 12/10/16 04:00 98.1 62 18 125/73 Room Air 12/10/16 00:30 97 Room Air 12/10/16 00:00 98.1 80 20 128/80 Room Air 12/09/16 20:00 98.6 73 20 138/76 98 Room Air Intake and Output 12/09/16 12/10/16 19:00 07:00 Intake Total 1385 ml 610 ml Balance 1385 ml 610 ml Intake Oral 360 ml IV Total 1025 ml 610 ml # Voids 2 2 Laboratory Tests 12/10/16 04:45: White Blood Count 9.9, Red Blood Count 3.68L, Hemoglobin 10.1L, Hematocrit 30.4L , Mean Corpuscular Volume 83, Mean Corpuscular Hemoglobin 27.6, Mean Corpuscular Hemoglobin Concent 33.3, Red Cell Distribution Width 14.3, Platelet Count 339, Mean Platelet Volume 5.6L, Neutrophils (%) (Auto) 73.7, Lymphocytes ( %) (Auto) 13.6L, Monocytes (%) (Auto) 7.7, Eosinophils (%) (Auto) 3.5H, Basophils (%) (Auto) 1.4, Sodium Level 138, Potassium Level 4.5, Chloride Level 100, Carbon Dioxide Level 26, Anion Gap 12, Blood Urea Nitrogen 6L, Creatinine 1.4H, Estimat Glomerular Filtration Rate 49.7, Glucose Level 101, Calcium Level 9.2, Total Bilirubin 0.3, Aspartate Amino Transf (AST/SGOT) 11, Alanine Aminotransferase (ALT/SGPT) 5, Alkaline Phosphatase 51, Total Protein 6.5L, Albumin 3.0L, Globulin 3.5, Albumin/Globulin Ratio 0.8L 12/10/16 12:50: Prothrombin Time 10.5, Prothromb Time International Ratio 1.0, Activated Partial Thromboplast Time 29 Height (Feet): 5 Height (Inches): 5.00 Weight (Pounds): 238 General Appearance: no apparent distress Neck: supple Cardiovascular: normal rate Respiratory/Chest: lungs clear Abdomen: non tender, soft KARSTEN CLEMENTS Dec 10, 2016 17:11
[2016-12-11 04:00] VITALS: BP 135/90
[2016-12-11 05:23] LABS: BASOPHILS % (AUTO) 0.5 % (0.0-2.0); EOSINOPHILS % (AUTO) 4.2 % (0.0-3.0); LYMPHOCYTES % (AUTO) 16.6 % (20.0-45.0); MEAN CORPUSCULAR HEMOGLOBIN 26.3 PG (27.0-31.0); MEAN CORPUSCULAR HGB CONC 31.4 G/DL (32.0-36.0); MEAN CORPUSCULAR VOLUME 84 FL (80-99); MONOCYTES % (AUTO) 8.5 % (1.0-10.0); NEUTROPHILS % (AUTO) 70.1 % (45.0-75.0); PLATELET COUNT 352 K/UL (150-450); RED BLOOD COUNT 4.06 M/UL (4.20-5.40); RED CELL DISTRIBUTION WIDTH 14.5 % (11.6-14.8); WHITE BLOOD COUNT 8.4 K/UL (4.8-10.8)
[2016-12-11 05:36] LABS: CALCIUM 9.8 mg/dL (8.6-10.2); CREATININE 1.4 mg/dL (0.5-0.9); GLOMERULAR FILTRATION RATE 49.7 mL/min (>60); POTASSIUM 4.1 mEQ/L (3.4-4.9); TOTAL PROTEIN 6.6 g/dL (6.6-8.7)
[2016-12-11] MEDS ORDERED: NORCO 10-325 T1 EACH ORAL (08:33)
[2016-12-11 08:37] VITALS: BP 110/64
--- NOTE | 2016-12-11 08:53 | General Progress Note ---
Assessment/Plan Assessment/Plan (1) Pelvic pain (2) Fibroid Uterus (3) S/p Uterine artery embolization (4) Abdominal pain (5) Symptomatic leiomymata (6) S/p Abdominal Myomectomy We will continue Neurontin. An Rx for Neurontin was written. She was again advised to f/u with her PMD and surgeon when discharged. Pt was d/w Dr. Hoover and he concurred Subjective Date patient seen: Dec 11, 2016 Time patient seen: 07:30 - am Allergies: Coded Allergies: TOPIRAMATE (Verified Allergy, Unknown, 11/15/16) Subjective REVIEW OF SYSTEMS: Denies rash, fever, chills, sweating, dizziness, drowsiness, blurred vision, sore throat, change in weight. No shortness of breath or chest pain. No diarrhea, or blood in the stool or urine. No bowel or bladder incontinence. No dysuria. She is complaining of abdominal and pelvic pain. SUBJECTIVE: The pain has been reducing and is looking forward to being discharged home. She reports that the Percocet had upset her stomach and was started on [place]. An Rx was written for [place]. Objective Last 24 Hour Vital Signs Date Time Temp Pulse Resp B/P Pulse Ox O2 Delivery O2 Flow Rate FiO2 12/11/16 08:37 96.3 71 20 110/64 97 Room Air 12/11/16 04:00 96.6 69 18 135/90 99 Room Air 12/11/16 03:49 97.8 12/10/16 23:48 97.8 76 18 136/80 98 Room Air 12/10/16 20:00 97.5 77 18 127/94 98 Room Air 12/10/16 16:00 97.7 73 20 135/82 97 Room Air 12/10/16 12:00 97.9 67 20 126/83 99 Room Air Intake and Output 12/10/16 12/11/16 19:00 07:00 Intake Total 735 ml 920 ml Balance 735 ml 920 ml Intake Oral 360 ml 420 ml IV Total 375 ml 500 ml # Voids 3 Laboratory Tests 12/10/16 12:50: Prothrombin Time 10.5, Prothromb Time International Ratio 1.0, Activated Partial Thromboplast Time 29 12/11/16 04:30: White Blood Count 8.4, Red Blood Count 4.06L, Hemoglobin 10.7L, Hematocrit 33.9L , Mean Corpuscular Volume 84, Mean Corpuscular Hemoglobin 26.3L, Mean Corpuscular Hemoglobin Concent 31.4L, Red Cell Distribution Width 14.5, Platelet Count 352, Mean Platelet Volume 6.0L, Neutrophils (%) (Auto) 70.1, Lymphocytes (%) (Auto) 16.6L, Monocytes (%) (Auto) 8.5, Eosinophils (%) (Auto) 4.2H, Basophils (%) (Auto) 0.5, Sodium Level 137, Potassium Level 4.1, Chloride Level 98, Carbon Dioxide Level 29, Anion Gap 10, Blood Urea Nitrogen 6L, Creatinine 1.4H, Estimat Glomerular Filtration Rate 49.7, Glucose Level 92, Calcium Level 9.8, Total Bilirubin 0.2, Aspartate Amino Transf (AST/SGOT) 10, Alanine Aminotransferase (ALT/SGPT) 6, Alkaline Phosphatase 51, Total Protein 6.6, Albumin 3.3L, Globulin 3.3, Albumin/Globulin Ratio 1.0 Height (Feet): 5 Height (Inches): 5.00 Weight (Pounds): 238 Objective GENERAL: Alert, awake, and oriented x3. HEENT: PERRLA. NECK: Range of motion is full in all directions. No tenderness to paracervical muscles. No adenopathy. LUNGS: Lungs are clear. HEART: Regular. ABDOMEN: Tenderness to palpation with bandages noted. BACK: Range of motion is decreased in flexion and extension. No tenderness to trapezius or rhomboid muscles. EXTREMITIES: No cyanosis. No clubbing. No edema. NEURO: No Focal deficit JOSÉ LANGSTON Dec 11, 2016 08:53
[2016-12-11] MEDS ORDERED: Norco 5mg/325mg tab ORAL PRN (11:15)
--- NOTE | 2016-12-11 11:41 | Nephrology Progress Note ---
Assessment/Plan Problem List: (1) JONA (acute kidney injury) (2) Uterine myoma (3) Abdominal pain (4) Post-op pain Plan creatinine 1.5 mild rise, repeat 1.4 observe with hydration, can reduce iv rate Subjective Constitutional: Reports: weakness HEENT: Reports: no symptoms Genitourinary: Reports: no symptoms Neurologic/Psychiatric: Reports: no symptoms Subjective less nausea and abdom pain Objective Objective Last 24 Hour Vital Signs Date Time Temp Pulse Resp B/P Pulse Ox O2 Delivery O2 Flow Rate FiO2 12/11/16 08:37 96.3 71 20 110/64 97 Room Air 12/11/16 04:00 96.6 69 18 135/90 99 Room Air 12/11/16 03:49 97.8 12/10/16 23:48 97.8 76 18 136/80 98 Room Air 12/10/16 20:00 97.5 77 18 127/94 98 Room Air 12/10/16 16:00 97.7 73 20 135/82 97 Room Air 12/10/16 12:00 97.9 67 20 126/83 99 Room Air Intake and Output 12/10/16 12/11/16 19:00 07:00 Intake Total 735 ml 920 ml Balance 735 ml 920 ml Intake Oral 360 ml 420 ml IV Total 375 ml 500 ml # Voids 3 Laboratory Tests 12/10/16 12:50: Prothrombin Time 10.5, Prothromb Time International Ratio 1.0, Activated Partial Thromboplast Time 29 12/11/16 04:30: White Blood Count 8.4, Red Blood Count 4.06L, Hemoglobin 10.7L, Hematocrit 33.9L , Mean Corpuscular Volume 84, Mean Corpuscular Hemoglobin 26.3L, Mean Corpuscular Hemoglobin Concent 31.4L, Red Cell Distribution Width 14.5, Platelet Count 352, Mean Platelet Volume 6.0L, Neutrophils (%) (Auto) 70.1, Lymphocytes (%) (Auto) 16.6L, Monocytes (%) (Auto) 8.5, Eosinophils (%) (Auto) 4.2H, Basophils (%) (Auto) 0.5, Sodium Level 137, Potassium Level 4.1, Chloride Level 98, Carbon Dioxide Level 29, Anion Gap 10, Blood Urea Nitrogen 6L, Creatinine 1.4H, Estimat Glomerular Filtration Rate 49.7, Glucose Level 92, Calcium Level 9.8, Total Bilirubin 0.2, Aspartate Amino Transf (AST/SGOT) 10, Alanine Aminotransferase (ALT/SGPT) 6, Alkaline Phosphatase 51, Total Protein 6.6, Albumin 3.3L, Globulin 3.3, Albumin/Globulin Ratio 1.0 Height (Feet): 5 Height (Inches): 5.00 Weight (Pounds): 238 General Appearance: no apparent distress, alert EENT: normal ENT inspection Neck: normal alignment Cardiovascular: normal rate, regular rhythm Respiratory/Chest: lungs clear Abdomen: normal bowel sounds, non tender, soft Extremities: other - no edema 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
[2016-12-11 12:25] VITALS: BP 125/79
--- NOTE | 2016-12-11 13:05 | General Progress Note ---
Assessment/Plan Problem List: (1) Uterine myoma ICD Codes: D25.9 - Leiomyoma of uterus, unspecified SNOMED: 82482285 (2) Nausea & vomiting ICD Codes: R11.2 - Nausea with vomiting, unspecified SNOMED: 81615792 (3) Anemia ICD Codes: D64.9 - Anemia, unspecified SNOMED: 636147363 (4) GERD (gastroesophageal reflux disease) ICD Codes: K21.9 - Gastro-esophageal reflux disease without esophagitis SNOMED: 386919564 (5) Abdominal pain ICD Codes: R10.9 - Unspecified abdominal pain SNOMED: 31556875 Assessment/Plan on reglan nausea possibly due to narcotics fu out patient Subjective ROS Limited/Unobtainable: Yes Allergies: Coded Allergies: TOPIRAMATE (Verified Allergy, Unknown, 11/15/16) Subjective feeling better going home Objective Last 24 Hour Vital Signs Date Time Temp Pulse Resp B/P Pulse Ox O2 Delivery O2 Flow Rate FiO2 12/11/16 12:25 97.2 67 20 125/79 98 Room Air 12/11/16 08:37 96.3 71 20 110/64 97 Room Air 12/11/16 04:00 96.6 69 18 135/90 99 Room Air 12/11/16 03:49 97.8 12/10/16 23:48 97.8 76 18 136/80 98 Room Air 12/10/16 20:00 97.5 77 18 127/94 98 Room Air 12/10/16 16:00 97.7 73 20 135/82 97 Room Air Intake and Output 12/10/16 12/11/16 19:00 07:00 Intake Total 735 ml 920 ml Balance 735 ml 920 ml Intake Oral 360 ml 420 ml IV Total 375 ml 500 ml # Voids 3 Laboratory Tests 12/11/16 04:30: White Blood Count 8.4, Red Blood Count 4.06L, Hemoglobin 10.7L, Hematocrit 33.9L , Mean Corpuscular Volume 84, Mean Corpuscular Hemoglobin 26.3L, Mean Corpuscular Hemoglobin Concent 31.4L, Red Cell Distribution Width 14.5, Platelet Count 352, Mean Platelet Volume 6.0L, Neutrophils (%) (Auto) 70.1, Lymphocytes (%) (Auto) 16.6L, Monocytes (%) (Auto) 8.5, Eosinophils (%) (Auto) 4.2H, Basophils (%) (Auto) 0.5, Sodium Level 137, Potassium Level 4.1, Chloride Level 98, Carbon Dioxide Level 29, Anion Gap 10, Blood Urea Nitrogen 6L, Creatinine 1.4H, Estimat Glomerular Filtration Rate 49.7, Glucose Level 92, Calcium Level 9.8, Total Bilirubin 0.2, Aspartate Amino Transf (AST/SGOT) 10, Alanine Aminotransferase (ALT/SGPT) 6, Alkaline Phosphatase 51, Total Protein 6.6, Albumin 3.3L, Globulin 3.3, Albumin/Globulin Ratio 1.0 Height (Feet): 5 Height (Inches): 5.00 Weight (Pounds): 238 General Appearance: alert EENT: normal ENT inspection Neck: supple Cardiovascular: normal rate Respiratory/Chest: lungs clear Abdomen: normal bowel sounds, non tender, soft Extremities: non-tender YAO GENAO Dec 11, 2016 13:05
--- NOTE | 2016-12-11 14:30 | Physician Query ---
PLEASE COMPLETE THE DOCUMENT BEFORE SIGNING Dear Dr. Yoan Yip Date: November Limb Driver/CDS Name: TONYA Ratliff Limb Driver / CDS Exercise your independent professional judgment when responding to query. Question asked do not imply a particular answer is desired/expected Clinical Documentation States: "Acute Renal Failure very likely due to dehydration from her nausea and vomiting associated with her recent procedure. She states that she did have a vancomycin-resistant enterococcus urinary tract infection in the past, but I doubt that this is related to her current acute kidney injury" documented in the consultation notes of Dr. Laureano mireles. Clinical Findings Show: Creatinine 0.5, 0.8, 1.3, 1.5, 1.4, 1.5, 1.4, 1.4 BUN =5, 4, 4, 3, 3, 4, 6 , 6 Please Clarify the type of renal failure below: Etiology [x] ARF w/ Tubular Necrosis [] ARF w/ Cortical Necrosis [] ARF w/ Medullary Necrosis [] Acute Renal Failure (unspecified) [] Other: Condition Present on Admission: [] Yes [x] No []Clinically Undeterminable Please also document in your Progress Notes and/or Discharge Summary and indicate if the condition was present on admission. Yoan Yip MD Date/Time [facility]
--- NOTE | 2016-12-11 14:50 | General Surgery Progress Note ---
General Surgery-Progress Note Subjective Procedure Performed myomectomy Symptoms: improved, tolerating diet, voiding well, BM Objective Last 24 Hour Vital Signs Date Time Temp Pulse Resp B/P Pulse Ox O2 Delivery O2 Flow Rate FiO2 12/11/16 12:25 97.2 67 20 125/79 98 Room Air 12/11/16 08:37 96.3 71 20 110/64 97 Room Air 12/11/16 04:00 96.6 69 18 135/90 99 Room Air 12/11/16 03:49 97.8 12/10/16 23:48 97.8 76 18 136/80 98 Room Air 12/10/16 20:00 97.5 77 18 127/94 98 Room Air 12/10/16 16:00 97.7 73 20 135/82 97 Room Air I&O Intake and Output 12/10/16 12/11/16 19:00 07:00 Intake Total 735 ml 920 ml Balance 735 ml 920 ml Intake Oral 360 ml 420 ml IV Total 375 ml 500 ml # Voids 3 Dressing: dry Wound: clean Drains: none Cardiovascular: RSR Respiratory: clear Abdomen: soft, flat, scaphoid, present bowel sounds Extremities: no edema, no tenderness, no cyanosis Laboratory Tests Test 12/11/16 04:30 White Blood Count 8.4 K/UL (4.8-10.8) Red Blood Count 4.06 M/UL (4.20-5.40) L Hemoglobin 10.7 G/DL (12.0-16.0) L Hematocrit 33.9 % (37.0-47.0) L Mean Corpuscular Volume 84 FL (80-99) Mean Corpuscular Hemoglobin 26.3 PG (27.0-31.0) L Mean Corpuscular Hemoglobin Concent 31.4 G/DL (32.0-36.0) L Red Cell Distribution Width 14.5 % (11.6-14.8) Platelet Count 352 K/UL (150-450) Mean Platelet Volume 6.0 FL (6.5-10.1) L Neutrophils (%) (Auto) 70.1 % (45.0-75.0) Lymphocytes (%) (Auto) 16.6 % (20.0-45.0) L Monocytes (%) (Auto) 8.5 % (1.0-10.0) Eosinophils (%) (Auto) 4.2 % (0.0-3.0) H Basophils (%) (Auto) 0.5 % (0.0-2.0) Sodium Level 137 mEQ/L (135-145) Potassium Level 4.1 mEQ/L (3.4-4.9) Chloride Level 98 mEQ/L (98-107) Carbon Dioxide Level 29 mEQ/L (20-30) Anion Gap 10 (5-15) Blood Urea Nitrogen 6 mg/dL (7-23) L Creatinine 1.4 mg/dL (0.5-0.9) H Estimat Glomerular Filtration Rate 49.7 mL/min (>60) Glucose Level 92 mg/dL (74-106) Calcium Level 9.8 mg/dL (8.6-10.2) Total Bilirubin 0.2 mg/dL (0.0-1.2) Aspartate Amino Transf (AST/SGOT) 10 U/L (5-40) Alanine Aminotransferase (ALT/SGPT) 6 U/L (3-33) Alkaline Phosphatase 51 U/L (35-104) Total Protein 6.6 g/dL (6.6-8.7) Albumin 3.3 g/dL (3.5-5.2) L Globulin 3.3 g/dL Albumin/Globulin Ratio 1.0 (1.0-2.7) Plan Additional Comments tolerating diet, pain controlled with oral medication. will discharge, and follow up next week. Dylan Kraft MD Dec 11, 2016 14:50
--- NOTE | 2016-12-11 15:13 | Infectious Diseases Prog Note ---
Assessment/Plan Problems: (1) Abdominal pain Assessment & Plan: improved, unclear etiology, with no infectious etiology , surgery and GI are following , continue pain management as per primary team (2) Leukocytosis Assessment & Plan: improved, suspect dehydration related, with no evidence of infection and negative blood culture x2 , MRI of abdomen and pelvis is negative for any infection, continue to monitor off antibiotics . (3) Nausea & vomiting Assessment & Plan: resolved, tolerated diet well today , continue supportive care and hydration , taper narcotics (4) Colonization with VRE (vancomycin-resistant enterococcus) Assessment & Plan: resolved with negative swab this time, may remove from contact isolation (5) Uterine myoma Assessment & Plan: S/P surgical resection, Dr Chan is following . (6) JONA (acute kidney injury) Assessment & Plan: improving, suspect dehydration related, continue IVF, renal is following Subjective Constitutional: Reports: no symptoms HEENT: Reports: no symptoms Respiratory: Reports: no symptoms Breasts: Reports: no symptoms Cardiovascular: Reports: no symptoms Gastrointestinal/Abdominal: Reports: no symptoms Genitourinary: Reports: no symptoms Neurologic: Reports: no symptoms Psychiatric: Reports: no symptoms Skin: Reports: no symptoms Endocrine: Reports: no symptoms Hematologic: Reports: no symptoms Musculoskeletal: Reports: no symptoms Allergies: Coded Allergies: TOPIRAMATE (Verified Allergy, Unknown, 11/15/16) Objective Vital Signs Last 24 Hour Vital Signs Date Time Temp Pulse Resp B/P Pulse Ox O2 Delivery O2 Flow Rate FiO2 12/11/16 12:25 97.2 67 20 125/79 98 Room Air 12/11/16 08:37 96.3 71 20 110/64 97 Room Air 12/11/16 04:00 96.6 69 18 135/90 99 Room Air 12/11/16 03:49 97.8 12/10/16 23:48 97.8 76 18 136/80 98 Room Air 12/10/16 20:00 97.5 77 18 127/94 98 Room Air 12/10/16 16:00 97.7 73 20 135/82 97 Room Air Height (Feet): 5 Height (Inches): 5.00 Weight (Pounds): 238 General Appearance: WD/WN, no acute distress HEENT: normocephalic, atraumatic, anicteric, mucous membranes moist Respiratory/Chest: chest wall non-tender, lungs clear, normal breath sounds, no respiratory distress, no accessory muscle use Cardiovascular: normal peripheral pulses, normal rate, regular rhythm, no gallop/murmur, no JVD Abdomen: normal bowel sounds, soft, non tender, no organomegaly, non distended , no mass Extremities: no cyanosis, no clubbing Skin: no rash, no lesions, other - surgical scar is clean and intact Microbiology Date/Time Source Procedure Growth Status 12/10/16 11:30 Abdominal Incision Gram Stain - Final Resulted 12/10/16 11:30 Abdominal Incision Aerobic Culture - Preliminary NO GROWTH AFTER 24 HOURS Resulted 12/10/16 11:30 Abdominal Incision Anaerobic Culture Pending Resulted Laboratory Tests Test 12/11/16 04:30 White Blood Count 8.4 K/UL (4.8-10.8) Red Blood Count 4.06 M/UL (4.20-5.40) L Hemoglobin 10.7 G/DL (12.0-16.0) L Hematocrit 33.9 % (37.0-47.0) L Mean Corpuscular Volume 84 FL (80-99) Mean Corpuscular Hemoglobin 26.3 PG (27.0-31.0) L Mean Corpuscular Hemoglobin Concent 31.4 G/DL (32.0-36.0) L Red Cell Distribution Width 14.5 % (11.6-14.8) Platelet Count 352 K/UL (150-450) Mean Platelet Volume 6.0 FL (6.5-10.1) L Neutrophils (%) (Auto) 70.1 % (45.0-75.0) Lymphocytes (%) (Auto) 16.6 % (20.0-45.0) L Monocytes (%) (Auto) 8.5 % (1.0-10.0) Eosinophils (%) (Auto) 4.2 % (0.0-3.0) H Basophils (%) (Auto) 0.5 % (0.0-2.0) Sodium Level 137 mEQ/L (135-145) Potassium Level 4.1 mEQ/L (3.4-4.9) Chloride Level 98 mEQ/L (98-107) Carbon Dioxide Level 29 mEQ/L (20-30) Anion Gap 10 (5-15) Blood Urea Nitrogen 6 mg/dL (7-23) L Creatinine 1.4 mg/dL (0.5-0.9) H Estimat Glomerular Filtration Rate 49.7 mL/min (>60) Glucose Level 92 mg/dL (74-106) Calcium Level 9.8 mg/dL (8.6-10.2) Total Bilirubin 0.2 mg/dL (0.0-1.2) Aspartate Amino Transf (AST/SGOT) 10 U/L (5-40) Alanine Aminotransferase (ALT/SGPT) 6 U/L (3-33) Alkaline Phosphatase 51 U/L (35-104) Total Protein 6.6 g/dL (6.6-8.7) Albumin 3.3 g/dL (3.5-5.2) L Globulin 3.3 g/dL Albumin/Globulin Ratio 1.0 (1.0-2.7) Current Medications Medications (Trade) Dose Ordered Sig/Penny Route PRN Reason Start Time Stop Time Status Last Admin Dose Admin Acetaminophen/ Hydrocodone Bitart ([place] 5/325) 1 tab Q4H PRN ORAL Moderate Pain (Pain Scale 4-6) 12/11/16 11:15 12/18/16 11:14 Al Hydroxide/Mg Hydroxide (Mylanta II) 30 ml Q6H PRN ORAL dyspepsia 12/07/16 14:45 01/06/17 14:44 Dextrose (Dextrose 50%) STAT PRN IV Hypoglycemia 12/04/16 16:00 01/03/17 15:59 Gabapentin (Neurontin) 300 mg THREE TIMES A DAY ORAL 12/04/16 19:00 01/03/17 18:59 12/11/16 13:38 Methylnaltrexone [place] (Relistor) 12 mg QOD@1800 SUBQ 12/07/16 18:00 01/06/17 17:59 12/09/16 17:11 Metoclopramide HCl (Reglan) 10 mg Q6H PRN IVP Breakthru Nausea & Vomiting 12/06/16 15:00 01/05/17 14:59 12/10/16 11:57 Ondansetron HCl (Zofran ODT) 4 mg Q6H PRN ORAL Nausea & Vomiting 12/11/16 09:00 01/10/17 08:59 12/11/16 09:37 Pantoprazole (Protonix) 40 mg ACBREAKFAST ORAL 12/11/16 10:30 8/24/17 10:29 12/11/16 10:22 Melissa Holley M.D. Dec 11, 2016 15:13
--- NOTE | 2016-12-15 01:32 | Discharge Summary 2 SIG ---
DATE OF ADMISSION: 12/04/2016 DATE OF DISCHARGE: 12/11/2016 SURGEON: Dylan Kraft M.D. CONSULTANTS: 1. Laureano Calderón M.D. 2. Melissa Holley M.D. 3. Alvarado Magdaleno M.D. 4. Shayan Hoover M.D. Brief Hospital Course: The patient is a 41-year-old female, who had uterine artery embolization secondary to large fibroids on 11/14/2016 and subsequent myomectomy on 11/23/2016. She presented with vomiting and severe pain and emesis episodes. She initially presented to [facility] for evaluation, where a CT scan of the abdomen and pelvis with contrast showed air bubbles and fluid around the uterus suspicious for infection. She was then transferred to [facility] to be evaluated by her grid trimmer, Dr. Kraft. She was initially started on vancomycin and Zosyn. She underwent abdominal and pelvic MRI, which showed uterine changes expected postmyomectomy, however, negative for any infection. Antibiotics were then discontinued. There was no evidence of sepsis and blood culture was negative x2. Her renal function declined. She had kidney injury likely due to dehydration, nausea and vomiting. She was placed on IV hydration. She was given pain medications consisting of Dilaudid IV and Neurontin. She was initially started on clear liquid diet and was given scopolamine patch and around the clock Zofran with breakthrough Reglan prn nausea and vomiting. She was given proton pump inhibitors and bowel regimen consisting of Colace and MiraLax. She had an esophagogastroduodenoscopy done on 12/10/[address] Magdaleno findings showed diffuse gastritis otherwise normal upper endoscopic examination. Abdominal and pelvic CT showed abdominal wall fluid collection around incision. She underwent CT-guided drainage of the abscess on 12/10/2016 with a successful aspiration of 30 mL serosanguineous fluid. She had been tolerating diet and had less pain. Creatinine had been stable on 1.5. Intravenous narcotics was discontinued and the patient was discharged home. Follow up with Dr. Kraft on 12/17/2016 at 14:30. DISPOSITION: The patient was discharged home. DISCHARGE MEDICATIONS: Refer to medication list. FINAL DIAGNOSES: 1. Abdominal pain with emesis following myomectomy. 2. Acute renal failure with acute tubular necrosis. 3. Leukocytosis suspect dehydration related. 4. Uterine myoma status post embolization and myomectomy. 5. Nausea and vomiting, possibly opiate induced. 6. Postoperative pain. Yoan Yip M.D. I have been assigned to dictate discharge summary on this account and I was not involved in the patient's management. Pinky Montejo N.P. DR: NADIA JOB#: [id number] CC: BETTY
== END 2016-12-11 15:56 | disposition home or self-care (01) | DRG 862 ==
LOC: 4W 16:18
PROC: 0J983ZZ Drainage of Abdomen Subcutaneous Tissue and Fascia, Percutaneous Approach (ICD-10-PCS; principal; 2016-12-10 07:42)
PROC: 0DB68ZX Excision of Stomach, Via Natural or Artificial Opening Endoscopic, Diagnostic (ICD-10-PCS; principal; 2016-12-10 07:42)
DX: T81.4XXA Infection following a procedure, initial encounter (principal); N17.0 Acute kidney failure with tubular necrosis; L02.211 Cutaneous abscess of abdominal wall; K57.92 Diverticulitis of intestine, part unspecified, without perforation or abscess without bleeding; G89.18 Other acute postprocedural pain; Y83.8 Other surgical procedures as the cause of abnormal reaction of the patient, or of later complication, without mention of misadventure at the time of the procedure; R10.2 Pelvic and perineal pain; E88.09 Other disorders of plasma-protein metabolism, not elsewhere classified; D25.9 Leiomyoma of uterus, unspecified; Z22.39 Carrier of other specified bacterial diseases; Z16.21 Resistance to vancomycin; R11.2 Nausea with vomiting, unspecified; E86.0 Dehydration; K44.9 Diaphragmatic hernia without obstruction or gangrene; B95.2 Enterococcus as the cause of diseases classified elsewhere; K21.9 Gastro-esophageal reflux disease without esophagitis; D64.9 Anemia, unspecified; K29.70 Gastritis, unspecified, without bleeding; K59.03 Drug induced constipation; T40.2X5A Adverse effect of other opioids, initial encounter; Z88.8 Allergy status to other drugs, medicaments and biological substances
CPT/HCPCS: 36415; 72197; 74176; 74183; 75989; 80048; 80053; 82270; 82550; 82570; 82728; 83540; 83550; 84300; 85025; 85610; 85730; 87040; 87070; 87075; 87081; 87205; 94003; 94150; A9585; J2405; J2765